=== PATIENT | female | born 1950 | race Caucasian/White ===

== ENCOUNTER 2017-04-23 09:05 | Inpatient (IN) ==
[2017-04-18 15:52] LABS: Basophils # (Auto) 0 K/mcL (0.0-0.3); Basophils % (Auto) 0.4 % (0.0-2.0); Eosinophils # (Auto) 0.4 K/mcL (0.0-0.7); Eosinophils % (Auto) 4.7 % (0.0-7.0); Lymphocytes # (Auto) 1.5 K/mcL (1.5-4.8); Lymphocytes % (Auto) 18.1 % (15.5-49.0); Mean Cell Volume 89.7 fL (80.0-100.0); Mean Corpuscular Hemoglobin 30.4 pg (26.0-34.0); Monocytes # (Auto) 0.6 K/mcL (0.1-0.9); Monocytes % (Auto) 6.8 % (1.0-12.0); Platelet Count 136 K/mcL (140-440); RBC 4.03 M/mcL (4.00-5.20); Red Cell Distribution Width 15.3 % (11.5-14.5)
[2017-04-18 16:05] LABS: Blood Urea Nitrogen 22 mg/dl (8-23)
[~2017-04-23 09:05] MED LIST: ceFAZolin 1 GM VIAL IV SCH
[2017-04-23] MEDS: levETIRAcetam 500 MG TABLET PO SCH ×2 (12:09→21:45)
[2017-04-23] MEDS: CARVEDILOL 12.5 MG TABLET PO SCH (12:09)
[2017-04-23 13:47] LABS: Appearance,Urine CLEAR; Bacteria,Urine 0 /hpf (0); Bilirubin,Urine NEG (NEG); Color,Urine YELLOW; Glucose,Urine (UA) 50 mg/dL (NEG); Leukocyte Esterase,Urine NEG /uL (NEG); Mucus,Urine FEW /hpf (0); Nitrate,Urine NEG (NEG); Protein,Urine >=500 mg/dL (NEG); Specific Gravity,Urine 1.017 (1.000-1.035); Urine Blood NEG mg/dL (<0.03); Urine Hyaline Cast 3 /lpf (0-2); Urine RBC 2 /hpf (0-1); Urine Squamous Epithelial Cell < 1 /hpf (0-4); Urine WBC 1 /hpf (0-4); Urobilinogen,Urine NEG (NEG)
[2017-04-23] MEDS ORDERED: IPRATROPIUM/ALBUTEROL 3 ML AMPUL.NEB NEB ONE (15:05)
[2017-04-23] MEDS ORDERED: MIDAZOLAM 2 MG/2 ML VIAL IV ONE (16:05)
[2017-04-23] MEDS ORDERED: ONDANSETRON 4 MG/2 ML VIAL IV ONE (16:05)
[2017-04-23] MEDS ORDERED: DEXAMETHASONE 10 MG/ML VIAL IV ONE (16:05)
[2017-04-23] MEDS ORDERED: fentaNYL 100 MCG/2 ML VIAL IV ONE (16:05)
[2017-04-23] MEDS ORDERED: KETAMINE 100 MG/ML ML IV ONE (16:05)
[2017-04-23] MEDS ORDERED: GLYCOPYRROLATE 0.2 MG/ML VIAL IV ONE (16:05)
[2017-04-23] MEDS ORDERED: LIDOCAINE HCL/PF 100 MG/5 ML SYRINGE IV ONE (16:05)
[2017-04-23] MEDS ORDERED: PROPOFOL 200 MG/20 ML VIAL IV ONE (16:05)
[2017-04-23] MEDS ORDERED: ePHEDrine 50 MG/ML AMPUL IV ONE (16:05)
[2017-04-23] MEDS ORDERED: BUPIVACAINE PF 0.5% 30 ML VIAL IJ ONE (16:46)
[2017-04-23] MEDS ORDERED: GENTAMICIN SULFATE 800 MG/20 ML VIAL IR ONE (16:46)
[2017-04-23] MEDS ORDERED: METHOCARBAMOL 1,000 MG/10 ML VIAL IV PRN (16:57)
[2017-04-23] MEDS ORDERED: IPRATROPIUM/ALBUTEROL 3 ML AMPUL.NEB NEB PRN (16:57)
[2017-04-23] MEDS ORDERED: LACTATED RINGERS 250 ML IV PRN (16:57)
[2017-04-23] MEDS ORDERED: BENZOCAINE/MENTHOL 1 LOZENGE PO PRN (16:57)
[2017-04-23] MEDS ORDERED: MEPERIDINE 25 MG/ML SYRINGE IV PRN (16:57)
[2017-04-23] MEDS ORDERED: diphenhydrAMINE 50 MG/ML VIAL IV PRN (16:57)
[2017-04-23] MEDS ORDERED: ONDANSETRON 4 MG/2 ML VIAL IV PRN (16:57)
[2017-04-23] MEDS ORDERED: FLUMAZENIL 0.1 MG/ML ML IV PRN (16:57)
[2017-04-23] MEDS ORDERED: NALOXONE HCL 0.4 MG/ML VIAL IV PRN (16:57)
[2017-04-23] MEDS ORDERED: LACTATED RINGERS 1,000 ML IV SCH (17:00)
[2017-04-23] MEDS ORDERED: FLEETS ADULT ENEMA PR PRN (17:05)
[2017-04-23] MEDS ORDERED: TRANEXAMIC ACID 1,000 MG/10 ML VIAL IV ONE (17:05)
--- NOTE | 2017-04-23 17:13 | Brief Operative Note ---
Date of procedure: 04/23/17 Pre-op diagnosis: PVD right Post-op diagnosis: same Procedure: R above knee amputattion Grafts/Implants: No Anesthesia: GETA Complications: none Surgeon: Trey Higgins Equipment Records Supervisor: Booker Zuniga Estimated blood loss (cc): 10 Tourniquet Time (Minutes): 18 Specimens Removed/Pathology: none sent Condition: stable Disposition: PACU
[2017-04-23] MEDS: fentaNYL 100 MCG/2 ML VIAL IV PRN ×3 (17:38→18:01)
[2017-04-23] MEDS: 0.9 % SODIUM CHLORIDE 1,000 ML IV SCH (19:00)
[2017-04-23] MEDS: oxyCODONE/APAP 5/325MG TABLET PO PRN (19:44)
[2017-04-23] MEDS ORDERED: levETIRAcetam 500 MG TABLET PO SCH (21:00)
[2017-04-23] MEDS ORDERED: INSULIN GLARGINE, HUMAN 1 UNIT/0.01 ML SQ SCH (21:00)
[2017-04-23] MEDS: SENNOSIDES 1 TABLET PO SCH (21:44)
[2017-04-23] MEDS: DOCUSATE SODIUM 100 MG CAPSULE PO SCH (21:45)
[2017-04-23] MEDS: PRAMIPEXOLE 0.25 MG TABLET PO SCH (21:46)
[2017-04-23] MEDS: LISINOPRIL 20 MG TABLET PO SCH (21:46)
[2017-04-23] MEDS: ATORVASTATIN 20 MG TABLET PO SCH (21:46)
[2017-04-23] MEDS: 0.9 % SODIUM CHLORIDE 10 ML SYRINGE IV SCH (21:52)
[2017-04-23] MEDS: clonazePAM 0.5 MG TABLET PO SCH (22:00)
[2017-04-23] MEDS: METHOCARBAMOL 500 MG TABLET PO SCH (22:00)
[2017-04-24] MEDS: oxyCODONE/APAP 5/325MG TABLET PO PRN ×5 (02:05→23:10)
[2017-04-24] MEDS: 0.9 % SODIUM CHLORIDE 10 ML SYRINGE IV SCH ×3 (05:41→21:22)
[2017-04-24] MEDS: 0.9 % SODIUM CHLORIDE 1,000 ML IV SCH (05:55)
[2017-04-24 06:52] LABS: Basophils # (Auto) 0 K/mcL (0.0-0.3); Basophils % (Auto) 0.2 % (0.0-2.0); Eosinophils # (Auto) 0 K/mcL (0.0-0.7); Eosinophils % (Auto) 0.2 % (0.0-7.0); Lymphocytes # (Auto) 0.9 K/mcL (1.5-4.8); Lymphocytes % (Auto) 7.6 % (15.5-49.0); Mean Cell Volume 89.9 fL (80.0-100.0); Mean Corpuscular HGB Conc 33.8 g/dL (31.0-36.0); Mean Corpuscular Hemoglobin 30.4 pg (26.0-34.0); Monocytes # (Auto) 0.8 K/mcL (0.1-0.9); Platelet Count 126 K/mcL (140-440); RBC 3.54 M/mcL (4.00-5.20); Red Cell Distribution Width 15.4 % (11.5-14.5)
--- NOTE | 2017-04-24 07:40 | Orthopedic Progress Note ---
Subjective Patient information: Note initiated : 04/24/17 at 7:38 am Service Date, if different from initiated Date: [] Patient: Tamica Tidwell 66 y/o F admitted on 04/23/17 for Right Leg Amputation Above The Knee. Chief Complaint: [] Principal diagnosis: Right AKA Interval history: Patient is doing well and her pain is under control. She will be seen by the hospitalist today and go home in the next couple of days. She denies any chest pain, numbness, weakness, or any other acute symptoms. Objective Vital signs: Vital Signs Temp Pulse Pulse Resp BP BP BP 04/24/17 07:26 79 04/24/17 03:06 97.6 F 79 20 122/62 04/23/17 23:54 96.6 F L 80 18 100/57 04/23/17 23:40 77 89/52 04/23/17 23:33 79 86/50 04/23/17 23:17 85 100/57 04/23/17 23:03 84 111/63 04/23/17 22:50 88 93/56 04/23/17 22:34 85 107/59 04/23/17 22:18 85 108/63 04/23/17 22:09 84 102/61 04/23/17 21:55 87 115/44 04/23/17 21:33 88 111/55 04/23/17 21:19 97.5 F 85 20 132/62 04/23/17 21:18 85 125/66 04/23/17 21:08 85 110/65 04/23/17 20:48 79 99/48 04/23/17 20:32 97.2 F 98 H 159/68 04/23/17 20:19 76 159/68 04/23/17 19:49 80 163/70 04/23/17 19:19 76 152/64 04/23/17 19:04 73 152/66 04/23/17 18:49 75 150/64 04/23/17 18:40 04/23/17 18:34 96.7 F L 74 20 129/71 04/23/17 18:15 73 16 155/58 04/23/17 18:05 70 16 198/80 04/23/17 18:00 69 16 208/87 04/23/17 17:53 98.2 F 69 16 193/80 07/25/17 17:48 98.5 F 71 16 186/72 04/23/17 17:43 98.6 F 72 16 188/77 04/23/17 17:38 98.1 F 74 14 162/64 04/23/17 17:33 98.3 F 75 14 197/83 04/23/17 17:28 98.4 F 79 14 183/77 04/23/17 17:23 98.1 F 82 10 L 123/60 04/23/17 15:22 65 16 04/23/17 12:00 97.9 F 22 169/82 04/23/17 09:33 97.8 F 22 178/81 Pulse Ox 04/24/17 07:26 94 04/24/17 03:06 97 04/23/17 23:54 98 04/23/17 23:40 04/23/17 23:33 04/23/17 23:17 04/23/17 23:03 04/23/17 22:50 04/23/17 22:34 04/23/17 22:18 04/23/17 22:09 04/23/17 21:55 04/23/17 21:33 04/23/17 21:19 95 04/23/17 21:18 04/23/17 21:08 04/23/17 20:48 04/23/17 20:32 04/23/17 20:19 96 04/23/17 19:49 99 04/23/17 19:19 99 04/23/17 19:04 96 04/23/17 18:49 100 04/23/17 18:40 100 04/23/17 18:34 100 04/23/17 18:15 98 04/23/17 18:05 95 04/23/17 18:00 100 04/23/17 17:53 100 04/23/17 17:48 100 04/23/17 17:43 100 04/23/17 17:38 100 04/23/17 17:33 100 04/23/17 17:28 100 04/23/17 17:23 100 04/23/17 15:22 04/23/17 12:00 91 04/23/17 09:33 90 Intake and Output 04/23/17 04/24/17 04/24/17 21:59 05:59 13:59 Intake Total 1100 / 1100 999 / 999 Output Total 4296 / 4296 31211 / 19192 Balance -3196 / -3196 -23850 / -89299 Intake: IV 100 / 100 819 / 819 Sodium Chloride 0.9% 1, 100 / 100 819 / 819 000 ml @ 75 mls/hr IV . [id number] GAVINO Rx#:[id number] Oral 180 / 180 IV - Manual Only 1000 / 1000 Output: Urine Catheter Amount 150 / 150 75 / 75 Hemodialysis UF 4136 / 4136 09083 / 88803 Estimated Blood Loss Other: Weight 111 lb 8 oz Intake & Output: Intake & Output 04/23/17 04/24/17 04/24/17 21:59 05:59 13:59 Intake Total 1100 / 1100 999 / 999 Output Total 4296 / 4296 58690 / 70095 Balance -3196 / -3196 -00479 / -59557 Weight 111 lb 8 oz Intake: IV 100 / 100 819 / 819 Sodium Chloride 0.9% 1, 100 / 100 819 / 819 000 ml @ 75 mls/hr IV . [id number] GAVINO Rx#:[id number] Oral 180 / 180 IV - Manual Only 1000 / 1000 Output: Urine Catheter Amount 150 / 150 75 / 75 Hemodialysis UF 4136 / 4136 38810 / 17926 Estimated Blood Loss Incision: Yes healing Incision clean and dry: Yes Dressing: Yes clean, Yes dry, Yes intact Weight bearing status: non - Labs CBC & BMP: 04/24/17 05:25 04/18/17 14:46 Labs: Orthopedic Labs 04/23/17 09:20 POC PT 12.8 POC INR 1.1 04/24/17 04/18/17 05:25 14:46 Hgb 10.7 L 12.3 Hct 31.8 L 36.2 Assessment and Plan (1) Above knee amputation of right lower extremity 1. Consult from hospitalists for kidney function and assess need for dialysis 2. Plan for discharge in next 1-2 days 3. PT for transfers while in the hospital Status: Acute
[2017-04-24] MEDS: CARVEDILOL 12.5 MG TABLET PO SCH ×4 (08:15→21:19)
[2017-04-24] MEDS: PRAMIPEXOLE 0.25 MG TABLET PO SCH ×3 (08:18→21:21)
[2017-04-24] MEDS: METOCLOPRAMIDE 10 MG TABLET PO SCH ×3 (08:18→21:19)
[2017-04-24] MEDS: ASPIRIN 81 MG TAB.CHEW PO SCH (08:21)
[2017-04-24] MEDS: PANTOPRAZOLE 40 MG TABLET PO SCH (08:21)
[2017-04-24] MEDS: CLOPIDOGREL 75 MG TABLET PO SCH (08:21)
[2017-04-24] MEDS: ISOSORBIDE MONONITRATE 30 MG TAB.XL.24H PO SCH ×2 (08:22→21:21)
[2017-04-24] MEDS: levETIRAcetam 500 MG TABLET PO SCH ×2 (08:22→21:20)
[2017-04-24] MEDS: amLODIPine 10 MG TABLET PO SCH (08:23)
[2017-04-24] MEDS: DOCUSATE SODIUM 100 MG CAPSULE PO SCH ×2 (08:23→21:22)
[2017-04-24] MEDS: TORSEMIDE 10 MG TABLET PO SCH (08:24)
[2017-04-24] MEDS: METHOCARBAMOL 500 MG TABLET PO SCH ×2 (08:35→21:27)
[2017-04-24] MEDS: INSULIN LISPRO 1 UNIT/0.01 ML UNIT SQ SCH ×3 (11:11→21:19)
--- NOTE | 2017-04-24 11:14 | Internal Medicine Consult Note ---
Medical - CN: HPI - Data of Consult Consult date: 04/24/17 Requesting Physician: Trey Higgins Primary Care Provider: Eilzabeth Mccann Family Provider: Sebas Laura - Consult Narrative Reason for consult: Medical Management/ DM/ CKD History of present illness: Ms. Tidwell is a 66 year old female with bilateral BKA, peripheral vascular disease, diabetes, coronary artery disease, congestive heart failure, was admitted to the hospital by orthopedics for right leg wound which was not responding to conservative management. The patient was treated with right above -knee amputation which was done yesterday. Medicine has been consulted for medical management of chronic medical issues. This morning the patient complained of some nausea and had vomiting 1 after which she was able to keep her food down. She had some pain in the right leg yesterday. However, her pain is much more tolerable today. She denies any other acute medical complaints. She denies any headache, dizziness, changes in vision, changes in hearing, difficulty in swallowing. No chest pain no shortness of breath, no cough, no abdominal pain. No constipation or diarrhea. She has some pain at the site of the surgery which is been adequately managed with current pain medications. The patient had her dialysis last night after surgery. CC: Trey Higgins All systems: reviewed and no additional remarkable complaints except as stated ( as per HPI) Medical - CN: PMH Medical history: Medical History (Last Updated 02/14/17 @ 14:27 by [email or web address]) Ankle sprain and strain (Acute) Volume overload (Acute) Dizziness (Acute) Follow up (Acute) Right ankle strain (Acute) Charcot's joint arthropathy in type 2 diabetes mellitus (Acute) Amput below knee, unilat (Acute) CAD (coronary artery disease), [place] coronary artery (Chronic) Tobacco abuse (Chronic) DM type 2 with diabetic peripheral neuropathy (Chronic) Anemia (Acute) Thrombocytopenia (Acute) PVD (peripheral vascular disease) (Chronic) Amputation foot, bilat (Acute) ESRD (end stage renal disease) on dialysis (Acute) Wound dehiscence, surgical (Acute) CHF LVEF 45 Surgical history: ming bka ritht AKA Family history: reviewed and not pertinent Social history: lives home, right handed, smoker, no other substance use. Medical - CN: Meds Home Medications Medication Instructions Recorded Confirmed Type Aspirin [Ecotrin] 81 mg PO DAILY 08/09/15 04/23/17 History Atorvastatin [Lipitor] 20 mg PO HS 08/09/15 04/18/17 History Carvedilol [Coreg] 25 mg PO BIDCC 08/09/15 04/18/17 History Metoclopramide HCl [Metozolv Odt] 5 mg PO TIDAC 08/09/15 04/18/17 History Pantoprazole [Protonix] 40 mg PO QAMAC 08/09/15 04/18/17 History Clopidogrel Bisulfate [Plavix] 75 mg PO DAILY 02/23/16 04/18/17 History Methocarbamol [Robaxin] 500 mg PO BID 02/23/16 04/23/17 History amLODIPine [Norvasc] 10 mg PO DAILY 02/23/16 04/18/17 History Pramipexole Di-HCl [Mirapex] 0.25 mg PO TID 90 Days 03/09/16 04/18/17 Rx Isosorbide Mononitrate [Isosorbide 30 mg PO BID 01/08/17 04/23/17 History Mononitrate ER] Torsemide [Demadex] 60 tablet PO DAILY 01/08/17 04/18/17 History levETIRAcetam [Keppra] 250 mg PO BID 01/09/17 04/18/17 History Insulin Glargine, Human [Lantus] 8 unit SQ HS unit 01/28/17 04/23/17 Rx Insulin Lispro [Humalog] See Protocol SQ ACHS #0 unit 01/28/17 04/23/17 Rx clonazePAM [Klonopin] 0.5 mg PO DAILY@1700 #10 tablet 01/28/17 04/23/17 Rx Lisinopril [Zestril] 20 mg PO HS 04/18/17 04/18/17 History Allergies Allergy/AdvReac Type Severity Reaction Status Date / Time codeine AdvReac Mild n/v Verified 04/18/17 14:15 hydrocodone AdvReac Mild n/v Verified 04/18/17 14:15 Medical - CN: Exam - Constitutional Vitals: Temp Pulse Resp BP Pulse Ox 98.0 F 79 16 132/72 94 04/24/17 08:00 04/24/17 07:26 04/24/17 08:00 04/24/17 08:00 04/24/17 08:00 Exam: GENERAL: The patient is a well-developed, well-nourished in no apparent distress. Is alert and oriented x3. VITAL SIGNS: Reviewed and as noted elsewhere. HEENT: Head is normocephalic and atraumatic. Extraocular muscles are intact. Pupils are equal, round, and reactive to light. Nares appeared normal. Mouth appears any without lesions. Mucous membranes are dry NECK: Normal to inspection, Supple, No lymphadenopathy or thyromegaly. LUNGS: Air entry equal on both sides, no wheezing, bibasilar crackles, left > right. HEART: Regular rate and rhythm normal, S1 and S2 heard, no Gallop, S3 or Rub Noted, No Gross murmur heard. ABDOMEN: Soft, nontender, and nondistended. Positive bowel sounds. No hepatosplenomegaly was noted. EXTREMITIES: No cyanosis, clubbing, rash, lesions or edema. NEUROLOGIC: Cranial nerves II through XII are grossly intact. Motor and Sensory System Grossly Intact PSYCHIATRIC: Normal affect, Normal Mood. Appropriate Behavior. SKIN: No ulceration or wounds noted, No jaundice, No rash noted. extremity: left BKA< right AKA Medical - CN: Result - Labs CBC & Chem 7: 04/24/17 05:25 04/18/17 14:46 Labs: Short CBC 04/24/17 Range/Units 05:25 WBC 12.5 H (4.5-11.0) K/mcL Hgb 10.7 L (12.0-15.0) g/dL Hct 31.8 L (36.0-48.0) % Plt Count 126 L (140-440) K/mcL Urine 04/23/17 Range/Units 11:13 Urine Color Yellow Urine Appearance Clear Urine pH 6.0 (5.0-9.0) Ur Specific [place] 1.017 (1.000-1.035) Urine Protein >=500 A (NEG) mg/dL Urine Glucose (UA) 50 A (NEG) mg/dL - EKG Data -: EKG Reviewed by Myself Medical - CN: A/P - Narrative A/P Narrative: A/P Right AKA: This was done for chronic nonhealing wound,management as per orthopedics. The patient may need wound care Post Op Pain: patient is presently on Percocet and morphine. Pain seems to be decently controlled for now. Management as brought to Diabetes-glucose level is well controlled, she is taking Lantus at bedtime. Will add sliding scale insulin. CAD/CHF: Stable No evidence of fluid overload, patient is on aspirin, Coreg, Plavix and lisinopril. Continue same. End-stage renal disease-this is managed by Dr. Valles, patient had dialysis yesterday, Anemia: Hb around 10, monitor for now likely post op. hyperlipidemia-continue statin. hypertension-continue amlodipine, Coreg and lisinopril He be stable for now. History of seizures-she is on Keppra 250 mg twice a day. Continue same. No recent seizures. Seizure precautions. DVT hep sq Diet Renal carb restricted Activity as per ortho FUll code
--- NOTE | 2017-04-24 11:18 | XRay Report ---
HISTORY: Reason for Exam:left basilar crackles FINDINGS: A thin linear band of scar or discoid atelectasis is present at the left costophrenic sulcus. The lungs are otherwise clear and well expanded. There is no pulmonary vascular congestion or pleural effusion. The heart size is normal. There is a dual lumen catheter placed in the right internal jugular vein into the right atrium. Postsurgical changes are seen in the right shoulder. IMPRESSION: Minor scarring or discoid atelectasis at the left lung base. The chest is otherwise normal. Interpreted and Authenticated by: Ross Hamm 04/24/17
[2017-04-24] MEDS: DEXTROSE 50% 50 ML VIAL IV PRN ×2 (11:20→17:26)
[2017-04-24] MEDS: ONDANSETRON 4 MG/2 ML VIAL IV PRN ×2 (15:09→19:35)
[2017-04-24] MEDS ORDERED: METOCLOPRAMIDE 10 MG/2 ML VIAL IV PRN (17:28)
[2017-04-24] MEDS ORDERED: DEXTROSE 50% 50 ML VIAL IV ONE (17:32)
[2017-04-24] MEDS: LISINOPRIL 20 MG TABLET PO SCH (21:20)
[2017-04-24] MEDS: clonazePAM 0.5 MG TABLET PO SCH (21:21)
[2017-04-24] MEDS: ATORVASTATIN 20 MG TABLET PO SCH (21:21)
[2017-04-24] MEDS: SENNOSIDES 1 TABLET PO SCH (21:22)
[2017-04-25] MEDS: oxyCODONE/APAP 5/325MG TABLET PO PRN ×2 (04:09→08:41)
[2017-04-25] MEDS: 0.9 % SODIUM CHLORIDE 10 ML SYRINGE IV SCH ×3 (05:07→21:55)
--- NOTE | 2017-04-25 06:54 | Orthopedic Progress Note ---
Subjective Patient information: Note initiated : 04/25/17 at 6:51 am Service Date, if different from initiated Date: [] Patient: Tamica Tidwell 66 y/o F admitted on 04/23/17 for Right Leg Amputation Above The Knee. Chief Complaint: [] Principal diagnosis: Right AKA Interval history: Patient is doing well and her pain is under control. She is planning on going home in the next couple of days and they are working on discharge planning now. Objective Vital signs: Vital Signs Temp Pulse Pulse Resp BP BP Pulse Ox 04/25/17 03:34 98.0 F 72 14 101/55 92 04/25/17 00:00 98.0 F 77 14 127/63 92 04/24/17 20:00 98.0 F 74 14 118/61 92 04/24/17 16:00 97.2 F 20 107/68 93 04/24/17 12:00 74 16 110/50 92 04/24/17 08:00 98.0 F 16 132/72 94 04/24/17 07:26 79 94 Intake and Output 04/24/17 04/25/17 04/25/17 21:59 05:59 13:59 Intake Total 50 / 50 510 / 510 Output Total 500 / 500 200 / 200 Balance -450 / -450 310 / 310 Intake: Oral 50 / 50 510 / 510 Output: Urine Catheter Amount 200 / 200 Emesis 500 / 500 Other: Meal Dinner Percent of Meal Consumed Refused Feeding Ability Independent # Voids 0 # Bowel Movements 0 Weight 113 lb Intake & Output: Intake & Output 04/24/17 04/25/17 04/25/17 21:59 05:59 13:59 Intake Total 50 / 50 510 / 510 Output Total 500 / 500 200 / 200 Balance -450 / -450 310 / 310 Weight 113 lb Intake: Oral 50 / 50 510 / 510 Output: Urine Catheter Amount 200 / 200 Emesis 500 / 500 Other: Meal Dinner Percent of Meal Consumed Refused Feeding Ability Independent # Voids 0 # Bowel Movements 0 Incision: Yes healing Incision clean and dry: Yes Dressing: Yes clean, Yes dry, Yes intact Weight bearing status: non - Labs CBC & BMP: 04/24/17 05:25 04/18/17 14:46 Labs: Orthopedic Labs 04/23/17 09:20 POC PT 12.8 POC INR 1.1 0704/24/17 04/18/17 06:02 05:25 14:46 Hgb Pending 10.7 L 12.3 Hct Pending 31.8 L 36.2 Assessment and Plan (1) Above knee amputation of right lower extremity 1. Continue medical management with hospitalists 2. Plan for discharge in next 1-2 days 3. PT for transfers and for hip extension from while in the hospital Status: Acute
[2017-04-25 07:06] LABS: Basophils # (Auto) 0 K/mcL (0.0-0.3); Basophils % (Auto) 0.3 % (0.0-2.0); Eosinophils # (Auto) 0.3 K/mcL (0.0-0.7); Eosinophils % (Auto) 3.5 % (0.0-7.0); Granulocytes % (Auto) 75.2 % (38.0-78.0); Lymphocytes # (Auto) 1.1 K/mcL (1.5-4.8); Mean Cell Volume 89.1 fL (80.0-100.0); Mean Corpuscular HGB Conc 34.2 g/dL (31.0-36.0); Mean Corpuscular Hemoglobin 30.4 pg (26.0-34.0); Monocytes # (Auto) 0.7 K/mcL (0.1-0.9); Platelet Count 113 K/mcL (140-440); RBC 3.01 M/mcL (4.00-5.20); Red Cell Distribution Width 15.4 % (11.5-14.5)
[2017-04-25 07:43] LABS: ALT/SGPT < 5 U/l (0-40); Albumin 3.2 gm/dL (3.2-5.2); Albumin/Globulin Ratio 1.6 (1.0-2.3); Alkaline Phosphatase 57 U/L (39-117); Bilirubin,Direct < 0.2 mg/dL (0.0-0.3); Blood Urea Nitrogen 42 mg/dl (8-23); Gamma Glutamyl Transpeptidase 6 U/L (5-36); Uric Acid 3.7 mg/dL (2.5-8.0)
[2017-04-25] MEDS: METOCLOPRAMIDE 10 MG TABLET PO SCH ×3 (07:55→17:29)
[2017-04-25] MEDS: PANTOPRAZOLE 40 MG TABLET PO SCH (07:55)
[2017-04-25] MEDS: CARVEDILOL 12.5 MG TABLET PO SCH ×2 (07:56→17:30)
[2017-04-25] MEDS: INSULIN LISPRO 1 UNIT/0.01 ML UNIT SQ SCH ×4 (07:57→21:54)
[2017-04-25] MEDS: levETIRAcetam 500 MG TABLET PO SCH ×2 (08:40→21:52)
[2017-04-25] MEDS: TORSEMIDE 10 MG TABLET PO SCH (08:42)
[2017-04-25] MEDS: DOCUSATE SODIUM 100 MG CAPSULE PO SCH ×2 (08:43→21:53)
[2017-04-25] MEDS: amLODIPine 10 MG TABLET PO SCH (08:43)
[2017-04-25] MEDS: CLOPIDOGREL 75 MG TABLET PO SCH (08:43)
[2017-04-25] MEDS: ISOSORBIDE MONONITRATE 30 MG TAB.XL.24H PO SCH ×2 (08:43→21:53)
[2017-04-25] MEDS: PRAMIPEXOLE 0.25 MG TABLET PO SCH ×3 (08:43→21:53)
[2017-04-25] MEDS: ASPIRIN 81 MG TAB.CHEW PO SCH (08:44)
[2017-04-25] MEDS: METHOCARBAMOL 500 MG TABLET PO SCH ×2 (08:51→21:52)
--- NOTE | 2017-04-25 12:11 | Internal Med Progress Note ---
Medical - PN: Subj Patient information: Note initiated : 04/25/17 at 12:10 pm Service Date, if different from initiated Date: [] Patient: Tamica Tidwell a 66 y/o F admitted on 04/23/17 for Right Leg Amputation Above The Knee. Chief Complaint: [] Interval history: Ms. Tidwell is a 66 year old female with bilateral BKA, peripheral vascular disease, diabetes, coronary artery disease, congestive heart failure, was admitted to the hospital by orthopedics for right leg wound which was not responding to conservative management. The patient was treated with right above -knee amputation which was done yesterday. Medicine has been consulted for medical management of chronic medical issues. This morning the patient complained of some nausea and had vomiting 1 after which she was able to keep her food down. She had some pain in the right leg yesterday. However, her pain is much more tolerable today. She denies any other acute medical complaints. She denies any headache, dizziness, changes in vision, changes in hearing, difficulty in swallowing. No chest pain no shortness of breath, no cough, no abdominal pain. No constipation or diarrhea. She has some pain at the site of the surgery which is been adequately managed with current pain medications. The patient had her dialysis last night after surgery. april 25: patient seen and examined this morning lying comfortably in bed. Denies any acute complaints. She had some episodes of nausea and vomiting yesterday, which resolved with medications. She denies any nausea, vomiting this morning. There was some low glucose values noted yesterday, which responded to dextrose. The patient's Lantus medication has been stopped. She is just on sliding scale insulin for now. Her glucose value is in the normal range. On talking with the patient, it seems that she will be ready for discharge this Saturday. Her labs are reviewed. No other significant concern. She should be dialyzed today. Pertinent ROS: Denies headache, dizziness Denies chest pain, palpitations Denies cough or shortness of breath Denies abdominal pain, nausea or vomiting. - Constitutional Vitals: Vital Signs Temp Pulse Resp BP Pulse Ox 98.3 F 78 16 110/62 93 04/25/17 11:14 04/25/17 11:14 04/25/17 11:14 04/25/17 11:14 04/25/17 11:14 Period Temp Pulse Resp BP Sys/Pichardo Pulse Ox Last 24 Hr 97.2 F-98.3 F 71-78 14-20 101-127/44-68 92-95 Intake and Output 04/24/17 04/25/17 04/25/17 21:59 05:59 13:59 Intake Total 50 / 50 510 / 510 240 / 240 Output Total 500 / 500 200 / 200 Balance -450 / -450 310 / 310 240 / 240 Weight 113 lb Intake & Output: Intake & Output 04/24/17 04/25/17 04/25/17 21:59 05:59 13:59 Intake Total 50 / 50 510 / 510 240 / 240 Output Total 500 / 500 200 / 200 Balance -450 / -450 310 / 310 240 / 240 Weight 113 lb Intake: Oral 50 / 50 510 / 510 240 / 240 Output: Urine Catheter Amount 200 / 200 Emesis 500 / 500 Other: Meal Dinner Breakfast Percent of Meal Consumed Refused 25% Feeding Ability Independent Independent # Voids 0 # Bowel Movements 0 Exam: Constitutional; Afebrile, cooperative, alert, not in distress. Eyes- No icterus, , No periorbital swelling Ears- Ext ear normal, hearing normal to conversation. Neck- Midline trachea, supple Respiratory system: Air Entry equal on both sides, No crackles or wheezing, no rhonchi. CVS- Rate rhythm regular, S1,S2 heard, no gallop, no rub. Abdomen- Soft nontender abdomen, no organomegaly, no tenderness, no guarding or rigidity, [employer]- AOOx3, moving all extremities, no gross focal deficit noted. Extremities: ming amputations Medical - PN: Obj Da - Labs CBC & Chem 7: 04/25/17 06:02 04/25/17 06:02 Labs: Abnormal Lab Results 04/25/17 04/25/17 04/24/17 06:02 06:02 05:25 WBC 12.5 H RBC 3.01 L 3.54 L Hgb 9.2 L 10.7 L Hct 26.9 L 31.8 L POC Hct RDW 15.4 H 15.4 H Plt Count 113 L 126 L Gran % 86.0 H Lymph % (Auto) 13.0 L 7.6 L Gran # 10.8 H Lymph # (Auto) 1.1 L 0.9 L Chloride 94 L Carbon Dioxide 31 H POC BUN BUN 42 H Creatinine 2.5 H POC Creatinine POC Glucose Calcium 8.5 L POC WB Ioniz Calcium Phosphorus 5.0 H Total Protein 5.2 L Globulin 2.0 L Triglycerides 165 H Urine Protein Urine Glucose (UA) Urine RBC Hyaline Casts 04/23/17 04/23/17 11:13 09:24 WBC RBC Hgb Hct POC Hct 33.0 L RDW Plt Count Gran % Lymph % (Auto) Gran # Lymph # (Auto) Chloride Carbon Dioxide POC BUN 48 H BUN Creatinine POC Creatinine 3.3 H POC Glucose 142 H Calcium POC WB Ioniz Calcium 1.11 L Phosphorus Total Protein Globulin Triglycerides Urine Protein >=500 A Urine Glucose (UA) 50 A Urine RBC 2 H Hyaline Casts 3 H Meds: Medications Amlodipine Besylate (Norvasc) 10 mg PO DAILY [facility] Last Admin: 04/25/17 08:43 Dose: 10 mg Aspirin (Aspirin) 81 mg PO DAILY [facility] Last Admin: 04/25/17 08:44 Dose: 81 mg Atorvastatin Calcium (Lipitor) 20 mg PO [facility] Last Admin: 04/24/17 21:21 Dose: 20 mg Carvedilol (Coreg) 25 mg PO [facility] Last Admin: 04/25/17 07:56 Dose: 25 mg Clonazepam (Klonopin) 0.5 mg PO DAILY@1700 [facility] Last Admin: 04/24/17 21:21 Dose: 0.5 mg Clopidogrel Bisulfate (Plavix) 75 mg PO DAILY [facility] Last Admin: 04/25/17 08:43 Dose: 75 mg Dextrose (Dextrose 50%) 0 ml IV UD PRN PRN Reason: Hypoglycemia Last Admin: 04/24/17 17:26 Dose: 25 ml Diagnostic Test (Pha) (Accu-Chek) 1 each FS [facility] Last Admin: 04/25/17 11:18 Dose: 1 each Docusate Sodium (Colace) 100 mg PO BID [facility] Last Admin: 04/25/17 08:43 Dose: 100 mg Insulin Human Lispro (Humalog) 0 unit SQ [facility] PRN Reason: Protocol Last Admin: 04/25/17 11:23 Dose: Not Given Isosorbide Mononitrate (Imdur) 30 mg PO BID [facility] Last Admin: 04/25/17 08:43 Dose: 30 mg Levetiracetam (Keppra) 250 mg PO BID [facility] Last Admin: 04/25/17 08:40 Dose: 250 mg Lisinopril (Zestril) 20 mg PO HS [facility] Last Admin: 04/24/17 21:20 Dose: 20 mg Methocarbamol (Robaxin) 500 mg PO BID [facility] Last Admin: 04/25/17 08:51 Dose: 500 mg Metoclopramide HCl (Reglan) 5 mg PO TIDAC [facility] Last Admin: 04/25/17 11:42 Dose: 5 mg Metoclopramide HCl (Reglan) 5 mg IV Q6HP PRN PRN Reason: Nausea Morphine Sulfate (Morphine) 0 mg IV Q1HP PRN PRN Reason: Pain Last Admin: 04/24/17 13:48 Dose: 4 mg Ondansetron HCl (Zofran) 4 mg IV Q4HP PRN PRN Reason: Nausea And Vomiting Last Admin: 04/24/17 19:35 Dose: 4 mg Oxycodone/Acetaminophen (Percocet 5-325 Mg) 0 tab PO Q4HP PRN PRN Reason: Pain Last Admin: 04/25/17 08:41 Dose: 1 tab Pantoprazole Sodium (Protonix) 40 mg PO QAMAC [facility] Last Admin: 04/25/17 07:55 Dose: 40 mg Pramipexole Dihydrochloride (Mirapex) 0.25 mg PO TID [facility] Last Admin: 04/25/17 08:43 Dose: 0.25 mg Senna (Senokot) 2 tab PO HS [facility] Last Admin: 04/24/17 21:22 Dose: Not Given Sodium Biphosphate/Sodium Phosphate (Fleets Adult) 1 dose MT Q3-4DAYS PRN PRN Reason: Constipation Sodium Chloride (Saline Flush) 10 ml IV Q8 [facility] Last Admin: 04/25/17 05:07 Dose: 10 ml Torsemide (Demadex) 60 mg PO DAILY [facility] Last Admin: 04/25/17 08:42 Dose: 60 mg Medical - PN: A/P - Time Spent With Patient Total time spent is greater than 50% in coordination of care (as documented) at patient's floor/unit and/or counseling patient: - Narrative A/P Narrative: A/P Right AKA: This was done for chronic nonhealing wound,management as per orthopedics. The patient may need wound care Post Op Pain: patient is presently on Percocet and morphine. Pain seems to be decently controlled for now. she denies any pain to me this AM. Diabetes-glucose level is well controlled, glucose low yesterday, lantus stopped , only on sliding scale for now. Hypoglycemia: Likely due to post op nausea and vomiting leading to poor intake. monitor CAD/CHF: Stable No evidence of fluid overload, patient is on aspirin, Coreg, Plavix and lisinopril. Continue same. End-stage renal disease-this is managed by Dr. Valles, patient had dialysis hopefully today. Anemia: Hb slight drop to 9.2, nenita. hyperlipidemia-continue statin. hypertension-continue amlodipine, Coreg and lisinopril He be stable for now. History of seizures-she is on Keppra 250 mg twice a day. Continue same. No recent seizures. Seizure precautions. DVT hep sq Diet Renal carb restricted Activity as per ortho FUll code Medical - PN: Qual - Stroke Symptom Onset Unknown: No - VTE Deep Vein Thrombosis/Pulmonary Embolism Present on Admission: No
--- NOTE | 2017-04-25 13:24 | Surgical Pathology Report ---
HISTOLOGY SPECIMEN MICROSCOPIC DIAGNOSIS EXTREMITY, RIGHT LOWER LIMB, ABOVE THE KNEE AMPUTATION: -- FINDINGS CONSISTENT WITH PRIOR BELOW THE KNEE AMPUTATION. -- GANGRENOUS ULCER, DISTAL STUMP. -- POPLITEAL ARTERY COMPLETELY OCCLUDED BY ORGANIZED THROMBUS AND WITH CALCIFIC ATHEROSCLEROSIS. -- SKIN AND SOFT TISSUE AND FEMORAL BONE MARGINS VIABLE. (DMT:vanessa) CLINICAL HISTORY Chronic ulcer. GROSS DESCRIPTION Received fresh, labeled with the patient information, is an above knee amputation of a leg stump. The distal portion is well healed consistent with remote previous below the knee amputation. Overall, the specimen measures 9.0 x 13.5 x 23.7 cm. The closest point of skin on the anterior surface to the femoral resection is 2.5 cm of skin to the femoral resection margin on the posterior aspect is 2.7 cm. Centered 9.0 cm from the distal end of the specimen is a necrotic appearing apparent ulcer which measures 2.5 x 4.2 cm. The popliteal artery is grossly totally occluded and very close to the resection margin. There are also areas of calcification within the wall of the artery. Sections submitted: A1 - marrow from femoral resection margin; A2 - popliteal artery following decalcification; A3 - section through wound; A4 - skin at resection margin from proximal anterior end and closet to wound (inked black). (RAD:vanessa) Electronically Signed by: Chetan Gonzales M.D.
[2017-04-25] MEDS: HEPARIN 5,000 UNIT/ML VIAL SQ SCH ×2 (13:37→22:06)
[2017-04-25] MEDS: ONDANSETRON 4 MG/2 ML VIAL IV PRN (15:16)
[2017-04-25] MEDS: clonazePAM 0.5 MG TABLET PO SCH (17:29)
[2017-04-25] MEDS: SENNOSIDES 1 TABLET PO SCH (21:53)
[2017-04-25] MEDS: ATORVASTATIN 20 MG TABLET PO SCH (21:53)
[2017-04-25] MEDS: LISINOPRIL 20 MG TABLET PO SCH (21:54)
[2017-04-26] MEDS: 0.9 % SODIUM CHLORIDE 10 ML SYRINGE IV SCH ×3 (06:15→21:25)
[2017-04-26 07:02] LABS: Basophils # (Auto) 0 K/mcL (0.0-0.3); Basophils % (Auto) 0.3 % (0.0-2.0); Eosinophils # (Auto) 0.2 K/mcL (0.0-0.7); Eosinophils % (Auto) 2.3 % (0.0-7.0); Granulocytes % (Auto) 80.9 % (38.0-78.0); Lymphocytes # (Auto) 0.7 K/mcL (1.5-4.8); Lymphocytes % (Auto) 8.1 % (15.5-49.0); Mean Cell Volume 89.7 fL (80.0-100.0); Mean Corpuscular HGB Conc 34.2 g/dL (31.0-36.0); Mean Corpuscular Hemoglobin 30.6 pg (26.0-34.0); Monocytes # (Auto) 0.7 K/mcL (0.1-0.9); Monocytes % (Auto) 8.4 % (1.0-12.0); Platelet Count 109 K/mcL (140-440); RBC 2.94 M/mcL (4.00-5.20); Red Cell Distribution Width 15.3 % (11.5-14.5)
[2017-04-26 07:19] LABS: ALT/SGPT < 5 U/l (0-40); Albumin/Globulin Ratio 1.3 (1.0-2.3); Alkaline Phosphatase 64 U/L (39-117); Bilirubin,Direct < 0.2 mg/dL (0.0-0.3); Blood Urea Nitrogen 14 mg/dl (8-23); Gamma Glutamyl Transpeptidase 7 U/L (5-36); Magnesium 1.9 mg/dL (1.6-2.5); Uric Acid 2.1 mg/dL (2.5-8.0)
[2017-04-26] MEDS: INSULIN LISPRO 1 UNIT/0.01 ML UNIT SQ SCH ×4 (07:41→21:25)
--- NOTE | 2017-04-26 07:43 | Discharge Summary ---
Providers - Providers Patient information: Note initiated : 04/26/17 at 7:41 am Service Date, if different from initiated Date: [] Patient: Tamica Tidwell 66 y/o F admitted on 04/23/17 for Right Leg Amputation Above The Knee. Chief Complaint: [] Discharge date: 04/26/17 Hospitalization Hospital course: Patient was admitted after above the knee amputation of the RLE for PT and pain management and dialysis. She was discharged on POD 3 with no complications. She will follow up next week for a wound check. Discharge diagnosis: right above the knee amputation Ortho Discharge Plan - General - Patient Instructions Diet: Regular Diet Activity: activity as tolerated Dressing Care: May shower in 2 days - Problem Maintenance (1) Above knee amputation of right lower extremity Status: Acute - Follow Up Plan Follow Up Appointments: Booker Zuniga PA-C [Physician [facility]] - 05/03/17 Disposition: Home, Self-Care Prognosis: Good Rehab Potential: Fair Overall status at discharge: patient is progressing back to baseline Pending Studies Resuscitation Status Full Code Diet Renal/Consistent Carbohydrate Diet Start SatApr 24 Lunch Amlodipine Besylate (Norvasc) 10 mg PO DAILY [facility] Last Admin: 04/25/17 08:43 Dose: 10 mg Admin: 04/24/17 08:23 Dose: 10 mg Aspirin (Aspirin) 81 mg PO DAILY [facility] Last Admin: 04/25/17 08:44 Dose: 81 mg Admin: 04/24/17 08:21 Dose: 81 mg Atorvastatin Calcium (Lipitor) 20 mg PO [facility] Last Admin: 04/25/17 21:53 Dose: 20 mg Admin: 04/24/17 21:21 Dose: 20 mg Admin: 04/23/17 21:46 Dose: 20 mg [facility]) [facility] Last Admin: 04/25/17 17:30 Dose: Admin: 04/25/17 07:56 Dose: 25 mg Admin: 04/24/17 21:19 Dose: 25 mg Admin: 04/24/17 08:18 Dose: 25 mg Admin: 04/24/17 08:15 Dose: Clonazepam (Klonopin) 0.5 mg PO DAILY@1700 [facility] Last Admin: 04/25/17 17:29 Dose: 0.5 mg Admin: 04/24/17 21:21 Dose: 0.5 mg Admin: 04/23/17 22:00 Dose: 0.5 mg Clopidogrel Bisulfate (Plavix) 75 mg PO DAILY [facility] Last Admin: 04/25/17 08:43 Dose: 75 mg Admin: 04/24/17 08:21 Dose: 75 mg Dextrose (Dextrose 50%) 0 ml IV UD PRN PRN Reason: Hypoglycemia Last Admin: 04/24/17 17:26 Dose: 25 ml Admin: 04/24/17 11:20 Dose: 50 ml Diagnostic Test (Pha) (Accu-Chek) 1 each FS ACHS [facility] Last Admin: 04/25/17 21:54 Dose: 1 each Admin: 04/25/17 17:27 Dose: 1 each Admin: 04/25/17 11:18 Dose: 1 each Admin: 04/25/17 07:56 Dose: 1 each Admin: 04/24/17 21:06 Dose: 1 each Admin: 04/24/17 18:30 Dose: 1 each Admin: 04/24/17 17:30 Dose: 1 each Admin: 04/24/17 17:23 Dose: 1 each Admin: 04/24/17 12:11 Dose: 1 each Admin: 04/24/17 11:11 Dose: 1 each Docusate Sodium (Colace) 100 mg PO BID [facility] Last Admin: 04/25/17 21:53 Dose: 100 mg Admin: 04/25/17 08:43 Dose: 100 mg Admin: 04/24/17 21:22 Dose: 100 mg Admin: 04/24/17 08:23 Dose: 100 mg Admin: 04/23/17 21:45 Dose: 100 mg Heparin Sodium (Porcine) (Heparin) 5,000 unit SQ Q12 [facility] Last Admin: 04/25/17 22:06 Dose: Admin: 04/25/17 13:37 Dose: 5,000 unit Insulin Human Lispro (Humalog) 0 unit SQ ACHS [facility] PRN Reason: Protocol Last Admin: 04/25/17 21:54 Dose: Not Given Admin: 04/25/17 17:28 Dose: Not Given Admin: 04/25/17 11:23 Dose: Not Given Admin: 04/25/17 07:57 Dose: Not Given Admin: 04/24/17 21:19 Dose: Not Given Admin: 04/24/17 17:23 Dose: Not Given Admin: 04/24/17 11:11 Dose: Not Given Isosorbide Mononitrate (Imdur) 30 mg PO BID [facility] Last Admin: 04/25/17 21:53 Dose: 30 mg Admin: 04/25/17 08:43 Dose: 30 mg Admin: 04/24/17 21:21 Dose: 30 mg Admin: 04/24/17 08:22 Dose: 30 mg Levetiracetam (Keppra) 250 mg PO BID [facility] Last Admin: 04/25/17 21:52 Dose: 250 mg Admin: 04/25/17 08:40 Dose: 250 mg Admin: 04/24/17 21:20 Dose: 250 mg Admin: 04/24/17 08:22 Dose: 250 mg Admin: 04/23/17 21:45 Dose: 250 mg Admin: 04/23/17 12:09 Dose: 250 mg Lisinopril (Zestril) 20 mg PO [facility] Last Admin: 04/25/17 21:54 Dose: Not Given Admin: 04/24/17 21:20 Dose: 20 mg Admin: 04/23/17 21:46 Dose: 20 mg Methocarbamol (Robaxin) 500 mg PO BID [facility] Last Admin: 04/25/17 21:52 Dose: 500 mg Admin: 04/25/17 08:51 Dose: 500 mg Admin: 04/24/17 21:27 Dose: 500 mg Admin: 04/24/17 08:35 Dose: 500 mg Admin: 04/23/17 22:00 Dose: 500 mg Metoclopramide HCl (Reglan) 5 mg PO TIDAC [facility] Last Admin: 04/25/17 17:29 Dose: 5 mg Admin: 04/25/17 11:42 Dose: 5 mg Admin: 04/25/17 07:55 Dose: 5 mg Admin: 04/24/17 21:19 Dose: 5 mg Admin: 04/24/17 11:12 Dose: 5 mg Admin: 04/24/17 08:18 Dose: 5 mg Morphine Sulfate (Morphine) 0 mg IV Q1HP PRN PRN Reason: Pain Last Admin: 04/25/17 16:16 Dose: 2 mg Admin: 04/24/17 13:48 Dose: 4 mg Admin: 04/24/17 08:23 Dose: 2 mg Admin: 04/23/17 21:59 Dose: 4 mg Admin: 04/23/17 19:44 Dose: 4 mg Admin: 04/23/17 18:57 Dose: 4 mg Ondansetron HCl (Zofran) 4 mg IV Q4HP PRN PRN Reason: Nausea And Vomiting Last Admin: 04/25/17 15:16 Dose: 4 mg Admin: 04/24/17 19:35 Dose: 4 mg Admin: 04/24/17 15:09 Dose: 4 mg Oxycodone/Acetaminophen (Percocet 5-325 Mg) 0 tab PO Q4HP PRN PRN Reason: Pain Last Admin: 04/25/17 08:41 Dose: 1 tab Admin: 04/25/17 04:09 Dose: 2 tab Admin: 04/24/17 23:10 Dose: 2 tab Admin: 04/24/17 15:03 Dose: 2 tab Admin: 04/24/17 11:12 Dose: 2 tab Admin: 04/24/17 05:59 Dose: 2 tab Admin: 04/24/17 02:05 Dose: 2 tab Admin: 04/23/17 19:44 Dose: 2 tab Pantoprazole Sodium (Protonix) 40 mg PO QAMAC [facility] Last Admin: 04/25/17 07:55 Dose: 40 mg Admin: 04/24/17 08:21 Dose: 40 mg Pramipexole Dihydrochloride (Mirapex) 0.25 mg PO TID [facility] Last Admin: 04/25/17 21:53 Dose: 0.25 mg Admin: 04/25/17 16:01 Dose: 0.25 mg Admin: 04/25/17 08:43 Dose: 0.25 mg Admin: 04/24/17 21:21 Dose: 0.25 mg Admin: 04/24/17 13:53 Dose: 0.25 mg Admin: 04/24/17 08:18 Dose: 0.25 mg Admin: 04/23/17 21:46 Dose: 0.25 mg Senna (Senokot) 2 tab PO HS [facility] Last Admin: 04/25/17 21:53 Dose: 2 tab Admin: 04/24/17 21:22 Dose: Not Given Admin: 04/23/17 21:44 Dose: 2 tab Sodium Chloride (Saline Flush) 10 ml IV Q8 [facility] Last Admin: 04/26/17 06:15 Dose: 10 ml Admin: 04/25/17 21:55 Dose: 10 ml Admin: 04/25/17 13:44 Dose: Not Given Admin: 04/25/17 05:07 Dose: 10 ml Admin: 04/24/17 21:22 Dose: 10 ml Admin: 04/24/17 13:48 Dose: 10 ml Admin: 04/24/17 05:41 Dose: Not Given Admin: 04/23/17 21:52 Dose: Not Given Torsemide (Demadex) 60 mg PO DAILY [facility] Last Admin: 04/25/17 08:42 Dose: 60 mg Admin: 04/24/17 08:24 Dose: 60 mg Shift Summary 04/26/17 05:21 Shift Summary by Zena Reyna Had Dialysis until after 2100 last night. Very drowsy afterwards. Took HS meds, held lisinipril r/t low BP through dialysis and after. VSS otherwise. Dressing to right stump, CDI. LS had expiratory wheezing. BG at HS 117, no coverage given. Alert and oriented. Has denied need for pain meds through night. Up to chair via sliding board. Repositioned freq throughout night. No void since dialysis. Initialized on 04/26/17 05:21 - END OF NOTE
[2017-04-26] MEDS: TORSEMIDE 10 MG TABLET PO SCH (08:08)
[2017-04-26] MEDS: CLOPIDOGREL 75 MG TABLET PO SCH (08:09)
[2017-04-26] MEDS: CARVEDILOL 12.5 MG TABLET PO SCH ×2 (08:09→17:41)
[2017-04-26] MEDS: DOCUSATE SODIUM 100 MG CAPSULE PO SCH ×2 (08:09→21:24)
[2017-04-26] MEDS: PANTOPRAZOLE 40 MG TABLET PO SCH (08:09)
[2017-04-26] MEDS: levETIRAcetam 500 MG TABLET PO SCH ×2 (08:10→21:23)
[2017-04-26] MEDS: METOCLOPRAMIDE 10 MG TABLET PO SCH ×3 (08:11→17:41)
[2017-04-26] MEDS: amLODIPine 10 MG TABLET PO SCH (08:11)
[2017-04-26] MEDS: PRAMIPEXOLE 0.25 MG TABLET PO SCH ×3 (08:12→21:24)
[2017-04-26] MEDS: ASPIRIN 81 MG TAB.CHEW PO SCH (08:12)
[2017-04-26] MEDS: ISOSORBIDE MONONITRATE 30 MG TAB.XL.24H PO SCH ×2 (08:12→21:22)
[2017-04-26] MEDS: oxyCODONE/APAP 5/325MG TABLET PO PRN ×2 (08:12→21:22)
[2017-04-26] MEDS: HEPARIN 5,000 UNIT/ML VIAL SQ SCH ×2 (08:13→21:22)
--- NOTE | 2017-04-26 08:23 | Nephrology Progress Note ---
Subjective Patient information: Note initiated : 04/26/17 at 8:19 am Service Date, if different from initiated Date: [] Patient: Tamica Tidwell 66 y/o F admitted on 04/23/17 for Right Leg Amputation Above The Knee. Chief Complaint: [Patient was seen on 04/25/2017 at 1.30. She is in good spirits. Denies any complaints. She has been loosing weight as an outpatient. She is scheduled to have dialysis today and will receive IDPN] Principal diagnosis: Right AKA Objective - Vital Signs Vital signs: Vital Signs Temp Pulse Pulse Resp BP BP Pulse Ox 04/26/17 07:29 99.0 F H 82 18 134/68 90 04/26/17 03:37 97.8 F 78 18 124/60 90 04/26/17 00:00 96.9 F L 76 16 92/57 90 04/25/17 21:02 80 102/55 04/25/17 20:44 80 103/54 04/25/17 20:29 82 121/53 04/25/17 20:14 78 127/57 04/25/17 20:08 86 86/47 04/25/17 20:00 97.5 F 68 18 100/41 94 04/25/17 19:45 69 100/41 04/25/17 19:29 75 104/47 04/25/17 19:14 82 101/52 04/25/17 18:59 72 108/42 04/25/17 18:44 74 109/44 04/25/17 18:30 92 H 109/83 04/25/17 18:15 68 04/25/17 18:14 72 119/51 04/25/17 18:00 75 114/54 04/25/17 17:46 85 101/49 04/25/17 17:37 68 122/57 04/25/17 17:16 69 132/59 04/25/17 16:00 98.1 F 66 20 118/60 92 04/25/17 14:00 78 04/25/17 11:14 98.3 F 78 16 110/62 93 04/25/17 10:00 71 04/25/17 09:42 71 18 Intake and Output 04/25/17 04/26/17 04/26/17 21:59 05:59 13:59 Intake Total 200 / 200 300 / 300 Output Total 35102 / 95636 Balance -90067 / -57820 300 / 300 Intake: Oral 200 / 200 300 / 300 Output: Urine Catheter Amount 200 / 200 Void Amount 0 / 0 Emesis 350 / 350 Hemodialysis UF 41483 / 42023 Other: Meal Lunch Percent of Meal Consumed 25% Feeding Ability Independent # Voids 0 Weight 109 lb Intake & Output: Intake & Output 04/25/17 04/26/17 04/26/17 21:59 05:59 13:59 Intake Total 200 / 200 300 / 300 Output Total 20014 / 09583 Balance -39719 / -61363 300 / 300 Weight 109 lb Intake: Oral 200 / 200 300 / 300 Output: Urine Catheter Amount 200 / 200 Void Amount 0 / 0 Emesis 350 / 350 Hemodialysis UF 72184 / [id number] Other: Meal Lunch Percent of Meal Consumed 25% Feeding Ability Independent # Voids 0 - General Appearance General appearance: cachectic EENT: ATNC Neck: no JVD Respiratory: no kyphosis Cardiology: no murmurs, no edema Gastrointestinal: normoactive bowel sounds Neurologic: no focal deficit - Lab 04/26/17 05:50 04/26/17 05:50 Most recent lab results Calcium 8.1 mg/dl (8.6-10.4) L 04/26/17 05:50 Phosphorus 3.2 mg/dL (2.7-4.5) 04/26/17 05:50 Magnesium 1.9 mg/dL (1.6-2.5) 04/26/17 05:50 Assessment and Plan (1) ESRD (end stage renal disease) on dialysis Status: Acute Comment: 1. ESRD. She is scheduled to have dialysis today (2016). Will give her IDPN and will take out about 2 liters of fluid. 2. S/P AKA.
[2017-04-26] MEDS: METHOCARBAMOL 500 MG TABLET PO SCH (10:39)
--- NOTE | 2017-04-26 12:09 | Internal Med Progress Note ---
Medical - PN: Subj Patient information: Note initiated : 04/26/17 at 12:09 pm Service Date, if different from initiated Date: [] Patient: Tamica Tidwell 66 y/o F admitted on 04/23/17 for Right Leg Amputation Above The Knee. Chief Complaint: [] Interval history: April 24, 2017: Consult note: Ms. Tidwell is a 66 year old female with bilateral BKA, peripheral vascular disease, diabetes, coronary artery disease, congestive heart failure, was admitted to the hospital by orthopedics for right leg wound which was not responding to conservative management. The patient was treated with right above -knee amputation which was done yesterday. Medicine has been consulted for medical management of chronic medical issues. This morning the patient complained of some nausea and had vomiting 1 after which she was able to keep her food down. She had some pain in the right leg yesterday. However, her pain is much more tolerable today. She denies any other acute medical complaints. She denies any headache, dizziness, changes in vision, changes in hearing, difficulty in swallowing. No chest pain no shortness of breath, no cough, no abdominal pain. No constipation or diarrhea. She has some pain at the site of the surgery which is been adequately managed with current pain medications. The patient had her dialysis last night after surgery. april 25: patient seen and examined this morning lying comfortably in bed. Denies any acute complaints. She had some episodes of nausea and vomiting yesterday, which resolved with medications. She denies any nausea, vomiting this morning. There was some low glucose values noted yesterday, which responded to dextrose. The patient's Lantus medication has been stopped. She is just on sliding scale insulin for now. Her glucose value is in the normal range. On talking with the patient, it seems that she will be ready for discharge this Saturday. Her labs are reviewed. No other significant concern. She should be dialyzed today. April 26: -This morning, the patient had no complaints. She is quite insistent about going home, rather than going back to rehab. She says she has spent too much time in rehab. However, physical therapy notes that the patient has very poor activity tolerance, weakness, and difficulties with stability, making transfers unsafe. She required maximum assistance today, and skilled rehab is highly recommended. -This afternoon, nursing staff noted that the patient seemed to be less responsive than her normal. On interview, she is just a bit drift E, and frequently seems to fall asleep. She answers most questions appropriately. She denies fever chills, headaches or dizziness, chest pain or shortness of breath, GI or symptoms. She denied significant pain in her legs, however when I unwrapped her right AKA stump, she had quite a bit of discomfort. Incisions are healing well, and are clean and dry without erythema. Left stump has a few sutures remaining, but does not show any signs of infection. - Constitutional Vitals: Vital Signs Temp Pulse Resp BP Pulse Ox 98.3 F 74 20 84/50 94 04/26/17 10:39 04/26/17 10:39 04/26/17 10:39 04/26/17 10:39 04/26/17 10:39 Period Temp Pulse Resp BP Sys/Pichardo Pulse Ox Last 24 Hr 96.9 F-99.0 F 66-92 16-20 84-134/41-83 90-94 Intake and Output 04/25/17 04/26/17 04/26/17 21:59 05:59 13:59 Intake Total 200 / 200 300 / 300 Output Total 86584 / 31291 Balance -60517 / -49112 300 / 300 Weight 109 lb Intake & Output: Intake & Output 04/25/17 04/26/17 04/26/17 21:59 05:59 13:59 Intake Total 200 / 200 300 / 300 Output Total 08371 / 27909 Balance -41554 / -14727 300 / 300 Weight 109 lb Intake: Oral 200 / 200 300 / 300 Output: Urine Catheter Amount 200 / 200 Void Amount 0 / 0 Emesis 350 / 350 Hemodialysis UF 12711 / 17824 Other: Meal Lunch Percent of Meal Consumed 25% Feeding Ability Independent # Voids 0 Temperature was 99 earlier today On exam, the patient does appear a bit lethargic. She frequently falls back asleep, but is able to open her eyes to answer questions. She is not otherwise in acute distress. Neck is supple without obvious lymphadenopathy or JVD. Cardiac exam shows regular rate and rhythm. 2/6 systolic ejection murmur is noted. Lungs: Have soft scattered wheezes and crackles bilaterally. There is no accessory muscle use. Abdomen is soft and nontender. Extremities: Left lower extremity BKA stump shows no signs of infection. There are a few sutures remaining. Right lower extremity shows a right AKA. Incisions are clean and dry, and there is no sign of infection. She has quite a bit of tenderness with any manipulation. Neurologic exam: Mental status is quite drifty. She is otherwise cooperative, and motor exam is grossly nonfocal. Skin exam: Does not show any obvious rashes or other worrisome lesions. Medical - PN: Obj Da - Labs CBC & Chem 7: 04/26/17 15:11 04/26/17 15:00 Labs: Abnormal Lab Results 04/26/17 04/26/17 04/25/17 05:50 05:50 06:02 WBC RBC 2.94 L Hgb 9.0 L Hct 26.4 L RDW 15.3 H Plt Count 109 L Gran % 80.9 H Lymph % (Auto) 8.1 L Gran # Lymph # (Auto) 0.7 L Chloride 94 L Carbon Dioxide 31 H BUN 42 H Creatinine 1.7 H 2.5 H Uric Acid 2.1 L Calcium 8.1 L 8.5 L Phosphorus 5.0 H Total Protein 5.3 L 5.2 L Albumin 3.0 L Globulin 2.0 L Triglycerides 165 H Urine Protein Urine Glucose (UA) Urine RBC Hyaline Casts 04/25/17 04/24/17 04/23/17 06:02 05:25 11:13 WBC 12.5 H RBC 3.01 L 3.54 L Hgb 9.2 L 10.7 L Hct 26.9 L 31.8 L RDW 15.4 H 15.4 H Plt Count 113 L 126 L Gran % 86.0 H Lymph % (Auto) 13.0 L 7.6 L Gran # 10.8 H Lymph # (Auto) 1.1 L 0.9 L Chloride Carbon Dioxide BUN Creatinine Uric Acid Calcium Phosphorus Total Protein Albumin Globulin Triglycerides Urine Protein >=500 A Urine Glucose (UA) 50 A Urine RBC 2 H Hyaline Casts 3 H April 24: Chest x-ray: Shows minor scarring versus atelectasis at the left lung base, otherwise normal. April 23: Urinalysis shows 500 mg of protein, 50 of glucose, 3 hyaline casts. EKG: Shows sinus rhythm at a rate of 90, with left axis deviation, LVH. Meds: Medications Amlodipine Besylate (Norvasc) 10 mg PO DAILY [facility] Last Admin: 04/26/17 08:11 Dose: 10 mg Aspirin (Aspirin) 81 mg PO DAILY [facility] Last Admin: 04/26/17 08:12 Dose: 81 mg Atorvastatin Calcium (Lipitor) 20 mg PO HS [facility] Last Admin: 04/25/17 21:53 Dose: 20 mg Carvedilol (Coreg) 25 mg PO BIDCC [facility] Last Admin: 04/26/17 08:09 Dose: 25 mg Clonazepam (Klonopin) 0.5 mg PO DAILY@1700 [facility] Last Admin: 04/25/17 17:29 Dose: 0.5 mg Clopidogrel Bisulfate (Plavix) 75 mg PO DAILY [facility] Last Admin: 04/26/17 08:09 Dose: 75 mg Dextrose (Dextrose 50%) 0 ml IV UD PRN PRN Reason: Hypoglycemia Last Admin: 04/24/17 17:26 Dose: 25 ml Diagnostic Test (Pha) (Accu-Chek) 1 each FS [facility] Last Admin: 04/26/17 11:37 Dose: 1 each Docusate Sodium (Colace) 100 mg PO BID [facility] Last Admin: 04/26/17 08:09 Dose: 100 mg Heparin Sodium (Porcine) (Heparin) 5,000 unit SQ Q12 [facility] Last Admin: 04/26/17 08:13 Dose: 5,000 unit Insulin Human Lispro (Humalog) 0 unit SQ [facility] PRN Reason: Protocol Last Admin: 04/26/17 11:37 Dose: Not Given Isosorbide Mononitrate (Imdur) 30 mg PO BID [facility] Last Admin: 04/26/17 08:12 Dose: 30 mg Levetiracetam (Keppra) 250 mg PO BID [facility] Last Admin: 04/26/17 08:10 Dose: 250 mg Lisinopril (Zestril) 20 mg PO HS [facility] Last Admin: 04/25/17 21:54 Dose: Not Given Methocarbamol (Robaxin) 500 mg PO BID [facility] Last Admin: 04/26/17 10:39 Dose: Not Given Metoclopramide HCl (Reglan) 5 mg PO TIDAC [facility] Last Admin: 04/26/17 08:11 Dose: 5 mg Metoclopramide HCl (Reglan) 5 mg IV Q6HP PRN PRN Reason: Nausea Morphine Sulfate (Morphine) 0 mg IV Q1HP PRN PRN Reason: Pain Last Admin: 04/25/17 16:16 Dose: 2 mg Ondansetron HCl (Zofran) 4 mg IV Q4HP PRN PRN Reason: Nausea And Vomiting Last Admin: 04/25/17 15:16 Dose: 4 mg Oxycodone/Acetaminophen (Percocet 5-325 Mg) 0 tab PO Q4HP PRN PRN Reason: Pain Last Admin: 04/26/17 08:12 Dose: 1 tab Pantoprazole Sodium (Protonix) 40 mg PO QAMAC [facility] Last Admin: 04/26/17 08:09 Dose: 40 mg Pramipexole Dihydrochloride (Mirapex) 0.25 mg PO TID [facility] Last Admin: 04/26/17 08:12 Dose: 0.25 mg Senna (Senokot) 2 tab PO HS [facility] Last Admin: 04/25/17 21:53 Dose: 2 tab Sodium Biphosphate/Sodium Phosphate (Fleets Adult) 1 dose [place] Q3-4DAYS PRN PRN Reason: Constipation Sodium Chloride (Saline Flush) 10 ml IV Q8 [facility] Last Admin: 04/26/17 06:15 Dose: 10 ml Torsemide (Demadex) 60 mg PO DAILY [facility] Last Admin: 04/26/17 08:08 Dose: 60 mg Medical - PN: A/P - Time Spent With Patient Total time spent is greater than 50% in coordination of care (as documented) at patient's floor/unit and/or counseling patient: Greater than 35 minutes - Narrative A/P Narrative: A/P #1. Neurologic. Altered mental status this afternoon. Etiology of this is unclear. -EKG, chest x-ray, urine culture, chemistries and CBC have been ordered, with results pending. If these are unrevealing, consider head CT. He does have a low-grade fever this afternoon, so we will get blood cultures as well - History of seizures-she is on Keppra 250 mg twice a day. Continue same. No recent seizures. Seizure precautions. #2. Orthopedic. Patient is status post right AKA: This was done for chronic nonhealing wound, management as per orthopedics. -Wound care. #3. Post Op Pain: patient is presently on Percocet and morphine. The patient has not received much in the way of pain medications, and denies significant pain at this time. #4. Endocrine. Diabetes-glucose level is well controlled, glucose low yesterday, lantus stopped , -Glucoses today range from 102-110. -Hypoglycemia: Likely due to post op nausea and vomiting leading to poor intake. monitor #5. Cardiac. CAD/CHF: Stable No evidence of fluid overload, patient is on aspirin, Coreg, Plavix and lisinopril. Continue same. #6. Renal. End-stage renal disease-this is managed by Dr. Valles, patient receiving dialysis with Dr. Valles. #7. Anemia: Hb slight drop to 9.2, and this is lower today. It is unclear if this might be dilutional. Check stool cards. #8. hyperlipidemia-continue statin. #9. hypertension- -on amlodipine, Coreg and lisinopril. Blood pressures were bit low earlier this morning. They seemed fine at the moment. Continue to monitor. #10. DVT hep sq #11. Diet Renal carb restricted Activity as per ortho #12. FUll code Approximately 40 minutes has been spent so far today, reviewing the patient's chart and test results, reviewing plan of care with staff, interviewing and examining the patient twice, and writing orders. Addendum Lab results: Troponin is elevated at 0.11, although the meaning of this in the setting of chronic renal failure is uncertain. BNP is elevated at 2921 Chest x-ray shows clear lungs, without obvious vascular congestion or pneumonia. EKG: Normal sinus rhythm at a rate of 71. Left bundle branch block is present, and makes the rest of the interpretation not very meaningful. There is no significant change noted from April 23 or from January 112016. Patient is transferred to telemetry for closer monitoring. Repeat troponin around 8 PM. I ordered a catheterized urine for culture, regarding her fever, as well as blood cultures. I will start her on empiric IV Rocephin. Medical - PN: Qual - Stroke Symptom Onset Unknown: No - VTE Deep Vein Thrombosis/Pulmonary Embolism Present on Admission: No
[2017-04-26 15:41] LABS: Basophils # (Auto) 0 K/mcL (0.0-0.3); Basophils % (Auto) 0.1 % (0.0-2.0); Eosinophils # (Auto) 0.2 K/mcL (0.0-0.7); Eosinophils % (Auto) 2.4 % (0.0-7.0); Granulocytes % (Auto) 80.8 % (38.0-78.0); Lymphocytes # (Auto) 0.8 K/mcL (1.5-4.8); Lymphocytes % (Auto) 8.9 % (15.5-49.0); Mean Cell Volume 89.6 fL (80.0-100.0); Mean Corpuscular HGB Conc 34.1 g/dL (31.0-36.0); Mean Corpuscular Hemoglobin 30.5 pg (26.0-34.0); Monocytes # (Auto) 0.7 K/mcL (0.1-0.9); Monocytes % (Auto) 7.8 % (1.0-12.0); Platelet Count 101 K/mcL (140-440); RBC 2.76 M/mcL (4.00-5.20); Red Cell Distribution Width 15.5 % (11.5-14.5)
--- NOTE | 2017-04-26 15:48 | XRay Report ---
HISTORY: Reason for Exam:altered MS, post-op FINDINGS: The lungs are clear. The heart size and pulmonary vessel to normal. A dual lumen catheter is well-positioned in the right side of the heart and superior vena cava. The mediastinum and hilar normal. There is no pulmonary vascular congestion or pleural effusion. Chronic degenerative changes are present in the right shoulder. The discoid atelectasis seen at the left costophrenic sulcus has resolved since 04/24/17.. IMPRESSION: Normal exam Interpreted and Authenticated by: Ross Hamm 04/26/17
[2017-04-26 16:03] LABS: ALT/SGPT < 5 U/l (0-40); Albumin/Globulin Ratio 1.3 (1.0-2.3); Alkaline Phosphatase 63 U/L (39-117); Bilirubin,Direct < 0.2 mg/dL (0.0-0.3); Blood Urea Nitrogen 19 mg/dl (8-23); Gamma Glutamyl Transpeptidase 7 U/L (5-36); Uric Acid 2.7 mg/dL (2.5-8.0)
[2017-04-26] MEDS ORDERED: cefTRIAXone 1 GM in DEXTROSE 5% IN WATER 50 ML IV SCH (17:00)
[2017-04-26] MEDS: clonazePAM 0.5 MG TABLET PO SCH (17:36)
[2017-04-26] MEDS ORDERED: ONDANSETRON 4 MG/2 ML VIAL IV PRN (18:45)
[2017-04-26] MEDS ORDERED: DEXTROSE 50% 50 ML VIAL IV PRN (18:45)
[2017-04-26] MEDS ORDERED: METHOCARBAMOL 500 MG TABLET PO PRN (18:45)
[2017-04-26] MEDS: LISINOPRIL 20 MG TABLET PO SCH (21:24)
[2017-04-26] MEDS: SENNOSIDES 1 TABLET PO SCH (21:24)
[2017-04-26] MEDS: ATORVASTATIN 20 MG TABLET PO SCH (21:24)
[2017-04-26 21:58] LABS: Appearance,Urine HAZY; Bacteria,Urine 0 /hpf (0); Bilirubin,Urine NEG (NEG); Color,Urine YELLOW; Glucose,Urine (UA) NEGATIVE (NEG); Leukocyte Esterase,Urine NEG /uL (NEG); Mucus,Urine FEW /hpf (0); Nitrate,Urine NEG (NEG); Protein,Urine 100 mg/dL (NEG); Specific Gravity,Urine 1.017 (1.000-1.035); Urine Amorphous Crystals MANY /hpf (0); Urine Blood 0.03 mg/dL (<0.03); Urine Granular Cast 1 /lpf (0); Urine Hyaline Cast 28 /lpf (0-2); Urine RBC 1 /hpf (0-1); Urine Squamous Epithelial Cell 0 /hpf (0-4); Urine WBC 1 /hpf (0-4); Urobilinogen,Urine NEG (NEG)
[2017-04-27 04:50] LABS: Basophils # (Auto) 0 K/mcL (0.0-0.3); Basophils % (Auto) 0.2 % (0.0-2.0); Eosinophils # (Auto) 0.2 K/mcL (0.0-0.7); Eosinophils % (Auto) 2.2 % (0.0-7.0); Granulocytes % (Auto) 79.7 % (38.0-78.0); Lymphocytes # (Auto) 0.7 K/mcL (1.5-4.8); Lymphocytes % (Auto) 10.1 % (15.5-49.0); Mean Cell Volume 89.9 fL (80.0-100.0); Mean Corpuscular HGB Conc 33.7 g/dL (31.0-36.0); Mean Corpuscular Hemoglobin 30.3 pg (26.0-34.0); Monocytes # (Auto) 0.6 K/mcL (0.1-0.9); Monocytes % (Auto) 7.8 % (1.0-12.0); Platelet Count 101 K/mcL (140-440); RBC 2.63 M/mcL (4.00-5.20); Red Cell Distribution Width 15.3 % (11.5-14.5)
[2017-04-27 05:10] LABS: ALT/SGPT < 5 U/l (0-40); Albumin 2.8 gm/dL (3.2-5.2); Albumin/Globulin Ratio 1.3 (1.0-2.3); Alkaline Phosphatase 58 U/L (39-117); Bilirubin,Direct < 0.2 mg/dL (0.0-0.3); Blood Urea Nitrogen 25 mg/dl (8-23); Gamma Glutamyl Transpeptidase 6 U/L (5-36); Uric Acid 3.6 mg/dL (2.5-8.0)
[2017-04-27] MEDS: 0.9 % SODIUM CHLORIDE 10 ML SYRINGE IV SCH ×3 (06:07→22:15)
[2017-04-27] MEDS: PANTOPRAZOLE 40 MG TABLET PO SCH (06:41)
[2017-04-27] MEDS: METOCLOPRAMIDE 10 MG TABLET PO SCH ×3 (06:41→17:05)
[2017-04-27] MEDS: INSULIN LISPRO 1 UNIT/0.01 ML UNIT SQ SCH ×4 (06:55→22:14)
--- NOTE | 2017-04-27 10:00 | Internal Med Progress Note ---
Medical - PN: Subj Patient information: Note initiated : 04/27/17 at 9:56 am Service Date, if different from initiated Date: [] Patient: Tamica Tidwell 66 y/o F admitted on 04/23/17 for Right Leg Amputation Above The Knee. Chief Complaint: [] Interval history: April 24, 2017: Consult note: Ms. Tidwell is a 66 year old female with bilateral BKA, peripheral vascular disease, diabetes, coronary artery disease, congestive heart failure, was admitted to the hospital by orthopedics for right leg wound which was not responding to conservative management. The patient was treated with right above -knee amputation which was done yesterday. Medicine has been consulted for medical management of chronic medical issues. This morning the patient complained of some nausea and had vomiting 1 after which she was able to keep her food down. She had some pain in the right leg yesterday. However, her pain is much more tolerable today. She denies any other acute medical complaints. She denies any headache, dizziness, changes in vision, changes in hearing, difficulty in swallowing. No chest pain no shortness of breath, no cough, no abdominal pain. No constipation or diarrhea. She has some pain at the site of the surgery which is been adequately managed with current pain medications. The patient had her dialysis last night after surgery. april 25: patient seen and examined this morning lying comfortably in bed. Denies any acute complaints. She had some episodes of nausea and vomiting yesterday, which resolved with medications. She denies any nausea, vomiting this morning. There was some low glucose values noted yesterday, which responded to dextrose. The patient's Lantus medication has been stopped. She is just on sliding scale insulin for now. Her glucose value is in the normal range. On talking with the patient, it seems that she will be ready for discharge this Saturday. Her labs are reviewed. No other significant concern. She should be dialyzed today. April 26: -This morning, the patient had no complaints. She is quite insistent about going home, rather than going back to rehab. She says she has spent too much time in rehab. However, physical therapy notes that the patient has very poor activity tolerance, weakness, and difficulties with stability, making transfers unsafe. She required maximum assistance today, and skilled rehab is highly recommended. -This afternoon, nursing staff noted that the patient seemed to be less responsive than her normal. On interview, she is just a bit drift E, and frequently seems to fall asleep. She answers most questions appropriately. She denies fever chills, headaches or dizziness, chest pain or shortness of breath, GI or symptoms. She denied significant pain in her legs, however when I unwrapped her right AKA stump, she had quite a bit of discomfort. Incisions are healing well, and are clean and dry without erythema. Left stump has a few sutures remaining, but does not show any signs of infection. April 27: Overnight, her mental status did seem to clear. She does continue to be fairly sleepy however, and remains quite irritable. Her troponin level was elevated yesterday, although the meaning of this in the setting of end-stage renal disease is uncertain. Follow-up troponins were in a similar range. The patient denies fever or chills, headaches or dizziness, chest pain or palpitations, shortness of breath, GI or complaints. She is annoyed by so many questions. She will be dialyzed this morning. Echocardiogram was ordered for this morning as well. - Constitutional Vitals: Vital Signs Temp Pulse Resp BP Pulse Ox 98.4 F 78 14 175/60 95 04/27/17 08:40 04/27/17 09:30 04/27/17 06:58 04/27/17 09:30 04/27/17 06:58 Period Temp Pulse Resp BP Sys/Pichardo Pulse Ox Last 24 Hr 97.7 F-99.0 F 72-82 12-20 84-175/47-81 92-98 Intake and Output 04/26/17 04/27/17 04/27/17 21:59 05:59 13:59 Intake Total 907 / 907 300 / 300 Output Total 150 / 150 1264 / 1264 Balance 757 / 757 300 / 300 -1264 / -1264 Weight 97 lb 4.8 oz Intake & Output: Intake & Output 04/26/17 04/27/17 04/27/17 21:59 05:59 13:59 Intake Total 907 / 907 300 / 300 Output Total 150 / 150 1264 / 1264 Balance 757 / 757 300 / 300 -1264 / -1264 Weight 97 lb 4.8 oz Intake: IV 407 / 407 Oral 500 / 500 300 / 300 Output: Urine Catheter Amount 150 / 150 Hemodialysis UF 1264 / 1264 There is one blood pressure listed yesterday morning as 84/50, but other than that she is varied from 120s to about 180 systolic. On exam, she still appears a bit drowsy, although definitely more alert than yesterday afternoon. She is irritable. She is able to answer most questions appropriately. neck shows no obvious JVD or lymphadenopathy. Cardiac exam shows regular rate and rhythm. Lungs are clear to auscultation, but diminished at the bases. Abdomen is soft and nontender. Extremities: Show no significant edema. Both of her stumps are bandaged, with dressings clean and dry. Neurologic exam: Other than being irritable, the patient is alert and oriented, calm and cooperative. Motor exam is grossly nonfocal. Medical - PN: Obj Da - Labs CBC & Chem 7: 04/27/17 03:55 04/27/17 03:55 Labs: Abnormal Lab Results 04/27/17 04/27/17 04/27/17 03:55 03:55 03:55 RBC 2.63 L Hgb 8.0 L Hct 23.6 L RDW 15.3 H Plt Count 101 L Gran % 79.7 H Lymph % (Auto) 10.1 L Lymph # (Auto) 0.7 L Sodium Chloride 95 L Carbon Dioxide BUN 25 H Creatinine 2.8 H Glucose 115 H Uric Acid Calcium 8.4 L Phosphorus 4.7 H Troponin T 0.13 H* NT-Pro-B Natriuret Pep Total Protein 4.9 L Albumin 2.8 L Globulin 2.1 L Triglycerides 157 H Urine Protein Urine Occult Blood Amorphous Crystals Hyaline Casts Granular Casts 04/26/17 04/26/17 04/26/17 20:35 20:30 15:11 RBC 2.76 L Hgb 8.4 L Hct 24.7 L RDW 15.5 H Plt Count 101 L Gran % 80.8 H Lymph % (Auto) 8.9 L Lymph # (Auto) 0.8 L Sodium Chloride Carbon Dioxide BUN Creatinine Glucose Uric Acid Calcium Phosphorus Troponin T 0.12 H* NT-Pro-B Natriuret Pep Total Protein Albumin Globulin Triglycerides Urine Protein 100 A Urine Occult Blood 0.03 A Amorphous Crystals Many A Hyaline Casts 28 H Granular Casts 1 H 04/26/17 04/26/17 04/26/17 15:00 15:00 05:50 RBC Hgb Hct RDW Plt Count Gran % Lymph % (Auto) Lymph # (Auto) Sodium 132 L Chloride 93 L Carbon Dioxide BUN Creatinine 2.1 H 1.7 H Glucose 129 H Uric Acid 2.1 L Calcium 8.4 L 8.1 L Phosphorus Troponin T 0.11 H* NT-Pro-B Natriuret Pep 2921.0 H Total Protein 5.3 L 5.3 L Albumin 3.0 L 3.0 L Globulin Triglycerides 163 H Urine Protein Urine Occult Blood Amorphous Crystals Hyaline Casts Granular Casts 04/26/17 04/25/17 04/25/17 05:50 06:02 06:02 RBC 2.94 L 3.01 L Hgb 9.0 L 9.2 L Hct 26.4 L 26.9 L RDW 15.3 H 15.4 H Plt Count 109 L 113 L Gran % 80.9 H Lymph % (Auto) 8.1 L 13.0 L Lymph # (Auto) 0.7 L 1.1 L Sodium Chloride 94 L Carbon Dioxide 31 H BUN 42 H Creatinine 2.5 H Glucose Uric Acid Calcium 8.5 L Phosphorus 5.0 H Troponin T NT-Pro-B Natriuret Pep Total Protein 5.2 L Albumin Globulin 2.0 L Triglycerides 165 H Urine Protein Urine Occult Blood Amorphous Crystals Hyaline Casts Granular Casts April 27: Echocardiogram: Mild LVH. Ejection fraction 52%. Mildly hypokinetic septal wall. Left atrial dilation. Mild posterior mitral calcification. IVC measures normal. April 26: BNP is elevated at 2921 Chest x-ray shows clear lungs, without obvious vascular congestion or pneumonia. EKG: Normal sinus rhythm at a rate of 71. Left bundle branch block is present, and makes the rest of the interpretation not very meaningful. There is no significant change noted from April 23 or from January 112016. Urinalysis: 100 mg of protein, many crystals, 28 cast, negative nitrates, negative leukocyte esterase. Troponin, 0.11, 0.12, 0.13 April 24: Chest x-ray: Shows minor scarring versus atelectasis at the left lung base, otherwise normal. April 23: Urinalysis shows 500 mg of protein, 50 of glucose, 3 hyaline casts. EKG: Shows sinus rhythm at a rate of 90, with left axis deviation, LVH. Meds: Medications Amlodipine Besylate (Norvasc) 10 mg PO DAILY [facility] Aspirin (Aspirin) 81 mg PO DAILY [facility] Atorvastatin Calcium (Lipitor) 20 mg PO HS [facility] Last Admin: 04/26/17 21:24 Dose: 20 mg Carvedilol (Coreg) 25 mg PO BIDCC [facility] Clonazepam (Klonopin) 0.5 mg PO DAILY@1700 [facility] Clopidogrel Bisulfate (Plavix) 75 mg PO DAILY [facility] Dextrose (Dextrose 50%) 0 ml IV UD PRN PRN Reason: Hypoglycemia Diagnostic Test (Pha) (Accu-Chek) 1 each FS ACHS [facility] Last Admin: 04/27/17 06:55 Dose: 1 each Docusate Sodium (Colace) 100 mg PO BID [facility] Last Admin: 04/26/17 21:24 Dose: 100 mg Heparin Sodium (Porcine) (Heparin) 5,000 unit SQ Q12 [facility] Last Admin: 04/26/17 21:22 Dose: 5,000 unit Ceftriaxone Sodium 1 gm/ (Dextrose) 50 mls @ 100 mls/hr IV Q24H [facility] Insulin Human Lispro (Humalog) 0 unit SQ [facility] PRN Reason: Protocol Last Admin: 04/27/17 06:55 Dose: Not Given Isosorbide Mononitrate (Imdur) 30 mg PO BID [facility] Last Admin: 04/26/17 21:22 Dose: 30 mg Levetiracetam (Keppra) 250 mg PO BID [facility] Last Admin: 04/26/17 21:23 Dose: 250 mg Lisinopril (Zestril) 20 mg PO HS [facility] Last Admin: 04/26/17 21:24 Dose: 20 mg Methocarbamol (Robaxin) 500 mg PO BIDP PRN PRN Reason: Muscle Spasm Metoclopramide HCl (Reglan) 5 mg PO TIDAC [facility] Last Admin: 04/27/17 06:41 Dose: 5 mg Morphine Sulfate (Morphine) 0 mg IV Q1HP PRN PRN Reason: Pain Ondansetron HCl (Zofran) 4 mg IV Q4HP PRN PRN Reason: Nausea And Vomiting Oxycodone/Acetaminophen (Percocet 5-325 Mg) 0 tab PO Q4HP PRN PRN Reason: Pain Last Admin: 04/26/17 21:22 Dose: 2 tab Pantoprazole Sodium (Protonix) 40 mg PO QAMAC [facility] Last Admin: 04/27/17 06:41 Dose: 40 mg Pramipexole Dihydrochloride (Mirapex) 0.25 mg PO TID [facility] Last Admin: 04/26/17 21:24 Dose: 0.25 mg Senna (Senokot) 2 tab PO HS [facility] Last Admin: 04/26/17 21:24 Dose: 2 tab Sodium Chloride (Saline Flush) 10 ml IV Q8 [facility] Last Admin: 04/27/17 06:07 Dose: 10 ml Torsemide (Demadex) 60 mg PO DAILY [facility] Medical - PN: A/P - Time Spent With Patient Total time spent is greater than 50% in coordination of care (as documented) at patient's floor/unit and/or counseling patient: Greater than 35 minutes - Narrative A/P Narrative: A/P #1. Neurologic. Altered mental status yesterday.. Etiology of this is unclear. She continues to run a low-grade fever. -Troponin is elevated, but it is not clear what that means in the setting of her renal failure. Chest x-ray and urinalysis look okay. White blood cell count still looks normal. Blood cultures are pending. I did add Rocephin empirically, thinking we would probably find a UTI, but this does not appear to be the case now. I am also suspicious that pain medications and muscle relaxers ordered postop may be affecting her mental status. Her neurologic exam is nonfocal, so I will hold off on CT scan of her brain for now. - History of seizures-she is on Keppra 250 mg twice a day. Continue same. No recent seizures. Seizure precautions. #2. Orthopedic. Patient is status post right AKA: This was done for chronic nonhealing wound, management as per orthopedics. -Wound care. Her wound appears to be doing well. #3. Post Op Pain: patient is presently on Percocet and morphine. The patient has not received much in the way of pain medications, and denies significant pain at this time. #4. Endocrine. Diabetes-glucose level is well controlled, glucose low yesterday, lantus stopped , -Glucoses today range from 100-106. She appears to have poor appetite. #5. Cardiac. CAD/CHF: -The patient denies any chest pain or shortness of breath. Troponins are elevated, as noted above, but the meaning of this is unclear. EKG shows left bundle branch block. Echocardiogram was done today, with results as above. I suspect all of these changes are more chronic than acute. I tried to contact Dr. Mccann, her listed primary care physician. The on- call physician reviewed there are electronic records, and said he thinks she only saw Dr. Mccann once, last year. There was a notation that Dr. Burton of cardiology had seen the patient for history of coronary disease, angioplasty, stents, and had strongly recommended better cholesterol control and quitting smoking. I went in and talked with the patient again and asked her if cardiology was planning on doing any more angiograms or stents, and she said they had agreed not to do any more procedures. I suspect she has multivessel disease. The patient stated that she did not want any aggressive interventions if she had more heart problems. She confirmed to me that she did not desire to be transferred out, even if she was having a heart issue. She continues to deny chest pain or shortness of breath. I also touched base with Dr. Valles of nephrology, and he is aware of her current hypotension, which is likely due to her dialysis, as well as the elevated troponins. #6. Renal. End-stage renal disease-this is managed by Dr. Valles, patient receiving dialysis with Dr. Valles. She was dialyzed this morning. -Current hypotension is being treated with an IV fluid bolus. She does not appear symptomatic at this time. #7. Anemia: Hb slight drop to 8.0, and this is lower today. It is unclear if this might be dilutional. Check stool cards. Recheck after dialysis. #8. hyperlipidemia-continue statin. #9. hypertension- -on amlodipine, Coreg and lisinopril. Blood pressures table. #10. DVT hep sq #11. Diet Renal carb restricted Activity as per ortho #12. FUll code Approximately 30 minutes has been spent so far today, reviewing the patient's chart and test results, reviewing plan of care with staff, interviewing and examining the patient ,and writing orders. Addendum (After dialysis, the patient's blood pressure ran low, with 80s systolic. Patient is being given IV fluid boluses to see if we can bring this back up. I did touch base with her growth media mixer mushroom, Dr. Valles, and reviewed her elevated troponins as well as blood pressures. Follow-up troponin is high at 0.19. The patient has continued to deny chest pain or shortness of breath. She does have known coronary disease, with previous stent placements. I have put out a call to her primary care physician to see if I can find out what her latest cardiac follow-up suggested. It would be helpful to know if they thought she had more disease that might need more procedures, or if they thought disease was not any longer amenable to procedures, and should only be medical management.) Approximately 50 minutes has been spent so far today, reviewing the patient's chart and test results, reviewing plan of care with staff, interviewing and examining the patient, touching base with her primary care physician's on-call doctor, as well as with Dr. Valles,and writing orders. Medical - PN: Qual - Stroke Symptom Onset Unknown: No - VTE Deep Vein Thrombosis/Pulmonary Embolism Present on Admission: No
--- NOTE | 2017-04-27 10:57 | Orthopedic Progress Note ---
Subjective Patient information: Note initiated : 04/27/17 at 10:55 am Service Date, if different from initiated Date: [] Patient: Tamica Tidwell 66 y/o F admitted on 04/23/17 for Right Leg Amputation Above The Knee. Chief Complaint: [] Principal diagnosis: Right AKA Interval history: Patient was kept overnight as she was more weak yesterday and it was determined that she was not safe to go home. She was worked up by the hospitalists and found to have an elevated troponin but she is also in renal failure. She is being treated by the hospitalists for her comorbid conditions. Her leg pain and AKA is doing well. She denies any chest pain, chills, or any other acute symptoms. Objective Vital signs: Vital Signs Temp Pulse Pulse Resp BP BP BP 04/27/17 10:29 81 145/58 04/27/17 10:00 80 179/65 04/27/17 09:30 78 175/60 04/27/17 09:02 73 163/61 04/27/17 08:40 98.4 F 74 139/57 04/27/17 06:58 97.7 F 14 129/50 04/27/17 04:00 98.4 F 72 16 120/52 04/27/17 00:00 98.1 F 75 16 137/47 04/26/17 20:00 98.6 F 76 16 133/47 04/26/17 19:36 04/26/17 15:18 99.0 F H 16 127/81 04/26/17 14:40 74 04/26/17 14:39 98.9 F 74 12 120/58 04/26/17 12:00 98.6 F 20 108/76 Pulse Ox 04/27/17 10:29 04/27/17 10:00 04/27/17 09:30 04/27/17 09:02 04/27/17 08:40 04/27/17 06:58 95 04/27/17 04:00 95 04/27/17 00:00 95 04/26/17 20:00 98 04/26/17 19:36 98 04/26/17 15:18 92 04/26/17 14:40 04/26/17 14:39 93 04/26/17 12:00 92 Intake and Output 04/26/17 04/27/1717 21:59 05:59 13:59 Intake Total 907 / 907 300 / 300 Output Total 150 / 150 4348 / 4348 Balance 757 / 757 300 / 300 -4348 / -4348 Intake: IV 407 / 407 Oral 500 / 500 300 / 300 Output: Urine Catheter Amount 150 / 150 Hemodialysis UF 4348 / 4348 Other: Weight 97 lb 4.8 oz Intake & Output: Intake & Output 04/26/17 04/27/17 04/27/17 21:59 05:59 13:59 Intake Total 907 / 907 300 / 300 Output Total 150 / 150 4348 / 4348 Balance 757 / 757 300 / 300 -4348 / -4348 Weight 97 lb 4.8 oz Intake: IV 407 / 407 Oral 500 / 500 300 / 300 Output: Urine Catheter Amount 150 / 150 Hemodialysis UF 4348 / 4348 Incision: Yes healing Dressing: Yes clean, Yes dry, Yes intact Weight bearing status: non - Labs CBC & BMP: 04/27/17 03:55 04/27/17 03:55 Labs: Orthopedic Labs 04/26/17 04/23/17 15:00 09:20 POC PT 12.8 POC INR 1.1 D-Dimer 0.28 04/27/17 04/26/17 04/26/17 03:55 15:11 05:50 Hgb 8.0 L 8.4 L 9.0 L Hct 23.6 L 24.7 L 26.4 L 04/25/17 04/24/17 04/18/17 06:02 05:25 14:46 Hgb 9.2 L 10.7 L 12.3 Hct 26.9 L 31.8 L 36.2 Assessment and Plan (1) Above knee amputation of right lower extremity 1. Patients above the knee amputation is healing well and she has little pain, she may be discharged as soon as medically cleared 2. She may be discharged to home or rehab facility wherever is deemed medically necessary 3. PT for transfers and for hip extension while in the hospital Status: Acute
[2017-04-27] MEDS: CARVEDILOL 12.5 MG TABLET PO SCH ×2 (13:46→17:06)
[2017-04-27] MEDS: DOCUSATE SODIUM 100 MG CAPSULE PO SCH ×2 (13:47→22:14)
[2017-04-27] MEDS: CLOPIDOGREL 75 MG TABLET PO SCH (13:47)
[2017-04-27] MEDS: ISOSORBIDE MONONITRATE 30 MG TAB.XL.24H PO SCH (13:47)
[2017-04-27] MEDS: TORSEMIDE 10 MG TABLET PO SCH (13:47)
[2017-04-27] MEDS: ASPIRIN 81 MG TAB.CHEW PO SCH (13:47)
[2017-04-27] MEDS: amLODIPine 10 MG TABLET PO SCH (13:48)
[2017-04-27] MEDS: HEPARIN 5,000 UNIT/ML VIAL SQ SCH ×2 (13:49→22:14)
[2017-04-27] MEDS: levETIRAcetam 500 MG TABLET PO SCH ×2 (13:51→22:19)
[2017-04-27] MEDS: PRAMIPEXOLE 0.25 MG TABLET PO SCH ×3 (13:51→22:20)
[2017-04-27] MEDS: cefTRIAXone 1 GM in DEXTROSE 5% IN WATER 50 ML IV SCH (14:27)
[2017-04-27] MEDS: clonazePAM 0.5 MG TABLET PO SCH (17:26)
[2017-04-27] MEDS ORDERED: 0.9 % SODIUM CHLORIDE 500 ML IV ONE (18:10)
[2017-04-27] MEDS ORDERED: 0.9 % SODIUM CHLORIDE 300 ML IV ONE (20:26)
[2017-04-27] MEDS: LISINOPRIL 20 MG TABLET PO SCH (22:15)
[2017-04-27] MEDS: ATORVASTATIN 20 MG TABLET PO SCH (22:19)
[2017-04-27] MEDS: SENNOSIDES 1 TABLET PO SCH (22:20)
[2017-04-28] MEDS: ISOSORBIDE MONONITRATE 30 MG TAB.XL.24H PO SCH ×3 (00:26→21:20)
[2017-04-28 05:30] LABS: Basophils # (Auto) 0 K/mcL (0.0-0.3); Basophils % (Auto) 0.1 % (0.0-2.0); Eosinophils # (Auto) 0.2 K/mcL (0.0-0.7); Eosinophils % (Auto) 2.7 % (0.0-7.0); Granulocytes % (Auto) 75.2 % (38.0-78.0); Lymphocytes # (Auto) 0.8 K/mcL (1.5-4.8); Lymphocytes % (Auto) 12.3 % (15.5-49.0); Mean Cell Volume 90.6 fL (80.0-100.0); Mean Corpuscular HGB Conc 33.5 g/dL (31.0-36.0); Mean Corpuscular Hemoglobin 30.4 pg (26.0-34.0); Monocytes # (Auto) 0.6 K/mcL (0.1-0.9); Monocytes % (Auto) 9.7 % (1.0-12.0); Platelet Count 109 K/mcL (140-440); RBC 2.62 M/mcL (4.00-5.20); Red Cell Distribution Width 14.6 % (11.5-14.5)
[2017-04-28] MEDS: 0.9 % SODIUM CHLORIDE 10 ML SYRINGE IV SCH ×3 (05:53→21:35)
[2017-04-28 06:00] LABS: ALT/SGPT < 5 U/l (0-40); Albumin 2.8 gm/dL (3.2-5.2); Albumin/Globulin Ratio 1.1 (1.0-2.3); Alkaline Phosphatase 61 U/L (39-117); Bilirubin,Direct < 0.2 mg/dL (0.0-0.3); Blood Urea Nitrogen 21 mg/dl (8-23); Gamma Glutamyl Transpeptidase 7 U/L (5-36); Magnesium 1.9 mg/dL (1.6-2.5); Uric Acid 2.2 mg/dL (2.5-8.0)
[2017-04-28] MEDS: PANTOPRAZOLE 40 MG TABLET PO SCH (07:45)
[2017-04-28] MEDS: METOCLOPRAMIDE 10 MG TABLET PO SCH ×3 (07:45→16:55)
[2017-04-28] MEDS: CARVEDILOL 12.5 MG TABLET PO SCH ×2 (07:45→16:56)
[2017-04-28] MEDS: INSULIN LISPRO 1 UNIT/0.01 ML UNIT SQ SCH ×4 (08:58→21:20)
[2017-04-28] MEDS: CLOPIDOGREL 75 MG TABLET PO SCH (09:38)
[2017-04-28] MEDS: levETIRAcetam 500 MG TABLET PO SCH ×2 (09:38→21:32)
[2017-04-28] MEDS: ASPIRIN 81 MG TAB.CHEW PO SCH (09:39)
[2017-04-28] MEDS: amLODIPine 10 MG TABLET PO SCH (09:39)
[2017-04-28] MEDS: TORSEMIDE 10 MG TABLET PO SCH (09:39)
[2017-04-28] MEDS: PRAMIPEXOLE 0.25 MG TABLET PO SCH ×3 (09:39→21:33)
[2017-04-28] MEDS: DOCUSATE SODIUM 100 MG CAPSULE PO SCH ×2 (09:39→21:21)
[2017-04-28] MEDS: HEPARIN 5,000 UNIT/ML VIAL SQ SCH ×2 (09:39→21:20)
[2017-04-28] MEDS: cefTRIAXone 1 GM in DEXTROSE 5% IN WATER 50 ML IV SCH (09:41)
--- NOTE | 2017-04-28 13:57 | Internal Med Progress Note ---
Medical - PN: Subj Patient information: Note initiated : 04/28/17 at 1:57 pm Service Date, if different from initiated Date: [] Patient: Tamica Tidwell 66 y/o F admitted on 04/23/17 for Right Leg Amputation Above The Knee. Chief Complaint: [] Interval history: April 24, 2017: Consult note: Ms. Tidwell is a 66 year old female with bilateral BKA, peripheral vascular disease, diabetes, coronary artery disease, congestive heart failure, was admitted to the hospital by orthopedics for right leg wound which was not responding to conservative management. The patient was treated with right above -knee amputation which was done yesterday. Medicine has been consulted for medical management of chronic medical issues. This morning the patient complained of some nausea and had vomiting 1 after which she was able to keep her food down. She had some pain in the right leg yesterday. However, her pain is much more tolerable today. She denies any other acute medical complaints. She denies any headache, dizziness, changes in vision, changes in hearing, difficulty in swallowing. No chest pain no shortness of breath, no cough, no abdominal pain. No constipation or diarrhea. She has some pain at the site of the surgery which is been adequately managed with current pain medications. The patient had her dialysis last night after surgery. april 25: patient seen and examined this morning lying comfortably in bed. Denies any acute complaints. She had some episodes of nausea and vomiting yesterday, which resolved with medications. She denies any nausea, vomiting this morning. There was some low glucose values noted yesterday, which responded to dextrose. The patient's Lantus medication has been stopped. She is just on sliding scale insulin for now. Her glucose value is in the normal range. On talking with the patient, it seems that she will be ready for discharge this Saturday. Her labs are reviewed. No other significant concern. She should be dialyzed today. April 26: -This morning, the patient had no complaints. She is quite insistent about going home, rather than going back to rehab. She says she has spent too much time in rehab. However, physical therapy notes that the patient has very poor activity tolerance, weakness, and difficulties with stability, making transfers unsafe. She required maximum assistance today, and skilled rehab is highly recommended. -This afternoon, nursing staff noted that the patient seemed to be less responsive than her normal. On interview, she is just a bit drift E, and frequently seems to fall asleep. She answers most questions appropriately. She denies fever chills, headaches or dizziness, chest pain or shortness of breath, GI or symptoms. She denied significant pain in her legs, however when I unwrapped her right AKA stump, she had quite a bit of discomfort. Incisions are healing well, and are clean and dry without erythema. Left stump has a few sutures remaining, but does not show any signs of infection. April 27: Overnight, her mental status did seem to clear. She does continue to be fairly sleepy however, and remains quite irritable. Her troponin level was elevated yesterday, although the meaning of this in the setting of end-stage renal disease is uncertain. Follow-up troponins were in a similar range. The patient denies fever or chills, headaches or dizziness, chest pain or palpitations, shortness of breath, GI or complaints. She is annoyed by so many questions. She will be dialyzed this morning. Echocardiogram was ordered for this morning as well. April 28: Overnight, the patient remained fairly stable. Her blood pressure ran low after dialysis, but she denies any lightheadedness or other discomfort. Dr. Valles was not especially worried about her blood pressure as long as she remained asymptomatic. Today, she is alert. She continues to nap a lot. She denies pain, fever or chills, chest pain or palpitations, shortness of breath, abdominal pain, nausea or vomiting or diarrhea, dysuria. We again discussed if she would want anything done if she had any more major cardiac events. She again says that she would not want transfer to a cardiac facility, and does not want more procedures. However, she then said she wanted to be full code. However when we discussed ventilation and chest compressions and defibrillation, she said she did not think she wanted that. She says her friend Tish has her POA, and should be in some time today. - Constitutional Vitals: Vital Signs Temp Pulse Resp BP Pulse Ox 97.5 F 70 16 106/42 94 04/28/17 12:01 04/28/17 04:00 04/28/17 12:01 04/28/17 12:01 04/28/17 12:05 Period Temp Pulse Resp BP Sys/Pichardo Pulse Ox Last 24 Hr 97.5 F-99.1 F 69-70 16-18 79-124/37-47 88-99 Intake and Output 04/27/17 04/28/17 04/28/17 21:59 05:59 13:59 Intake Total 390 / 390 240 / 240 Output Total Balance 389 / 389 240 / 240 Weight 91 lb 6.4 oz Intake & Output: Intake & Output 04/27/17 04/28/17 04/28/17 21:59 05:59 13:59 Intake Total 390 / 390 240 / 240 Output Total Balance 389 / 389 240 / 240 Weight 91 lb 6.4 oz Intake: IV 350 / 350 Sodium Chloride 0.9% 500 300 / 300 ml @ 150 mls/hr IV BOLUS ONE Rx#:[id number] Rocephin 1 gm In Dextrose 50 / 50 5% in Water 50 ml @ 100 mls/hr IV Q24H GAVINO Rx#: [id number] Oral 40 / 40 240 / 240 Output: # of times incontinent of urine Other: Meal Breakfast Percent of Meal Consumed 25% Blood pressure since midnight have ranged from 84-124/38-41. O2 saturation dropped to 88% on room air, and is 94% on 2 L On exam, she still appears a bit drowsy, although definitely more alert . She is irritable. She is able to answer most questions appropriately. neck shows no obvious JVD or lymphadenopathy. Cardiac exam shows regular rate and rhythm. Lungs are clear to auscultation, but diminished at the bases. Abdomen is soft and nontender. Extremities: Show no significant edema. Both of her stumps are bandaged, with dressings clean and dry. Neurologic exam: Other than being irritable, the patient is alert and oriented, calm and cooperative. Motor exam is grossly nonfocal. Medical - PN: Obj Da - Labs CBC & Chem 7: 04/28/17 04:00 04/28/17 04:00 Labs: Abnormal Lab Results 04/28/17 04/28/17 04/27/17 04:00 04:00 17:29 RBC 2.62 L Hgb 8.0 L Hct 23.8 L RDW 14.6 H Plt Count 109 L Gran % Lymph % (Auto) 12.3 L Lymph # (Auto) 0.8 L Sodium Chloride BUN Creatinine 2.3 H Glucose 114 H Uric Acid 2.2 L Calcium 8.2 L Phosphorus Troponin T 0.19 H* NT-Pro-B Natriuret Pep Total Protein 5.3 L Albumin 2.8 L Globulin Triglycerides 159 H Urine Protein Urine Occult Blood Amorphous Crystals Hyaline Casts Granular Casts 04/27/17 04/27/17 04/27/17 03:55 03:55 03:55 RBC 2.63 L Hgb 8.0 L Hct 23.6 L RDW 15.3 H Plt Count 101 L Gran % 79.7 H Lymph % (Auto) 10.1 L Lymph # (Auto) 0.7 L Sodium Chloride 95 L BUN 25 H Creatinine 2.8 H Glucose 115 H Uric Acid Calcium 8.4 L Phosphorus 4.7 H Troponin T 0.13 H* NT-Pro-B Natriuret Pep Total Protein 4.9 L Albumin 2.8 L Globulin 2.1 L Triglycerides 157 H Urine Protein Urine Occult Blood Amorphous Crystals Hyaline Casts Granular Casts 04/26/17 04/26/17 04/26/17 20:35 20:30 15:11 RBC 2.76 L Hgb 8.4 L Hct 24.7 L RDW 15.5 H Plt Count 101 L Gran % 80.8 H Lymph % (Auto) 8.9 L Lymph # (Auto) 0.8 L Sodium Chloride BUN Creatinine Glucose Uric Acid Calcium Phosphorus Troponin T 0.12 H* NT-Pro-B Natriuret Pep Total Protein Albumin Globulin Triglycerides Urine Protein 100 A Urine Occult Blood 0.03 A Amorphous Crystals Many A Hyaline Casts 28 H Granular Casts 1 H 04/26/17 04/26/17 04/26/17 15:00 15:00 05:50 RBC Hgb Hct RDW Plt Count Gran % Lymph % (Auto) Lymph # (Auto) Sodium 132 L Chloride 93 L BUN Creatinine 2.1 H 1.7 H Glucose 129 H Uric Acid 2.1 L Calcium 8.4 L 8.1 L Phosphorus Troponin T 0.11 H* NT-Pro-B Natriuret Pep 2921.0 H Total Protein 5.3 L 5.3 L Albumin 3.0 L 3.0 L Globulin Triglycerides 163 H Urine Protein Urine Occult Blood Amorphous Crystals Hyaline Casts Granular Casts 04/26/17 05:50 RBC 2.94 L Hgb 9.0 L Hct 26.4 L RDW 15.3 H Plt Count 109 L Gran % 80.9 H Lymph % (Auto) 8.1 L Lymph # (Auto) 0.7 L Sodium Chloride BUN Creatinine Glucose Uric Acid Calcium Phosphorus Troponin T NT-Pro-B Natriuret Pep Total Protein Albumin Globulin Triglycerides Urine Protein Urine Occult Blood Amorphous Crystals Hyaline Casts Granular Casts April 27: Echocardiogram: Mild LVH. Ejection fraction 52%. Mildly hypokinetic septal wall. Left atrial dilation. Mild posterior mitral calcification. IVC measures normal. April 26: BNP is elevated at 2921 Chest x-ray shows clear lungs, without obvious vascular congestion or pneumonia. EKG: Normal sinus rhythm at a rate of 71. Left bundle branch block is present, and makes the rest of the interpretation not very meaningful. There is no significant change noted from April 23 or from January 112016. Urinalysis: 100 mg of protein, many crystals, 28 cast, negative nitrates, negative leukocyte esterase. Troponin, 0.11, 0.12, 0.13 April 24: Chest x-ray: Shows minor scarring versus atelectasis at the left lung base, otherwise normal. April 23: Urinalysis shows 500 mg of protein, 50 of glucose, 3 hyaline casts. EKG: Shows sinus rhythm at a rate of 90, with left axis deviation, LVH. Meds: Medications Amlodipine Besylate (Norvasc) 10 mg PO DAILY [facility] Last Admin: 04/28/17 09:39 Dose: 10 mg Aspirin (Aspirin) 81 mg PO DAILY [facility] Last Admin: 04/28/17 09:39 Dose: 81 mg Atorvastatin Calcium (Lipitor) 20 mg PO HS [facility] Last Admin: 04/27/17 22:19 Dose: 20 mg Carvedilol (Coreg) 25 mg PO BIDCC [facility] Last Admin: 04/28/17 07:45 Dose: 25 mg Clonazepam (Klonopin) 0.5 mg PO DAILY@1700 [facility] Last Admin: 04/27/17 17:26 Dose: Not Given Clopidogrel Bisulfate (Plavix) 75 mg PO DAILY [facility] Last Admin: 04/28/17 09:38 Dose: 75 mg Dextrose (Dextrose 50%) 0 ml IV UD PRN PRN Reason: Hypoglycemia Diagnostic Test (Pha) (Accu-Chek) 1 each FS ACHS [facility] Last Admin: 04/28/17 12:38 Dose: 1 each Docusate Sodium (Colace) 100 mg PO BID [facility] Last Admin: 04/28/17 09:39 Dose: 100 mg Heparin Sodium (Porcine) (Heparin) 5,000 unit SQ Q12 [facility] Last Admin: 04/28/17 09:39 Dose: 5,000 unit Ceftriaxone Sodium 1 gm/ (Dextrose) 50 mls @ 100 mls/hr IV Q24H [facility] Last Admin: 04/28/17 09:41 Dose: 100 mls/hr Insulin Human Lispro (Humalog) 0 unit SQ ACHS [facility] PRN Reason: Protocol Last Admin: 04/28/17 12:41 Dose: 1 unit Isosorbide Mononitrate (Imdur) 30 mg PO BID [facility] Last Admin: 04/28/17 09:39 Dose: 30 mg Levetiracetam (Keppra) 250 mg PO BID [facility] Last Admin: 04/28/17 09:38 Dose: 250 mg Lisinopril (Zestril) 20 mg PO HS [facility] Last Admin: 04/27/17 22:15 Dose: Not Given Methocarbamol (Robaxin) 500 mg PO BIDP PRN PRN Reason: Muscle Spasm Metoclopramide HCl (Reglan) 5 mg PO TIDAC [facility] Last Admin: 04/28/17 12:42 Dose: 5 mg Morphine Sulfate (Morphine) 0 mg IV Q1HP PRN PRN Reason: Pain Ondansetron HCl (Zofran) 4 mg IV Q4HP PRN PRN Reason: Nausea And Vomiting Oxycodone/Acetaminophen (Percocet 5-325 Mg) 0 tab PO Q4HP PRN PRN Reason: Pain Last Admin: 04/26/17 21:22 Dose: 2 tab Pantoprazole Sodium (Protonix) 40 mg PO QAMAC [facility] Last Admin: 04/28/17 07:45 Dose: 40 mg Pramipexole Dihydrochloride (Mirapex) 0.25 mg PO TID [facility] Last Admin: 04/28/17 09:39 Dose: 0.25 mg Senna (Senokot) 2 tab PO HS [facility] Last Admin: 04/27/17 22:20 Dose: 2 tab Sodium Chloride (Saline Flush) 10 ml IV Q8 [facility] Last Admin: 04/28/17 12:42 Dose: 10 ml Torsemide (Demadex) 60 mg PO DAILY [facility] Last Admin: 04/28/17 09:39 Dose: 60 mg Medical - PN: A/P - Time Spent With Patient Total time spent is greater than 50% in coordination of care (as documented) at patient's floor/unit and/or counseling patient: 25 - 35 minutes - Narrative A/P Narrative: A/P #1. Neurologic. Altered mental status 2 days ago.. Etiology of this is unclear. She continues to run a low-grade fever, but has been afebrile since about midnight.. -Troponin is elevated, but it is not clear what that means in the setting of her renal failure. Chest x-ray and urinalysis look okay. White blood cell count still looks normal. Blood cultures are pending. I did add Rocephin empirically, thinking we would probably find a UTI, but this does not appear to be the case now. DC Rocephin now. I am also suspicious that pain medications and muscle relaxers ordered postop may be affecting her mental status. Her neurologic exam is nonfocal, so I will hold off on CT scan of her brain for now. - History of seizures-she is on Keppra 250 mg twice a day. Continue same. No recent seizures. Seizure precautions. #2. Orthopedic. Patient is status post right AKA: This was done for chronic nonhealing wound, management as per orthopedics. -Wound care. Her wound appears to be doing well. #3. Post Op Pain: patient is presently on Percocet and morphine. The patient has not received much in the way of pain medications, and denies significant pain at this time. #4. Endocrine. Diabetes-glucose level is well controlled, glucose low yesterday, lantus stopped , -Glucoses today range from 105-161. She appears to have poor appetite. #5. Cardiac. CAD/CHF: -The patient denies any chest pain or shortness of breath. Troponins are elevated, as noted above, but the meaning of this is unclear. EKG shows left bundle branch block. I spoke with her last night and asked her if cardiology was planning on doing any more angiograms or stents, and she said they had agreed not to do any more procedures. I suspect she has multivessel disease. The patient stated that she did not want any aggressive interventions if she had more heart problems. She confirmed to me that she did not desire to be transferred out, even if she was having a heart issue. She continues to deny chest pain or shortness of breath. I also touched base with Dr. Valles of nephrology, and he is aware of her current hypotension, which is likely due to her dialysis, as well as the elevated troponins. -She appeared to confirm this plan again today. We will try to review it with her POA, Tish, when she arrives today. He would be appropriate to change her CODE STATUS to DNR. #6. Renal. End-stage renal disease-this is managed by Dr. Valles, patient receiving dialysis with Dr. Valles. She was dialyzed yesterday, and has had intermittent hypotension since then, but this appears asymptomatic. #7. Anemia: Hb slight drop to 8.0, and this is lower today. It is unclear if this might be dilutional. Check stool cards. Recheck after dialysis. #8. hyperlipidemia-continue statin. #9. hypertension- -on amlodipine, Coreg and lisinopril. Blood pressures table. #10. DVT hep sq #11. Diet Renal carb restricted Activity as per ortho #12. FUll code Approximately 30 minutes has been spent so far today, reviewing the patient's chart and test results, reviewing plan of care with staff, interviewing and examining the patient ,and writing orders. Medical - PN: Qual - Stroke Symptom Onset Unknown: No - VTE Deep Vein Thrombosis/Pulmonary Embolism Present on Admission: No
[2017-04-28] MEDS: clonazePAM 0.5 MG TABLET PO SCH (16:57)
[2017-04-28] MEDS: LISINOPRIL 20 MG TABLET PO SCH (21:21)
[2017-04-28] MEDS: ATORVASTATIN 20 MG TABLET PO SCH (21:32)
[2017-04-28] MEDS: SENNOSIDES 1 TABLET PO SCH (21:32)
[2017-04-29] MEDS: 0.9 % SODIUM CHLORIDE 10 ML SYRINGE IV SCH ×3 (05:36→22:03)
[2017-04-29 05:49] LABS: Basophils # (Auto) 0 K/mcL (0.0-0.3); Basophils % (Auto) 0.3 % (0.0-2.0); Eosinophils # (Auto) 0.2 K/mcL (0.0-0.7); Eosinophils % (Auto) 3.4 % (0.0-7.0); Granulocytes % (Auto) 73.2 % (38.0-78.0); Lymphocytes # (Auto) 0.7 K/mcL (1.5-4.8); Lymphocytes % (Auto) 13.1 % (15.5-49.0); Mean Cell Volume 89.7 fL (80.0-100.0); Mean Corpuscular Hemoglobin 30.5 pg (26.0-34.0); Monocytes # (Auto) 0.6 K/mcL (0.1-0.9); Platelet Count 122 K/mcL (140-440); Red Cell Distribution Width 15.3 % (11.5-14.5)
[2017-04-29 06:26] LABS: ALT/SGPT < 5 U/l (0-40); Albumin 2.7 gm/dL (3.2-5.2); Albumin/Globulin Ratio 1.1 (1.0-2.3); Alkaline Phosphatase 54 U/L (39-117); Bilirubin,Direct < 0.2 mg/dL (0.0-0.3); Blood Urea Nitrogen 37 mg/dl (8-23); Gamma Glutamyl Transpeptidase 7 U/L (5-36); Magnesium 2.1 mg/dL (1.6-2.5); Uric Acid 4.4 mg/dL (2.5-8.0)
[2017-04-29] MEDS: METOCLOPRAMIDE 10 MG TABLET PO SCH ×3 (07:11→17:04)
[2017-04-29] MEDS: PANTOPRAZOLE 40 MG TABLET PO SCH (07:12)
[2017-04-29] MEDS: INSULIN LISPRO 1 UNIT/0.01 ML UNIT SQ SCH ×4 (07:25→20:55)
[2017-04-29] MEDS: ASPIRIN 81 MG TAB.CHEW PO SCH (09:09)
[2017-04-29] MEDS: CARVEDILOL 12.5 MG TABLET PO SCH ×2 (09:09→17:02)
[2017-04-29] MEDS: DOCUSATE SODIUM 100 MG CAPSULE PO SCH ×2 (09:09→20:55)
[2017-04-29] MEDS: TORSEMIDE 10 MG TABLET PO SCH (09:10)
[2017-04-29] MEDS: ISOSORBIDE MONONITRATE 30 MG TAB.XL.24H PO SCH ×2 (09:10→20:54)
[2017-04-29] MEDS: levETIRAcetam 500 MG TABLET PO SCH ×2 (09:10→20:53)
[2017-04-29] MEDS: HEPARIN 5,000 UNIT/ML VIAL SQ SCH ×2 (09:10→20:53)
[2017-04-29] MEDS: amLODIPine 10 MG TABLET PO SCH (09:11)
[2017-04-29] MEDS: CLOPIDOGREL 75 MG TABLET PO SCH (09:11)
[2017-04-29] MEDS: PRAMIPEXOLE 0.25 MG TABLET PO SCH ×3 (09:11→20:53)
--- NOTE | 2017-04-29 11:09 | Nephrology Progress Note ---
Subjective Patient information: Note initiated : 04/29/17 at 11:07 am Service Date, if different from initiated Date: [] Patient: Tamica Tidwell 66 y/o F admitted on 04/23/17 for Right Leg Amputation Above The Knee. Chief Complaint: [Has been moved to ICU because of change in mental status. She feels better today. Does not have any chest pains. She has been insisting on going home.] Principal diagnosis: Right AKA Objective - Vital Signs Vital signs: Vital Signs Temp Pulse Pulse Pulse Resp BP Pulse Ox 04/29/17 08:02 125/46 04/29/17 08:00 72 72 70 95 04/29/17 07:20 83/55 04/29/17 06:01 111/51 04/29/17 04:01 98.8 F 111/49 04/29/17 04:00 70 04/29/17 02:01 105/47 04/29/17 00:01 105/45 04/29/17 00:00 70 04/28/17 22:01 104/46 04/28/17 20:00 98.1 F 105/46 95 04/28/17 18:02 89/42 04/28/17 14:01 97.5 F 16 95/43 96 04/28/17 12:05 94 04/28/17 12:01 97.5 F 16 106/42 88 L Intake and Output 04/28/17 04/29/17 04/29/17 21:59 05:59 13:59 Intake Total 120 / 120 350 / 350 Output Total 0 / 0 Balance 120 / 120 350 / 350 Intake: IV 350 / 350 Oral 120 / 120 Output: # of times incontinent of 0 / 0 urine Other: Meal Dinner Percent of Meal Consumed 50% Weight 92 lb Intake & Output: Intake & Output 04/28/17 04/29/17 04/29/17 21:59 05:59 13:59 Intake Total 120 / 120 350 / 350 Output Total 0 / 0 Balance 120 / 120 350 / 350 Weight 92 lb Intake: IV 350 / 350 Oral 120 / 120 Output: # of times incontinent of 0 / 0 urine Other: Meal Dinner Percent of Meal Consumed 50% - General Appearance General appearance: cachectic EENT: ATNC Neck: no JVD Respiratory: no kyphosis Cardiology: no murmurs Gastrointestinal: normoactive bowel sounds Integumentary: no rash Neurologic: no focal deficit - Lab 04/29/17 03:51 04/29/17 03:51 Most recent lab results Calcium 8.4 mg/dl (8.6-10.4) L 04/29/17 03:51 Phosphorus 5.2 mg/dL (2.7-4.5) H 04/29/17 03:51 Magnesium 2.1 mg/dL (1.6-2.5) 04/29/17 03:51 Assessment and Plan (1) ESRD (end stage renal disease) on dialysis Status: Acute Comment: 1. ESRD. She will be scheduled to have dialysis tomorrow 04/30/2017. Will give her IDPN and will take out about 2 liters of fluid. No indication for dialysis today. 2. S/P AKA. 3. Anemia. HB is low, will transfuse one unit today.
--- NOTE | 2017-04-29 11:17 | Discharge Summary ---
Medical - DS: Prov Patient information: Note initiated : 04/29/17 at 11:15 am Patient: Tamica Tidwell 66 y/o F admitted on 04/23/17 for Right Leg Amputation Above The Knee. Date of admission: 04/23/17 09:05 Discharge date: 04/30/17 Primary care physician: Elizabeth Mccann , Phone number [phone] Admitting clinician: Trey Higgins Consults: 04/23/17 17:10 Consult to Physician [CONS] Routine Comment: Consulting Provider: Richard Will Reason For Exam: Physician to Consult 04/24/17 07:39 Consult to Physician [CONS] Routine Comment: Consulting Provider: James Melara Reason For Exam: Physician to Consult Attending physician on discharge: Simran Ag Medical - DS: Meds - Discharge Medications Prescriptions: oxyCODONE/APAP [Percocet 5-325 mg] 1 tab PO Q4HP PRN #90 tablet PRN Reason: Pain Active and Home Medications: Discharge medications: Patient will receive 1 unit of packed red blood cells today prior to discharge. Amlodipine 10 mg daily, hold for systolic blood pressure less than 100 Aspirin 81 mg daily Lipitor 20 mg nightly Coreg 25 mg p.o. twice daily, hold for systolic blood pressure less than 100, heart rate less than 50 Clonazepam 0.5 mg daily at 1700 Plavix 75 mg p.o. daily Colace 100 mg twice daily next line heparin 5000 units subcu every 12 hours until more physically active Humalog sliding scale Isosorbide mononitrate 30 mg p.o. twice daily Keppra 250 mg p.o. twice daily Lisinopril 20 mg nightly Methocarbamol 500 mg p.o. twice daily as needed Reglan 5 mg p.o. 3 times daily before meals Zofran 4 mg sublingual every 4 hours as needed Percocet 53 25 1-2 tabs every 6 hours as needed pain Protonix 40 mg every morning Mirapex 0.25 mg p.o. 3 times daily Senna 2 tabs p.o. nightly Torsemide 60 mg p.o. daily previous Home Medications: Aspirin [Ecotrin] 81 mg PO DAILY 08/09/15 [History Confirmed 04/23/17 Last Taken 04/22/17 19:00] Atorvastatin [Lipitor] 20 mg PO HS 08/09/15 [History Confirmed 04/18/17 Last Taken 01/14/17] Carvedilol [Coreg] 25 mg PO BIDCC 08/09/15 [History Confirmed 04/18/17 Last Taken 01/14/17] Metoclopramide HCl [Metozolv Odt] 5 mg PO TIDAC 08/09/15 [History Confirmed Last Taken 01/14/17] Pantoprazole [Protonix] 40 mg PO QAMAC 08/09/15 [History Confirmed 04/18/17 Last Taken 01/14/17] Clopidogrel Bisulfate [Plavix] 75 mg PO DAILY 02/23/16 [History Confirmed Last Taken 01/14/17] Methocarbamol [Robaxin] 500 mg PO BID 02/23/16 [History Confirmed 04/23/17 Last Taken 04/22/17 19:00] amLODIPine [Norvasc] 10 mg PO DAILY 02/23/16 [History Confirmed 04/18/17 Last Taken 01/14/17] Pramipexole Di-HCl [Mirapex] 0.25 mg PO TID 90 Days 03/09/16 [Rx Confirmed 04/18 Last Taken 01/14/17] Isosorbide Mononitrate [Isosorbide Mononitrate ER] 30 mg PO BID 01/08/17 [ History Confirmed 04/23/17 Last Taken 04/23/17 06:00] Torsemide [Demadex] 60 tablet PO DAILY 01/08/17 [History Confirmed 04/18/17 Last Taken 01/14/17] levETIRAcetam [Keppra] 250 mg PO BID 01/09/17 [History Confirmed 04/18/17 Last Taken 01/14/17] Insulin Glargine, Human [Lantus] 8 unit SQ HS unit 01/28/17 [Rx Confirmed 04/23 Last Taken 04/22/17 19:00] Insulin Lispro [Humalog] See Protocol SQ ACHS #0 unit 01/28/17 [Rx Confirmed Last Taken 04/22/17 19:00] clonazePAM [Klonopin] 0.5 mg PO DAILY@1700 #10 tablet 01/28/17 [Rx Confirmed Last Taken 04/22/17 17:00] Lisinopril [Zestril] 20 mg PO HS 04/18/17 [History Confirmed 04/18/17 Last Taken Unknown] oxyCODONE/APAP [Percocet 5-325 mg] 1 tab PO Q4HP PRN #90 tablet 04/26/17 [Rx Last Taken Unknown] Medical - DS: Hosp Hospital course: Mr. Tidwell is a 66 year old F April 24, 2017: Consult note: Ms. Tidwell is a 66 year old female with bilateral BKA, peripheral vascular disease, diabetes, coronary artery disease, congestive heart failure, was admitted to the hospital by orthopedics for right leg wound which was not responding to conservative management. The patient was treated with right above -knee amputation which was done yesterday. Medicine has been consulted for medical management of chronic medical issues. This morning the patient complained of some nausea and had vomiting 1 after which she was able to keep her food down. She had some pain in the right leg yesterday. However, her pain is much more tolerable today. She denies any other acute medical complaints. She denies any headache, dizziness, changes in vision, changes in hearing, difficulty in swallowing. No chest pain no shortness of breath, no cough, no abdominal pain. No constipation or diarrhea. She has some pain at the site of the surgery which is been adequately managed with current pain medications. The patient had her dialysis last night after surgery. april 25: patient seen and examined this morning lying comfortably in bed. Denies any acute complaints. She had some episodes of nausea and vomiting yesterday, which resolved with medications. She denies any nausea, vomiting this morning. There was some low glucose values noted yesterday, which responded to dextrose. The patient's Lantus medication has been stopped. She is just on sliding scale insulin for now. Her glucose value is in the normal range. On talking with the patient, it seems that she will be ready for discharge this Saturday. Her labs are reviewed. No other significant concern. She should be dialyzed today. April 26: -This morning, the patient had no complaints. She is quite insistent about going home, rather than going back to rehab. She says she has spent too much time in rehab. However, physical therapy notes that the patient has very poor activity tolerance, weakness, and difficulties with stability, making transfers unsafe. She required maximum assistance today, and skilled rehab is highly recommended. -This afternoon, nursing staff noted that the patient seemed to be less responsive than her normal. On interview, she is just a bit drift E, and frequently seems to fall asleep. She answers most questions appropriately. She denies fever chills, headaches or dizziness, chest pain or shortness of breath, GI or symptoms. She denied significant pain in her legs, however when I unwrapped her right AKA stump, she had quite a bit of discomfort. Incisions are healing well, and are clean and dry without erythema. Left stump has a few sutures remaining, but does not show any signs of infection. April 27: Overnight, her mental status did seem to clear. She does continue to be fairly sleepy however, and remains quite irritable. Her troponin level was elevated yesterday, although the meaning of this in the setting of end-stage renal disease is uncertain. Follow-up troponins were in a similar range. The patient denies fever or chills, headaches or dizziness, chest pain or palpitations, shortness of breath, GI or complaints. She is annoyed by so many questions. She will be dialyzed this morning. Echocardiogram was ordered for this morning as well. April 28: Overnight, the patient remained fairly stable. Her blood pressure ran low after dialysis, but she denies any lightheadedness or other discomfort. Dr. Valles was not especially worried about her blood pressure as long as she remained asymptomatic. Today, she is alert. She continues to nap a lot. She denies pain, fever or chills, chest pain or palpitations, shortness of breath, abdominal pain, nausea or vomiting or diarrhea, dysuria. We again discussed if she would want anything done if she had any more major cardiac events. She again says that she would not want transfer to a cardiac facility, and does not want more procedures. However, she then said she wanted to be full code. However when we discussed ventilation and chest compressions and defibrillation, she said she did not think she wanted that. She says her friend Tish has her POA, and should be in some time today. April 29: Hospital course: This patient has known severe peripheral vascular disease, diabetes, coronary disease, CHF, chronic tobacco abuse, and was admitted on April 24 for feeling to heal her right stump wound. She underwent a right AKA. From a surgical standpoint, she has done quite well. Her wounds are clean and dry, and seemed to be healing adequately. -She continues to be quite weak, and physical therapy notes she is at very high risk for falling. They are quite adamant that she is not safe to return home. She will therefore be transferred to rehab for strengthening prior to returning back home. The patient has been very resistant to this idea, but is finally seeming to understand today that she is just too weak to go home to be alone. She does have caregivers, but not 24 hours a day. -On April 26 she seemed to become less mentally alert. It was unclear if this was related to postop medications, or infection, or some other event. Workup for infection was unrevealing. Cardiac workup showed elevated troponin, but it was unclear if this was important in the setting of her end-stage renal disease. EKG just showed her old left bundle branch block. Echocardiogram shows LVH with mildly hypokinetic septal wall, LV ejection fraction of 52%. These changes appeared more chronic than acute. I had numerous discussions with the patient, and with Dr. Valles, and then with the doctor show operations supervisor for primary care physician. We all agreed that she likely has nonoperative diffuse coronary disease. I reviewed with the patient that if she did have an acute coronary events, whether she would want more angiograms and stents, etc. She confirmed that she did not want any more invasive procedures. We then discussed overall CODE STATUS, and she ultimately decided that she did not want to have chest compressions or defibrillation or intubation. We had hoped to discuss this in person with her POA, but we have not seen the POA since then. -She is now stable and ready for discharge, but due to mildly worsening anemia, Dr. Valles ordered a blood transfusion for today. Apparently she would then need to get dialysis afterwards, so that will make her too late to be discharged today. -Otherwise, today, the patient is awake and alert. She continues to be irritable. She denies fever chills, chest pain or shortness of breath, abdominal pain, nausea or vomiting. Physical therapy notes that she continues to lack strength to self transfer, and that she will need continued skilled therapy to get her back to her baseline , prior to going back to living alone. On exam, the patient is awake and alert, and irritable, which seems to be her baseline. Neck is supple without obvious lymphadenopathy or JVD. Cardiac exam shows regular rate and rhythm. Lungs are clear to auscultation, but diminished at the bases. Abdomen is soft and nontender. Extremities: Show no significant edema. Both of her stumps are bandaged, with dressings clean and dry. Neurologic exam: Other than being irritable, the patient is alert and oriented, calm and cooperative. Motor exam is grossly nonfocal. A/P Narrative: #1. Neurologic. Altered mental status several days ago.. Etiology of this is unclear. She continues to run a low-grade fever, but has been afebrile for more than 24 hrs now. -Troponin is elevated, but it is not clear what that means in the setting of her renal failure. Chest x-ray and urinalysis look okay. White blood cell count still looks normal. Blood cultures are negative so far. I did add Rocephin empirically, thinking we would probably find a UTI, but this does not appear to be the case now. Rocephin was discontinued. I am also suspicious that pain medications and muscle relaxers ordered postop may have affected her mental status. Her neurologic exam is nonfocal, so I elected not to do CT scan of her brain. - History of seizures-she is on Keppra 250 mg twice a day. Continue same. No recent seizures. Seizure precautions. #2. Orthopedic. Patient is status post right AKA: This was done for chronic nonhealing wound, management as per orthopedics. -Wound care. Her wound appears to be doing well. Per Ortho:Activity as tolerated May shower in 2 days. Follow up with Awais Lau PA-C : 05/03/17 @11:20 Keep dressing clean and dry. Do not remove the dressing; it will be checked on your follow up appointment. To avoid constipation while taking any narcotic pain medication, take an over the counter stool softener/laxative. Call your physician for fevers above 100.5 or pain not controlled by medication. #3. Post Op Pain: patient is presently on Percocet and morphine. The patient has not received much in the way of pain medications, and denies significant pain at this time. #4. Endocrine. Diabetes-glucose level is well controlled, glucose low yesterday, lantus stopped , -Glucoses range from 105-161. She appears to have poor appetite. #5. Cardiac. CAD/CHF: -The patient denies any chest pain or shortness of breath. Troponins are elevated, as noted above, but the meaning of this is unclear. EKG shows left bundle branch block. I spoke with her and asked her if cardiology was planning on doing any more angiograms or stents, and she said they had agreed not to do any more procedures. I suspect she has multivessel disease. The patient stated that she did not want any aggressive interventions if she had more heart problems. She confirmed to me that she did not desire to be transferred out, even if she was having a heart issue. She continues to deny chest pain or shortness of breath. I also touched base with Dr. Valles of nephrology, and he is aware of her current hypotension, which is likely due to her dialysis, as well as the elevated troponins. -She appeared to confirm this plan again today. We will try to review it with her POA, Tish, . He would be appropriate to change her CODE STATUS to DNR. #6. Renal. End-stage renal disease-this is managed by Dr. Valles, patient receiving dialysis with Dr. Valles. She was dialyzed yesterday, and has had intermittent hypotension since then, but this appears asymptomatic. -Dr. Valles decided to transfuse her today to get her hemoglobin above 8.0. Apparently that will also require her to have dialysis today, so discharge will be postponed until tomorrow. #7. Anemia: Hb slight drop to 7.6, . Due to cardiac concerns, we would like to keep her hematocrit above 8, Dr. Valles therefore ordered a transfusion today. Unfortunately it took long enough to get the blood and then to transfuse her, that it was too late to discharge her today. The plan will be to dialyze her tomorrow morning, and then transfer her out to rehab after that. #8. hyperlipidemia-continue statin. #9. hypertension- -on amlodipine, Coreg and lisinopril. Blood pressures low to normal. Continue to monitor today after transfusion and dialysis. #10. DVT hep sq #11. Diet Renal carb restricted Activity as per ortho #12. CODE STATUS now changed to DNR. Approximately 35 minutes has been spent so far today, reviewing the patient's chart and test results, reviewing plan of care with staff, interviewing and examining the patient ,and writing orders. addendum Our original plan was to discharge the patient to rehab today, but as noted above, she needed a blood transfusion, which delayed her transfer. We hope to transfer her tomorrow. Discharge diagnosis: Right BKA stump infection, status post AKA. Altered mental status. ESRD Secondary discharge diagnosis: Chronic renal failure. Type 2 diabetes. Ongoing tobacco abuse. History of stroke History of gastroparesis History of coronary disease and [place] History of seizure - Time Spent with Patient Total time spent providing and/or coordinating discharge services: Greater than 30 minutes Medical - DS: Exam - Constitutional Vitals: Vital Signs Temp Pulse Pulse Pulse Resp BP Pulse Ox 04/29/17 08:02 125/46 04/29/17 08:00 72 72 70 95 04/29/17 07:20 83/55 04/29/17 06:01 111/51 04/29/17 04:01 98.8 F 111/49 04/29/17 04:00 70 04/29/17 02:01 105/47 04/29/17 00:01 105/45 04/29/17 00:00 70 04/28/17 22:01 104/46 04/28/17 20:00 98.1 F 105/46 95 04/28/17 18:02 89/42 04/28/17 14:01 97.5 F 16 95/43 96 04/28/17 12:05 94 04/28/17 12:01 97.5 F 16 106/42 88 L Intake and Output 04/28/17 04/29/17 04/29/17 21:59 05:59 13:59 Intake Total 120 / 120 350 / 350 Output Total 0 / 0 Balance 120 / 120 350 / 350 Intake: IV 350 / 350 Oral 120 / 120 Output: # of times incontinent of 0 / 0 urine Other: Meal Dinner Percent of Meal Consumed 50% Weight 92 lb Medical - DS: Data Labs on day of discharge: Labs from last 24 hours 04/29/17 04/29/17 03:51 03:51 WBC 5.7 RBC 2.50 L Hgb 7.6 L Hct 22.4 L MCV 89.7 MCH 30.5 MCHC 34.0 RDW 15.3 H Plt Count 122 L MPV 9.5 Gran % 73.2 Lymph % (Auto) 13.1 L Morris % (Auto) 10.0 Eos % (Auto) 3.4 Baso % (Auto) 0.3 Gran # 4.2 Lymph # (Auto) 0.7 L Morris # (Auto) 0.6 Eos # (Auto) 0.2 Baso # (Auto) 0 Sodium 142 Potassium 3.5 Chloride 101 Carbon Dioxide 26 Anion Gap 15.0 BUN 37 H Creatinine 4.2 H GFR Calculation 10 Glucose 128 H Uric Acid 4.4 Calcium 8.4 L Phosphorus 5.2 H Magnesium 2.1 Total Bilirubin 0.3 Direct Bilirubin < 0.2 GGT 7 AST 16 ALT < 5 Alkaline Phosphatase 54 Lactate Dehydrogenase 146 Total Protein 5.2 L Albumin 2.7 L Globulin 2.5 Albumin/Globulin Ratio 1.1 Triglycerides 173 H Preliminary micro results at discharge 04/26/17 15:40 Blood Culture - Preliminary Blood 04/26/17 15:50 Blood Culture - Preliminary Blood April 27: Echocardiogram: Mild LVH. Ejection fraction 52%. Mildly hypokinetic septal wall. Left atrial dilation. Mild posterior mitral calcification. IVC measures normal. April 26: BNP is elevated at 2921 Chest x-ray shows clear lungs, without obvious vascular congestion or pneumonia. EKG: Normal sinus rhythm at a rate of 71. Left bundle branch block is present, and makes the rest of the interpretation not very meaningful. There is no significant change noted from April 23 or from January 112016. Urinalysis: 100 mg of protein, many crystals, 28 cast, negative nitrates, negative leukocyte esterase. Troponin, 0.11, 0.12, 0.13 April 24: Chest x-ray: Shows minor scarring versus atelectasis at the left lung base, otherwise normal. April 23: Urinalysis shows 500 mg of protein, 50 of glucose, 3 hyaline casts. EKG: Shows sinus rhythm at a rate of 90, with left axis deviation, LVH. Medical - DS: A/P - Patient/Caregiver Discharge Instructions Activity: as per physical therapy, wear oxygen at night Diet: Renal/Consistent Carbs Additional Instructions: Regular Diet Activity as tolerated May shower in 2 days. Follow up with Awais Lau PA-C : 05/03/17 @11:20 Keep dressing clean and dry. Do not remove the dressing; it will be checked on your follow up appointment. To avoid constipation while taking any narcotic pain medication, take an over the counter stool softener/laxative. Call your physician for fevers above 100.5 or pain not controlled by medication. Your prescriptions are with your discharge information. Some medications were electronically transmitted to your pharmacy of choice. Prescriptions: oxyCODONE/APAP [Percocet 5-325 mg] 1 tab PO Q4HP PRN #90 tablet PRN Reason: Pain - Follow up Plan Follow up with: Jonatan Lau PA-C [Physician [employer] Assembler] - 05/03/17 11:20 am Gabriel Valles MD [Physician] - Elizabeth Mccann MD [Primary Care Provider] - Disposition: [facility] Prognosis: Fair Rehab Potential: Fair Overall status at discharge: patient is progressing back to baseline Medical - DS: Qual - VTE Deep Vein Thrombosis/Pulmonary Embolism Present on Admission: No
[2017-04-29] MEDS ORDERED: 0.9 % SODIUM CHLORIDE 250 ML IV SCH (11:30)
[2017-04-29] MEDS: clonazePAM 0.5 MG TABLET PO SCH (17:04)
[2017-04-29] MEDS: ATORVASTATIN 20 MG TABLET PO SCH (20:53)
[2017-04-29] MEDS: oxyCODONE/APAP 5/325MG TABLET PO PRN (20:53)
[2017-04-29] MEDS: SENNOSIDES 1 TABLET PO SCH (20:54)
[2017-04-29] MEDS: LISINOPRIL 20 MG TABLET PO SCH (20:55)
[2017-04-30] MEDS: 0.9 % SODIUM CHLORIDE 10 ML SYRINGE IV SCH (05:37)
[2017-04-30 05:51] LABS: Basophils # (Auto) 0 K/mcL (0.0-0.3); Basophils % (Auto) 0.5 % (0.0-2.0); Eosinophils # (Auto) 0.3 K/mcL (0.0-0.7); Eosinophils % (Auto) 5.1 % (0.0-7.0); Granulocytes % (Auto) 70.8 % (38.0-78.0); Lymphocytes # (Auto) 0.8 K/mcL (1.5-4.8); Mean Cell Volume 87.3 fL (80.0-100.0); Mean Corpuscular HGB Conc 33.8 g/dL (31.0-36.0); Mean Corpuscular Hemoglobin 29.5 pg (26.0-34.0); Monocytes # (Auto) 0.6 K/mcL (0.1-0.9); Monocytes % (Auto) 10.6 % (1.0-12.0); Platelet Count 126 K/mcL (140-440); RBC 2.84 M/mcL (4.00-5.20); Red Cell Distribution Width 17.3 % (11.5-14.5)
[2017-04-30 06:12] LABS: ALT/SGPT < 5 U/l (0-40); Albumin 2.7 gm/dL (3.2-5.2); Alkaline Phosphatase 57 U/L (39-117); Bilirubin,Direct < 0.2 mg/dL (0.0-0.3); Blood Urea Nitrogen 49 mg/dl (8-23); Gamma Glutamyl Transpeptidase 7 U/L (5-36); Magnesium 2.1 mg/dL (1.6-2.5); Uric Acid 5.2 mg/dL (2.5-8.0)
[2017-04-30] MEDS: ASPIRIN 81 MG TAB.CHEW PO SCH ×2 (08:23→12:55)
[2017-04-30] MEDS: amLODIPine 10 MG TABLET PO SCH (08:24)
[2017-04-30] MEDS: METOCLOPRAMIDE 10 MG TABLET PO SCH ×2 (08:24→12:55)
[2017-04-30] MEDS: TORSEMIDE 10 MG TABLET PO SCH ×2 (08:25→12:53)
[2017-04-30] MEDS: PANTOPRAZOLE 40 MG TABLET PO SCH (08:25)
[2017-04-30] MEDS: ISOSORBIDE MONONITRATE 30 MG TAB.XL.24H PO SCH ×2 (08:25→12:56)
[2017-04-30] MEDS: HEPARIN 5,000 UNIT/ML VIAL SQ SCH (08:25)
[2017-04-30] MEDS: CARVEDILOL 12.5 MG TABLET PO SCH ×2 (08:26→12:55)
[2017-04-30] MEDS: INSULIN LISPRO 1 UNIT/0.01 ML UNIT SQ SCH (08:26)
[2017-04-30] MEDS: DOCUSATE SODIUM 100 MG CAPSULE PO SCH (08:27)
--- NOTE | 2017-04-30 10:45 | Internal Med Progress Note ---
Medical - PN: Subj Patient information: Note initiated : 04/30/17 at 10:43 am Service Date, if different from initiated Date: [] Patient: Tamica Tidwell 66 y/o F admitted on 04/23/17 for Right Leg Amputation Above The Knee. Chief Complaint: [] Interval history: This patient was admitted for right BKA stump infection. She underwent AKA. She has been healing quite well from her surgery. She has continued weakness, and is high fall risk. Will be transferred to senior care for rehabilitation and strengthening today. She was supposed to be transferred yesterday, but because of a delay in getting her blood transfusion going, that had to be put off until today. She did have a blood transfusion last night. She had dialysis this morning, and is now ready for discharge to rehab. Today, the patient remains irritable, which appears to be her baseline. She denies chest pain, shortness of breath, GI or symptoms. - Constitutional Vitals: Vital Signs Temp Pulse Resp BP Pulse Ox 98.3 F 74 20 116/48 97 04/30/17 08:00 04/30/17 10:31 04/29/17 20:01 04/30/17 10:31 04/29/17 20:01 Period Temp Pulse Resp BP Sys/Pichardo Pulse Ox Last 24 Hr 97.4 F-98.3 F 59-78 16-20 90-132/40-62 96-97 Intake and Output 04/29/17 04/30/17 04/30/17 21:59 05:59 13:59 Output Total 64019 / 99198 Balance -1 / -1 -71932 / -41194 Weight 93 lb 12.8 oz Intake & Output: Intake & Output 04/29/17 04/30/17 04/30/17 21:59 05:59 13:59 Output Total 87186 / 47300 Balance -1 / -1 -59364 / -91780 Weight 93 lb 12.8 oz Output: # of times incontinent of urine Hemodialysis UF 74694 / 42429 On exam, the patient is awake and alert, and irritable, which seems to be her baseline. Neck is supple without obvious lymphadenopathy or JVD. Cardiac exam shows regular rate and rhythm. Lungs are clear to auscultation, but diminished at the bases. Abdomen is soft and nontender. Extremities: Show no significant edema. Both of her stumps are bandaged, with dressings clean and dry. Neurologic exam: Other than being irritable, the patient is alert and oriented, calm and cooperative. Motor exam is grossly nonfocal. Medical - PN: Obj Da - Labs CBC & Chem 7: 04/30/17 04:15 04/30/17 04:15 Labs: Abnormal Lab Results 04/30/17 04/30/17 04/29/17 04:15 04:15 03:51 RBC 2.84 L Hgb 8.4 L Hct 24.8 L RDW 17.3 H Plt Count 126 L Lymph % (Auto) 13.0 L Lymph # (Auto) 0.8 L BUN 49 H 37 H Creatinine 4.9 H 4.2 H Glucose 114 H 128 H Uric Acid Calcium 8.5 L 8.4 L Phosphorus 5.8 H 5.2 H Troponin T Total Protein 5.3 L 5.2 L Albumin 2.7 L 2.7 L Triglycerides 169 H 173 H 04/29/17 04/28/17 04/28/17 03:51 04:00 04:00 RBC 2.50 L 2.62 L Hgb 7.6 L 8.0 L Hct 22.4 L 23.8 L RDW 15.3 H 14.6 H Plt Count 122 L 109 L Lymph % (Auto) 13.1 L 12.3 L Lymph # (Auto) 0.7 L 0.8 L BUN Creatinine 2.3 H Glucose 114 H Uric Acid 2.2 L Calcium 8.2 L Phosphorus Troponin T Total Protein 5.3 L Albumin 2.8 L Triglycerides 159 H 04/27/17 17:29 RBC Hgb Hct RDW Plt Count Lymph % (Auto) Lymph # (Auto) BUN Creatinine Glucose Uric Acid Calcium Phosphorus Troponin T 0.19 H* Total Protein Albumin Triglycerides Meds: Medications Amlodipine Besylate (Norvasc) 10 mg PO DAILY [facility] Last Admin: 04/30/17 08:24 Dose: 10 mg Aspirin (Aspirin) 81 mg PO DAILY [facility] Last Admin: 04/30/17 08:23 Dose: 81 mg Atorvastatin Calcium (Lipitor) 20 mg PO [facility] Last Admin: 04/29/17 20:53 Dose: 20 mg [facility] Last Admin: 04/30/17 08:26 Dose: 25 mg Clonazepam (Klonopin) 0.5 mg PO DAILY@1700 [facility] Last Admin: 04/29/17 17:04 Dose: 0.5 mg Clopidogrel Bisulfate (Plavix) 75 mg PO DAILY [facility] Last Admin: 04/29/17 09:11 Dose: 75 mg Dextrose (Dextrose 50%) 0 ml IV UD PRN PRN Reason: Hypoglycemia Diagnostic Test (Pha) (Accu-Chek) 1 each FS ACHS [facility] Last Admin: 04/30/17 08:26 Dose: 1 each Docusate Sodium (Colace) 100 mg PO BID [facility] Last Admin: 04/30/17 08:27 Dose: Not Given Heparin Sodium (Porcine) (Heparin) 5,000 unit SQ Q12 [facility] Last Admin: 04/30/17 08:25 Dose: 5,000 unit Insulin Human Lispro (Humalog) 0 unit SQ [facility] PRN Reason: Protocol Last Admin: 04/30/17 08:26 Dose: Not Given Isosorbide Mononitrate (Imdur) 30 mg PO BID [facility] Last Admin: 04/30/17 08:25 Dose: 30 mg Levetiracetam (Keppra) 250 mg PO BID [facility] Last Admin: 04/29/17 20:53 Dose: 250 mg Lisinopril (Zestril) 20 mg PO HS [facility] Last Admin: 04/29/17 20:55 Dose: 20 mg Methocarbamol (Robaxin) 500 mg PO BIDP PRN PRN Reason: Muscle Spasm Metoclopramide HCl (Reglan) 5 mg PO TIDAC [facility] Last Admin: 04/30/17 08:24 Dose: 5 mg Morphine Sulfate (Morphine) 0 mg IV Q1HP PRN PRN Reason: Pain Ondansetron HCl (Zofran) 4 mg IV Q4HP PRN PRN Reason: Nausea And Vomiting Oxycodone/Acetaminophen (Percocet 5-325 Mg) 0 tab PO Q4HP PRN PRN Reason: Pain Last Admin: 04/29/17 20:53 Dose: 1 tab Pantoprazole Sodium (Protonix) 40 mg PO QAMAC [facility] Last Admin: 04/30/17 08:25 Dose: 40 mg Pramipexole Dihydrochloride (Mirapex) 0.25 mg PO TID [facility] Last Admin: 04/29/17 20:53 Dose: 0.25 mg Senna (Senokot) 2 tab PO HS [facility] Last Admin: 04/29/17 20:54 Dose: 2 tab Sodium Chloride (Saline Flush) 10 ml IV Q8 [facility] Last Admin: 04/30/17 05:37 Dose: 10 ml Torsemide (Demadex) 60 mg PO DAILY [facility] Last Admin: 04/30/17 08:25 Dose: 60 mg Medical - PN: A/P - Time Spent With Patient Total time spent is greater than 50% in coordination of care (as documented) at patient's floor/unit and/or counseling patient: 15 - 24 minutes - Narrative A/P Narrative: #1. Right BKA stump infection, status post AKA. Patient is healing well. She will be transferred to rehab today. Next 2. Brief episode of depressed mental status, likely due to postop medications. She seems back to baseline now. Workup was essentially negative. 3. For full details on all of her other issues and plan of care, please see yesterday's complete discharge summary. #4. Chronic anemia, worsening. She was transfused to hemoglobin of 8 yesterday , regarding her history of cardiac and vascular disease. Today's visit was a brief visit, prior to her being discharged, after yesterday' s discharge was delayed by her blood transfusion. He did receive dialysis today as well. Medical - PN: Qual - Stroke Symptom Onset Unknown: No - VTE Deep Vein Thrombosis/Pulmonary Embolism Present on Admission: No
[2017-04-30] MEDS: CLOPIDOGREL 75 MG TABLET PO SCH ×2 (13:09→13:13)
[2017-04-30] MEDS: levETIRAcetam 500 MG TABLET PO SCH (13:13)
[2017-04-30] MEDS: PRAMIPEXOLE 0.25 MG TABLET PO SCH (13:14)
--- NOTE | 2017-04-30 14:00 | Nephrology Progress Note ---
Subjective Patient information: Note initiated : 04/30/17 at 1:58 pm Service Date, if different from initiated Date: [] Patient: Tamica Tidwell 66 y/o F admitted on 04/23/17 for Right Leg Amputation Above The Knee. Chief Complaint: [Had one unit of blood transfusion. Has not had much pain. Slightly sleepy today. Will be going to [facility]. ] Principal diagnosis: Right AKA Objective - Vital Signs Vital signs: Vital Signs Temp Pulse Pulse Pulse Pulse Resp BP 04/30/17 12:01 97.2 F 16 130/52 04/30/17 12:00 100 H 72 04/30/17 11:32 132/46 04/30/17 11:25 112/46 04/30/17 11:20 98/50 04/30/17 11:17 97.9 F 74 112/46 04/30/17 11:15 74 98/50 04/30/17 11:05 107/57 04/30/17 11:01 74 107/57 04/30/17 10:50 133/55 04/30/17 10:45 76 133/55 04/30/17 10:35 116/48 04/30/17 10:31 74 116/48 04/30/17 10:20 121/45 04/30/17 10:14 78 121/45 04/30/17 10:05 132/51 04/30/17 10:02 71 132/51 04/30/17 10:01 130/45 04/30/17 09:50 121/47 04/30/17 09:45 74 121/47 04/30/17 09:35 124/46 04/30/17 09:30 73 124/46 04/30/17 09:20 119/45 04/30/17 09:15 73 119/45 04/30/17 09:06 122/47 04/30/17 08:59 75 122/47 04/30/17 08:50 122/55 04/30/17 08:44 70 122/55 04/30/17 08:35 101/53 04/30/17 08:30 71 101/53 04/30/17 08:27 100/40 04/30/17 08:23 59 L 100/40 04/30/17 08:20 76/44 04/30/17 08:00 97.9 F 78 100 H 72 20 115/62 04/30/17 07:57 113/49 04/30/17 06:01 106/51 04/30/17 04:01 111/43 04/30/17 04:00 72 04/30/17 02:00 116/50 04/30/17 00:01 112/50 04/30/17 00:00 72 04/29/17 22:01 125/57 04/29/17 20:01 97.4 F 20 129/50 04/29/17 20:00 72 04/29/17 18:01 125/54 04/29/17 16:01 97.8 F 16 120/47 04/29/17 16:00 70 74 68 04/29/17 14:01 92/48 BP BP Pulse Ox 04/30/17 12:01 96 04/30/17 12:00 04/30/17 11:32 04/30/17 11:25 04/30/17 11:20 04/30/17 11:17 04/30/17 11:15 04/30/17 11:05 04/30/17 11:01 04/30/17 10:50 04/30/17 10:45 04/30/17 10:35 04/30/17 10:31 04/30/17 10:20 04/30/17 10:14 04/30/17 10:05 04/30/17 10:02 04/30/17 10:01 04/30/17 09:50 04/30/17 09:45 04/30/17 09:35 04/30/17 09:30 04/30/17 09:20 04/30/17 09:15 04/30/17 09:06 04/30/17 08:59 04/30/17 08:50 04/30/17 08:44 04/30/17 08:35 04/30/17 08:30 04/30/17 08:27 04/30/17 08:23 04/30/17 08:20 04/30/17 08:00 120/52 84/43 97 04/30/17 07:57 04/30/17 06:01 04/30/17 04:01 04/30/17 04:00 04/30/17 02:00 04/30/17 00:01 04/30/17 00:00 04/29/17 22:01 04/29/17 20:01 97 04/29/17 20:00 97 04/29/17 18:01 04/29/17 16:01 96 04/29/17 16:00 04/29/17 14:01 Intake and Output 04/29/17 04/30/17 04/30/17 21:59 05:59 13:59 Output Total 11006 / 26598 Balance -1 -75327 / -09297 Output: # of times incontinent of urine Hemodialysis UF 94425 / 87780 Other: Weight 93 lb 12.8 oz Intake & Output: Intake & Output 04/29/17 04/30/17 04/30/17 21:59 05:59 13:59 Output Total 68840 / 68521 Balance - -1 -01955 / -47978 Weight 93 lb 12.8 oz Output: # of times incontinent of urine Hemodialysis UF 13692 / 44040 - General Appearance General appearance: appears started age, cachectic EENT: ATNC Neck: no JVD Respiratory: no kyphosis Cardiology: no murmurs Gastrointestinal: normoactive bowel sounds Neurologic: no focal deficit - Lab 04/30/17 04:15 04/30/17 04:15 Most recent lab results Calcium 8.5 mg/dl (8.6-10.4) L 04/30/17 04:15 Phosphorus 5.8 mg/dL (2.7-4.5) H 04/30/17 04:15 Magnesium 2.1 mg/dL (1.6-2.5) 04/30/17 04:15 Assessment and Plan (1) ESRD (end stage renal disease) on dialysis Status: Acute Comment: 1. ESRD. Had dialysis tomorrow today 04/30/2017. Got her IDPN and will take out about 2 liters of fluid. 2. S/P AKA. 3. Anemia. HB stable post transfusion of one unit today.
== END 2017-04-30 14:45 | DRG 239 ==
LOC: MEDSUR 09:05 → ICU 04-26 17:51
PROVIDERS: ADMIT Orthopaedic Surgery Foot and Ankle Surgery; ATTEND Internal Medicine

== ENCOUNTER 2017-06-12 15:18 | Inpatient (IN) ==
[2017-06-12 16:41] LABS: Basophils # (Auto) 0 K/mcL (0.0-0.3); Basophils % (Auto) 0.7 % (0.0-2.0); Eosinophils # (Auto) 0.4 K/mcL (0.0-0.7); Eosinophils % (Auto) 6.2 % (0.0-7.0); Granulocytes % (Auto) 62.2 % (38.0-78.0); Lymphocytes # (Auto) 1.3 K/mcL (1.5-4.8); Lymphocytes % (Auto) 21.5 % (15.5-49.0); Mean Corpuscular HGB Conc 32.9 g/dL (31.0-36.0); Mean Corpuscular Hemoglobin 31.9 pg (26.0-34.0); Monocytes # (Auto) 0.6 K/mcL (0.1-0.9); Monocytes % (Auto) 9.4 % (1.0-12.0); Platelet Count 143 K/mcL (140-440); RBC 4.59 M/mcL (4.00-5.20); Red Cell Distribution Width 16.7 % (11.5-14.5)
--- NOTE | 2017-06-12 16:57 | Emergency Department Note ---
General Adult HPI - General Chief complaint: Extremity Injury, Lower Stated complaint: Right AKA dehis wound Time Seen by Provider: 06/12/17 15:50 Source: patient Mode of arrival: EMS Limitations: no limitations - History of Present Illness HPI Narrative: This 67-year-old female with a history 6 weeks ago of a right [id number] amputation reports that postoperatively this healed fairly well roscoe and stitches were removed and was doing well until about 5 days ago when she awoke with the bandage off and it had opened up and split open. There was no purulence nor presently. She has been in wound care in the last 1 week several times today with Dr. Sommers, who called and indicated that she needs to be admitted for debridement of this area and requesting basic labs antibiotics and hospitalist involvement. Reports pain of 3/10 and worse with touch or manipulation. At the time of healing afterwards had gone down to less pain to very little pain until it had opened up. Her symptoms are not inclusive of fever, chills, sweats, nausea, chest pains or palpitations. - Related Data Home Medications Medication Instructions Recorded Confirmed Aspirin [Ecotrin] 81 mg PO DAILY 08/09/15 04/23/17 Atorvastatin [Lipitor] 20 mg PO HS 08/09/15 04/18/17 Carvedilol [Coreg] 25 mg PO BIDCC 08/09/15 04/18/17 Metoclopramide HCl [Metozolv Odt] 5 mg PO TIDAC 08/09/15 04/18/17 Pantoprazole [Protonix] 40 mg PO QAMAC 08/09/15 04/18/17 Clopidogrel Bisulfate [Plavix] 75 mg PO DAILY 02/23/16 04/18/17 Methocarbamol [Robaxin] 500 mg PO BID 02/23/16 04/23/17 amLODIPine [Norvasc] 10 mg PO DAILY 02/23/16 04/18/17 Isosorbide Mononitrate [Isosorbide 30 mg PO BID 01/08/17 04/23/17 Mononitrate ER] Torsemide [Demadex] 60 tablet PO DAILY 01/08/17 04/18/17 levETIRAcetam [Keppra] 250 mg PO BID 01/09/17 04/18/17 Lisinopril [Zestril] 20 mg PO HS 04/18/17 04/18/17 Previous Rx's Medication Instructions Recorded Pramipexole Di-HCl [Mirapex] 0.25 mg PO TID 90 Days 03/09/16 Insulin Glargine, Human [Lantus] 8 unit SQ HS unit 01/28/17 Insulin Lispro [Humalog] See Protocol SQ ACHS #0 unit 01/28/17 clonazePAM [Klonopin] 0.5 mg PO DAILY@1700 #10 tablet 01/28/17 oxyCODONE/APAP [Percocet 5-325 mg] 1 tab PO Q4HP PRN #90 tablet 04/26/17 Accu-Chek 1 each FS ACHS strip 04/29/17 Dextrose 50% 1 dose IV UD PRN vial 04/29/17 Docusate Sodium [Colace] 100 mg PO BID capsule 04/29/17 Heparin 5,000 unit SQ Q12 vial 04/29/17 Insulin Lispro [Humalog] See Protocol SQ ACHS unit 04/29/17 Metoclopramide [Reglan] 5 mg PO TIDAC tablet 04/29/17 Sennosides [Senokot] 2 tab PO HS tablet 04/29/17 levETIRAcetam [Keppra] 250 mg PO BID tablet 04/29/17 hydrOXYzine [Atarax] 50 mg PO Q6 PRN #15 tablet 06/12/17 Allergies Allergy/AdvReac Type Severity Reaction Status Date / Time codeine AdvReac Mild n/v Verified 04/18/17 14:15 hydrocodone AdvReac Mild n/v Verified 04/18/17 14:15 Review of Systems Review of Systems: She denies history of nausea or vomiting, see history of chief complaint. History of CRF with dialysis, last being yesterday. No other reported symptoms problems or findings. Past Medical History - Past Medical History Medical history: Reports: CVA, diabetes, myocardial infarction, renal disease ( chronic, on dialysis. ), valvular heart disease, other (PAD; LBBB; NO osteomyelitis.) Surgical history ED: Reports: cholecystectomy, orthopedic, other (Left below the knee amputation, right foot amputation, right [id number] amputation.), other Psychiatric history: Reports: no psych history - Social History smoking status: Current every day smoker Alcohol use: Reports: None Drug use: Reports: none Physical Exam - General Limitations: no limitations General appearance: alert, in no apparent distress - Head Head exam: atraumatic, normocephalic - Eye Eye exam: Present: EOMI - Respiratory Respiratory exam: Present: normal lung sounds bilaterally. Absent: respiratory distress, wheezes, stridor, accessory muscle use, prolonged expiratory phase - Cardiovascular Cardiovascular exam: Present: regular rate, normal rhythm. Absent: systolic murmur, diastolic murmur - Abdominal Exam Abdominal exam: Present: soft. Absent: distention, tenderness, guarding, rebound, rigidity - Neurological Exam Neurological exam: Present: alert, oriented X3 - Psychiatric Psychiatric exam: Absent: depressed, agitated - Skin Skin exam: Present: warm, dry, other (Left BKA stump is mildly pale with no lesions or ulcers. Right AKA stump is covered with bandaging. I was invited not to remove this by Dr. Sommers.) Course Vital Signs Temperature 98.0 F 06/12/17 15:19 Pulse Rate 78 06/12/17 15:19 Respiratory Rate 18 06/12/17 15:19 Blood Pressure 152/66 06/12/17 15:19 Pulse Oximetry (%) 95 06/12/17 15:19 Temperature 98.0 F 06/12/17 15:19 Pulse Rate 72 06/12/17 16:29 Respiratory Rate 18 06/12/17 15:19 Blood Pressure 145/70 06/12/17 16:01 Pulse Oximetry (%) 97 06/12/17 16:29 Medical Decision Making - [facility] Narrative Medical decision making narrative: Patient was in the emergency room for a significant period of time during which time we monitored her vital signs which remained stable. Her blood counts were unremarkable. Her creatinine was not unexpected. Blood cultures were obtained. Lactic acid was unremarkable as well. I discussed circumstances with hospitalist. Patient also had received 1 g of vancomycin and 1 g of Rocephin and Dr. Valles had been consulted prior to this to make sure that he understood and was in agreement to the recommendations and awareness that she is in the hospital. Hospitalist agrees to assume care at this point in time. - Lab Data Lab results reviewed: Yes I reviewed the patient's lab results. Result diagrams: 06/12/17 16:09 06/12/17 16:09 Lab Results 09/13/17 Range/Units 16:09 WBC 5.9 (4.5-11.0) K/mcL RBC 4.59 (4.00-5.20) M/mcL Hgb 14.7 (12.0-15.0) g/dL Hct 44.5 (36.0-48.0) % MCV 97.0 (80.0-100.0) fL MCH 31.9 (26.0-34.0) pg MCHC 32.9 (31.0-36.0) g/dL RDW 16.7 H (11.5-14.5) % Plt Count 143 (140-440) K/mcL MPV 9.2 (7.4-10.4) fL Gran % 62.2 (38.0-78.0) % Lymph % (Auto) 21.5 (15.5-49.0) % [place] % (Auto) 9.4 (1.0-12.0) % Eos % (Auto) 6.2 (0.0-7.0) % Baso % (Auto) 0.7 (0.0-2.0) % Gran # 3.6 (1.8-8.0) K/mcL Lymph # (Auto) 1.3 L (1.5-4.8) K/mcL [place] # (Auto) 0.6 (0.1-0.9) K/mcL Eos # (Auto) 0.4 (0.0-0.7) K/mcL Baso # (Auto) 0 (0.0-0.3) K/mcL Disposition Pt seen by [facility]/PA only: No Clinical Impression: Dehiscence of amputation stump, Above knee amputation of right lower extremity , Tobacco abuse, Necrotic eschar, PAD (peripheral artery disease) Delayed surgical wound healing Qualifiers: Encounter type: subsequent encounter Qualified Code(s): T81.89XD - Other complications of procedures, not elsewhere classified, subsequent encounter Disposition: Xfer As Inpt ([facility]) Condition: Fair Prescriptions: hydrOXYzine [Atarax] 50 mg PO Q6 PRN #15 tablet PRN Reason: Allergic Reaction Referrals: Elizabeth Mccann MD [Primary Care Provider] -
[2017-06-12 17:05] LABS: ALT/SGPT 8 U/l (0-40); Albumin/Globulin Ratio 1.5 (1.0-2.3); Alkaline Phosphatase 81 U/L (39-117); Blood Urea Nitrogen 46 mg/dl (8-23)
[2017-06-12] MEDS ORDERED: VANCOMYCIN 1,000 MG in 0.9 % SODIUM CHLORIDE 250 ML IV ONE (17:41)
[2017-06-12] MEDS ORDERED: cefTRIAXone 1 GM in DEXTROSE 5% IN WATER 50 ML IV ONE (17:41)
--- NOTE | 2017-06-12 19:38 | Internal Med History&Physical ---
Medical - H&P: [facility] Patient information: Note initiated : 06/12/17 at 7:36 pm Service Date, if different from initiated Date: [] Patient: Tamica Tidwell a 67 y/o F admitted on for Right AKA dehis wound. Chief Complaint: [] Chief complaint: Right AKA stump ecrotizing cellulitis History of present illness: Ms. Tidwell is a 67 year old F with a complicated history of ESRD/online DM type II and extensive CAD/PVD with a history of bilateral lower extremity amputation and recent revision of right BKA to right AKA in March 2017. Patient developed right AKA amputation stump dehiscence along with exposed necrotic tissue with drainage. She was subsequently referred by wound care physician Dr. bryson to be admitted for operative debridement. She was evaluated in the ER however initial blood work was essentially unremarkable without significant leukocytosis. She is on chronic hemodialysis and got her last hemodialysis yesterday and her biochemical profile is fairly stable. Hospitalist service was consulted by ED physician for admission to facilitate operative debridement to be performed by Dr. Bryson. Patient was started on antibiotics per.Dr. Bryson's recommendations. at the time of examination patient is alert oriented. She denies any active distress. Medical - H&P: PMH Medical history: Ankle sprain and strain (Acute) Volume overload (Acute) Dizziness (Acute) Follow up (Acute) Right ankle strain (Acute) Charcot's joint arthropathy in type 2 diabetes mellitus (Acute) Amput below knee, unilat (Acute) CAD (coronary artery disease), [place] coronary artery (Chronic) Tobacco abuse (Chronic) DM type 2 with diabetic peripheral neuropathy (Chronic) Anemia (Acute) Thrombocytopenia (Acute) PVD (peripheral vascular disease) (Chronic) Amputation foot, bilat (Acute) ESRD (end stage renal disease) on dialysis (Acute) Wound dehiscence, surgical (Acute) CHF LVEF 45 Surgical history: bilateral BKA right AKA Social history: Active smoker Smoking status: Current every day smoker Drug use: none Alcohol use: none Medical - H&P: Meds Home Medications Medication Instructions Recorded Confirmed Type Aspirin [Ecotrin] 81 mg PO DAILY 08/09/15 06/12/17 History Atorvastatin [Lipitor] 20 mg PO HS 08/09/15 06/12/17 History Carvedilol [Coreg] 25 mg PO BIDCC 08/09/15 06/12/17 History Metoclopramide HCl [Metozolv Odt] 5 mg PO TIDAC 08/09/15 06/12/17 History Pantoprazole [Protonix] 40 mg PO QAMAC 08/09/15 06/12/17 History Clopidogrel Bisulfate [Plavix] 75 mg PO DAILY 02/23/16 06/12/17 History Methocarbamol [Robaxin] 500 mg PO BID 02/23/16 06/12/17 History amLODIPine [Norvasc] 10 mg PO DAILY 02/23/16 06/12/17 History Pramipexole Di-HCl [Mirapex] 0.25 mg PO TID 90 Days 03/09/16 06/12/17 Rx Isosorbide Mononitrate [Isosorbide 60 mg PO BID 01/08/17 06/12/17 History Mononitrate ER] Torsemide [Demadex] 60 tablet PO DAILY 01/08/17 06/12/17 History levETIRAcetam [Keppra] 250 mg PO BID 01/09/17 06/12/17 History Insulin Glargine, Human [Lantus] 8 unit SQ HS unit 01/28/17 06/12/17 Rx Insulin Lispro [Humalog] See Protocol SQ ACHS #0 unit 01/28/17 06/12/17 Rx clonazePAM [Klonopin] 0.5 mg PO DAILY@1700 #10 tablet 01/28/17 06/12/17 Rx Lisinopril [Zestril] 2.5 mg PO QDAY 04/18/17 06/12/17 History oxyCODONE/APAP [Percocet 5-325 mg] 1 tab PO Q4HP PRN #90 tablet 04/26/17 Rx Accu-Chek 1 each FS ACHS strip 04/29/17 06/12/17 Rx Ferrous Sulfate [Iron] 325 mg PO DAILY 06/12/17 06/12/17 History Omeprazole 20 mg PO DAILY 06/12/17 06/12/17 History Allergies Allergy/AdvReac Type Severity Reaction Status Date / Time codeine AdvReac Mild n/v Verified 04/18/17 14:15 hydrocodone AdvReac Mild n/v Verified 04/18/17 14:15 Medical - H&P: Exam - Constitutional Vitals: Temp Pulse Resp BP Pulse Ox 98.0 F 80 18 125/50 94 06/12/17 15:19 06/12/17 18:12 06/12/17 15:19 06/12/17 18:01 06/12/17 18:12 Exam: Alert and oriented. Non labored breathing pupils symmetric and reactive oral cavity dry no ear/nose discharged S1 and S2 regular Chest clear, hemodialysis catheter right anterior chest Abdomen soft Right AKA stump dehiscence with gangrenous necrotic tissue 7X4 CM along suture site Left BKA Skin no suspicious lesion psych alert cooperative Normal higher function Medical - H&P: Reslt - Labs CBC & Chem 7: 06/13/17 05:40 06/13/17 05:40 Labs: Short CBC 06/12/17 Range/Units 16:09 WBC 5.9 (4.5-11.0) K/mcL Hgb 14.7 (12.0-15.0) g/dL Hct 44.5 (36.0-48.0) % Plt Count 143 (140-440) K/mcL BMP 06/12/17 16:09 Sodium 138 Potassium 4.6 Chloride 98 Carbon Dioxide 25 BUN 46 H Creatinine 2.6 H Glucose 159 H Calcium 9.6 Liver Function 06/12/17 Range/Units 16:09 Total Bilirubin 0.3 (0.0-1.0) mg/dL AST 15 (0-37) U/l ALT 8 (0-40) U/l Alkaline Phosphatase 81 (39-117) U/L Albumin 4.0 (3.2-5.2) gm/dL Medical - H&P: A/P (1) Amputation of right lower extremity above knee with complication Current visit: Yes Status: Acute * Right AKA stump necrotizing cellulitis- wound care Dr. Bryson requests admission for debridement in a.m. Nothing by mouth after midnight. Broad antibiotic coverage. Admit as inpatient. patient is a high risk operative candidate in light of multiple comorbidities. owever wound care physician willing to proceed with surgery despite patient's underlying comorbidities. Patient also agrees to same knowing the risk involved including issues managed by hospitalist service * DM type II-continue basal prandial insulin * History of CAD/CHF-stable. Continue home medications * ESRD on HD-consult nephrology. Last hemodialysis yesterday * Anemia secondary to chronic kidney disease stable * Hypertension on beta kristie/AMIRA inhibitor/CCB * History of seizures on Keppra * Hyperlipidemia on statin * Full code Plan * wound care consult * Antibiotic coverage * pre-existing medical condition management as above * Nephrology consult for hemodialysis * Inpatient admit requiring minimum 2 midnight stay to facilitate operative intervention for large necrotizing gangrenous right AKA stump lesion
[2017-06-12] MEDS ORDERED: ONDANSETRON 4 MG/2 ML VIAL IV PRN (20:44)
[2017-06-12] MEDS ORDERED: VANCOMYCIN PER PHARMACY IV ONE (20:44)
[2017-06-12] MEDS ORDERED: ACETAMINOPHEN 325 MG TABLET PO PRN (20:44)
[2017-06-12] MEDS ORDERED: DEXTROSE 50% 50 ML VIAL IV PRN (20:44)
[2017-06-12] MEDS ORDERED: ACETAMINOPHEN 1,000 MG/100 ML BOTTLE IV PRN (20:44)
[2017-06-12] MEDS ORDERED: DEXTROSE 31 GM ORAL.SUSP PO PRN (20:44)
[2017-06-12] MEDS ORDERED: SENNOSIDES/DOCUSATE SODIUM 1 TAB TABLET PO SCH (21:00)
[2017-06-12] MEDS ORDERED: INSULIN GLARGINE, HUMAN 1 UNIT/0.01 ML SQ SCH (21:00)
[2017-06-12] MEDS ORDERED: oxyCODONE/APAP 5/325MG TABLET PO PRN (21:40)
[2017-06-12] MEDS ORDERED: PIPERACILLIN SODIUM/TAZOBACTAM 2.25 GM VIAL IV ONE (22:46)
[2017-06-12] MEDS: levETIRAcetam 500 MG TABLET PO SCH (22:57)
[2017-06-12] MEDS: HEPARIN 5,000 UNIT/ML VIAL SQ SCH (22:57)
[2017-06-12] MEDS: 0.9 % SODIUM CHLORIDE 10 ML SYRINGE IV SCH (22:57)
[2017-06-12] MEDS: ISOSORBIDE MONONITRATE 60 MG TAB.XL.24H PO SCH (22:57)
[2017-06-13] MEDS: DOCUSATE SODIUM 100 MG CAPSULE PO SCH ×3 (01:31→21:12)
[2017-06-13] MEDS: INSULIN LISPRO 1 UNIT/0.01 ML UNIT SQ SCH ×5 (01:31→21:14)
[2017-06-13] MEDS: PIPERACILLIN SODIUM/TAZOBACTAM 2.25 GM in DEXTROSE 5% IN WATER 50 ML IV SCH ×4 (01:33→23:10)
[2017-06-13] MEDS ORDERED: PIPERACILLIN SODIUM/TAZOBACTAM 2.25 GM VIAL IV ONE (05:58)
[2017-06-13] MEDS: 0.9 % SODIUM CHLORIDE 10 ML SYRINGE IV SCH ×3 (06:11→22:59)
[2017-06-13 06:39] LABS: Mean Cell Volume 95.9 fL (80.0-100.0); Mean Corpuscular HGB Conc 32.9 g/dL (31.0-36.0); Mean Corpuscular Hemoglobin 31.6 pg (26.0-34.0); Platelet Count 113 K/mcL (140-440); RBC 3.95 M/mcL (4.00-5.20); Red Cell Distribution Width 16.5 % (11.5-14.5)
[2017-06-13] MEDS ORDERED: ACETAMINOPHEN 650 MG/65 ML BOTTLE IV PRN ×2 (06:45→10:37)
[2017-06-13 07:04] LABS: ALT/SGPT 5 U/l (0-40); Albumin 3.7 gm/dL (3.2-5.2); Albumin/Globulin Ratio 2.1 (1.0-2.3); Alkaline Phosphatase 62 U/L (39-117); Bilirubin,Direct < 0.2 mg/dL (0.0-0.3); Blood Urea Nitrogen 50 mg/dl (8-23); Gamma Glutamyl Transpeptidase 9 U/L (5-36); Magnesium 2.2 mg/dL (1.6-2.5); Uric Acid 5.9 mg/dL (2.5-8.0)
[2017-06-13] MEDS ORDERED: MEPERIDINE 25 MG/ML SYRINGE IV PRN (07:12)
[2017-06-13] MEDS ORDERED: NALOXONE HCL 0.4 MG/ML VIAL IV PRN (07:12)
[2017-06-13] MEDS ORDERED: fentaNYL 100 MCG/2 ML VIAL IV PRN (07:12)
[2017-06-13] MEDS ORDERED: ONDANSETRON 4 MG/2 ML VIAL IV PRN ×2 (07:12→10:37)
[2017-06-13] MEDS ORDERED: BENZOCAINE/MENTHOL 1 LOZENGE PO PRN (07:12)
[2017-06-13] MEDS ORDERED: FLUMAZENIL 0.1 MG/ML ML IV PRN (07:12)
[2017-06-13] MEDS ORDERED: LACTATED RINGERS 250 ML IV PRN (07:12)
[2017-06-13] MEDS ORDERED: diphenhydrAMINE 50 MG/ML VIAL IV PRN (07:12)
[2017-06-13] MEDS ORDERED: IPRATROPIUM/ALBUTEROL 3 ML AMPUL.NEB NEB PRN (07:12)
[2017-06-13] MEDS ORDERED: LACTATED RINGERS 1,000 ML IV SCH (07:15)
[2017-06-13] MEDS ORDERED: METOCLOPRAMIDE 10 MG TABLET PO SCH (07:30)
[2017-06-13] MEDS ORDERED: PANTOPRAZOLE 40 MG TABLET PO SCH (07:30)
[2017-06-13] MEDS ORDERED: LIDOCAINE HCL/PF 100 MG/5 ML SYRINGE IV ONE (07:40)
[2017-06-13] MEDS ORDERED: DEXAMETHASONE 10 MG/ML VIAL IV ONE (07:40)
[2017-06-13] MEDS ORDERED: MIDAZOLAM 5 MG/5 ML VIAL IV ONE (07:40)
[2017-06-13] MEDS ORDERED: PROPOFOL 200 MG/20 ML VIAL IV ONE (07:40)
[2017-06-13] MEDS ORDERED: ONDANSETRON 4 MG/2 ML VIAL IV ONE (07:40)
[2017-06-13] MEDS ORDERED: fentaNYL 100 MCG/2 ML VIAL IV ONE (07:40)
[2017-06-13] MEDS ORDERED: GENTAMICIN SULFATE 80 MG/2 ML VIAL IR ONE (07:51)
[2017-06-13 07:58] LABS: Anisocytosis 1+ (NONE SEEN); Eosinophils % (Manual) 4 % (0-7); Lymphocytes % 13 % (15-49); Monocytes % (Manual) 6 % (1-12); Platelet Estimate DECREASED (NORMAL); RBC Morphology ABNORM (NORMAL); Segmented Neutrophils % 77 % (38-78)
[2017-06-13] MEDS ORDERED: CARVEDILOL 12.5 MG TABLET PO SCH (08:00)
[2017-06-13] MEDS ORDERED: METHOCARBAMOL 500 MG TABLET PO SCH (09:00)
[2017-06-13] MEDS ORDERED: NON FORMULARY MEDICATION 1 DOSE MISCELL (Omeprazole 20 MG) PO SCH (09:00)
[2017-06-13] MEDS ORDERED: CLOPIDOGREL 75 MG TABLET PO SCH (09:00)
[2017-06-13] MEDS ORDERED: PRAMIPEXOLE 0.25 MG TABLET PO SCH (09:00)
[2017-06-13] MEDS ORDERED: LISINOPRIL 5 MG TABLET PO SCH (09:00)
[2017-06-13] MEDS ORDERED: TORSEMIDE 10 MG TABLET PO SCH (09:00)
[2017-06-13] MEDS ORDERED: amLODIPine 10 MG TABLET PO SCH (09:00)
[2017-06-13] MEDS ORDERED: ASPIRIN 81 MG TAB.CHEW PO SCH (09:00)
--- NOTE | 2017-06-13 09:13 | Brief Operative Note ---
Date of procedure: 06/13/17 (Wound Care Services) Pre-op diagnosis: Dehisced Right AKA Stump. Post-op diagnosis: same Procedure: Surgical debridement, Revision flaps and Trim exposed bone ( Femur ) Wound approximation and wound VAC placement Full thickness wound extending to bone, muscles, adipose tissue. Dimension 18 CM x 5 CM Depth over 10 CM Grafts/Implants: No Anesthesia: GLMA Findings: As above. Full thickness wound, exposed amputation site of Femur, muscles , fat and dehisced flap Complications: none Surgeon: Unruly Bryson Estimated blood loss (cc): 40 Specimens Removed/Pathology: other (Bone biopsy and cultures) Condition: stable Disposition: other (Procedure well tolerated. Patient with PAD, Bilateral LE amputations ESRD on Hemodialysis, Smokes cigarettes.)
[2017-06-13] MEDS ORDERED: CLINDAMYCIN 600 MG/4 ML VIAL IR ONE (09:14)
[2017-06-13] MEDS ORDERED: BACITRACIN 50,000 UNIT VIAL IR ONE (09:14)
--- NOTE | 2017-06-13 09:19 | General Surgery Consult Note ---
History of Present Illness Patient information: Note initiated : 06/13/17 at 9:17 am Service Date, if different from initiated Date: [] Patient: Tamica Tidwell 67 y/o F admitted on 06/12/17 for Right AKA dehis wound. Chief Complaint: [] Consult date: 06/13/17 (Wound Care Services) Reason for consult: other (Management of dehisced AKA amputation stump RIGHT above knee) History of present illness: Patient well known and established at [facility]. Prior hospitalizations and surgeries. NOW presenting with dehisced stump Right AK amputation Medications and Allergies Home Medications Medication Instructions Recorded Confirmed Type Aspirin [Ecotrin] 81 mg PO DAILY 08/09/15 06/12/17 History Atorvastatin [Lipitor] 20 mg PO HS 08/09/15 06/12/17 History Carvedilol [Coreg] 25 mg PO BIDCC 08/09/15 06/12/17 History Metoclopramide HCl [Metozolv Odt] 5 mg PO TIDAC 08/09/15 06/12/17 History Pantoprazole [Protonix] 40 mg PO QAMAC 08/09/15 06/12/17 History Clopidogrel Bisulfate [Plavix] 75 mg PO DAILY 02/23/16 06/12/17 History Methocarbamol [Robaxin] 500 mg PO BID 02/23/16 06/12/17 History amLODIPine [Norvasc] 10 mg PO DAILY 02/23/16 06/12/17 History Pramipexole Di-HCl [Mirapex] 0.25 mg PO TID 90 Days 03/09/16 06/12/17 Rx Isosorbide Mononitrate [Isosorbide 60 mg PO BID 01/08/17 06/12/17 History Mononitrate ER] Torsemide [Demadex] 60 tablet PO DAILY 01/08/17 06/12/17 History levETIRAcetam [Keppra] 250 mg PO BID 01/09/17 06/12/17 History Insulin Glargine, Human [Lantus] 8 unit SQ HS unit 01/28/17 06/12/17 Rx Insulin Lispro [Humalog] See Protocol SQ ACHS #0 unit 01/28/17 06/12/17 Rx clonazePAM [Klonopin] 0.5 mg PO DAILY@1700 #10 tablet 01/28/17 06/12/17 Rx Lisinopril [Zestril] 2.5 mg PO QDAY 04/18/17 06/12/17 History oxyCODONE/APAP [Percocet 5-325 mg] 1 tab PO Q4HP PRN #90 tablet 04/26/17 Rx Accu-Chek 1 each FS ACHS strip 04/29/17 06/12/17 Rx Ferrous Sulfate [Iron] 325 mg PO DAILY 06/12/17 06/12/17 History Omeprazole 20 mg PO DAILY 06/12/17 06/12/17 History Allergies Allergy/AdvReac Type Severity Reaction Status Date / Time codeine AdvReac Mild n/v Verified 04/18/17 14:15 hydrocodone AdvReac Mild n/v Verified 04/18/17 14:15 Exam Temp Pulse Resp BP Pulse Ox 97.7 F 68 14 211/86 99 06/13/17 09:15 06/13/17 09:15 06/13/17 09:15 06/13/17 09:15 06/13/17 09:15 - General physical appearance no distress, chronically ill - Eyes PERRL, normal ocular movement - ENT normal pinna, normal nares, normal mucosa, other (EDENTOLOUS) - Head Head exam IM: Present: atraumatic, normal inspection, normocephalic - Neck no masses, no bruits, trachea midline, no venous distension - Cardiovascular Cardiovascular exam IM: Present: normal rate and rhythm - Respiratory normal expansion, normal respiratory effort, clear to auscultation - Abdomen Abdomen: Present: soft, non tender, bowel sounds - Integumentary Present: other (Dehisced Right AKA stump Full thickness with exposed adipose tissue, muscles and bone stump) - Neurologic Present: normal coordination, normal sensation - Musculoskeletal Present: other (RIGHT AK amputation LEFT BK amputation) - Psychiatric Present: oriented to time, oriented to person, oriented to place, speech is normal, memory intact, other (ANXIOUS) Results - Labs 06/13/17 05:40 06/13/17 05:40 Abnormal lab results 06/13/17 06/13/17 Range/Units 05:40 05:40 RBC 3.95 L (4.00-5.20) M/mcL RDW 16.5 H (11.5-14.5) % Plt Count 113 L (140-440) K/mcL Lymphocytes % 13 L (15-49) % RBC Morphology Abnorm A (NORMAL) Anisocytosis 1+ A (NONE SEEN) BUN 50 H (8-23) mg/dl Creatinine 3.0 H (0.6-1.1) mg/dl Glucose 125 H (70-105) mg/dL Phosphorus 5.2 H (2.7-4.5) mg/dL Total Protein 5.5 L (5.9-8.4) gm/dL Globulin 1.8 L (2.2-3.7) gm/dL Triglycerides 197 H (<150) mg/dl Diabetes panel 06/13/17 Range/Units 05:40 Sodium 144 (133-145) mmol/L Potassium 4.1 (3.3-5.1) mmol/L Chloride 104 (96-108) mmol/L Carbon Dioxide 24 (22-30) mmol/L BUN 50 H (8-23) mg/dl Creatinine 3.0 H (0.6-1.1) mg/dl Glucose 125 H (70-105) mg/dL Calcium 8.8 (8.6-10.4) mg/dl AST 12 (0-37) U/l ALT 5 (0-40) U/l Alkaline Phosphatase 62 (39-117) U/L Total Protein 5.5 L (5.9-8.4) gm/dL Albumin 3.7 (3.2-5.2) gm/dL Triglycerides 197 H (<150) mg/dl Calcium panel 06/13/17 Range/Units 05:40 Calcium 8.8 (8.6-10.4) mg/dl Phosphorus 5.2 H (2.7-4.5) mg/dL Albumin 3.7 (3.2-5.2) gm/dL Pituitary panel 06/13/17 Range/Units 05:40 Sodium 144 (133-145) mmol/L Potassium 4.1 (3.3-5.1) mmol/L Chloride 104 (96-108) mmol/L Carbon Dioxide 24 (22-30) mmol/L BUN 50 H (8-23) mg/dl Creatinine 3.0 H (0.6-1.1) mg/dl Glucose 125 H (70-105) mg/dL Calcium 8.8 (8.6-10.4) mg/dl Adrenal panel 06/13/17 Range/Units 05:40 Sodium 144 (133-145) mmol/L Potassium 4.1 (3.3-5.1) mmol/L Chloride 104 (96-108) mmol/L Carbon Dioxide 24 (22-30) mmol/L BUN 50 H (8-23) mg/dl Creatinine 3.0 H (0.6-1.1) mg/dl Glucose 125 H (70-105) mg/dL Calcium 8.8 (8.6-10.4) mg/dl Total Bilirubin 0.2 (0.0-1.0) mg/dL AST 12 (0-37) U/l ALT 5 (0-40) U/l Alkaline Phosphatase 62 (39-117) U/L Total Protein 5.5 L (5.9-8.4) gm/dL Albumin 3.7 (3.2-5.2) gm/dL All other labs normal. Assessment and Plan (1) Wound disruption For OR surgical debridement, revision of amputation stump with pulse lavage irrigation and application of wound VAC Spoke with patient at length about plan of treatment and different case scenarios in the post operative period. Status: Acute Priority: High Comment: Chronically sick patient, h/o CAD, CVA , ESRD on HD, Major amputations LEFT BK amputation and Right AK amputation with post operative wound dehiscence / disruption Qualifiers: Encounter type: sequela Qualified Code(s): T81.30XS - Disruption of wound, unspecified, sequela (2) Wound dehiscence, surgical Status: Acute
[2017-06-13] MEDS ORDERED: ACETAMINOPHEN 325 MG TABLET PO PRN (10:37)
[2017-06-13] MEDS ORDERED: DEXTROSE 50% 50 ML VIAL IV PRN (10:37)
[2017-06-13] MEDS ORDERED: DEXTROSE 31 GM ORAL.SUSP PO PRN (10:37)
[2017-06-13] MEDS ORDERED: oxyCODONE/APAP 5/325MG TABLET PO PRN (10:37)
--- NOTE | 2017-06-13 11:00 | Operative Note ---
DATE OF OPERATION: 06/13/2017 PREOPERATIVE DIAGNOSIS: Dehisced disrupted right below knee amputation stump. POSTOPERATIVE DIAGNOSIS: Dehisced disrupted right below knee amputation stump. PROCEDURE: Surgical debridement, revision of flaps, trim the exposed femur, wound approximation and wound V.A.C. placement. Full-thickness wound extending to the bone muscles adipose tissue. Final dimensions: 18 cm x 5 cm, depth over 10 cm. GRAFT IMPLANTS: None. ANESTHESIA: General laryngeal mask airway. ACCOUNT EXECUTIVE TRAINEE: Rodrigo sEteves CRNA ESTIMATED BLOOD LOSS: 40 mL SPECIMENS: Bone biopsy and cultures. POSTOPERATIVE CONDITION: Stable. The patient was transferred back to her room after surgical procedure, which was well tolerated. INDICATION FOR SURGERY: This is a patient with end-stage renal disease, past history of coronary artery disease, CVA and peripheral artery disease. She has had major amputations of both lower extremities. She is on hemodialysis. The left lower extremity has a below knee amputation with a nearly fully healed scar. The main wound of RIGHT thigh has dehiscence disruption of the right above-knee amputation flaps. The patient smokes cigarettes regularly. PROCEDURE IN DETAIL: After obtaining informed consent, patient was taken to the operating room, anesthetized uneventfully in supine position using laryngeal mask airway after a brief timeout was called. Preoperative photograph was taken. The right [id number] amputation site area was widely cleaned, prepped and draped in the standard fashion. First, the suture remnants were removed and the entire flap was opened superiorly and inferiorly. The necrotic edges of the wounds were sharply excised with #10 scalpel blade and with sharp tooth cook pickled meat and Metzenbaum scissors. All the devitalized fat was excised until healthy backbleeding was encountered proximally and distally. The exposed devitalized muscle tissues were also sharply excised in a similar fashion. The exposed bone stump was partly covered with muscles. The devitalized part of the bone was taken down with rongeurs in a sequential fashion until there was sufficient soft tissue available to cover the bone stump. Sexual Abuse Counsellor bone samples were sent for tissue culture and biopsies. The wound was now copiously washed and irrigated using pulse lavage irrigation system. Three liters of normal saline mixed with 80 mg of gentamicin, 600 mg of clindamycin and 50,000 units of bacitracin solution was used. Upon completion, the wound was viable with healthy backbleeding. Hemostasis was achieved with pressure. We now approximated the wound without closing it using interrupted #1 Prolene sutures. These were left untied. The wound was now covered with Xeroform gauze and a black foam was applied over it. This was held in place with adherent transparent dressings. The trac pad was secured on the skin with adhesive dressings. A small window was made and the trac pad was applied at this site. It was connected to continuous negative pressure of 125 mmHg. Once the suction was well established and there was no evidence of air leak, we reinforced this dressing with ABD pad, Kerlix bandage and AMIRA wrap. This was held in place with adhesive tape. The procedure was well tolerated. She recovered from anesthesia uneventfully. She was taken to in stable condition. Postoperatively, I went to the floor and spoke with patient's nurse and case management staff, and the hospitalist, Dr. Will. VD:addison Job ID: [id number] Doc ID: [id number] Unruly CHRISTENSEN
--- NOTE | 2017-06-13 11:39 | Internal Med Progress Note ---
Medical - PN: Subj Patient information: Note initiated : 06/13/17 at 11:30 am Service Date, if different from initiated Date: [] Patient: Tamica Tidwell a 67 y/o F admitted on 06/12/17 for Right AKA Stump Necrotizing Cellulitis. Chief Complaint: [] Interval history: Ms. Tidwell is a 67 year old F with a complicated history of ESRD/online DM type II and extensive CAD/PVD with a history of bilateral lower extremity amputation and recent revision of right BKA to right AKA in March 2017. Patient developed right AKA amputation stump dehiscence along with exposed necrotic tissue with drainage. She was subsequently referred by wound care physician Dr. bryson to be admitted for operative debridement. She was evaluated in the ER however initial blood work was essentially unremarkable without significant leukocytosis. She is on chronic hemodialysis and got her last hemodialysis yesterday and her biochemical profile is fairly stable. Hospitalist service was consulted by ED physician for admission to facilitate operative debridement to be performed by Dr. Bryson. Patient was started on antibiotics per.Dr. Bryson's recommendations. 06/13-patient seen postop day 1 today. slightly sedated postop. Ongoing hemodialysis. no overnight fever or chills. No concerns per staff. Restarted on home meds. - Constitutional Vitals: Vital Signs Temp Pulse Resp BP Pulse Ox 97.7 F 68 14 211/86 99 06/13/17 09:15 06/13/17 09:15 06/13/17 09:15 06/13/17 09:15 06/13/17 09:15 Period Temp Pulse Resp BP Sys/Pichardo Pulse Ox Last 24 Hr 97.7 F-98.4 F 65-80 12-20 125-218/50-88 93-100 Intake and Output 06/12/17 06/13/17 06/13/17 21:59 05:59 13:59 Intake Total 0 / 0 1000 / 1000 Output Total 101 / 101 30 / 30 Balance -1 / 299 -101 / -101 970 / 970 Weight 100 lb 8 oz Intake & Output: Intake & Output 06/12/17 06/13/17 06/13/17 21:59 05:59 13:59 Intake Total 0 / 0 1000 / 1000 Output Total 101 / 101 30 / 30 Balance -1 / 299 -101 / -101 970 / 970 Weight 100 lb 8 oz Intake: Oral 0 / 0 IV - Manual Only 1000 / 1000 Output: # of times incontinent of urine Emesis 100 / 100 Estimated Blood Loss General appearance: no acute distress Exam: esting comfortably ongoing hemodialysis Nonlabored breathing Mild pallor Medical - PN: Obj Da - Labs CBC & Chem 7: 06/13/17 05:40 06/13/17 05:40 Labs: Abnormal Lab Results 06/13/17 06/13/17 05:40 05:40 RBC 3.95 L RDW 16.5 H Plt Count 113 L Lymphocytes % 13 L RBC Morphology Abnorm A Anisocytosis 1+ A BUN 50 H Creatinine 3.0 H Glucose 125 H Phosphorus 5.2 H Total Protein 5.5 L Globulin 1.8 L Triglycerides 197 H Meds: Medications Acetaminophen (Tylenol) 650 mg PO Q4-6HP PRN PRN Reason: PAIN/FEVER > 101 Amlodipine Besylate (Norvasc) 10 mg PO DAILY [facility] Aspirin (Aspirin) 81 mg PO DAILY [facility] Atorvastatin Calcium (Lipitor) 20 mg PO HS [facility] Carvedilol (Coreg) 25 mg PO BIDCC [facility] Clonazepam (Klonopin) 0.5 mg PO DAILY@1700 [facility] Clopidogrel Bisulfate (Plavix) 75 mg PO DAILY [facility] Dextrose (Dextrose 50%) 0 ml IV UD PRN PRN Reason: Hypoglycemia Diagnostic Test (Pha) (Accu-Chek) 1 each FS ACHS [facility] Diagnostic Test (Pha) (Accu-Chek) 1 each FS ACHS [facility] Docusate Sodium (Colace) 100 mg PO BID [facility] Glucose (Insta-Glucose) 15 gm PO PRN PRN PRN Reason: Hypoglycemia Heparin Sodium (Porcine) (Heparin) 5,000 unit SQ Q12 [facility] Acetaminophen (Ofirmev) 650 mg in 65 mls @ 130 mls/hr IV Q6HP PRN PRN Reason: PAIN/FEVER > 101 Piperacillin Sod/Tazobactam (Sod 2.25 gm/ Dextrose) 50 mls @ 100 mls/hr IV Q8H [facility] Insulin Glargine (Lantus) 8 unit SQ HS [facility] Insulin Human Lispro (Humalog) 0 unit SQ ACHS [facility] PRN Reason: Protocol Isosorbide Mononitrate (Imdur) 60 mg PO BID [facility] Levetiracetam (Keppra) 250 mg PO BID [facility] Lisinopril (Zestril) 2.5 mg PO DAILY [facility] Methocarbamol (Robaxin) 500 mg PO BID [facility] Metoclopramide HCl (Reglan) 5 mg PO TIDAC [facility] Ondansetron HCl (Zofran) 4 mg IV Q4-6HP PRN PRN Reason: Nausea And Vomiting Oxycodone/Acetaminophen (Percocet 5-325 Mg) 1 tab PO Q4HP PRN PRN Reason: Pain Pantoprazole Sodium (Protonix) 40 mg PO QAMAC [facility] Pramipexole Dihydrochloride (Mirapex) 0.25 mg PO TID [facility] Senna/Docusate Sodium (Senna Plus Tablet) 1 tab PO HS [facility] Sodium Chloride (Saline Flush) 10 ml IV Q8 [facility] Torsemide (Demadex) 60 mg PO DAILY [facility] Vancomycin HCl (Vancomycin Per Pharmacy) 1 order IV ONCE ONE Stop: 06/12/17 20:45 Last Admin: 06/12/17 22:45 Dose: Not Given Medical - PN: A/P - Time Spent With Patient Total time spent is greater than 50% in coordination of care (as documented) at patient's floor/unit and/or counseling patient: 25 - 35 minutes (1) Amputation of right lower extremity above knee with complication Status: Acute Assessment and plan: * Right AKA stump necrotizing cellulitis- Postop day 1. Managed by Dr. Bryson. Continue antibiotic coverage issues managed by hospitalist service * DM type II-continue basal prandial insulin. * History of CAD/CHF-stable. on home medications-Plavix/AMIRA inhibitor/statin/ aspirin/beta kristie/Isosorbide * ESRD on HD- ongoing hemodialysis per nephrology * Anemia secondary to chronic kidney disease stable * Hypertension on beta kristie/AMIRA inhibitor/nitrate/CCB * History of seizures on Keppra/clonazepam * Hyperlipidemia on statin * Prophylaxis- SQ Heparin * Full code Plan * Wound care/postoperative management per Dr. Bryson * Continue antibiotic coverage * Pre-existing medical condition management as above * hemodialysis per nephrology Current Visit: Yes
[2017-06-13] MEDS: METOCLOPRAMIDE 10 MG TABLET PO SCH ×2 (12:16→17:10)
[2017-06-13] MEDS: HEPARIN 5,000 UNIT/ML VIAL SQ SCH ×2 (12:28→21:14)
[2017-06-13] MEDS: ISOSORBIDE MONONITRATE 60 MG TAB.XL.24H PO SCH ×2 (12:28→21:12)
[2017-06-13] MEDS: levETIRAcetam 500 MG TABLET PO SCH ×2 (12:28→21:12)
[2017-06-13] MEDS ORDERED: VANCOMYCIN PER PHARMACY IV SCH (13:00)
[2017-06-13] MEDS: PRAMIPEXOLE 0.25 MG TABLET PO SCH ×2 (15:49→21:12)
[2017-06-13] MEDS ORDERED: clonazePAM 0.5 MG TABLET PO SCH (17:00)
--- NOTE | 2017-06-13 17:04 | Consultation ---
DATE OF CONSULTATION: 06/13/2017 REFERRING PHYSICIAN: Richard Will MD. REASON FOR CONSULTATION: End-stage renal disease. HISTORY OF PRESENT ILLNESS: The patient is a 67-year-old old female with a past medical history significant for end-stage renal disease on hemodialysis on Saturday, , Saturday at [facility]. She also has an extensive history of diabetes type 2 with complications including peripheral vascular disease and cardiovascular disease. She had bilateral amputation of the lower extremities and had a revision of her right BKA in 03/2017. She developed stump dehiscence along with exposed necrotic tissue. For that reason, Dr. Bryson admitted the patient for operative debridement, and I was consulted for continuing her hemodialysis. PAST MEDICAL HISTORY: 1. Significant for end-stage renal disease on hemodialysis on Saturday, and Saturday at [facility]. 2. History of Charcot arthropathy. 3. History of chronic tobacco use. 4. Peripheral vascular disease with status post below-knee amputation on the left and above-knee amputation on the right. 5. History of congestive heart failure. PAST SURGICAL HISTORY: Bilateral BKA and right AKA. SOCIAL HISTORY: She is an active smoker and denies any history of alcohol or drug use. FAMILY HISTORY: Noncontributory. MEDICATIONS ON ADMISSION: 1. Amlodipine 10 mg once daily. 2. Aspirin enteric coated 81 mg daily. 3. Lipitor 20 mg once daily. 4. Carvedilol 25 mg twice daily. 5. Plavix 75 mg once daily. 6. Klonopin 0.5 mg once daily. 7. Lantus 8 units subcutaneous. 8. Humalog p.r.n. 9. Keppra 250 mg twice daily. 10. Lisinopril 2.5 mg daily. PHYSICAL EXAMINATION: GENERAL: Alert, oriented x3. She is not in any distress. She had surgery this morning. VITAL SIGNS: Blood pressure is 153/73 with a pulse rate of 71, respiration rate of 14, and pulse ox of 98% on 2 liters. HEENT: NC/AT. PERRLA. EOMI. No pallor, no cyanosis, no icterus. Fundus examination is not performed. External ear and tympanic membranes appear normal. Oral cavity appears normal. NECK: Supple. No jugular venous distention. No lymphadenopathy. No thyromegaly. No carotid bruits. LUNGS: Decreased air entry bilaterally. No rales or rhonchi heard. RESPIRATORY: S1 and S2 heard. No S3, S4. She has ____ systolic murmur. ABDOMEN: Soft, nontender. No organomegaly. Positive bowel sounds. EXTREMITIES: Left BKYolanda looks okay. Right JHON is now dressed and has a drain ____. LABORATORY DATA: White count is 5.2 with a hemoglobin of 12.5 and a platelet count of 113. Sodium 144, potassium 4.1, chloride of 104, CO2 of 24, BUN of 50, creatinine of 3.0. ASSESSMENT AND PLAN: 1. End-stage renal disease on hemodialysis. She had her regular hemodialysis treatment today as an inpatient and dialysis went fairly well. We will continue the same as outpatient orders. She did not get her IDPN today, and I will order that for Saturday. 2. Hypertension. Blood pressure is adequately controlled. 3. Renal bone disease, we will check phosphorus and continue the binders. STELLA:leonardo Job ID: [id number] Doc ID: [id number] Gabriel Will MD
[2017-06-13] MEDS: clonazePAM 0.5 MG TABLET PO SCH (17:10)
[2017-06-13] MEDS: CARVEDILOL 12.5 MG TABLET PO SCH (17:10)
[2017-06-13] MEDS ORDERED: ATORVASTATIN 20 MG TABLET PO SCH (21:00)
[2017-06-13] MEDS: METHOCARBAMOL 500 MG TABLET PO SCH (21:11)
[2017-06-13] MEDS: ATORVASTATIN 20 MG TABLET PO SCH (21:12)
[2017-06-13] MEDS: SENNOSIDES/DOCUSATE SODIUM 1 TAB TABLET PO SCH (21:12)
[2017-06-13] MEDS: INSULIN GLARGINE, HUMAN 1 UNIT/0.01 ML SQ SCH (21:14)
[2017-06-14] MEDS: PIPERACILLIN SODIUM/TAZOBACTAM 2.25 GM in DEXTROSE 5% IN WATER 50 ML IV SCH ×3 (06:16→20:20)
[2017-06-14 06:31] LABS: Mean Cell Volume 94.3 fL (80.0-100.0); Mean Corpuscular HGB Conc 32.6 g/dL (31.0-36.0); Mean Corpuscular Hemoglobin 30.7 pg (26.0-34.0); Platelet Count 118 K/mcL (140-440); RBC 3.94 M/mcL (4.00-5.20); Red Cell Distribution Width 15.9 % (11.5-14.5)
[2017-06-14 06:50] LABS: ALT/SGPT 6 U/l (0-40); Albumin 3.6 gm/dL (3.2-5.2); Albumin/Globulin Ratio 1.9 (1.0-2.3); Alkaline Phosphatase 82 U/L (39-117); Bilirubin,Direct < 0.2 mg/dL (0.0-0.3); Blood Urea Nitrogen 50 mg/dl (8-23); Gamma Glutamyl Transpeptidase 9 U/L (5-36); Magnesium 2.2 mg/dL (1.6-2.5); Uric Acid 3.8 mg/dL (2.5-8.0)
[2017-06-14] MEDS: METOCLOPRAMIDE 10 MG TABLET PO SCH ×3 (07:05→16:56)
[2017-06-14] MEDS: PANTOPRAZOLE 40 MG TABLET PO SCH (07:05)
[2017-06-14] MEDS: 0.9 % SODIUM CHLORIDE 10 ML SYRINGE IV SCH ×3 (07:06→21:17)
[2017-06-14] MEDS: INSULIN LISPRO 1 UNIT/0.01 ML UNIT SQ SCH ×4 (07:07→21:08)
--- NOTE | 2017-06-14 08:01 | General Surgery Progress Note ---
Subjective Patient reports: no new complaints Narrative: Note initiated : 06/14/17 at 7:58 am Service Date, if different from initiated Date: [] Patient: Tamica Tidwell 67 y/o F admitted on 06/12/17 for Right AKA Stump Necrotizing Cellulitis. Chief Complaint: []POD # 1. S/P Excisional debridement and revision of RIGHT AKA amputation site. flaps, muscle and bone. On wound VAC. Working well. Drainage hemo serous moderate amount. Dressing CDI Tolerated HD uneventfully yesterday after surgery. Objective Temp Pulse Resp BP Pulse Ox 97.2 F 67 16 115/57 93 06/14/17 04:00 06/14/17 04:00 06/14/17 04:00 06/14/17 04:00 06/14/17 04:00 AVSS. HILDA No acute interval changes. L/E : Dressing RIGHT AKA stump site CDI. No strike through bleeding thru dressings. Labs post dialysis reviewed. Cr. 2.5 Reviewed input from [employer] [place] [employer] Dr. Valles. - Additional Data Intake & Output - Last 24 hours: Intake & Output 06/12/17 06/13/17 06/14/17 06/15/17 05:59 05:59 05:59 05:59 Intake Total 0 / 300 1910 / 1910 Output Total 102 / 102 9241 / 9241 Balance -102 / 198 -7331 / -7331 Weight 100 lb 8 oz 96 lb - Labs 06/14/17 05:24 06/14/17 05:24 Diabetes panel 06/14/17 Range/Units 05:24 Sodium 136 (133-145) mmol/L Potassium 4.5 (3.3-5.1) mmol/L Chloride 98 (96-108) mmol/L Carbon Dioxide 24 (22-30) mmol/L BUN 50 H (8-23) mg/dl Creatinine 2.5 H (0.6-1.1) mg/dl Glucose 200 H (70-105) mg/dL Calcium 8.8 (8.6-10.4) mg/dl AST 11 (0-37) U/l ALT 6 (0-40) U/l Alkaline Phosphatase 82 (39-117) U/L Total Protein 5.5 L (5.9-8.4) gm/dL Albumin 3.6 (3.2-5.2) gm/dL Triglycerides 140 (<150) mg/dl Calcium panel 06/14/17 Range/Units 05:24 Calcium 8.8 (8.6-10.4) mg/dl Phosphorus 5.0 H (2.7-4.5) mg/dL Albumin 3.6 (3.2-5.2) gm/dL Pituitary panel 06/14/17 Range/Units 05:24 Sodium 136 (133-145) mmol/L Potassium 4.5 (3.3-5.1) mmol/L Chloride 98 (96-108) mmol/L Carbon Dioxide 24 (22-30) mmol/L BUN 50 H (8-23) mg/dl Creatinine 2.5 H (0.6-1.1) mg/dl Glucose 200 H (70-105) mg/dL Calcium 8.8 (8.6-10.4) mg/dl Adrenal panel 06/14/17 Range/Units 05:24 Sodium 136 (133-145) mmol/L Potassium 4.5 (3.3-5.1) mmol/L Chloride 98 (96-108) mmol/L Carbon Dioxide 24 (22-30) mmol/L BUN 50 H (8-23) mg/dl Creatinine 2.5 H (0.6-1.1) mg/dl Glucose 200 H (70-105) mg/dL Calcium 8.8 (8.6-10.4) mg/dl Total Bilirubin 0.2 (0.0-1.0) mg/dL AST 11 (0-37) U/l ALT 6 (0-40) U/l Alkaline Phosphatase 82 (39-117) U/L Total Protein 5.5 L (5.9-8.4) gm/dL Albumin 3.6 (3.2-5.2) gm/dL Assessment and Plan (1) Wound disruption Problem details: Chronically sick patient, h/o CAD, CVA, ESRD on HD, Major amputations LEFT BK amputation and Right AK amputation with post operative wound dehiscence / disruption Status: Acute Current Visit: Yes (2) Wound dehiscence, surgical Status: Acute Current Visit: No - Time Spent With Patient Total time spent is greater than 50% in coordination of care (as documented) at patient's floor/unit and/or counseling patient: Assessment: Satisfactory post operative progress. Back to baseline. NEEDS close monitoring of Right AKA Stump revision site for on going bleeding or wound complications and flap status. WOUND VAC will need to be changed to out patient VAC at time of discharge. Plan: Continue observation for now and change dressing in next 48 hours, ASSESS wound status and plan for discharge and out patient F/U at the wound center. 15 - 24 minutes
[2017-06-14 08:05] LABS: Band Neutrophils % 1 % (0-10); Eosinophils % (Manual) 5 % (0-7); Lymphocytes % 14 % (15-49); Monocytes % (Manual) 9 % (1-12); Platelet Estimate DECREASED (NORMAL); RBC Morphology NORMAL (NORMAL); Segmented Neutrophils % 71 % (38-78)
[2017-06-14] MEDS ORDERED: VANCOMYCIN 1,000 MG in 0.9 % SODIUM CHLORIDE 250 ML IV ONE (10:00)
[2017-06-14] MEDS: CLOPIDOGREL 75 MG TABLET PO SCH (10:10)
[2017-06-14] MEDS: ASPIRIN 81 MG TAB.CHEW PO SCH (10:10)
[2017-06-14] MEDS: levETIRAcetam 500 MG TABLET PO SCH ×2 (10:10→21:07)
[2017-06-14] MEDS: METHOCARBAMOL 500 MG TABLET PO SCH ×2 (10:10→21:07)
[2017-06-14] MEDS: PRAMIPEXOLE 0.25 MG TABLET PO SCH ×3 (10:11→21:07)
[2017-06-14] MEDS: DOCUSATE SODIUM 100 MG CAPSULE PO SCH ×2 (10:11→21:07)
[2017-06-14] MEDS: HEPARIN 5,000 UNIT/ML VIAL SQ SCH ×2 (10:12→21:07)
[2017-06-14] MEDS: CARVEDILOL 12.5 MG TABLET PO SCH ×2 (10:36→17:00)
[2017-06-14] MEDS: ISOSORBIDE MONONITRATE 60 MG TAB.XL.24H PO SCH ×2 (10:36→21:07)
[2017-06-14] MEDS: TORSEMIDE 10 MG TABLET PO SCH (10:36)
[2017-06-14] MEDS: amLODIPine 10 MG TABLET PO SCH (10:36)
[2017-06-14] MEDS: LISINOPRIL 5 MG TABLET PO SCH (10:37)
--- NOTE | 2017-06-14 10:55 | Internal Med Progress Note ---
Medical - PN: Subj Patient information: Note initiated : 06/14/17 at 10:52 am Service Date, if different from initiated Date: [] Patient: Tamica Tidwell a 67 y/o F admitted on 06/12/17 for Right AKA Stump Necrotizing Cellulitis. Chief Complaint: [] Interval history: Ms. Tidwell is a 67 year old F with a complicated history of ESRD/online DM type II and extensive CAD/PVD with a history of bilateral lower extremity amputation and recent revision of right BKA to right AKA in March 2017. Patient developed right AKA amputation stump dehiscence along with exposed necrotic tissue with drainage. She was subsequently referred by wound care physician Dr. bryson to be admitted for operative debridement. She was evaluated in the ER however initial blood work was essentially unremarkable without significant leukocytosis. She is on chronic hemodialysis and got her last hemodialysis yesterday and her biochemical profile is fairly stable. Hospitalist service was consulted by ED physician for admission to facilitate operative debridement to be performed by Dr. Bryson. Patient was started on antibiotics per.Dr. Bryson's recommendations. 06/13-patient seen postop day 1 today. slightly sedated postop. Ongoing hemodialysis. no overnight fever or chills. No concerns per staff. Restarted on home meds. 06/14- patient was debridement and currently on wound VAC as per wound care physician. Wound care physician recommends additional 72 hours dressing change and wound follow-up. On antibiotic coverage. Ongoing hemodialysis. No concerns expressed by nursing staff other than blood pressures in 80s today however patient asymptomatictolerating diet and good spirits. she denies any active discomfort. No overnight fever chills nausea vomiting - Constitutional Vitals: Vital Signs Temp Pulse Resp BP Pulse Ox 97.5 F 67 17 90/44 100 06/14/17 10:00 06/14/17 10:00 06/14/17 10:00 06/14/17 10:00 06/14/17 10:00 Period Temp Pulse Resp BP Sys/Pichardo Pulse Ox Last 24 Hr 97.2 F-98.0 F 62-103 14-24 90-204/44-88 90-100 Intake and Output 06/13/17 06/14/17 06/14/17 21:59 05:59 13:59 Intake Total 460 / 460 300 / 300 Output Total 3450 / 3450 Balance -2990 / -2990 300 / 300 Weight 96 lb Intake & Output: Intake & Output 06/13/17 06/14/17 06/14/17 21:59 05:59 13:59 Intake Total 460 / 460 300 / 300 Output Total 3450 / 3450 Balance -2990 / -2990 300 / 300 Weight 96 lb Intake: IV 100 / 100 Zosyn 2.25 gm In Dextrose 100 / 100 5% in Water 50 ml @ 100 mls/hr IV Q8H [facility] Rx#: [id number] Oral 460 / 460 200 / 200 Output: Drainage 50 / 50 Knee 50 / 50 Hemodialysis UF 3400 / 3400 Other: Meal Dinner Snack Percent of Meal Consumed 100% 100% Feeding Ability Assist with Tray Set Up General appearance: cooperative, no acute distress Exam: lert oriented nonlabored breathing nondistended abdomen no anxiety Wound VAC in place Medical - PN: Obj Da - Labs CBC & Chem 7: 06/14/17 05:24 06/14/17 05:24 Labs: Abnormal Lab Results 06/14/17 06/14/17 06/14/17 05:24 05:24 05:24 RBC 3.94 L RDW 15.9 H Plt Count 118 L Lymphocytes % 14 L RBC Morphology Anisocytosis BUN 50 H Creatinine 2.5 H Glucose 200 H Phosphorus 5.0 H Total Protein 5.5 L Globulin 1.9 L Triglycerides Random Vancomycin 12.0 H 06/13/17 06/13/17 05:40 05:40 RBC 3.95 L RDW 16.5 H Plt Count 113 L Lymphocytes % 13 L RBC Morphology Abnorm A Anisocytosis 1+ A BUN 50 H Creatinine 3.0 H Glucose 125 H Phosphorus 5.2 H Total Protein 5.5 L Globulin 1.8 L Triglycerides 197 H Random Vancomycin Meds: Medications Acetaminophen (Tylenol) 650 mg PO Q4-6HP PRN PRN Reason: PAIN/FEVER > 101 Amlodipine Besylate (Norvasc) 10 mg PO DAILY [facility] Last Admin: 06/14/17 10:36 Dose: Not Given Aspirin (Aspirin) 81 mg PO DAILY [facility] Last Admin: 06/14/17 10:10 Dose: 81 mg Atorvastatin Calcium (Lipitor) 20 mg PO HS [facility] Last Admin: 06/13/17 21:12 Dose: 20 mg Carvedilol (Coreg) 25 mg PO BIDCC [facility] Last Admin: 06/14/17 10:36 Dose: Not Given Clonazepam (Klonopin) 0.5 mg PO DAILY@1700 [facility] Last Admin: 06/13/17 17:10 Dose: 0.5 mg Clopidogrel Bisulfate (Plavix) 75 mg PO DAILY [facility] Last Admin: 06/14/17 10:10 Dose: 75 mg Dextrose (Dextrose 50%) 0 ml IV UD PRN PRN Reason: Hypoglycemia Diagnostic Test (Pha) (Accu-Chek) 1 each FS ACHS [facility] Last Admin: 06/14/17 07:06 Dose: 1 each Docusate Sodium (Colace) 100 mg PO BID [facility] Last Admin: 06/14/17 10:11 Dose: 100 mg Glucose (Insta-Glucose) 15 gm PO PRN PRN PRN Reason: Hypoglycemia Heparin Sodium (Porcine) (Heparin) 5,000 unit SQ Q12 [facility] Last Admin: 06/14/17 10:12 Dose: 5,000 unit Acetaminophen (Ofirmev) 650 mg in 65 mls @ 130 mls/hr IV Q6HP PRN PRN Reason: PAIN/FEVER > 101 Piperacillin Sod/Tazobactam (Sod 2.25 gm/ Dextrose) 50 mls @ 100 mls/hr IV Q8H [facility] Last Admin: 06/14/17 06:16 Dose: 100 mls/hr Vancomycin HCl 1,000 mg/ (Sodium Chloride) 250 mls @ 250 mls/hr IV ONCE ONE Stop: 06/14/17 10:59 Insulin Glargine (Lantus) 8 unit SQ [facility] Last Admin: 06/13/17 21:14 Dose: 8 unit Insulin Human Lispro (Humalog) [facility] PRN Reason: Protocol Last Admin: 06/14/17 07:07 Dose: Not Given Isosorbide Mononitrate (Imdur) 60 mg PO BID [facility] Last Admin: 06/14/17 10:36 Dose: Not Given Levetiracetam (Keppra) 250 mg PO BID [facility] Last Admin: 06/14/17 10:10 Dose: 250 mg Lisinopril (Zestril) 2.5 mg PO DAILY [facility] Last Admin: 06/14/17 10:37 Dose: Not Given Methocarbamol (Robaxin) 500 mg PO BID [facility] Last Admin: 06/14/17 10:10 Dose: 500 mg Metoclopramide HCl (Reglan) 5 mg PO TIDAC [facility] Last Admin: 06/14/17 07:05 Dose: 5 mg Ondansetron HCl (Zofran) 4 mg IV Q4-6HP PRN PRN Reason: Nausea And Vomiting Oxycodone/Acetaminophen (Percocet 5-325 Mg) 1 tab PO Q4HP PRN PRN Reason: Pain Pantoprazole Sodium (Protonix) 40 mg PO QAMAC [facility] Last Admin: 06/14/17 07:05 Dose: 40 mg Pramipexole Dihydrochloride (Mirapex) 0.25 mg PO TID [facility] Last Admin: 06/14/17 10:11 Dose: 0.25 mg Senna/Docusate Sodium (Senna Plus Tablet) 1 tab PO HS [facility] Last Admin: 06/13/17 21:12 Dose: 1 tab Sodium Chloride (Saline Flush) 10 ml IV Q8 [facility] Last Admin: 06/14/17 07:06 Dose: Not Given Torsemide (Demadex) 60 mg PO DAILY [facility] Last Admin: 06/14/17 10:36 Dose: Not Given Vancomycin HCl (Vancomycin Per Pharmacy) 1 order IV UD [facility] Medical - PN: A/P - Time Spent With Patient Total time spent is greater than 50% in coordination of care (as documented) at patient's floor/unit and/or counseling patient: 25 - 35 minutes (1) Amputation of right lower extremity above knee with complication Status: Acute Assessment and plan: * Right AKA stump necrotizing cellulitis- Postop day 2. Managed by Dr. Bryson. on wound VAC. Continuing antibiotic coverage. Await cultures issues managed by hospitalist service * DM type II-continue basal prandial insulin. blood sugars at goal * History of CAD/CHF-stable. on home medications-Plavix/AMIRA inhibitor/statin/ aspirin/beta kristie/Isosorbide * ESRD on HD- ongoing hemodialysis per nephrology * Anemia secondary to chronic kidney disease stable * Hypertension on beta kristie/AMIRA inhibitor/nitrate/CCB at home however systolics around 90s and hence antihypertensives will be held today * History of seizures on Keppra/clonazepam * Hyperlipidemia on statin * Prophylaxis- SQ Heparin * Full code Plan * old antihypertensives today * Wound care/ound VAC/postoperative management per Dr. Bryson * Continue antibiotic coverage nd de-escalate based on cultures * Pre-existing medical condition management as above * hemodialysis to continue per nephrology * discharge planning as per Dr. Bryson Current Visit: Yes
[2017-06-14] MEDS: clonazePAM 0.5 MG TABLET PO SCH (16:56)
[2017-06-14] MEDS: ATORVASTATIN 20 MG TABLET PO SCH (21:07)
[2017-06-14] MEDS: SENNOSIDES/DOCUSATE SODIUM 1 TAB TABLET PO SCH (21:07)
[2017-06-14] MEDS: INSULIN GLARGINE, HUMAN 1 UNIT/0.01 ML SQ SCH (21:08)
[2017-06-15] MEDS: HEPARIN 5,000 UNIT/ML VIAL SQ SCH ×4 (00:57→20:47)
[2017-06-15] MEDS: PIPERACILLIN SODIUM/TAZOBACTAM 2.25 GM in DEXTROSE 5% IN WATER 50 ML IV SCH ×3 (05:33→22:18)
[2017-06-15] MEDS: 0.9 % SODIUM CHLORIDE 10 ML SYRINGE IV SCH ×3 (05:37→22:20)
[2017-06-15 06:48] LABS: ALT/SGPT < 5 U/l (0-40); Albumin 3.3 gm/dL (3.2-5.2); Albumin/Globulin Ratio 1.7 (1.0-2.3); Alkaline Phosphatase 97 U/L (39-117); Bilirubin,Direct < 0.2 mg/dL (0.0-0.3); Blood Urea Nitrogen 67 mg/dl (8-23); Gamma Glutamyl Transpeptidase 8 U/L (5-36); Magnesium 2.3 mg/dL (1.6-2.5); Uric Acid 5.2 mg/dL (2.5-8.0)
[2017-06-15] MEDS: PANTOPRAZOLE 40 MG TABLET PO SCH (07:55)
[2017-06-15] MEDS: METOCLOPRAMIDE 10 MG TABLET PO SCH ×3 (07:56→17:53)
[2017-06-15] MEDS: CARVEDILOL 12.5 MG TABLET PO SCH ×2 (07:59→17:53)
[2017-06-15] MEDS: INSULIN LISPRO 1 UNIT/0.01 ML UNIT SQ SCH ×4 (08:36→20:42)
[2017-06-15] MEDS: LISINOPRIL 5 MG TABLET PO SCH (09:00)
[2017-06-15 10:47] LABS: Mean Cell Volume 96.2 fL (80.0-100.0); Mean Corpuscular HGB Conc 33.2 g/dL (31.0-36.0); Platelet Count 92 K/mcL (140-440); RBC 3.37 M/mcL (4.00-5.20); Red Cell Distribution Width 16.6 % (11.5-14.5)
--- NOTE | 2017-06-15 10:55 | General Surgery Progress Note ---
Subjective Patient reports: other (Patient had a BM. This leaked from diaper over to her dressing. ) Narrative: Note initiated : 06/15/17 at 10:52 am Service Date, if different from initiated Date: [] Patient: Tamica Tidwell 67 y/o F admitted on 06/12/17 for Right AKA Stump Necrotizing Cellulitis. Chief Complaint: [] Objective Temp Pulse Resp BP Pulse Ox 98.3 F 65 16 212/92 91 06/15/17 10:46 06/15/17 10:46 06/15/17 07:35 06/15/17 10:46 06/15/17 07:35 AVSS. No changes clinical exam. Undergoing hemodialysis at this time. Wound VAC draining hemo serous fluid in moderate amount. OUTER Irineo bandage changed. Dressings over the stump site and VAC drape is clean and intact. - Additional Data Intake & Output - Last 24 hours: Intake & Output 06/13/17 06/14/17 06/15/17 06/16/17 05:59 05:59 05:59 05:59 Intake Total 0 / 300 1910 / 1910 850 / 850 530 / 530 Output Total 102 / 102 9241 / 9241 1070 / 1070 Balance -102 / 198 -7331 / -7331 849 / 849 -540 / -540 Weight 100 lb 8 oz 96 lb 87 lb - Labs 06/15/17 09:48 06/15/17 05:22 Diabetes panel 06/15/17 Range/Units 05:22 Sodium 141 (133-145) mmol/L Potassium 5.2 H (3.3-5.1) mmol/L Chloride 103 (96-108) mmol/L Carbon Dioxide 24 (22-30) mmol/L BUN 67 H (8-23) mg/dl Creatinine 3.4 H (0.6-1.1) mg/dl Glucose 289 H (70-105) mg/dL Calcium 8.4 L (8.6-10.4) mg/dl AST 9 (0-37) U/l ALT < 5 (0-40) U/l Alkaline Phosphatase 97 (39-117) U/L Total Protein 5.2 L (5.9-8.4) gm/dL Albumin 3.3 (3.2-5.2) gm/dL Triglycerides 168 H (<150) mg/dl Calcium panel 06/15/17 Range/Units 05:22 Calcium 8.4 L (8.6-10.4) mg/dl Phosphorus 5.9 H (2.7-4.5) mg/dL Albumin 3.3 (3.2-5.2) gm/dL Pituitary panel 06/15/17 Range/Units 05:22 Sodium 141 (133-145) mmol/L Potassium 5.2 H (3.3-5.1) mmol/L Chloride 103 (96-108) mmol/L Carbon Dioxide 24 (22-30) mmol/L BUN 67 H (8-23) mg/dl Creatinine 3.4 H (0.6-1.1) mg/dl Glucose 289 H (70-105) mg/dL Calcium 8.4 L (8.6-10.4) mg/dl Adrenal panel 06/15/17 Range/Units 05:22 Sodium 141 (133-145) mmol/L Potassium 5.2 H (3.3-5.1) mmol/L Chloride 103 (96-108) mmol/L Carbon Dioxide 24 (22-30) mmol/L BUN 67 H (8-23) mg/dl Creatinine 3.4 H (0.6-1.1) mg/dl Glucose 289 H (70-105) mg/dL Calcium 8.4 L (8.6-10.4) mg/dl Total Bilirubin 0.2 (0.0-1.0) mg/dL AST 9 (0-37) U/l ALT < 5 (0-40) U/l Alkaline Phosphatase 97 (39-117) U/L Total Protein 5.2 L (5.9-8.4) gm/dL Albumin 3.3 (3.2-5.2) gm/dL Assessment and Plan (1) Wound disruption Problem details: Chronically sick patient, h/o CAD, CVA, ESRD on HD, Major amputations LEFT BK amputation and Right AK amputation with post operative wound dehiscence / disruption Status: Acute Current Visit: Yes (2) Wound dehiscence, surgical Status: Acute Current Visit: No - Time Spent With Patient Total time spent is greater than 50% in coordination of care (as documented) at patient's floor/unit and/or counseling patient: Assessment: Progressing well from surgery point. Plan : Change VAC on Saturday06/17/2017. Later discharge and f/u as out patient. 15 - 24 minutes
[2017-06-15 11:20] LABS: Anisocytosis 1+ (NONE SEEN); Eosinophils % (Manual) 6 % (0-7); Lymphocytes % 7 % (15-49); Monocytes % (Manual) 5 % (1-12); Platelet Estimate DECREASED (NORMAL); RBC Morphology ABNORM (NORMAL); Segmented Neutrophils % 82 % (38-78)
--- NOTE | 2017-06-15 12:00 | Internal Med Progress Note ---
Medical - PN: Subj Patient information: Note initiated : 06/15/17 at 12:00 pm Service Date, if different from initiated Date: [] Patient: Tamica Tidwell a 67 y/o F admitted on 06/12/17 for Right AKA Stump Necrotizing Cellulitis. Chief Complaint: [] Interval history: June 12, 2017: History of present illness: Ms. Tidwell is a 67 year old F with a complicated history of ESRD/online DM type II and extensive CAD/PVD with a history of bilateral lower extremity amputation and recent revision of right BKA to right AKA in March 2017. Patient developed right AKA amputation stump dehiscence along with exposed necrotic tissue with drainage. She was subsequently referred by wound care physician Dr. bryson to be admitted for operative debridement. She was evaluated in the ER however initial blood work was essentially unremarkable without significant leukocytosis. She is on chronic hemodialysis and got her last hemodialysis yesterday and her biochemical profile is fairly stable. Hospitalist service was consulted by ED physician for admission to facilitate operative debridement to be performed by Dr. Bryson. Patient was started on antibiotics per.Dr. Bryson's recommendations. 06/13-patient seen postop day 1 today. slightly sedated postop. Ongoing hemodialysis. no overnight fever or chills. No concerns per staff. Restarted on home meds. 06/14- patient was debridement and currently on wound VAC as per wound care physician. Wound care physician recommends additional 72 hours dressing change and wound follow-up. On antibiotic coverage. Ongoing hemodialysis. No concerns expressed by nursing staff other than blood pressures in 80s today however patient asymptomatic,tolerating diet and good spirits. she denies any active discomfort. No overnight fever chills nausea vomiting June 15: -The patient says she is having moderate pain in her right stump today, rated as [address] Bryson tells me that when he went in to change her dressing this morning , she had leaked stool out of her depends, and it had run down to the bandage on her leg. He was not sure if it had contaminated the wound. The patient cannot recall this. -The patient is a little drifty at the moment, and it is not clear if her history is reliable. She denies diarrhea, but the dialysis nurse that is currently with her believe she did have diarrhea this morning. -The patient tells me that she has been continuing to live at home alone with visiting caregivers. [place] She has a local friend named Salome, who acts as her POA. She also believes she was in rehab for wound care until about 1 week ago. She continues to smoke cigarettes , but says she is down to just a few cigarettes a day. She otherwise denies fever, chills, sore throat, cough,CP/SOB, GI or sx's. - Constitutional Vitals: Vital Signs Temp Pulse Resp BP Pulse Ox 98.3 F 70 16 198/83 91 06/15/17 10:46 06/15/17 11:46 06/15/17 07:35 06/15/17 11:46 06/15/17 07:35 Period Temp Pulse Resp BP Sys/Pichardo Pulse Ox Last 24 Hr 96.9 F-98.6 F 65-78 16-20 112-212/56-112 91-99 Intake and Output 06/14/17 06/15/17 06/15/17 21:59 05:59 13:59 Intake Total 170 / 170 150 / 150 530 / 530 Output Total 4630 / 4630 Balance 169 / 169 150 / 150 -4100 / -4100 Weight 87 lb Intake & Output: Intake & Output 06/14/17 06/15/17 06/15/17 21:59 05:59 13:59 Intake Total 170 / 170 150 / 150 530 / 530 Output Total 4630 / 4630 Balance 169 / 169 150 / 150 -4100 / -4100 Weight 87 lb Intake: IV 50 / 50 50 / 50 50 / 50 Zosyn 2.25 gm In Dextrose 50 / 50 50 / 50 50 / 50 5% in Water 50 ml @ 100 mls/hr IV Q8H [facility] Rx#: [id number] Oral 120 / 120 100 / 100 480 / 480 Output: # of times incontinent of urine Hemodialysis UF 4630 / 4630 Other: Meal Dinner Breakfast Percent of Meal Consumed 100% 50% Feeding Ability Independent # Bowel Movements 1 # of times incontinent of 3 Bowels The patient is awake, but seems just a little bit lethargic. Neck is supple without obvious lymphadenopathy or JVD. Cardiac exam shows regular rate and rhythm. Lungs are clear to auscultation. Abdomen is soft and nontender. Left stump looks fine. Right AKA stump is bandaged. Dr. ricardo he showed me pictures today of an open wound, that has been debrided of necrotic tissue. Medical - PN: Obj Da - Labs CBC & Chem 7: 06/16/17 04:53 06/16/17 04:53 Labs: Abnormal Lab Results 06/15/17 06/15/17 06/14/17 09:48 05:22 05:24 RBC 3.37 L Hgb 10.8 L Hct 32.4 L RDW 16.6 H Plt Count 92 L Seg Neutrophils % 82 H Lymphocytes % 7 L RBC Morphology Abnorm A Anisocytosis 1+ A Potassium 5.2 H BUN 67 H Creatinine 3.4 H Glucose 289 H Calcium 8.4 L Phosphorus 5.9 H Total Protein 5.2 L Globulin 1.9 L Triglycerides 168 H Random Vancomycin 12.0 H 06/14/17 06/14/17 06/13/17 05:24 05:24 05:40 RBC 3.94 L Hgb Hct RDW 15.9 H Plt Count 118 L Seg Neutrophils % Lymphocytes % 14 L RBC Morphology Anisocytosis Potassium BUN 50 H 50 H Creatinine 2.5 H 3.0 H Glucose 200 H 125 H Calcium Phosphorus 5.0 H 5.2 H Total Protein 5.5 L 5.5 L Globulin 1.9 L 1.8 L Triglycerides 197 H Random Vancomycin 06/13/17 05:40 RBC 3.95 L Hgb Hct RDW 16.5 H Plt Count 113 L Seg Neutrophils % Lymphocytes % 13 L RBC Morphology Abnorm A Anisocytosis 1+ A Potassium BUN Creatinine Glucose Calcium Phosphorus Total Protein Globulin Triglycerides Random Vancomycin June 12: Blood cultures are negative so far. Meds: Medications Acetaminophen (Tylenol) 650 mg PO Q4-6HP PRN PRN Reason: PAIN/FEVER > 101 Amlodipine Besylate (Norvasc) 10 mg PO DAILY [facility] Last Admin: 06/14/17 10:36 Dose: Not Given Aspirin (Aspirin) 81 mg PO DAILY [facility] Last Admin: 06/14/17 10:10 Dose: 81 mg Atorvastatin Calcium (Lipitor) 20 mg PO HS [facility] Last Admin: 06/14/17 21:07 Dose: 20 mg [facility]) [facility] Last Admin: 06/15/17 07:59 Dose: 25 mg Clonazepam (Klonopin) 0.5 mg PO DAILY@1700 [facility] Last Admin: 06/14/17 16:56 Dose: 0.5 mg Clopidogrel Bisulfate (Plavix) 75 mg PO DAILY [facility] Last Admin: 06/14/17 10:10 Dose: 75 mg Dextrose (Dextrose 50%) 0 ml IV UD PRN PRN Reason: Hypoglycemia Diagnostic Test (Pha) (Accu-Chek) 1 each FS ACHS [facility] Last Admin: 06/15/17 07:55 Dose: 1 each Docusate Sodium (Colace) 100 mg PO BID [facility] Last Admin: 06/14/17 21:07 Dose: 100 mg Glucose (Insta-Glucose) 15 gm PO PRN PRN PRN Reason: Hypoglycemia Heparin Sodium (Porcine) (Heparin) 5,000 unit SQ Q12 [facility] Last Admin: 06/15/17 00:57 Dose: Not Given Acetaminophen (Ofirmev) 650 mg in 65 mls @ 130 mls/hr IV Q6HP PRN PRN Reason: PAIN/FEVER > 101 Piperacillin Sod/Tazobactam (Sod 2.25 gm/ Dextrose) 50 mls @ 100 mls/hr IV Q8H [facility] Last Infusion: 06/15/17 06:09 Dose: Infused Insulin Glargine (Lantus) 8 unit SQ HS [facility] Last Admin: 06/14/17 21:08 Dose: 8 unit Insulin Human Lispro (Humalog) [address] [facility] PRN Reason: Protocol Last Admin: 06/15/17 08:36 Dose: 4 unit Isosorbide Mononitrate (Imdur) 60 mg PO BID [facility] Last Admin: 06/14/17 21:07 Dose: 60 mg Levetiracetam (Keppra) 250 mg PO BID [facility] Last Admin: 06/14/17 21:07 Dose: 250 mg Lisinopril (Zestril) 2.5 mg PO DAILY [facility] Last Admin: 06/14/17 10:37 Dose: Not Given Methocarbamol (Robaxin) 500 mg PO BID [facility] Last Admin: 06/14/17 21:07 Dose: 500 mg Metoclopramide HCl (Reglan) 5 mg PO TIDAC [facility] Last Admin: 06/15/17 07:56 Dose: 5 mg Ondansetron HCl (Zofran) 4 mg IV Q4-6HP PRN PRN Reason: Nausea And Vomiting Oxycodone/Acetaminophen (Percocet 5-325 Mg) 1 tab PO Q4HP PRN PRN Reason: Pain Pantoprazole Sodium (Protonix) 40 mg PO QAMAC [facility] Last Admin: 06/15/17 07:55 Dose: 40 mg Pramipexole Dihydrochloride (Mirapex) 0.25 mg PO TID [facility] Last Admin: 06/14/17 21:07 Dose: 0.25 mg Senna/Docusate Sodium (Senna Plus Tablet) 1 tab PO HS [facility] Last Admin: 06/14/17 21:07 Dose: 1 tab Sodium Chloride (Saline Flush) 10 ml IV Q8 [facility] Last Admin: 06/15/17 05:37 Dose: 10 ml Torsemide (Demadex) 60 mg PO DAILY [facility] Last Admin: 06/14/17 10:36 Dose: Not Given Vancomycin HCl (Vancomycin Per Pharmacy) 1 order IV UD [facility] Medical - PN: A/P - Time Spent With Patient Total time spent is greater than 50% in coordination of care (as documented) at patient's floor/unit and/or counseling patient: 25 - 35 minutes - Narrative A/P Narrative: #1. Infectious disease. Right AKA stump necrotizing cellulitis- Postop day 3. Managed by Dr. Bryson. on wound VAC. Continuing vancomysin/zosyn coverage. Await cultures. I expect poor wound healing has to do with both microvascular and macrovascular ischemia, in the setting of ongoing smoking. Pt states she is trying to cut down. #2. DM type II-continue basal prandial insulin. blood sugars at goal #3. History of CAD/CHF-stable. -continue Plavix/AMIRA inhibitor/statin/aspirin/beta kristie/Isosorbide #4. ESRD on HD- ongoing hemodialysis per nephrology. . #5. Anemia secondary to chronic kidney disease -stable #6. Hypertension -on beta kristie/AMIRA inhibitor/nitrate/CCB. Continue as tolerated. #7. History of seizures - on Keppra/clonazepam #8. Hyperlipidemia on statin #9. DVT prophylaxis- SQ Heparin #10. CODE STATUS: Full code #11. Discharge planning, as per Dr. Bryson. The patient states she will return home, although her ability to keep up with adequate wound care is very questionable. She is also continuing to smoke, even though we have strongly discouraged this. Apparently her friend has her POA, and it is not clear that her children understand that she is back in the hospital, or how serious her condition is. Approximately 25 minutes was spent today, reviewing the patient's chart and history, interviewing and examining her, reviewing case with Dr. Maldonado ,and writing orders.
[2017-06-15] MEDS: levETIRAcetam 500 MG TABLET PO SCH ×2 (13:53→20:40)
[2017-06-15] MEDS: METHOCARBAMOL 500 MG TABLET PO SCH ×2 (13:54→20:40)
[2017-06-15] MEDS: ASPIRIN 81 MG TAB.CHEW PO SCH (13:54)
[2017-06-15] MEDS: DOCUSATE SODIUM 100 MG CAPSULE PO SCH ×2 (13:54→20:46)
[2017-06-15] MEDS: amLODIPine 10 MG TABLET PO SCH (13:55)
[2017-06-15] MEDS: TORSEMIDE 10 MG TABLET PO SCH (13:55)
[2017-06-15] MEDS: PRAMIPEXOLE 0.25 MG TABLET PO SCH ×3 (13:56→20:40)
[2017-06-15] MEDS: CLOPIDOGREL 75 MG TABLET PO SCH (13:56)
[2017-06-15] MEDS: ISOSORBIDE MONONITRATE 60 MG TAB.XL.24H PO SCH ×2 (13:57→20:40)
[2017-06-15] MEDS: clonazePAM 0.5 MG TABLET PO SCH (17:53)
[2017-06-15] MEDS: ATORVASTATIN 20 MG TABLET PO SCH (20:40)
[2017-06-15] MEDS: INSULIN GLARGINE, HUMAN 1 UNIT/0.01 ML SQ SCH (20:41)
[2017-06-15] MEDS: SENNOSIDES/DOCUSATE SODIUM 1 TAB TABLET PO SCH (20:47)
[2017-06-16 05:45] LABS: Mean Cell Volume 94.8 fL (80.0-100.0); Mean Corpuscular HGB Conc 33.3 g/dL (31.0-36.0); Mean Corpuscular Hemoglobin 31.5 pg (26.0-34.0); Platelet Count 110 K/mcL (140-440); RBC 3.92 M/mcL (4.00-5.20); Red Cell Distribution Width 16.1 % (11.5-14.5)
[2017-06-16 06:13] LABS: ALT/SGPT 5 U/l (0-40); Albumin 3.8 gm/dL (3.2-5.2); Albumin/Globulin Ratio 1.7 (1.0-2.3); Alkaline Phosphatase 88 U/L (39-117); Bilirubin,Direct < 0.2 mg/dL (0.0-0.3); Blood Urea Nitrogen 54 mg/dl (8-23); Gamma Glutamyl Transpeptidase 10 U/L (5-36); Magnesium 2.5 mg/dL (1.6-2.5); Uric Acid 3.5 mg/dL (2.5-8.0)
[2017-06-16 06:44] LABS: Anisocytosis 1+ (NONE SEEN); Band Neutrophils % 1 % (0-10); Basophils % (Manual) 1 % (0-2); Eosinophils % (Manual) 7 % (0-7); Lymphocytes % 11 % (15-49); Monocytes % (Manual) 9 % (1-12); Platelet Estimate DECREASED (NORMAL); RBC Morphology ABNORM (NORMAL); Segmented Neutrophils % 70 % (38-78)
[2017-06-16] MEDS: 0.9 % SODIUM CHLORIDE 10 ML SYRINGE IV SCH ×3 (06:54→22:41)
[2017-06-16] MEDS: PIPERACILLIN SODIUM/TAZOBACTAM 2.25 GM in DEXTROSE 5% IN WATER 50 ML IV SCH ×3 (06:54→22:41)
[2017-06-16] MEDS: PANTOPRAZOLE 40 MG TABLET PO SCH (09:16)
[2017-06-16] MEDS: METOCLOPRAMIDE 10 MG TABLET PO SCH ×3 (09:20→17:41)
[2017-06-16] MEDS: METHOCARBAMOL 500 MG TABLET PO SCH ×2 (09:21→20:28)
[2017-06-16] MEDS: ASPIRIN 81 MG TAB.CHEW PO SCH (09:21)
[2017-06-16] MEDS: ISOSORBIDE MONONITRATE 60 MG TAB.XL.24H PO SCH ×2 (09:22→20:27)
[2017-06-16] MEDS: TORSEMIDE 10 MG TABLET PO SCH (09:23)
[2017-06-16] MEDS: PRAMIPEXOLE 0.25 MG TABLET PO SCH ×3 (09:24→20:27)
[2017-06-16] MEDS: levETIRAcetam 500 MG TABLET PO SCH ×2 (09:24→20:28)
[2017-06-16] MEDS: CLOPIDOGREL 75 MG TABLET PO SCH (09:24)
[2017-06-16] MEDS: CARVEDILOL 12.5 MG TABLET PO SCH ×2 (09:25→17:42)
[2017-06-16] MEDS: amLODIPine 10 MG TABLET PO SCH (09:26)
[2017-06-16] MEDS: LISINOPRIL 5 MG TABLET PO SCH (09:26)
[2017-06-16] MEDS: DOCUSATE SODIUM 100 MG CAPSULE PO SCH ×2 (09:27→20:32)
[2017-06-16] MEDS: HEPARIN 5,000 UNIT/ML VIAL SQ SCH ×2 (09:35→20:32)
[2017-06-16] MEDS: INSULIN LISPRO 1 UNIT/0.01 ML UNIT SQ SCH ×4 (09:40→20:26)
[2017-06-16] MEDS ORDERED: VANCOMYCIN 1,000 MG in 0.9 % SODIUM CHLORIDE 250 ML IV ONE (10:00)
--- NOTE | 2017-06-16 11:59 | Internal Med Progress Note ---
Medical - PN: Subj Patient information: Note initiated : 06/16/17 at 11:59 am Service Date, if different from initiated Date: [] Patient: Tamica Tidwell a 67 y/o F admitted on 06/12/17 for Right AKA Stump Necrotizing Cellulitis. Chief Complaint: [] Interval history: June 12, 2017: History of present illness: Ms. Tidwell is a 67 year old F with a complicated history of ESRD/online DM type II and extensive CAD/PVD with a history of bilateral lower extremity amputation and recent revision of right BKA to right AKA in March 2017. Patient developed right AKA amputation stump dehiscence along with exposed necrotic tissue with drainage. She was subsequently referred by wound care physician Dr. bryson to be admitted for operative debridement. She was evaluated in the ER however initial blood work was essentially unremarkable without significant leukocytosis. She is on chronic hemodialysis and got her last hemodialysis yesterday and her biochemical profile is fairly stable. Hospitalist service was consulted by ED physician for admission to facilitate operative debridement to be performed by Dr. Bryson. Patient was started on antibiotics per.Dr. Bryson's recommendations. 06/13-patient seen postop day 1 today. slightly sedated postop. Ongoing hemodialysis. no overnight fever or chills. No concerns per staff. Restarted on home meds. 06/14- patient was debridement and currently on wound VAC as per wound care physician. Wound care physician recommends additional 72 hours dressing change and wound follow-up. On antibiotic coverage. Ongoing hemodialysis. No concerns expressed by nursing staff other than blood pressures in 80s today however patient asymptomatic,tolerating diet and good spirits. she denies any active discomfort. No overnight fever chills nausea vomiting June 15: -The patient says she is having moderate pain in her right stump today, rated as [address] Bryson tells me that when he went in to change her dressing this morning , she had leaked stool out of her depends, and it had run down to the bandage on her leg. He was not sure if it had contaminated the wound. The patient cannot recall this. -The patient is a little drifty at the moment, and it is not clear if her history is reliable. She denies diarrhea, but the dialysis nurse that is currently with her believe she did have diarrhea this morning. -The patient tells me that she has been continuing to live at home alone with visiting caregivers. [place] She has a local friend named Salome, who acts as her POA. She also believes she was in rehab for wound care until about 1 week ago. She continues to smoke cigarettes , but says she is down to just a few cigarettes a day. She otherwise denies fever, chills, sore throat, cough,CP/SOB, GI or sx's. June 16: Today, the patient says she is feeling pretty well. She is sitting up in her wheelchair, and denies current pain. She denies fever chills, chest pain or shortness of breath, GI or problems. She is tolerating her wound care and her right AKA wound VAC just fine. - Constitutional Vitals: Vital Signs Temp Pulse Resp BP Pulse Ox 97.7 F 74 16 138/72 93 06/16/17 11:20 06/16/17 04:00 06/16/17 11:20 06/16/17 11:20 06/16/17 11:20 Period Temp Pulse Resp BP Sys/Pichardo Pulse Ox Last 24 Hr 97.0 F-98.1 F 54-89 16-18 84-203/50-82 90-93 Intake and Output 06/15/17 06/16/17 06/16/17 21:59 05:59 13:59 Intake Total 530 / 530 250 / 250 180 / 180 Balance 530 / 530 250 / 250 180 / 180 Weight 98 lb Intake & Output: Intake & Output 06/15/17 06/16/17 06/16/17 21:59 05:59 13:59 Intake Total 530 / 530 250 / 250 180 / 180 Balance 530 / 530 250 / 250 180 / 180 Weight 98 lb Intake: IV 50 / 50 50 / 50 Zosyn 2.25 gm In Dextrose 50 / 50 50 / 50 5% in Water 50 ml @ 100 mls/hr IV Q8H [facility] Rx#: [id number] Oral 480 / 480 200 / 200 180 / 180 Other: Meal Dinner Breakfast Percent of Meal Consumed 90 50% # of times incontinent of 1 Bowels She is sitting up in her wheelchair, and seems in good spirits. Neck is supple without obvious lymphadenopathy or JVD. Cardiac exam shows regular rate and rhythm. Lungs are clear to auscultation. Abdomen is soft and nontender. Left stump looks fine. Right AKA stump is bandaged. Wound VAC is draining moderate amounts of pink fluid. Medical - PN: Obj Da - Labs CBC & Chem 7: 06/16/17 04:53 06/16/17 04:53 Labs: Abnormal Lab Results 06/16/17 06/16/17 06/15/17 04:53 04:53 09:48 RBC 3.92 L 3.37 L Hgb 10.8 L Hct 32.4 L RDW 16.1 H 16.6 H Plt Count 110 L 92 L Seg Neutrophils % 82 H Lymphocytes % 11 L 7 L RBC Morphology Abnorm A Abnorm A Anisocytosis 1+ A 1+ A Potassium BUN 54 H Creatinine 2.9 H Glucose 248 H Calcium Phosphorus 5.7 H Total Protein Globulin Triglycerides Random Vancomycin 06/15/17 06/14/17 06/14/17 05:22 05:24 05:24 RBC Hgb Hct RDW Plt Count Seg Neutrophils % Lymphocytes % RBC Morphology Anisocytosis Potassium 5.2 H BUN 67 H 50 H Creatinine 3.4 H 2.5 H Glucose 289 H 200 H Calcium 8.4 L Phosphorus 5.9 H 5.0 H Total Protein 5.2 L 5.5 L Globulin 1.9 L 1.9 L Triglycerides 168 H Random Vancomycin 12.0 H 06/14/17 05:24 RBC 3.94 L Hgb Hct RDW 15.9 H Plt Count 118 L Seg Neutrophils % Lymphocytes % 14 L RBC Morphology Anisocytosis Potassium BUN Creatinine Glucose Calcium Phosphorus Total Protein Globulin Triglycerides Random Vancomycin June 12: Blood cultures are negative so far. Meds: Medications Acetaminophen (Tylenol) 650 mg PO Q4-6HP PRN PRN Reason: PAIN/FEVER > 101 Amlodipine Besylate (Norvasc) 10 mg PO DAILY [facility] Last Admin: 06/16/17 09:26 Dose: Not Given Aspirin (Aspirin) 81 mg PO DAILY [facility] Last Admin: 06/16/17 09:21 Dose: 81 mg Atorvastatin Calcium (Lipitor) 20 mg PO HS [facility] Last Admin: 06/15/17 20:40 Dose: 20 mg Carvedilol (Coreg) 25 mg PO BIDCC [facility] Last Admin: 06/16/17 09:25 Dose: Not Given Clonazepam (Klonopin) 0.5 mg PO DAILY@1700 [facility] Last Admin: 06/15/17 17:53 Dose: 0.5 mg Clopidogrel Bisulfate (Plavix) 75 mg PO DAILY [facility] Last Admin: 06/16/17 09:24 Dose: 75 mg Dextrose (Dextrose 50%) 0 ml IV UD PRN PRN Reason: Hypoglycemia Diagnostic Test (Pha) (Accu-Chek) 1 each FS ACHS [facility] Last Admin: 06/16/17 09:16 Dose: 1 each Docusate Sodium (Colace) 100 mg PO BID [facility] Last Admin: 06/16/17 09:27 Dose: Not Given Glucose (Insta-Glucose) 15 gm PO PRN PRN PRN Reason: Hypoglycemia Heparin Sodium (Porcine) (Heparin) 5,000 unit SQ Q12 [facility] Last Admin: 06/16/17 09:35 Dose: Not Given Acetaminophen (Ofirmev) 650 mg in 65 mls @ 130 mls/hr IV Q6HP PRN PRN Reason: PAIN/FEVER > 101 Piperacillin Sod/Tazobactam (Sod 2.25 gm/ Dextrose) 50 mls @ 100 mls/hr IV Q8H [facility] Last Admin: 06/16/17 06:54 Dose: 100 mls/hr Insulin Glargine (Lantus) 8 unit SQ HS [facility] Last Admin: 06/15/17 20:41 Dose: 8 unit Insulin Human Lispro (Humalog) 0 unit SQ [facility] PRN Reason: Protocol Last Admin: 06/16/17 09:40 Dose: 1 unit Isosorbide Mononitrate (Imdur) 60 mg PO BID [facility] Last Admin: 06/16/17 09:22 Dose: 60 mg Levetiracetam (Keppra) 250 mg PO BID [facility] Last Admin: 06/16/17 09:24 Dose: 250 mg Lisinopril (Zestril) 2.5 mg PO DAILY [facility] Last Admin: 06/16/17 09:26 Dose: Not Given Methocarbamol (Robaxin) 500 mg PO BID [facility] Last Admin: 06/16/17 09:21 Dose: 500 mg Metoclopramide HCl (Reglan) 5 mg PO TIDAC [facility] Last Admin: 06/16/17 09:20 Dose: 5 mg Ondansetron HCl (Zofran) 4 mg IV Q4-6HP PRN PRN Reason: Nausea And Vomiting Oxycodone/Acetaminophen (Percocet 5-325 Mg) 1 tab PO Q4HP PRN PRN Reason: Pain Pantoprazole Sodium (Protonix) 40 mg PO QAMAC [facility] Last Admin: 06/16/17 09:16 Dose: 40 mg Pramipexole Dihydrochloride (Mirapex) 0.25 mg PO TID [facility] Last Admin: 06/16/17 09:24 Dose: 0.25 mg Senna/Docusate Sodium (Senna Plus Tablet) 1 tab PO HS [facility] Last Admin: 06/15/17 20:47 Dose: Not Given Sodium Chloride (Saline Flush) 10 ml IV Q8 [facility] Last Admin: 06/16/17 06:54 Dose: 10 ml Torsemide (Demadex) 60 mg PO DAILY [facility] Last Admin: 06/16/17 09:23 Dose: 60 mg Vancomycin HCl (Vancomycin Per Pharmacy) 1 order IV UD [facility] Medical - PN: A/P - Time Spent With Patient Total time spent is greater than 50% in coordination of care (as documented) at patient's floor/unit and/or counseling patient: 15 - 24 minutes - Narrative A/P Narrative: #1. Infectious disease. Right AKA stump necrotizing cellulitis- Postop day 4. Managed by Dr. Bryson. on wound VAC. Continuing vancomysin/zosyn coverage. Await cultures. I expect poor wound healing has to do with both microvascular and macrovascular ischemia, in the setting of ongoing smoking. Pt states she is trying to cut down. Case management will review future wound care plans with Dr. Bryson tomorrow. We will need to discuss a setting where current wound care with the wound VAC can be continued. #2. DM type II-continue basal prandial insulin. blood sugars at goal #3. History of CAD/CHF-stable. -continue Plavix/AMIRA inhibitor/statin/aspirin/beta kristie/Isosorbide #4. ESRD on HD- ongoing hemodialysis per nephrology. . #5. Anemia secondary to chronic kidney disease -stable #6. Hypertension -on beta kristie/AMIRA inhibitor/nitrate/CCB. Continue as tolerated. #7. History of seizures - on Keppra/clonazepam #8. Hyperlipidemia on statin #9. DVT prophylaxis- SQ Heparin #10. CODE STATUS: Full code #11. Discharge planning, as per Dr. Bryson. The patient states she will return home, although her ability to keep up with adequate wound care is very questionable. She is also continuing to smoke, even though we have strongly discouraged this. Apparently her friend has her POA, and it is not clear that her children understand that she is back in the hospital, or how serious her condition is. Approximately 20 minutes was spent today, reviewing the patient's chart and history, interviewing and examining her, reviewing case with Dr. Maldonado ,and writing orders.
[2017-06-16] MEDS: clonazePAM 0.5 MG TABLET PO SCH (17:41)
[2017-06-16] MEDS: INSULIN GLARGINE, HUMAN 1 UNIT/0.01 ML SQ SCH (20:26)
[2017-06-16] MEDS: ATORVASTATIN 20 MG TABLET PO SCH (20:27)
[2017-06-16] MEDS: SENNOSIDES/DOCUSATE SODIUM 1 TAB TABLET PO SCH (20:32)
[2017-06-17 06:37] LABS: Mean Cell Volume 96.4 fL (80.0-100.0); Mean Corpuscular HGB Conc 32.9 g/dL (31.0-36.0); Mean Corpuscular Hemoglobin 31.7 pg (26.0-34.0); Platelet Count 104 K/mcL (140-440); RBC 3.65 M/mcL (4.00-5.20)
[2017-06-17] MEDS: PIPERACILLIN SODIUM/TAZOBACTAM 2.25 GM in DEXTROSE 5% IN WATER 50 ML IV SCH ×3 (06:55→22:03)
[2017-06-17 06:59] LABS: ALT/SGPT 7 U/l (0-40); Albumin 3.1 gm/dL (3.2-5.2); Albumin/Globulin Ratio 1.3 (1.0-2.3); Alkaline Phosphatase 89 U/L (39-117); Bilirubin,Direct < 0.2 mg/dL (0.0-0.3); Blood Urea Nitrogen 73 mg/dl (8-23); Gamma Glutamyl Transpeptidase 10 U/L (5-36); Magnesium 2.5 mg/dL (1.6-2.5); Uric Acid 4.7 mg/dL (2.5-8.0)
[2017-06-17] MEDS: 0.9 % SODIUM CHLORIDE 10 ML SYRINGE IV SCH ×3 (06:59→23:05)
[2017-06-17 08:45] LABS: Anisocytosis 1+ (NONE SEEN); Eosinophils % (Manual) 7 % (0-7); Lymphocytes % 15 % (15-49); Monocytes % (Manual) 8 % (1-12); Platelet Estimate DECREASED (NORMAL); RBC Morphology ABNORM (NORMAL); Segmented Neutrophils % 70 % (38-78)
[2017-06-17] MEDS: HEPARIN 5,000 UNIT/ML VIAL SQ SCH ×3 (09:32→21:45)
[2017-06-17] MEDS: INSULIN LISPRO 1 UNIT/0.01 ML UNIT SQ SCH ×4 (09:32→20:14)
[2017-06-17] MEDS: levETIRAcetam 500 MG TABLET PO SCH ×2 (09:33→20:12)
[2017-06-17] MEDS: TORSEMIDE 10 MG TABLET PO SCH (09:33)
[2017-06-17] MEDS: METHOCARBAMOL 500 MG TABLET PO SCH ×2 (09:33→20:13)
[2017-06-17] MEDS: METOCLOPRAMIDE 10 MG TABLET PO SCH ×3 (09:34→17:37)
[2017-06-17] MEDS: LISINOPRIL 5 MG TABLET PO SCH (09:35)
[2017-06-17] MEDS: PANTOPRAZOLE 40 MG TABLET PO SCH (09:36)
[2017-06-17] MEDS: amLODIPine 10 MG TABLET PO SCH (09:36)
[2017-06-17] MEDS: CARVEDILOL 12.5 MG TABLET PO SCH ×2 (09:36→17:36)
[2017-06-17] MEDS: ASPIRIN 81 MG TAB.CHEW PO SCH (09:36)
[2017-06-17] MEDS: CLOPIDOGREL 75 MG TABLET PO SCH (09:36)
[2017-06-17] MEDS: ISOSORBIDE MONONITRATE 60 MG TAB.XL.24H PO SCH ×2 (09:36→20:13)
[2017-06-17] MEDS: DOCUSATE SODIUM 100 MG CAPSULE PO SCH ×2 (09:37→21:46)
[2017-06-17] MEDS: PRAMIPEXOLE 0.25 MG TABLET PO SCH ×3 (09:38→20:13)
[2017-06-17] MEDS ORDERED: 0.9 % SODIUM CHLORIDE 10 ML SYRINGE IV PRN (13:34)
--- NOTE | 2017-06-17 14:54 | Surgical Pathology Report ---
HISTOLOGY SPECIMEN MICROSCOPIC DIAGNOSIS BONE, ABOVE RIGHT KNEE WOUND, BIOPSY: -- OSTEOSCLEROTIC LAMELLAR AND WOVEN BONE. -- FOCAL PERIOSTEAL ACUTE INFLAMMATION ASSOCIATED WITH SUTURE MATERIAL. -- NO EVIDENCE OF OSTEOMYELITIS. (BONIFACIO:vanessa) CLINICAL HISTORY Right AKA non-healing wound. GROSS DESCRIPTION Received in formalin labeled with the patient information, are five firm funk-cortes fragments from 0.3 x 0.3 x 0.2 cm up to 1.5 x 1.1 x 0.5 cm. Cut surfaces are firm, cortes. The fragments are sectioned and automobile rental representative pieces are submitted - one cassette following decalcification. (SCB:vanessa) Electronically Signed by: Xavier Hamm M.D.
--- NOTE | 2017-06-17 15:12 | General Surgery Progress Note ---
Subjective Patient reports: no new complaints Narrative: Note initiated : 06/17/17 at 3:05 pm Service Date, if different from initiated Date: [] Patient: Tamica Tidwell 67 y/o F admitted on 06/12/17 for Right AKA Stump Necrotizing Cellulitis. Chief Complaint: [] Patient seen with Leann RN, and Med Surg nurse this morning. Patient had an uneventful night. WOUND VAC functioning well. Objective Temp Pulse Resp BP Pulse Ox 97.3 F 78 22 122/68 94 06/17/17 11:50 06/16/17 23:32 06/17/17 11:50 06/17/17 11:50 06/17/17 11:50 AVSS. No changes in HILDA. RIGHT above knee amputation revision. FIRST post operative wound VAC change. Dressings taken down. Wound flaps are viable, with granulating tissue, Bone stump covered with granulation. Wound VAC was reapplied. Progress reviewed with nursing staff and Hospitalist Dr. Mix. Patient REFUSES to go to rehab. Wants to go home and have HHN to attend to her wound VAC changes and IV antibiotic administration. Final wound cultures are NOT available as yet. Currently patient is on Vancomycin and Zosyn. She needs IV antibiotics and evaluation by Infectious Disease specialist. - Additional Data Intake & Output - Last 24 hours: Intake & Output 06/15/17 06/16/17 06/17/17 06/18/17 05:59 05:59 05:59 05:59 Intake Total 850 / 850 1310 / 1310 1715 / 1715 240 / 240 Output Total 94668 / 21170 Balance 849 / 849 -63518 / -92555 1714 / 1714 240 / 240 Weight 87 lb 98 lb 101 lb - Labs 06/17/17 06:00 06/17/17 06:00 Diabetes panel 06/17/17 Range/Units 06:00 Sodium 141 (133-145) mmol/L Potassium 5.1 (3.3-5.1) mmol/L Chloride 99 (96-108) mmol/L Carbon Dioxide 23 (22-30) mmol/L BUN 73 H (8-23) mg/dl Creatinine 3.8 H (0.6-1.1) mg/dl Glucose 164 H (70-105) mg/dL Calcium 8.8 (8.6-10.4) mg/dl AST 12 (0-37) U/l ALT 7 (0-40) U/l Alkaline Phosphatase 89 (39-117) U/L Total Protein 5.4 L (5.9-8.4) gm/dL Albumin 3.1 L (3.2-5.2) gm/dL Triglycerides 91 (<150) mg/dl Calcium panel 06/17/17 Range/Units 06:00 Calcium 8.8 (8.6-10.4) mg/dl Phosphorus 6.7 H* (2.7-4.5) mg/dL Albumin 3.1 L (3.2-5.2) gm/dL Pituitary panel 06/17/17 Range/Units 06:00 Sodium 141 (133-145) mmol/L Potassium 5.1 (3.3-5.1) mmol/L Chloride 99 (96-108) mmol/L Carbon Dioxide 23 (22-30) mmol/L BUN 73 H (8-23) mg/dl Creatinine 3.8 H (0.6-1.1) mg/dl Glucose 164 H (70-105) mg/dL Calcium 8.8 (8.6-10.4) mg/dl Adrenal panel 06/17/17 Range/Units 06:00 Sodium 141 (133-145) mmol/L Potassium 5.1 (3.3-5.1) mmol/L Chloride 99 (96-108) mmol/L Carbon Dioxide 23 (22-30) mmol/L BUN 73 H (8-23) mg/dl Creatinine 3.8 H (0.6-1.1) mg/dl Glucose 164 H (70-105) mg/dL Calcium 8.8 (8.6-10.4) mg/dl Total Bilirubin 0.2 (0.0-1.0) mg/dL AST 12 (0-37) U/l ALT 7 (0-40) U/l Alkaline Phosphatase 89 (39-117) U/L Total Protein 5.4 L (5.9-8.4) gm/dL Albumin 3.1 L (3.2-5.2) gm/dL Assessment and Plan (1) Wound disruption Problem details: Chronically sick patient, h/o CAD, CVA, ESRD on HD, Major amputations LEFT BK amputation and Right AK amputation with post operative wound dehiscence / disruption Status: Acute Assessment and plan: Assessment: Satisfactory post surgical progress. OK to insert PICC line for IV antibiotics. Plan: Will continue with IV Vancomycin. ( Pharmacy to dose per protocol. ) Will D/C Zosyn and switch to IV Invanz ONE gram q 24 hrly. To continue with Hemodialysis per schedule. Out patient consult with EDELMIRA Munoz, Infectious Diseases at [facility] [place] to discharge from wound care and surgery point of view. Wound VAC changes three times a week. Follow up at wound clinic to see Dr. Bryson in ONE week. Current Visit: Yes (2) Wound dehiscence, surgical Status: Acute Current Visit: No - Time Spent With Patient Total time spent is greater than 50% in coordination of care (as documented) at patient's floor/unit and/or counseling patient: 25 - 35 minutes
[2017-06-17] MEDS: clonazePAM 0.5 MG TABLET PO SCH (17:36)
--- NOTE | 2017-06-17 19:52 | Internal Med Progress Note ---
Medical - PN: Subj Patient information: Note initiated : 06/17/17 at 7:50 pm Patient: Tamica Tidwell a 67 y/o F admitted on 06/12/17 for Right AKA Stump Necrotizing Cellulitis. Interval history: June 12, 2017: History of present illness: Ms. Tidwell is a 67 year old F with a complicated history of ESRD/online DM type II and extensive CAD/PVD with a history of bilateral lower extremity amputation and recent revision of right BKA to right AKA in March 2017. Patient developed right AKA amputation stump dehiscence along with exposed necrotic tissue with drainage. She was subsequently referred by wound care physician Dr. bryson to be admitted for operative debridement. She was evaluated in the ER however initial blood work was essentially unremarkable without significant leukocytosis. She is on chronic hemodialysis and got her last hemodialysis yesterday and her biochemical profile is fairly stable. Hospitalist service was consulted by ED physician for admission to facilitate operative debridement to be performed by Dr. Bryson. Patient was started on antibiotics per.Dr. Bryson's recommendations. 06/13-patient seen postop day 1 today. slightly sedated postop. Ongoing hemodialysis. no overnight fever or chills. No concerns per staff. Restarted on home meds. 06/14- patient was debridement and currently on wound VAC as per wound care physician. Wound care physician recommends additional 72 hours dressing change and wound follow-up. On antibiotic coverage. Ongoing hemodialysis. No concerns expressed by nursing staff other than blood pressures in 80s today however patient asymptomatic,tolerating diet and good spirits. she denies any active discomfort. No overnight fever chills nausea vomiting June 15: -The patient says she is having moderate pain in her right stump today, rated as [address] Bryson tells me that when he went in to change her dressing this morning , she had leaked stool out of her depends, and it had run down to the bandage on her leg. He was not sure if it had contaminated the wound. The patient cannot recall this. -The patient is a little drifty at the moment, and it is not clear if her history is reliable. She denies diarrhea, but the dialysis nurse that is currently with her believe she did have diarrhea this morning. -The patient tells me that she has been continuing to live at home alone with visiting caregivers. All of her children live on the [facility]. She has a local friend named Salome, who acts as her POA. She also believes she was in rehab for wound care until about 1 week ago. She continues to smoke cigarettes , but says she is down to just a few cigarettes a day. She otherwise denies fever, chills, sore throat, cough,CP/SOB, GI or sx's. June 16: Today, the patient says she is feeling pretty well. She is sitting up in her wheelchair, and denies current pain. She denies fever chills, chest pain or shortness of breath, GI or problems. She is tolerating her wound care and her right AKA wound VAC just fine. June 17: Today, the patient says she is feeling pretty well. She denies significant pain. Dr. Bryson says that she can be discharged once we can arrange for outpatient IV antibiotics and wound care. She is quite adamant about returning home, rather than going to a facility for ongoing wound care and antibiotics. The patient denies fever chills, chest pain or shortness of breath, GI or symptoms. - Constitutional Vitals: Vital Signs Temp Pulse Resp BP Pulse Ox 97.3 F 78 22 122/68 94 06/17/17 11:50 06/16/17 23:32 06/17/17 11:50 06/17/17 11:50 06/17/17 11:50 Period Temp Pulse Resp BP Sys/Pichardo Pulse Ox Last 24 Hr 97.2 F-97.6 F 76-78 16-22 103-124/60-78 94-97 Intake and Output 06/17/17 06/17/17 06/17/17 05:59 13:59 21:59 Intake Total 150 / 150 290 / 290 Output Total Balance 149 / 149 290 / 290 Intake & Output: Intake & Output 06/17/17 06/17/17 06/17/17 05:59 13:59 21:59 Intake Total 150 / 150 290 / 290 Output Total Balance 149 / 149 290 / 290 Intake: IV 50 / 50 50 / 50 Zosyn 2.25 gm In Dextrose 50 / 50 50 / 50 5% in Water 50 ml @ 100 mls/hr IV Q8H GAVINO Rx#: [id number] Oral 100 / 100 240 / 240 Output: # of times incontinent of 1 / 1 urine Other: Meal Lunch Percent of Meal Consumed 100% # of times incontinent of 1 Bowels She is sitting up in bed, and seems in good spirits. Neck is supple without obvious lymphadenopathy or JVD. Cardiac exam shows regular rate and rhythm. Lungs are clear to auscultation. Abdomen is soft and nontender. Left stump looks fine. Right AKA stump is bandaged. Wound VAC is draining moderate amounts of pink fluid. Medical - PN: Obj Da - Labs CBC & Chem 7: 06/17/17 06:00 06/17/17 06:00 Labs: Abnormal Lab Results 06/17/17 06/17/17 06/17/17 13:10 06:00 06:00 RBC 3.65 L Hgb 11.6 L Hct 35.2 L RDW 16.0 H Plt Count 104 L Seg Neutrophils % Lymphocytes % RBC Morphology Abnorm A Anisocytosis 1+ A Potassium Anion Gap 19.0 H BUN 73 H Creatinine 3.8 H Glucose 164 H Calcium Phosphorus 6.7 H* Total Protein 5.4 L Albumin 3.1 L Globulin Triglycerides Random Vancomycin 25.0 H 06/16/17 06/16/17 06/15/17 04:53 04:53 09:48 RBC 3.92 L 3.37 L Hgb 10.8 L Hct 32.4 L RDW 16.1 H 16.6 H Plt Count 110 L 92 L Seg Neutrophils % 82 H Lymphocytes % 11 L 7 L RBC Morphology Abnorm A Abnorm A Anisocytosis 1+ A 1+ A Potassium Anion Gap BUN 54 H Creatinine 2.9 H Glucose 248 H Calcium Phosphorus 5.7 H Total Protein Albumin Globulin Triglycerides Random Vancomycin 06/15/17 05:22 RBC Hgb Hct RDW Plt Count Seg Neutrophils % Lymphocytes % RBC Morphology Anisocytosis Potassium 5.2 H Anion Gap BUN 67 H Creatinine 3.4 H Glucose 289 H Calcium 8.4 L Phosphorus 5.9 H Total Protein 5.2 L Albumin Globulin 1.9 L Triglycerides 168 H Random Vancomycin June 12: Blood cultures are negative so far. Meds: Medications Acetaminophen (Tylenol) 650 mg PO Q4-6HP PRN PRN Reason: PAIN/FEVER > 101 Amlodipine Besylate (Norvasc) 10 mg PO DAILY [facility] Last Admin: 06/17/17 09:36 Dose: 10 mg Aspirin (Aspirin) 81 mg PO DAILY [facility] Last Admin: 06/17/17 09:36 Dose: 81 mg Atorvastatin Calcium (Lipitor) 20 mg PO HS [facility] Last Admin: 06/16/17 20:27 Dose: 20 mg Carvedilol (Coreg) 25 mg PO BIDCC [facility] Last Admin: 06/17/17 17:36 Dose: 25 mg Clonazepam (Klonopin) 0.5 mg PO DAILY@1700 [facility] Last Admin: 06/17/17 17:36 Dose: 0.5 mg Clopidogrel Bisulfate (Plavix) 75 mg PO DAILY [facility] Last Admin: 06/17/17 09:36 Dose: 75 mg Dextrose (Dextrose 50%) 0 ml IV UD PRN PRN Reason: Hypoglycemia Diagnostic Test (Pha) (Accu-Chek) 1 each FS ACHS [facility] Last Admin: 06/17/17 17:45 Dose: 1 each Docusate Sodium (Colace) 100 mg PO BID [facility] Last Admin: 06/17/17 09:37 Dose: Not Given Glucose (Insta-Glucose) 15 gm PO PRN PRN PRN Reason: Hypoglycemia Heparin Sodium (Porcine) (Heparin) 5,000 unit SQ Q12 [facility] Last Admin: 06/17/17 09:32 Dose: 5,000 unit Heparin Sodium (Porcine) (Heparin Flush) 2 ml IV Q12 [facility] Acetaminophen (Ofirmev) 650 mg in 65 mls @ 130 mls/hr IV Q6HP PRN PRN Reason: PAIN/FEVER > 101 Piperacillin Sod/Tazobactam (Sod 2.25 gm/ Dextrose) 50 mls @ 100 mls/hr IV Q8H [facility] Last Admin: 06/17/17 17:42 Dose: 100 mls/hr Insulin Glargine (Lantus) 8 unit SQ [facility] Last Admin: 06/16/17 20:26 Dose: 8 unit Insulin Human Lispro (Humalog) 0 unit SQ [facility] PRN Reason: Protocol Last Admin: 06/17/17 17:45 Dose: 1 unit Isosorbide Mononitrate (Imdur) 60 mg PO BID [facility] Last Admin: 06/17/17 09:36 Dose: 60 mg Levetiracetam (Keppra) 250 mg PO BID [facility] Last Admin: 06/17/17 09:33 Dose: 250 mg Lisinopril (Zestril) 2.5 mg PO DAILY [facility] Last Admin: 06/17/17 09:35 Dose: 2.5 mg Methocarbamol (Robaxin) 500 mg PO BID [facility] Last Admin: 06/17/17 09:33 Dose: 500 mg Metoclopramide HCl (Reglan) 5 mg PO TIDAC [facility] Last Admin: 06/17/17 17:37 Dose: 5 mg Ondansetron HCl (Zofran) 4 mg IV Q4-6HP PRN PRN Reason: Nausea And Vomiting Oxycodone/Acetaminophen (Percocet 5-325 Mg) 1 tab PO Q4HP PRN PRN Reason: Pain Pantoprazole Sodium (Protonix) 40 mg PO QAMAC [facility] Last Admin: 06/17/17 09:36 Dose: 40 mg Pramipexole Dihydrochloride (Mirapex) 0.25 mg PO TID [facility] Last Admin: 06/17/17 17:36 Dose: Not Given Senna/Docusate Sodium (Senna Plus Tablet) 1 tab PO HS [facility] Last Admin: 06/16/17 20:32 Dose: Not Given Sodium Chloride (Saline Flush) 10 ml IV Q8 [facility] Last Admin: 06/17/17 17:36 Dose: Not Given Sodium Chloride (Saline Flush) 10 ml IV UD PRN PRN Reason: FLUSH Torsemide (Demadex) 60 mg PO DAILY [facility] Last Admin: 06/17/17 09:33 Dose: 60 mg Vancomycin HCl (Vancomycin Per Pharmacy) 1 order IV UD [facility] Medical - PN: A/P - Time Spent With Patient Total time spent is greater than 50% in coordination of care (as documented) at patient's floor/unit and/or counseling patient: 25 - 35 minutes - Narrative A/P Narrative: #1. Infectious disease. Right AKA stump necrotizing cellulitis- Postop day 5. Managed by Dr. Bryson. on wound VAC. Continuing vancomysin/zosyn coverage. Await cultures. I expect poor wound healing has to do with both microvascular and macrovascular ischemia, in the setting of ongoing smoking. Pt states she is trying to cut down. -Dr. Bryson would like the patient to continue on IV vancomycin and Invanz going forward. We were hoping to discharge the patient today, but our nurses were unable to get a PICC line placed for the home IV antibiotics. Consultation was placed to have a PICC line placed under fluoroscopy, over at [facility]. Hopefully after that we can discharge the patient to home, and she can return for outpatient antibiotics and wound care. #2. DM type II-continue basal prandial insulin. Accu-Cheks still labile, but not unreasonable, ranging from 163-298. #3. History of CAD/CHF-stable. -continue Plavix/AMIRA inhibitor/statin/aspirin/beta kristie/Isosorbide #4. ESRD on HD- ongoing hemodialysis per nephrology. -Phosphorus is quite elevated today. I have asked nursing to contact Dr. Valles, but I do not see orders. I will add Paulino mitchell. I believe she is due for dialysis tomorrow. . #5. Anemia secondary to chronic kidney disease -stable #6. Hypertension -on beta kristie/AMIRA inhibitor/nitrate/CCB. Continue as tolerated. #7. History of seizures - on Keppra/clonazepam #8. Hyperlipidemia on statin #9. DVT prophylaxis- SQ Heparin #10. CODE STATUS: Full code #11. Discharge planning, as per Dr. Bryson. The patient states she will return home, although her ability to keep up with adequate wound care is very questionable. She is also continuing to smoke, even though we have strongly discouraged this. Apparently her friend has her POA, and it is not clear that her children understand that she is back in the hospital, or how serious her condition is. Approximately 30 minutes was spent today, reviewing the patient's chart and history, interviewing and examining her, reviewing case with Dr. Maldonado ,and writing orders.
[2017-06-17] MEDS ORDERED: CALCIUM ACETATE 667 MG CAPSULE PO ONE (19:58)
[2017-06-17] MEDS: ATORVASTATIN 20 MG TABLET PO SCH (20:12)
[2017-06-17] MEDS: INSULIN GLARGINE, HUMAN 1 UNIT/0.01 ML SQ SCH (20:13)
[2017-06-17] MEDS: SENNOSIDES/DOCUSATE SODIUM 1 TAB TABLET PO SCH (21:46)
[2017-06-18] MEDS: PIPERACILLIN SODIUM/TAZOBACTAM 2.25 GM in DEXTROSE 5% IN WATER 50 ML IV SCH (05:49)
[2017-06-18] MEDS: 0.9 % SODIUM CHLORIDE 10 ML SYRINGE IV SCH (05:50)
[2017-06-18 08:10] LABS: ALT/SGPT 7 U/l (0-40); Albumin/Globulin Ratio 1.2 (1.0-2.3); Alkaline Phosphatase 87 U/L (39-117); Bilirubin,Direct < 0.2 mg/dL (0.0-0.3); Blood Urea Nitrogen 79 mg/dl (8-23); Gamma Glutamyl Transpeptidase 9 U/L (5-36); Magnesium 2.5 mg/dL (1.6-2.5); Uric Acid 5.8 mg/dL (2.5-8.0)
[2017-06-18] MEDS: METHOCARBAMOL 500 MG TABLET PO SCH (09:31)
[2017-06-18] MEDS: INSULIN LISPRO 1 UNIT/0.01 ML UNIT SQ SCH ×2 (09:31→13:58)
[2017-06-18] MEDS: levETIRAcetam 500 MG TABLET PO SCH (09:31)
[2017-06-18] MEDS: LISINOPRIL 5 MG TABLET PO SCH (09:32)
[2017-06-18] MEDS: ISOSORBIDE MONONITRATE 60 MG TAB.XL.24H PO SCH (09:32)
[2017-06-18] MEDS: CLOPIDOGREL 75 MG TABLET PO SCH (09:32)
[2017-06-18] MEDS: amLODIPine 10 MG TABLET PO SCH (09:32)
[2017-06-18] MEDS: PRAMIPEXOLE 0.25 MG TABLET PO SCH (09:32)
[2017-06-18] MEDS: CARVEDILOL 12.5 MG TABLET PO SCH (09:32)
[2017-06-18] MEDS: ASPIRIN 81 MG TAB.CHEW PO SCH (09:33)
[2017-06-18] MEDS: PANTOPRAZOLE 40 MG TABLET PO SCH (09:33)
[2017-06-18] MEDS: TORSEMIDE 10 MG TABLET PO SCH (09:33)
[2017-06-18] MEDS: HEPARIN 5,000 UNIT/ML VIAL SQ SCH (09:34)
[2017-06-18] MEDS: DOCUSATE SODIUM 100 MG CAPSULE PO SCH (09:34)
[2017-06-18] MEDS: METOCLOPRAMIDE 10 MG TABLET PO SCH ×2 (09:36→13:59)
--- NOTE | 2017-06-18 17:45 | Discharge Summary ---
Medical - DS: Prov Patient information: Note initiated : 06/18/17 at 10:37 am Patient: Tamica Tidwell 67 y/o F admitted on 06/12/17 for Right AKA Stump Necrotizing Cellulitis. Date of admission: 06/12/17 20:30 Discharge date: 06/18/17 Primary care physician: Elizabeth Mccann Admitting clinician: Richard Will Consults: Dr. Bryson, wound care X Dr. Valles, nephrology Attending physician on discharge: Simran [facility] - DS: Meds - Discharge Medications Prescriptions: Ertapenem [INVanz] 1 gm IM Q24H #30 vial Vancomycin Per Pharmacy 1 order IV Q24H #30 miscell Active and Home Medications: Discharge medications: Invanz 1 g IV daily, or as per pharmacy Vancomycin, IV daily, as per pharmacy Wound VAC, with home health wound care 3 days a week Aspirin 81 mg daily Lipitor 20 mg nightly next line Coreg 25 mg twice daily Reglan 5 mg 3 times daily before meals Plavix 75 mg daily Methocarbamol 500 mg p.o. twice daily Norvasc 10 mg twice daily Pramipexole 0.25 mg 3 times daily Isordil 0.25 mg 3 times daily Torsemide 60 mg daily Keppra 250 mg twice daily Lantus 8 units subcu nightly Humalog sliding scale before meals and at bedtime Clonazepam 0.5 mg daily at 5 PM Lisinopril 2.5 mg daily Percocet 53 25 one every 4 hours as needed Omeprazole 20 mg p.o. daily Iron sulfate 325 mg daily previous home Medications: Aspirin [Ecotrin] 81 mg PO DAILY 08/09/15 [History Confirmed 06/12/17 Last Taken 06/12/17 09:00] Atorvastatin [Lipitor] 20 mg PO HS 08/09/15 [History Confirmed 06/12/17 Last Taken 06/11/17 21:00] Carvedilol [Coreg] 25 mg PO BIDCC 08/09/15 [History Confirmed 06/12/17 Last Taken 06/12/17 09:00] Metoclopramide HCl [Metozolv Odt] 5 mg PO TIDAC 08/09/15 [History Confirmed Last Taken 06/12/17 09:00] Pantoprazole [Protonix] 40 mg PO QAMAC 08/09/15 [History Confirmed 06/12/17 Last Taken 06/12/17 09:00] Clopidogrel Bisulfate [Plavix] 75 mg PO DAILY 02/23/16 [History Confirmed Last Taken 06/12/17 09:00] Methocarbamol [Robaxin] 500 mg PO BID 02/23/16 [History Confirmed 06/12/17 Last Taken 06/12/17 09:00] amLODIPine [Norvasc] 10 mg PO DAILY 02/23/16 [History Confirmed 06/12/17 Last Taken 06/12/17 09:00] Pramipexole Di-HCl [Mirapex] 0.25 mg PO TID 90 Days 03/09/16 [Rx Confirmed 06/12 Last Taken 06/12/17 09:00] Isosorbide Mononitrate [Isosorbide Mononitrate ER] 60 mg PO BID 01/08/17 [ History Confirmed 06/12/17 Last Taken 06/12/17 09:00] Torsemide [Demadex] 60 tablet PO DAILY 01/08/17 [History Confirmed 06/12/17 Last Taken 06/12/17 09:00] levETIRAcetam [Keppra] 250 mg PO BID 01/09/17 [History Confirmed 06/12/17 Last Taken 06/12/17 09:00] Insulin Glargine, Human [Lantus] 8 unit SQ HS unit 01/28/17 [Rx Confirmed 06/12 Last Taken 06/11/17 21:00] Insulin Lispro [Humalog] See Protocol SQ ACHS #0 unit 01/28/17 [Rx Confirmed Last Taken 06/12/17 09:00] clonazePAM [Klonopin] 0.5 mg PO DAILY@1700 #10 tablet 01/28/17 [Rx Confirmed Last Taken 06/11/17 17:00] Lisinopril [Zestril] 2.5 mg PO QDAY 04/18/17 [History Confirmed 06/12/17 Last Taken 06/12/17 09:00] oxyCODONE/APAP [Percocet 5-325 mg] 1 tab PO Q4HP PRN #90 tablet 04/26/17 [Rx Confirmed 06/12/17 Last Taken 04/30/17] Accu-Chek 1 each FS ACHS strip 04/29/17 [Rx Confirmed 06/12/17 Last Taken 06/12 21:30] Ferrous Sulfate [Iron] 325 mg PO DAILY 06/12/17 [History Confirmed 06/12/17 Last Taken 06/12/17 09:00] Omeprazole 20 mg PO DAILY 06/12/17 [History Confirmed 06/12/17 Last Taken 09:00] Medical - DS: Hosp Hospital course: Mr. Tidwell is a 67 year old F June 12, 2017: History of present illness: Ms. Tidwell is a 67 year old F with a complicated history of ESRD/online DM type II and extensive CAD/PVD with a history of bilateral lower extremity amputation and recent revision of right BKA to right AKA in March 2017. Patient developed right AKA amputation stump dehiscence along with exposed necrotic tissue with drainage. She was subsequently referred by wound care physician Dr. bryson to be admitted for operative debridement. She was evaluated in the ER however initial blood work was essentially unremarkable without significant leukocytosis. She is on chronic hemodialysis and got her last hemodialysis yesterday and her biochemical profile is fairly stable. Hospitalist service was consulted by ED physician for admission to facilitate operative debridement to be performed by Dr. Bryson. Patient was started on antibiotics per.Dr. Bryson's recommendations. 06/13-patient seen postop day 1 today. slightly sedated postop. Ongoing hemodialysis. no overnight fever or chills. No concerns per staff. Restarted on home meds. 06/14- patient was debridement and currently on wound VAC as per wound care physician. Wound care physician recommends additional 72 hours dressing change and wound follow-up. On antibiotic coverage. Ongoing hemodialysis. No concerns expressed by nursing staff other than blood pressures in 80s today however patient asymptomatic,tolerating diet and good spirits. she denies any active discomfort. No overnight fever chills nausea vomiting June 15: -The patient says she is having moderate pain in her right stump today, rated as [address] Bryson tells me that when he went in to change her dressing this morning , she had leaked stool out of her depends, and it had run down to the bandage on her leg. He was not sure if it had contaminated the wound. The patient cannot recall this. -The patient is a little drifty at the moment, and it is not clear if her history is reliable. She denies diarrhea, but the dialysis nurse that is currently with her believe she did have diarrhea this morning. -The patient tells me that she has been continuing to live at home alone with visiting caregivers. All of her children live on the [facility]. She has a local friend named Salome, who acts as her POA. She also believes she was in rehab for wound care until about 1 week ago. She continues to smoke cigarettes , but says she is down to just a few cigarettes a day. She otherwise denies fever, chills, sore throat, cough,CP/SOB, GI or sx's. June 16: Today, the patient says she is feeling pretty well. She is sitting up in her wheelchair, and denies current pain. She denies fever chills, chest pain or shortness of breath, GI or problems. She is tolerating her wound care and her right AKA wound VAC just fine. June 17: Today, the patient says she is feeling pretty well. She denies significant pain. Dr. Bryson says that she can be discharged once we can arrange for outpatient IV antibiotics and wound care. She is quite adamant about returning home, rather than going to a facility for ongoing wound care and antibiotics. The patient denies fever chills, chest pain or shortness of breath, GI or symptoms. June 18: Hospital course: -This patient was admitted to the hospital with a feeling recent revision of the right BKA stump. She had an AKA in March, but the wound dehisced, and she presented with purulent drainage. She underwent operative debridement. She has been maintained on IV Zosyn and vancomycin since then. Currently there is no sign of infection, but Dr. Weaver Saturday feels that she is at very high risk for poor wound healing and reinfection of the stump. At this time she is stable for discharge. would like her to continue with the wound VAC, and at least 3 times a week dressing changes. He would also like to continue with IV Invanz and vancomycin, at this time. He would like her to have subsequent evaluation by infectious disease, to help recommend which antibiotics she should stay on and for how long. We had difficulty obtaining long-term IV access yesterday, so she was sent over to [facility] and had a PICC line placed under fluoroscopy. Today, she says she is feeling fine. She denies fever or chills, chest pain or shortness of breath, GI or complaints. She has minimal right stump pain. She is undergoing dialysis today, and hopes to return home after. She has adamantly refused placement at a rehab center for ongoing wound care. Exam: She is sitting up in bed, and seems in good spirits. Neck is supple without obvious lymphadenopathy or JVD. Cardiac exam shows regular rate and rhythm. Lungs are clear to auscultation. Abdomen is soft and nontender. Left stump looks fine. Right AKA stump is bandaged. Wound VAC is draining moderate amounts of pink fluid. Assessment and plan: #1. Infectious disease. Right AKA stump necrotizing cellulitis- Postop day 5. Managed by Dr. Bryson. on wound VAC. Continuing vancomysin/zosyn coverage. Await cultures. I expect poor wound healing has to do with both microvascular and macrovascular ischemia, in the setting of ongoing smoking. Pt states she is trying to cut down. -Dr. Bryson would like the patient to continue on IV vancomycin and Invanz going forward. Home health will be arranged for her 3 times a week dressing changes with the wound VAC. Home health RN will also help manage her medications, and monitor her PICC line. -She should return to clinic daily for IV antibiotics. #2. DM type II-continue basal prandial insulin. Accu-Cheks still labile, but not unreasonable, ranging from 165-243. #3. History of CAD/CHF-stable. -continue Plavix/AMIRA inhibitor/statin/aspirin/beta kristie/Isosorbide #4. ESRD on HD- ongoing hemodialysis per nephrology. -Phosphorus was quite elevated yesterday, and patient was given 1 dose of PhosLo. She is receiving dialysis today, and will have follow-up labs with Dr. Valles. . #5. Anemia secondary to chronic kidney disease -stable #6. Hypertension -on beta kristie/AMIRA inhibitor/nitrate/CCB. Continue as tolerated. #7. History of seizures - on Keppra/clonazepam #8. Hyperlipidemia on statin #9. DVT prophylaxis- SQ Heparin #10. CODE STATUS: Full code #11. Discharge planning, as per Dr. Bryson. The patient states she will return home, although her ability to keep up with adequate wound care is very questionable. She is also continuing to smoke, even though we have strongly discouraged this. Apparently her friend has her POA, and it is not clear that her children understand that she is back in the hospital, or how serious her condition is. Follow-up plans are as noted above, with home health RN, physical therapy, wound care, and daily return to clinic for IV antibiotics. Discharge diagnosis: Necrotizing cellulitis of the right AKA stump. Diabetes. ESRD. Secondary discharge diagnosis: Tobacco abuse. Time spent discussing smoking cessation with patient: 3 to 10 minutes - Time Spent with Patient Total time spent providing and/or coordinating discharge services: Greater than 30 minutes Medical - DS: Exam - Constitutional Vitals: Vital Signs Temp Pulse Resp BP Pulse Ox 06/18/17 08:00 76 16 162/80 92 06/18/17 04:00 98.1 F 70 22 130/48 92 06/18/17 00:00 97.9 F 69 22 118/54 92 06/17/17 20:00 98.2 F 76 24 H 108/60 92 06/17/17 11:50 97.3 F 22 122/68 94 Intake and Output 06/17/17 06/18/17 06/18/17 21:59 05:59 13:59 Intake Total 50 / 50 450 / 450 1160 / 1160 Output Total 1 / 1 Balance 50 / 50 449 / 449 1160 / 1160 Intake: IV 50 / 50 50 / 50 Zosyn 2.25 gm In Dextrose 50 / 50 50 / 50 5% in Water 50 ml @ 100 mls/hr IV Q8H [facility] Rx#: [id number] Oral 400 / 400 1160 / 1160 Output: # of times incontinent of 1 / 1 urine Other: Meal Breakfast Percent of Meal Consumed 100% # of times incontinent of 1 Bowels Weight 109 lb Medical - DS: Data Labs on day of discharge: Labs from last 24 hours 06/18/17 06/18/17 06/17/17 06:07 04:00 13:10 Sodium 142 Potassium 6.2 H* Chloride 101 Carbon Dioxide 22 Anion Gap 19.0 H BUN 79 H Creatinine 4.2 H GFR Calculation 10 Glucose 172 H Uric Acid 5.8 Calcium 8.9 Phosphorus 6.8 H* Magnesium 2.5 Total Bilirubin 0.2 Direct Bilirubin < 0.2 GGT 9 AST 13 ALT 7 Alkaline Phosphatase 87 Lactate Dehydrogenase 218 Total Protein 5.6 L Albumin 3.0 L Globulin 2.6 Albumin/Globulin Ratio 1.2 Triglycerides 121 Random Vancomycin 26.0 H 25.0 H Vancomycin Dose Not Reportable Not Reportable Vanco Last Dose Time Not Reportable Not Reportable June 17: CBC: White blood cell count 6900, hemoglobin 11.6, hematocrit 35, platelets low at 104,000. RBC morphology is abnormal, 1+ anisocytosis June 12: Blood cultures are negative so far. The last right leg wound cultures I see in the computer are from January 08, 2017 : This grew enterococcus, E. coli, corynebacterium. The E. coli was sensitive to imipenem, the other 2 organisms were not tested Medical - DS: A/P - Patient/Caregiver Discharge Instructions Activity: as per physical therapy Diet: Renal/Consistent Carbs Additional Instructions: 1. Right stump infection. A PICC line has been placed. Please take care of this carefully. We will send a home health nurse to help with this. Please return to the clinic daily for IV antibiotics. The home health nurse will also do dressing changes and replaced the wound VAC 3 days a week. Please have your doctors refer you to an infectious disease doctor, to make recommendations about antibiotics and length of treatment. 2. Continue physical therapy for strengthening and safety of transfers. Next 3. Please discontinue smoking, as this interferes with wound healing. Prescriptions: Ertapenem [INVanz] 1 gm IM Q24H #30 vial Vancomycin Per Pharmacy 1 order IV Q24H #30 miscell Other Amb Orders: OT Discharge Order Location: Determined By Patient Physical Therapy at Discharge - General Location: Determined By Patient Wound Care/Dressings Location: Determined By Patient Outpatient PICC Care Location: Determined By Patient Wound Care Instructions Location: Determined By Patient - Follow up Plan Follow up with: Elizabeth Mccann MD [Primary Care Provider] - Disposition: Home Health Service Prognosis: Fair Rehab Potential: Fair Overall status at discharge: patient is progressing back to baseline
== END 2017-06-18 15:50 | disposition home health service (06) | DRG 981 ==
LOC: ED 15:18 → SUATTDRO 20:30 → MEDSUR 20:30
PROVIDERS: ADMIT Internal Medicine; ATTEND Internal Medicine

== ENCOUNTER 2017-07-09 09:36 | Inpatient (IN) ==
[2017-07-09] MEDS ORDERED: IOPAMIDOL 100 ML BOTTLE IV ONE (09:37)
--- NOTE | 2017-07-09 10:08 | Cat Scan Report ---
CLINICAL INFORMATION: Acute left-sided numbness - code stroke COMPARISON: 11/26/[address] TECHNIQUE: 2.5 mm helical slices were obtained in the skull base to vertex. Following reconstruction, axial reformatted images were reviewed at bone and parenchymal windows. FINDINGS: The ventricles, sulci, fissures, and cisterns are symmetrically enlarged compatible with moderate atrophy. There are no extra-axial fluid collections or masses appreciated. Extensive chronic ischemic changes in the cerebral white matter seen - as before. A 14 mm remote lacunar infarct in the right caudate nucleus/anterior capsule is again seen. A small remote cortical-based infarct in the right occipital lobe near vertex is appreciated. Physiologic calcification in both globus pallidus regions. There is no intracerebral hemorrhage, edema, mass effect or other acute finding. Bone windows show no osseous abnormality. Mild mucosal thickening present in the right sphenoid sinus IMPRESSION: 1. Moderate atrophy with extensive chronic ischemic changes in the deep cerebral white matter, a 14 mm remote lacunar infarct in the right basal ganglia, and a small remote cortical-based infarct in the right occipital lobe near vertex are all noted. There is no intracerebral hemorrhage, edema or other acute finding.. Interpreted and Authenticated by: Santhosh Feldman 07/09/17
[2017-07-09 10:22] LABS: Basophils # (Auto) 0.1 K/mcL (0.0-0.3); Basophils % (Auto) 0.8 % (0.0-2.0); Eosinophils # (Auto) 0.9 K/mcL (0.0-0.7); Eosinophils % (Auto) 11.9 % (0.0-7.0); Granulocytes % (Auto) 68.2 % (38.0-78.0); Lymphocytes # (Auto) 0.9 K/mcL (1.5-4.8); Lymphocytes % (Auto) 11.9 % (15.5-49.0); Mean Cell Volume 92.8 fL (80.0-100.0); Mean Corpuscular HGB Conc 33.5 g/dL (31.0-36.0); Mean Corpuscular Hemoglobin 31.1 pg (26.0-34.0); Monocytes # (Auto) 0.5 K/mcL (0.1-0.9); Monocytes % (Auto) 7.2 % (1.0-12.0); Platelet Count 109 K/mcL (140-440); RBC 4.25 M/mcL (4.00-5.20); Red Cell Distribution Width 14.8 % (11.5-14.5)
--- NOTE | 2017-07-09 10:29 | Emergency Department Note ---
Neuro HPI - General Chief Complaint: Stroke Symptoms Stated Complaint: Left sided weakness Time Seen by Provider: 07/09/17 09:57 Source: EMS Mode of arrival: EMS Limitations: physical limitation - History of Present Illness HPI Narrative: 67-year-old female who is on dialysis. Complaining of left arm weakness over the past 2 weeks. This morning was worse. Woke up with the increased weakness. 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 Is on Plavix. Denies any chest pain EKG shows no ST-T type changes EKG same as previous 06/12/2017. Denies any shortness of breath. No involvement of her lower extremities any facial numbness or tingling no slurring of speech patient alert and oriented. 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 Valles's - Related Data Home Medications: Home Medications Medication Instructions Recorded Confirmed Aspirin [Ecotrin] 81 mg PO DAILY 08/09/15 07/09/17 Atorvastatin [Lipitor] 20 mg PO HS 08/09/15 07/09/17 Carvedilol [Coreg] 25 mg PO BIDCC 08/09/15 07/09/17 Metoclopramide HCl [Metozolv Odt] 5 mg PO TIDAC 08/09/15 07/09/17 Pantoprazole [Protonix] 40 mg PO QAMAC 08/09/15 07/09/17 Clopidogrel Bisulfate [Plavix] 75 mg PO DAILY 02/23/16 07/09/17 Methocarbamol [Robaxin] 500 mg PO BID 02/23/16 07/09/17 amLODIPine [Norvasc] 10 mg PO DAILY 02/23/16 07/09/17 Isosorbide Mononitrate [Isosorbide 60 mg PO BID 01/08/17 07/09/17 Mononitrate ER] Torsemide [Demadex] 60 tablet PO DAILY 01/08/17 07/09/17 levETIRAcetam [Keppra] 250 mg PO BID 01/09/17 07/09/17 Lisinopril [Zestril] 2.5 mg PO QDAY 04/18/17 07/09/17 Ferrous Sulfate [Iron] 325 mg PO DAILY 06/12/17 07/09/17 Omeprazole 20 mg PO DAILY 07/09/17 07/09/17 Previous Rx's Medication Instructions Recorded Pramipexole Di-HCl [Mirapex] 0.25 mg PO TID 90 Days tablet 03/09/16 Insulin Glargine, Human [Lantus] 8 unit SQ HS unit 01/28/17 Insulin Lispro [Humalog] See Protocol SQ ACHS #0 unit 01/28/17 clonazePAM [Klonopin] 0.5 mg PO DAILY@1700 #10 tablet 01/28/17 oxyCODONE/APAP [Percocet 5-325 mg] 1 tab PO Q4HP PRN #90 tablet 04/26/17 Accu-Chek 1 each FS ACHS strip 04/29/17 0.9 % Sodium Chloride [Saline 10 ml IV UD PRN 06/18/17 Flush] Accu-Chek 1 each FS ACHS strip 06/18/17 Vancomycin Per Pharmacy 1 order IV Q24H #30 miscell 06/18/17 Allergies/Adverse Reactions: Allergies Allergy/AdvReac Type Severity Reaction Status Date / Time codeine AdvReac Mild n/v Verified 07/09/17 09:43 hydrocodone AdvReac Mild n/v Verified 07/09/17 09:43 Review of Systems All systems ED: reviewed and negative except as stated. Constitutional: Denies: fever, chills Eyes: Denies: eye pain ENT ED: Denies: ear pain Cardiovascular: Denies: chest pain, palpitations Respiratory: Denies: cough Gastrointestinal: Denies: abdominal pain, nausea Genitourinary: Denies: urgency, dysuria Musculoskeletal: Denies: back pain Integumentary: Denies: rash Neurological: Reports: weakness (weakness of left arm). Denies: headache, numbness, paresthesias, confusion, abnormal gait, vertigo Psychiatric: Denies: anxiety Endocrine: Reports: fatigue Hematological/Lymphatic: Denies: easy bleeding Allergic/Immunologic: Denies: facial swelling Past Medical History - Past Medical History Medical history: Reports: CVA, diabetes, myocardial infarction, renal disease ( chronic, on dialysis. ), valvular heart disease, other (PAD; LBBB; NO osteomyelitis.) Surgical history ED: Reports: cholecystectomy, orthopedic, other (Left below the knee amputation, right foot amputation, right fylbj-eth-rmia amputation.), other Psychiatric history: Reports: no psych history Family history: Reports: diabetes - Social History smoking status: Current every day smoker Alcohol use: Reports: None Drug use: Reports: none Physical Exam - General Limitations: physical limitation General appearance: alert - Head Head exam: atraumatic, normocephalic - Eye Eye exam: Present: normal appearance, PERRL - ENT ENT exam: normal exam, normal oropharynx - Neck Neck exam: Present: normal inspection, full ROM - Chest Chest inspection: Present: normal inspection, symmetric chest wall rise. Absent : tenderness - Respiratory Respiratory exam: Present: normal lung sounds bilaterally. Absent: respiratory distress, wheezes - Cardiovascular Cardiovascular exam: Present: regular rate, normal rhythm. Absent: bradycardia , tachycardia - Abdominal Exam Abdominal exam: Present: soft. Absent: distention, tenderness - Extremities Exam Extremities exam: Present: normal inspection - Expanded Upper Extremity Exam Shoulder exam: Present: normal inspection, full ROM Arm exam: Present: normal inspection, other (left arm weakness). Absent: full ROM - Back Exam Back exam: Present: normal inspection, full ROM - Expanded Neurological Exam Patient oriented to: Present: person, place, time Speech: Present: fluid speech Cranial nerves: EOM function (II, III, IV, ): Normal, facial sensation (V): Normal, facial palsy (VII): Normal, gag reflex (IX): Normal, spinal accessory function (XI): Normal, tongue deviation (XII): Normal Cerebellar function: finger to nose: Normal Motor strength - LUE: 4/5 Motor strength - RUE: 5/5 Motor strength - LLE: 5/5 Motor strength - RLE: 5/5 Upper motor neuron exam: Babinski sign: Absent bilaterally Sensory exam upper extremity: Normal: light touch, pin prick Sensory exam lower extremity: Normal: light touch, pin prick DTR: 2+: patellar (L), patellar (R) Coma Scale Eye Opening: Spontaneous Coma Scale Motor Response: Obeys Commands Coma Scale Verbal Response: Oriented Coma Scale Total: 15 - Psychiatric Psychiatric exam: Present: normal affect, normal mood - Skin Skin exam: Present: warm, dry, intact Course Vital Signs Temperature 98.0 F 07/09/17 09:37 Pulse Rate 84 07/09/17 09:37 Respiratory Rate 20 07/09/17 09:37 Blood Pressure 199/69 07/09/17 09:37 Pulse Oximetry (%) 99 07/09/17 09:37 Temperature 98.0 F 07/09/17 09:37 Pulse Rate 79 07/09/17 14:01 Respiratory Rate 11 L 07/09/17 14:01 Blood Pressure 160/82 07/09/17 14:01 Pulse Oximetry (%) 97 07/09/17 14:01 Neuro Symptoms/Deficit - MDM Narrative Medical decision making narrative: Head ct was negative and she awoke with s/sx aalso present x 1 week. C/0 left arm weakness. stroke neurologist called at 10:48 no TPA indicated, due to recent stroke,woke up with s/sx and also on plavix already. Dr Valles consulted at return call at 1:22 phone to give him results of mri and cta, cta is neg bur mri show acute left cortical infarct and new lesion in right occipital. Dr Valles states to admitt and dialysis in the unit - Lab Data Result diagrams: 07/09/17 09:54 07/09/17 09:54 Lab Results 07/09/17 07/09/17 07/09/17 Range/Units 09:54 09:54 09:54 WBC 7.2 (4.5-11.0) K/mcL RBC 4.25 (4.00-5.20) M/mcL Hgb 13.2 (12.0-15.0) g/dL Hct 39.4 (36.0-48.0) % POC Hct 39.0 (36.0-48.0) % MCV 92.8 (80.0-100.0) fL MCH 31.1 (26.0-34.0) pg MCHC 33.5 (31.0-36.0) g/dL RDW 14.8 H (11.5-14.5) % Plt Count 109 L (140-440) K/mcL MPV 9.4 (7.4-10.4) fL Gran % 68.2 (38.0-78.0) % Lymph % (Auto) 11.9 L (15.5-49.0) % [place] % (Auto) 7.2 (1.0-12.0) % Eos % (Auto) 11.9 H (0.0-7.0) % Baso % (Auto) 0.8 (0.0-2.0) % Gran # 4.9 (1.8-8.0) K/mcL Lymph # (Auto) 0.9 L (1.5-4.8) K/mcL [place] # (Auto) 0.5 (0.1-0.9) K/mcL Eos # (Auto) 0.9 H (0.0-0.7) K/mcL Baso # (Auto) 0.1 (0.0-0.3) K/mcL POC PT 15.1 H (11.9-14.5) sec POC INR 1.3 H (0.9-1.2) APTT TNP POC Sodium 142 (133-145) mmol/L Sodium 142 (133-145) mmol/L POC Potassium 3.9 (3.3-5.1) mmol/L Potassium 3.9 (3.3-5.1) mmol/L POC Chloride 109 H (96-108) mmol/L Chloride 104 (96-108) mmol/L Carbon Dioxide 22 (22-30) mmol/L POC Total CO2 23 (22-30) mmol/L Anion Gap 16.0 (8-16) POC BUN 47 H (8-23) mg/dl BUN 52 H (8-23) mg/dl Creatinine 2.7 H (0.6-1.1) mg/dl POC Creatinine 2.9 H (0.6-1.1) mg/dl GFR Calculation 18 Glucose 142 H (70-105) mg/dL POC Glucose 136 H (70-105) mg/dL Calcium 8.8 (8.6-10.4) mg/dl POC WB Ioniz Calcium 1.13 L (1.16-1.32) mmol/L Total Bilirubin 0.2 (0.0-1.0) mg/dL AST 18 (0-37) U/l ALT 11 (0-40) U/l Alkaline Phosphatase 96 (39-117) U/L Troponin T (0-0.03) ng/ml Total Protein 6.0 (5.9-8.4) gm/dL Albumin 3.5 (3.2-5.2) gm/dL Globulin 2.5 (2.2-3.7) gm/dL Albumin/Globulin Ratio 1.4 (1.0-2.3) 07/09/17 07/09/17 Range/Units 09:54 11:00 WBC (4.5-11.0) K/mcL RBC (4.00-5.20) M/mcL Hgb (12.0-15.0) g/dL Hct (36.0-48.0) % POC Hct (36.0-48.0) % MCV (80.0-100.0) fL MCH (26.0-34.0) pg MCHC (31.0-36.0) g/dL RDW (11.5-14.5) % Plt Count (140-440) K/mcL MPV (7.4-10.4) fL Gran % (38.0-78.0) % Lymph % (Auto) (15.5-49.0) % [place] % (Auto) (1.0-12.0) % Eos % (Auto) (0.0-7.0) % Baso % (Auto) (0.0-2.0) % Gran # (1.8-8.0) K/mcL Lymph # (Auto) (1.5-4.8) K/mcL [place] # (Auto) (0.1-0.9) K/mcL Eos # (Auto) (0.0-0.7) K/mcL Baso # (Auto) (0.0-0.3) K/mcL POC PT (11.9-14.5) sec POC INR (0.9-1.2) APTT 31 POC Sodium (133-145) mmol/L Sodium (133-145) mmol/L POC Potassium (3.3-5.1) mmol/L Potassium (3.3-5.1) mmol/L POC Chloride (96-108) mmol/L Chloride (96-108) mmol/L Carbon Dioxide (22-30) mmol/L POC Total CO2 (22-30) mmol/L Anion Gap (8-16) POC BUN (8-23) mg/dl BUN (8-23) mg/dl Creatinine (0.6-1.1) mg/dl POC Creatinine (0.6-1.1) mg/dl GFR Calculation Glucose (70-105) mg/dL POC Glucose (70-105) mg/dL Calcium (8.6-10.4) mg/dl POC WB Ioniz Calcium (1.16-1.32) mmol/L Total Bilirubin (0.0-1.0) mg/dL AST (0-37) U/l ALT (0-40) U/l Alkaline Phosphatase (39-117) U/L Troponin T 0.07 H* (0-0.03) ng/ml Total Protein (5.9-8.4) gm/dL Albumin (3.2-5.2) gm/dL Globulin (2.2-3.7) gm/dL Albumin/Globulin Ratio (1.0-2.3) Disposition Pt seen by [facility]/PA only: No Clinical Impression: CVA (cerebral vascular accident) Summary: left cortical and right occipital infarct. Disposition: Xfer As Inpt ([facility]) Condition: Undetermined Referrals: Elizabeth Mccann MD [Primary Care Provider] - Time of Disposition: 14:39
[2017-07-09 10:42] LABS: ALT/SGPT 11 U/l (0-40); Albumin 3.5 gm/dL (3.2-5.2); Albumin/Globulin Ratio 1.4 (1.0-2.3); Alkaline Phosphatase 96 U/L (39-117); Blood Urea Nitrogen 52 mg/dl (8-23)
--- NOTE | 2017-07-09 14:03 | Cat Scan Report ---
CLINICAL INFORMATION: Acute left-sided weakness. Stroke protocol COMPARISON: None. TECHNIQUE: 80 cc of Isovue-300 were injected intravenously , and using SmartPrep to maximize cerebral arterial opacification, 0.625 mm helical slices were obtained from the skull base through the cerebral vertex. Following reconstruction , sagittal, coronal and axial reformatted images were processed and reviewed at multiple windows and levels. 3D volume rendered and MIP images were also obtained at an independent workstation. FINDINGS: The intracranial right vertebral artery is hypoplastic: The basilar and posterior arterial circulation is almost entirely supplied by a dominant left vertebral artery. The basilar, intracranial internal carotid, both anterior, middle and posterior cerebral arteries and their branches are normal in contour and caliber without evidence of stenosis or occlusion. The superficial and deep cerebral veins and the deep venous sinuses are widely patent IMPRESSION: Negative Interpreted and Authenticated by: Santhosh Feldman 07/09/17
--- NOTE | 2017-07-09 14:15 | Cat Scan Report ---
CLINICAL INFORMATION: Acute left-sided weakness. Code stroke COMPARISON: None. TECHNIQUE: 80 cc of Isovue-300 were injected intravenously followed by 40 cc of normal saline flush. Using SmartPrep, 0.625 helical slices were obtained from the thoracic aortic arch through the [place] of [place]. Following reconstruction, 2.5 mm sagittal, coronal and axial reformatted images, 3-D volume rendering and CPR images were constructed. FINDINGS: The thoracic aorta is normal in contour and caliber with moderate fibrofatty and calcific plaque. Aortic branching is conventional. There is a 50% focal stenosis of the proximal right internal carotid artery due to eccentric fibrofatty plaque. There is mild (50%) stenosis of the mid cervical right internal carotid artery due to focal artery kinking.. The remainder of both internal, external and common carotid, both subclavian and brachycephalic arteries contains scattered atherosclerotic plaque, but no stenoses. The left vertebral artery is quite dominant with a diminutive right vertebral artery. No soft tissue abnormalities. IMPRESSION: 1. 50% stenosis of the right internal carotid artery origin due to eccentric fibrofatty plaque. The cervical right internal carotid artery shows focal kinking which effectively results in a second 50% downstream stenosis. 2. Diminutive right vertebral artery with a dominant left vertebral artery Interpreted and Authenticated by: Santhosh Feldman 07/09/17
--- NOTE | 2017-07-09 14:23 | Magnetic Resonance Report ---
CLINICAL INFORMATION: Acute left-sided weakness. Code stroke COMPARISON: None. TECHNIQUE: Sagittal T1 FLAIR, axial T1 FLAIR T2 gradient diffusion ADC images were obtained FINDINGS: The ventricles, sulci, fissures and cisterns are symmetrically enlarged compatible with moderate atrophy - no extra-axial fluid collections or masses appreciated. Moderate chronic ischemic changes noted in the deep cerebral white matter. There is a small focus of restricted diffusion in the subcortical white matter of the left frontal lobe near vertex likely representing a small cortical-based nonhemorrhagic infarct. There is an 18 mm linear area of increased signal in the right occipital lobe on the diffusion images which does not have a correlate on the ADC map - it is presumably artifact. There is a possible second tiny (3 mm) nonhemorrhagic lacunar infarct in the right frontal cortex near vertex. A small remote cortical-based infarct in the right parietal-occipital junction was also noted on CT. IMPRESSION: Small, acute nonhemorrhagic subcortical infarct in the left frontal lobe - near vertex. Possible 3 mm nonhemorrhagic acute lacunar infarct in the right frontal lobe near vertex Moderate atrophy and moderate chronic ischemic changes in the the cerebral white matter. Small remote cortical-based infarct in the right occipital parietal junction. Interpreted and Authenticated by: Santhosh Feldman 07/09/17
--- NOTE | 2017-07-09 17:21 | Internal Med History&Physical ---
Medical - H&P: HPI Patient information: Note initiated : 07/09/17 at 5:15 pm Patient: Tamica Tidwell 67 y/o F admitted on 07/09/17 for Left sided weakness. History of present illness: Ms. Tidwell is a 67 year old with multiple chronic illnesses, including end- stage renal disease, previous stroke, peripheral vascular disease, ongoing tobacco abuse. Patient presented to the emergency room today complaining of left arm weakness. However, she tells me that it did not start 3 days ago as was reported, but that she awakened this morning with difficulty using her left hand. ER evaluation showed several old and possible new tiny strokes. Apparently the stroke center was called, and they recommended that she does continue with Plavix and aspirin, and monitor overnight. She did receive several studies that needed IV dye, so her hand violin maker recommended that she be admitted for acute dialysis as well. The patient seems a bit groggy, but otherwise is awake and able to answer questions. She admits that she continues to smoke, and says she just has not figured out a way to stop. She denies other symptoms, such as slurred speech or facial droop, dysphasia, or other areas of weakness. She denies fever chills, headaches or dizziness, blurred vision, new ear symptoms, sore throat or cough, chest pain or palpitations, shortness of breath , abdominal pain, nausea or vomiting, diarrhea or constipation. She makes minimal urine. She continues to have pain at her right AKA stump. I believe that is still not healed since her last admission. She also has a couple of tiny ulcers on the left stump, and is followed by wound care. Medical history: ESRD on hemodialysis HTN Stroke,012 and 2012, on AC therapy DM, 2 2008 diabetic peripheral neuropathy Hyperlipidemia CAD/CHF with echocardiogram recently showing left ventricular ejection fraction of 45%, history, history of ND in 2014, with LADstent also stent to the first diagonal, and left circumflex and right coronary History of carotid artery disease DVT Parkinsons Diabetic foot ulcer peripheral vascular disease Diverticulitis History of seizures Tobacco abuse History of depression Charcot joint arthropathy and type 2 diabetes Anemia, thrombocytopenia past surgical history: Right knee arthroscopy, left knee arthroscopy, cholecystectomy,coronary stents,, bilateral BKA, right AKA Home medications: norvasc 10 mg daily Aspirin 81 mg daily Lipitor 20 mg nightly Coreg 25 mg twice daily next line clonazepam 0.5 mg daily at 5 PM Plavix 75 mg daily Iron sulfate 325 mg daily Lantus 8 units subcu nightly Humalog sliding scale Isosorbide mononitrate 60 mg twice daily Keppra 250 mg twice daily Lisinopril 2.5 mg daily Methocarbamol 500 mg twice daily Metoclopramide 5 mg 3 times daily before meals Omeprazole 20 mg daily Percocet 5/325 one every 4 hours as needed Protonix 40 mg every morning Mirapex 0.25 mg 3 times daily Torsemide 60 mg daily allergies: Codeine causes vomiting family history: Father had hypertension,kidney disease, coronary disease, diabetes, COPD. Mother had hypertension, coronary disease diabetesnext Social history: She is an everyday smoker ;the patient does not use alcohol or drugs. She lives alone. She says she has caregivers coming in every day now. Medical - H&P: Meds Home Medications Medication Instructions Recorded Confirmed Type Aspirin [Ecotrin] 81 mg PO DAILY 08/09/15 07/09/17 History Atorvastatin [Lipitor] 20 mg PO HS 08/09/15 07/09/17 History Carvedilol [Coreg] 25 mg PO BIDCC 08/09/15 07/09/17 History Metoclopramide HCl [Metozolv Odt] 5 mg PO TIDAC 08/09/15 07/09/17 History Pantoprazole [Protonix] 40 mg PO QAMAC 08/09/15 07/09/17 History Clopidogrel Bisulfate [Plavix] 75 mg PO DAILY 02/23/16 07/09/17 History Methocarbamol [Robaxin] 500 mg PO BID 02/23/16 07/09/17 History amLODIPine [Norvasc] 10 mg PO DAILY 02/23/16 07/09/17 History Pramipexole Di-HCl [Mirapex] 0.25 mg PO TID 90 Days tablet 03/09/16 07/09/17 Rx Isosorbide Mononitrate [Isosorbide 60 mg PO BID 01/08/17 07/09/17 History Mononitrate ER] Torsemide [Demadex] 60 tablet PO DAILY 01/08/17 07/09/17 History levETIRAcetam [Keppra] 250 mg PO BID 01/09/17 07/09/17 History Insulin Glargine, Human [Lantus] 8 unit SQ HS unit 01/28/17 07/09/17 Rx Insulin Lispro [Humalog] See Protocol SQ ACHS #0 unit 01/28/17 07/09/17 Rx clonazePAM [Klonopin] 0.5 mg PO DAILY@1700 #10 tablet 01/28/17 07/09/17 Rx Lisinopril [Zestril] 2.5 mg PO QDAY 04/18/17 07/09/17 History oxyCODONE/APAP [Percocet 5-325 mg] 1 tab PO Q4HP PRN #90 tablet 04/26/17 Rx Accu-Chek 1 each FS ACHS strip 04/29/17 06/12/17 Rx Ferrous Sulfate [Iron] 325 mg PO DAILY 06/12/17 07/09/17 History 0.9 % Sodium Chloride [Saline 10 ml IV UD PRN 06/18/17 Rx Flush] Accu-Chek 1 each FS ACHS strip 06/18/17 Rx Vancomycin Per Pharmacy 1 order IV Q24H #30 miscell 06/18/17 07/09/17 Rx Ertapenem [INVanz] 1 gm IV Q24H 07/09/17 07/09/17 History Omeprazole 20 mg PO DAILY 07/09/17 07/09/17 History Allergies Allergy/AdvReac Type Severity Reaction Status Date / Time codeine AdvReac Mild n/v Verified 07/09/17 09:43 hydrocodone AdvReac Mild n/v Verified 07/09/17 09:43 Medical - H&P: Exam - Constitutional Vitals: Temp Pulse Resp BP Pulse Ox 98.0 F 79 16 186/72 95 07/09/17 09:37 07/09/17 17:03 07/09/17 16:31 07/09/17 17:03 07/09/17 17:03 On exam, she is a chronically ill-appearing, frail looking female. [place] head : Normocephalic, atraumatic. Head: Normocephalic, atraumatic. Eyes: Pupils equal regular and reactive, EOMI, anicteric. Pharynx: Pharynx is clear. She is edentulous. Neck: Appears supple, without obvious lymphadenopathy, JVD, thyromegaly. She does have soft bilateral carotid bruits. Cardiac: Right upper chest does have a port in place. Cardiac exam shows regular rate and rhythm with normal S1 and S2 and soft systolic murmur is noted at the left lower sternal border. No rubs or gallops are noted. Lung exam: Lungs sounds are somewhat decreased, and she has scattered crackles at both bases, but otherwise no rhonchi, wheezes. Abdomen: Is soft and nontender Bowel sounds are rather quiet. There is no guarding or rebound. Extremities: She is status left BKA, with a few tiny ulcers noted on the stump. She is also status post right AKA, with continued open wound there. She did not want me to unwrap that again, as the nurses had just dressed it, and it is very painful. Neurologic: She is awake and alert, alert and oriented. Cranial nerves II through XII are grossly intact. Motor exam: She has a definite droop with decreased bus mechanic strength in the left hand. She is able to lift both arms equally. She has reasonably accurate finger to finger and finger to nose exam. She is able to lift both legs, with some discomfort, but reasonable strength. Medical - H&P: Reslt - Labs CBC & Chem 7: 07/09/17 09:54 07/09/17 09:54 Labs: Short CBC 07/09/17 Range/Units 09:54 WBC 7.2 (4.5-11.0) K/mcL Hgb 13.2 (12.0-15.0) g/dL Hct 39.4 (36.0-48.0) % Plt Count 109 L (140-440) K/mcL BMP 07/09/17 09:54 Sodium 142 Potassium 3.9 Chloride 104 Carbon Dioxide 22 BUN 52 H Creatinine 2.7 H Glucose 142 H Calcium 8.8 Cardiac Enzymes 07/09/17 Range/Units 09:54 Troponin T 0.07 H* (0-0.03) ng/ml Liver Function 07/09/17 Range/Units 09:54 Total Bilirubin 0.2 (0.0-1.0) mg/dL AST 18 (0-37) U/l ALT 11 (0-40) U/l Alkaline Phosphatase 96 (39-117) U/L Albumin 3.5 (3.2-5.2) gm/dL July 09: CT angiogram neck: 50% stenosis of the right internal carotid artery due to eccentric fibrofatty plaque. Right internal carotid shows focal kinking. Next CT angiogram of the head: Negative. Next MRI: Acute left frontal lobe small nonhemorrhagic infarct. Possible tiny nonhemorrhagic lacunar infarct in the right frontal cortex. Small remote infarct in the right parieto-occipital junction. Chronic ischemic changes. Next Head CT: Moderate atrophy with extensive chronic ischemic changes. Remote lacunar infarct in the right basal ganglia, remote cortical-based infarct in the right occipital lobe near the vertex. No hemorrhage. Medical - H&P: A/P (1) Stroke Current visit: Yes Status: Acute (2) CAD (coronary artery disease), knik coronary artery Current visit: No Status: Chronic (3) Tobacco abuse Current visit: No Status: Chronic (4) DM type 2 with diabetic peripheral neuropathy Current visit: No Status: Chronic (5) PVD (peripheral vascular disease) Current visit: No Status: Chronic (6) ESRD (end stage renal disease) on dialysis Problem details: 1. ESRD. Had dialysis tomorrow today 04/30/2017. Got her IDPN and will take out about 2 liters of fluid. 2. S/P AKA. 3. Anemia. HB stable post transfusion of one unit today. Current visit: No Status: Acute - Narrative A/P Narrative: #1. Neurologic. Patient presents with signs and symptoms of right-sided stroke, with left hand weakness. MRI suggest possible right frontal infarct. The patient has known extensive vascular disease, and is a current smoker. Symptoms are subacute, starting either 3 days ago, or early this morning, depending on which of her stories is correct. The ER contacted the stroke center, and they suggested she be monitored, but otherwise continue Plavix. -Admit to telemetry for monitoring. -Every 4 hours neuro checks. -Continue Plavix, aspirin, Lipitor. Consider increasing her dose of aspirin. -Discouraged tobacco use. -Avoid excessively low and excessively high blood pressures. -Physical, occupational, speech therapy evaluations. History of seizures. -Continue Keppra, clonazepam. 2. Renal History of end-stage renal disease. -Dr. Valles suggest patient be acutely dialyzed, regarding IV dye she received today. 3. CODE STATUS: The patient states she still would like to be a full code. Her friend has her POA. 4. DVT prophylaxis: Subcu heparin. 5. Tobacco abuse. Patient declines NicoDerm. In general she declines to quit smoking. 6. Endocrine. Type 2 diabetes -Accu-Cheks, sliding scale insulin. 7. Cardiac. History of coronary disease and CHF. -Continue Plavix, AMIRA inhibitor, statin, aspirin, beta-kristie, isosorbide. Try to maintain good blood pressure control. Today's visit took approximately 60 minutes, to review her case with the ER MD, review her records and test results, interview and examine her, and write orders. Medical - H&P: Qual - Stroke Symptom Onset Unknown: Yes
[2017-07-09] MEDS ORDERED: DEXTROSE 50% 50 ML VIAL IV PRN (17:22)
[2017-07-09] MEDS ORDERED: NALOXONE HCL 0.4 MG/ML VIAL IV PRN (17:22)
[2017-07-09] MEDS ORDERED: DEXTROSE 31 GM ORAL.SUSP PO PRN (17:22)
[2017-07-09] MEDS ORDERED: DOCUSATE SODIUM 100 MG CAPSULE PO PRN (17:22)
[2017-07-09] MEDS ORDERED: ONDANSETRON 4 MG/2 ML VIAL IV PRN (17:22)
[2017-07-09] MEDS ORDERED: ALBUTEROL SULFATE 2.5 MG/3 ML NEBULIZER NEB PRN (17:22)
[2017-07-09] MEDS ORDERED: ACETAMINOPHEN 325 MG TABLET PO PRN (17:22)
[2017-07-09 17:55] LABS: Appearance,Urine CLEAR; Bacteria,Urine 0 /hpf (0); Bilirubin,Urine NEG (NEG); Color,Urine YELLOW; Glucose,Urine (UA) 150 mg/dL (NEG); Leukocyte Esterase,Urine NEG /uL (NEG); Mucus,Urine FEW /hpf (0); Nitrate,Urine NEG (NEG); Protein,Urine >=500 mg/dL (NEG); Specific Gravity,Urine 1.023 (1.000-1.035); Urine Blood 0.03 mg/dL (<0.03); Urine RBC 1 /hpf (0-1); Urine Squamous Epithelial Cell 0 /hpf (0-4); Urine WBC 1 /hpf (0-4); Urobilinogen,Urine NEG (NEG)
[2017-07-09] MEDS: INSULIN LISPRO 1 UNIT/0.01 ML UNIT SQ SCH ×2 (19:22→21:55)
[2017-07-09] MEDS: HEPARIN 5,000 UNIT/ML VIAL SQ SCH (21:55)
[2017-07-10 07:14] LABS: Basophils # (Auto) 0 K/mcL (0.0-0.3); Basophils % (Auto) 0.7 % (0.0-2.0); Eosinophils # (Auto) 0.7 K/mcL (0.0-0.7); Eosinophils % (Auto) 11.6 % (0.0-7.0); Granulocytes % (Auto) 62.5 % (38.0-78.0); Lymphocytes # (Auto) 1.1 K/mcL (1.5-4.8); Lymphocytes % (Auto) 17.7 % (15.5-49.0); Mean Cell Volume 92.3 fL (80.0-100.0); Mean Corpuscular HGB Conc 33.8 g/dL (31.0-36.0); Mean Corpuscular Hemoglobin 31.2 pg (26.0-34.0); Monocytes # (Auto) 0.5 K/mcL (0.1-0.9); Monocytes % (Auto) 7.5 % (1.0-12.0); Platelet Count 104 K/mcL (140-440); Red Cell Distribution Width 14.6 % (11.5-14.5)
[2017-07-10 07:32] LABS: ALT/SGPT 12 U/l (0-40); Albumin 3.3 gm/dL (3.2-5.2); Albumin/Globulin Ratio 1.4 (1.0-2.3); Alkaline Phosphatase 88 U/L (39-117); Bilirubin,Direct < 0.2 mg/dL (0.0-0.3); Blood Urea Nitrogen 36 mg/dl (8-23); Gamma Glutamyl Transpeptidase 11 U/L (5-36); Magnesium 2.2 mg/dL (1.6-2.5); Uric Acid 2.8 mg/dL (2.5-8.0)
[2017-07-10] MEDS: HEPARIN 5,000 UNIT/ML VIAL SQ SCH ×2 (08:50→21:02)
[2017-07-10] MEDS: INSULIN LISPRO 1 UNIT/0.01 ML UNIT SQ SCH ×4 (08:51→21:02)
[2017-07-10] MEDS ORDERED: oxyCODONE/APAP 5/325MG TABLET PO PRN (11:03)
[2017-07-10] MEDS ORDERED: ERTAPENEM 1 GM VIAL IV SCH (11:15)
[2017-07-10] MEDS ORDERED: VANCOMYCIN 1,000 MG in 0.9 % SODIUM CHLORIDE 250 ML IV ONE (12:00)
[2017-07-10] MEDS ORDERED: VANCOMYCIN PER PHARMACY IV SCH (12:00)
[2017-07-10] MEDS: ERTAPENEM 0.5 GM in 0.9 % SODIUM CHLORIDE 50 ML IV SCH (13:39)
[2017-07-10] MEDS: METOCLOPRAMIDE 10 MG TABLET PO SCH ×2 (13:39→17:56)
--- NOTE | 2017-07-10 14:07 | Consultation ---
DATE OF CONSULTATION: 07/10/2017 REFERRING PHYSICIAN: Enrique Roa M.D. REASON FOR CONSULTATION: End-stage renal disease. HISTORY OF PRESENT ILLNESS: The patient is a 67-year-old female with past medical history significant for end-stage renal disease on hemodialysis at [facility]. She has previous history of cerebrovascular accident, peripheral vascular disease and ongoing tobacco use. She had recent BKAs bilaterally. She came into the emergency room complaining of left arm weakness. It started about 3 days ago but has continued to get progressively weak. An MRI of the brain showed that she has left frontal lobe small nonhemorrhagic infarct with possible tiny nonhemorrhagic lacunar infarct as well. For these reasons, she was hospitalized. PAST MEDICAL HISTORY: 1. Significant for end-stage renal disease on hemodialysis. Dialyzes on Saturday, and Saturdays at [facility]. 2. Hypertension. 3. Type 2 diabetes since 2008. 4. Diabetic neuropathy and nephropathy. 5. She had a cerebrovascular accident in 2011 and 2012. 6. History of congestive heart failure with a recent echocardiogram showing an EF of 45%. 7. History of Parkinson's. 8. Diabetic foot ulcers status post BKA. 9. Tobacco use. PAST SURGICAL HISTORY: History of bilateral BKA with right AKA. MEDICATIONS ON ADMISSION: 1. Norvasc 10 mg daily. 2. Aspirin 81 mg daily. 3. Lipitor 20 mg daily. 4. Coreg 25 mg twice daily. 5. Clonazepam 0.5 mg daily at 5:00 p.m. 6. Plavix 75 mg daily. 7. Iron sulfate 325 mg daily. 8. Lantus 8 units at night. 9. Humalog sliding scale. 10. Isosorbide Mononitrate 60 mg twice daily. 11. Keppra 250 mg twice daily. 12. Lisinopril 2.5 mg daily. 13. Methocarbamol __ mg twice daily. 14. Metoclopramide 5 mg three times daily. 15. Omeprazole 20 mg daily. 16. Percocet 5/325 mg every 4 hours as needed. 17. Protonix 40 mg daily. 18. Mirapex 0.25 mg three times daily. 19. Torsemide 60 mg daily. FAMILY HISTORY: Father had hypertension, kidney disease, coronary artery disease, and diabetes. Mother had hypertension and coronary artery disease. SOCIAL HISTORY: She never did smoke, does not use alcohol or drugs. She lives alone and has caregivers. REVIEW OF SYSTEMS: Ten systems were reviewed and negative except for the ones in the history of present illness. PHYSICAL EXAMINATION: GENERAL: The patient is alert, oriented x 3. She is not in any distress. HEENT: NC/AT. PERRLA. EOMI. No pallor, no cyanosis, no icterus. Fundus examination is not performed. External ear and tympanic membranes appear normal. NECK: Supple. No jugular venous distention. No lymphadenopathy. No thyromegaly. CARDIAC: Regular rate and rhythm without any murmurs. ABDOMEN: Soft, nontender. No organomegaly. Positive bowel sounds. No mass. No rebound. EXTREMITIES: Did not show any evidence of edema. There are left stump with open wounds. NEUROLOGIC: Cranial nerves are grossly intact. Her left side is slightly weaker than the right. LABORATORY DATA: White count is 7.2 with a hemoglobin of 13.2 and a platelet count of 109. Sodium 142, potassium 3.9, chloride of 104, CO2 of 22, BUN of 52, creatinine of 2.7. ASSESSMENT AND PLAN: 1. End-stage renal disease on hemodialysis. She had her regular dialysis treatment last night with a potassium of 2.0 and removed 2 liters of fluid. She gets IDPN during dialysis, which will be continued. 2. Cerebrovascular accident with left-sided weakness. She is to continue on aspirin and Plavix. 3. Hypertension, adequately controlled. 4. We will continue to follow during the hospitalization. Will Job ID: [id number] Doc ID: [id number] Gabriel CHRISTENSEN
[2017-07-10] MEDS: PRAMIPEXOLE 0.25 MG TABLET PO SCH ×2 (15:43→21:03)
[2017-07-10] MEDS ORDERED: clonazePAM 0.5 MG TABLET PO SCH (17:00)
--- NOTE | 2017-07-10 17:34 | General Surgery Consult Note ---
History of Present Illness Patient information: Note initiated : 07/10/17 at 5:30 pm Service Date, if different from initiated Date: [] Patient: Tamica Tidwell 67 y/o F admitted on 07/09/17 for Left Sided Weakness /Stroke. Chief Complaint: [] Consult date: 07/10/17 Requesting physician: Simran Ag (Wound care. R/L LE amputations ) History of present illness: I know this lady well. Established patient at wound care center. Currently admitted and treated for CVA. She has ESRD and is on regular hemodialysis. She has had extensive PAD and is s/p Right AKA and Left BKA. Underwent revision of Right AKA amputation site and now has an open wound treated with wound VAC and / or dressing changes. Medications and Allergies Home Medications Medication Instructions Recorded Confirmed Type Atorvastatin [Lipitor] 20 mg PO HS 08/09/15 07/09/17 History Carvedilol [Coreg] 25 mg PO BIDCC 08/09/15 07/09/17 History Metoclopramide HCl [Metozolv Odt] 5 mg PO TIDAC 08/09/15 07/09/17 History Pantoprazole [Protonix] 40 mg PO QAMAC 08/09/15 07/09/17 History Clopidogrel Bisulfate [Plavix] 75 mg PO DAILY 02/23/16 07/09/17 History Methocarbamol [Robaxin] 500 mg PO BID 02/23/16 07/09/17 History amLODIPine [Norvasc] 10 mg PO DAILY 02/23/16 07/09/17 History Pramipexole Di-HCl [Mirapex] 0.25 mg PO TID 90 Days tablet 03/09/16 07/09/17 Rx Isosorbide Mononitrate [Isosorbide 60 mg PO BID 01/08/17 07/09/17 History Mononitrate ER] Torsemide [Demadex] 60 tablet PO DAILY 01/08/17 07/09/17 History levETIRAcetam [Keppra] 250 mg PO BID 01/09/17 07/09/17 History Insulin Glargine, Human [Lantus] 8 unit SQ HS unit 01/28/17 07/09/17 Rx Insulin Lispro [Humalog] See Protocol SQ ACHS #0 unit 01/28/17 07/09/17 Rx clonazePAM [Klonopin] 0.5 mg PO DAILY@1700 #10 tablet 01/28/17 07/09/17 Rx Lisinopril [Zestril] 2.5 mg PO QDAY 04/18/17 07/09/17 History oxyCODONE/APAP [Percocet 5-325 mg] 1 tab PO Q4HP PRN #90 tablet 04/26/17 Rx Accu-Chek 1 each FS ACHS strip 04/29/17 06/12/17 Rx Ferrous Sulfate [Iron] 325 mg PO DAILY 06/12/17 07/09/17 History 0.9 % Sodium Chloride [Saline 10 ml IV UD PRN 06/18/17 Rx Flush] Accu-Chek 1 each FS ACHS strip 06/18/17 Rx Vancomycin Per Pharmacy 1 order IV Q24H #30 miscell 06/18/17 07/09/17 Rx Ertapenem [Invanz] 1 gm IV Q24H 07/09/17 07/09/17 History Omeprazole 20 mg PO DAILY 07/09/17 07/09/17 History Accu-Chek 1 each FS ACHS strip 07/11/17 Rx Acetaminophen [Tylenol] 650 mg PO Q6HP PRN tablet 07/11/17 Rx Aspirin 162 mg PO DAILY tab.chew 07/11/17 Rx Ertapenem [Invanz] 0.5 gm IV Q24H vial 07/11/17 Rx Allergies Allergy/AdvReac Type Severity Reaction Status Date / Time codeine AdvReac Mild n/v Verified 07/09/17 09:43 hydrocodone AdvReac Mild n/v Verified 07/09/17 09:43 Exam Temp Pulse Resp BP Pulse Ox 98.4 F 72 20 143/72 97 07/10/17 12:00 07/10/17 12:00 07/10/17 12:00 07/10/17 12:00 07/10/17 12:00 - General physical appearance no distress, no pain, chronically ill - Eyes PERRL, normal ocular movement - ENT normal pinna, normal nares, normal mucosa, other (O2 by NC. ) - Head Head exam IM: Present: atraumatic, normal inspection, normocephalic - Neck no masses, trachea midline, no venous distension - Cardiovascular Cardiovascular exam IM: Present: normal rate and rhythm - Respiratory normal expansion, normal respiratory effort, clear to auscultation - Abdomen Abdomen: Present: soft, non tender, bowel sounds - Integumentary Present: other (Open wound RIght AKA stump with evolving contracture of hip. Neprocalcinosis of Left BKA scar site.) - Neurologic Present: normal coordination, normal sensation, other (Reviewed hospitalist note. Detailed exam NOT done. ) - Musculoskeletal Present: other (Right AKA with open wound and Left BKA.) Results - Labs 07/10/17 06:30 07/10/17 06:30 Abnormal lab results 07/09/17 07/10/17 07/10/17 Range/Units 16:36 06:30 06:30 RDW 14.6 H (11.5-14.5) % Plt Count 104 L (140-440) K/mcL Eos % (Auto) 11.6 H (0.0-7.0) % Lymph # (Auto) 1.1 L (1.5-4.8) K/mcL BUN 36 H (8-23) mg/dl Creatinine 1.6 H (0.6-1.1) mg/dl Glucose 113 H (70-105) mg/dL Calcium 8.4 L (8.6-10.4) mg/dl Lactate Dehydrogenase 256 H (94-250) U/L Total Protein 5.6 L (5.9-8.4) gm/dL Triglycerides 164 H (<150) mg/dl Urine Protein >=500 A (NEG) mg/dL Urine Glucose (UA) 150 A (NEG) mg/dL Urine Occult Blood 0.03 A (<0.03) mg/dL Diabetes panel 07/10/17 Range/Units 06:30 Sodium 142 (133-145) mmol/L Potassium 3.4 (3.3-5.1) mmol/L Chloride 102 (96-108) mmol/L Carbon Dioxide 26 (22-30) mmol/L BUN 36 H (8-23) mg/dl Creatinine 1.6 H (0.6-1.1) mg/dl Glucose 113 H (70-105) mg/dL Calcium 8.4 L (8.6-10.4) mg/dl AST 18 (0-37) U/l ALT 12 (0-40) U/l Alkaline Phosphatase 88 (39-117) U/L Total Protein 5.6 L (5.9-8.4) gm/dL Albumin 3.3 (3.2-5.2) gm/dL Triglycerides 164 H (<150) mg/dl Calcium panel 07/10/17 Range/Units 06:30 Calcium 8.4 L (8.6-10.4) mg/dl Phosphorus 2.7 (2.7-4.5) mg/dL Albumin 3.3 (3.2-5.2) gm/dL Pituitary panel 07/10/17 Range/Units 06:30 Sodium 142 (133-145) mmol/L Potassium 3.4 (3.3-5.1) mmol/L Chloride 102 (96-108) mmol/L Carbon Dioxide 26 (22-30) mmol/L BUN 36 H (8-23) mg/dl Creatinine 1.6 H (0.6-1.1) mg/dl Glucose 113 H (70-105) mg/dL Calcium 8.4 L (8.6-10.4) mg/dl Adrenal panel 07/10/17 Range/Units 06:30 Sodium 142 (133-145) mmol/L Potassium 3.4 (3.3-5.1) mmol/L Chloride 102 (96-108) mmol/L Carbon Dioxide 26 (22-30) mmol/L BUN 36 H (8-23) mg/dl Creatinine 1.6 H (0.6-1.1) mg/dl Glucose 113 H (70-105) mg/dL Calcium 8.4 L (8.6-10.4) mg/dl Total Bilirubin 0.2 (0.0-1.0) mg/dL AST 18 (0-37) U/l ALT 12 (0-40) U/l Alkaline Phosphatase 88 (39-117) U/L Total Protein 5.6 L (5.9-8.4) gm/dL Albumin 3.3 (3.2-5.2) gm/dL All other labs normal. Assessment and Plan (1) Wound healing, delayed Assessment : Chronic wounds Right AKA amputation site and Left leg and knee. Recovering from CVA. ESRD on regular hemodialysis. Plan: Hospitalist orders and on going treatment reviewed. Patient does NOT want wound to be seen. Will reassess tomorrow AM. Status: Chronic Priority: Medium
[2017-07-10] MEDS: CARVEDILOL 12.5 MG TABLET PO SCH (17:57)
--- NOTE | 2017-07-10 19:32 | Internal Med Progress Note ---
Medical - PN: Subj Patient information: Note initiated : 07/10/17 at 7:26 pm Patient: Tamica Tidwell 67 y/o F admitted on 07/09/17 for Left Sided Weakness /Stroke. Interval history: July 09, 2017: History of present illness: Ms. Tidwell is a 67 year old with multiple chronic illnesses, including end- stage renal disease, previous stroke, peripheral vascular disease, ongoing tobacco abuse. Patient presented to the emergency room today complaining of left arm weakness. However, she tells me that it did not start 3 days ago as was reported, but that she awakened this morning with difficulty using her left hand. ER evaluation showed several old and possible new tiny strokes. Apparently the stroke center was called, and they recommended that she does continue with Plavix and aspirin, and monitor overnight. She did receive several studies that needed IV dye, so her site supervisor recommended that she be admitted for acute dialysis as well. The patient seems a bit groggy, but otherwise is awake and able to answer questions. She admits that she continues to smoke, and says she just has not figured out a way to stop. She denies other symptoms, such as slurred speech or facial droop, dysphasia, or other areas of weakness. She denies fever chills, headaches or dizziness, blurred vision, new ear symptoms, sore throat or cough, chest pain or palpitations, shortness of breath , abdominal pain, nausea or vomiting, diarrhea or constipation. She makes minimal urine. She continues to have pain at her right AKA stump. I believe that is still not healed since her last admission. She also has a couple of tiny ulcers on the left stump, and is followed by wound care. July 10: This morning, the patient feels like her left hand and arm weakness is improved. She is still having a fair amount of discomfort in her right AKA stump, but otherwise offers no complaints. She is still insistent that she is going back home, and will not go to rehab. She was seen by both physical therapy and occupational therapy today, and they feel she is a good candidate for rehab. - Constitutional Vitals: Vital Signs Temp Pulse Resp BP Pulse Ox 98 F 72 20 147/62 97 07/10/17 16:01 07/10/17 12:00 07/10/17 12:00 07/10/17 16:01 07/10/17 12:00 Period Temp Pulse Resp BP Sys/Pichardo Pulse Ox Last 24 Hr 96.7 F-98.4 F 71-86 16-20 118-208/50-85 92-97 Intake and Output 07/10/17 07/10/17 07/10/17 05:59 13:59 21:59 Intake Total 50 / 50 240 / 240 900 / 900 Output Total 1311 / 1311 200 / 200 Balance -1261 / -1261 239 / 239 700 / 700 Intake & Output: Intake & Output 07/10/17 07/10/17 07/10/17 05:59 13:59 21:59 Intake Total 50 / 50 240 / 240 900 / 900 Output Total 131 / 1311 200 / 200 Balance -1261 / -1261 239 / 239 700 / 700 Intake: IV 300 / 300 INVanz 0.5 GM In Sodium 50 / 50 Chloride 0.9% 50 ml @ 100 mls/ hr IV Q24H GAV[facility] Rx#:[id number] Oral 50 / 50 240 / 240 600 / 600 Output: Void Amount 200 / 200 # of times incontinent of urine Hemodialysis UF 1311 / 1311 Other: Meal Breakfast Percent of Meal Consumed 75% 75% Feeding Ability Independent Assist with Tray Set Up She is awake and alert. She tends to lean a little to up towards the left. She does seem to have more of a left facial droop today, mainly the left corner of her mouth. Neck is supple without obvious lymphadenopathy or JVD. Cardiac exam shows regular rate and rhythm. 2/6 systolic ejection murmur is noted. Lungs somewhat decreased breath sounds, but overall clear. Abdomen is soft and nontender. Extremities: Left BKA stump is a bit red, but is dangling in her chair. She declines to let me unwrap the right AKA stump due to pain. Neurologic: She is awake and alert, and a little irritable, as is usual for her. Face does show a bit of a left mouth droop. Otherwise cranial nerve testing is normal. 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 Finger to finger exam also appears improved. Casey otherwise exam is nonfocal. Medical - PN: Obj Da - Labs CBC & Chem 7: 07/10/17 06:30 07/10/17 06:30 Labs: Abnormal Lab Results 07/10/17 07/10/17 07/09/17 06:30 06:30 16:36 RDW 14.6 H Plt Count 104 L Lymph % (Auto) Eos % (Auto) 11.6 H Lymph # (Auto) 1.1 L Eos # (Auto) POC PT POC INR POC Chloride POC BUN BUN 36 H Creatinine 1.6 H POC Creatinine Glucose 113 H POC Glucose Calcium 8.4 L POC WB Ioniz Calcium Lactate Dehydrogenase 256 H Troponin T Total Protein 5.6 L Triglycerides 164 H Urine Protein >=500 A Urine Glucose (UA) 150 A Urine Occult Blood 0.03 A 07/09/17 07/09/17 07/09/17 09:54 09:54 09:54 RDW Plt Count Lymph % (Auto) Eos % (Auto) Lymph # (Auto) Eos # (Auto) POC PT 15.1 H POC INR 1.3 H POC Chloride 109 H POC BUN 47 H BUN 52 H Creatinine 2.7 H POC Creatinine 2.9 H Glucose 142 H POC Glucose 136 H Calcium POC WB Ioniz Calcium 1.13 L Lactate Dehydrogenase Troponin T 0.07 H* Total Protein Triglycerides Urine Protein Urine Glucose (UA) Urine Occult Blood 07/09/17 09:54 RDW 14.8 H Plt Count 109 L Lymph % (Auto) 11.9 L Eos % (Auto) 11.9 H Lymph # (Auto) 0.9 L Eos # (Auto) 0.9 H POC PT POC INR POC Chloride POC BUN BUN Creatinine POC Creatinine Glucose POC Glucose Calcium POC WB Ioniz Calcium Lactate Dehydrogenase Troponin T Total Protein Triglycerides Urine Protein Urine Glucose (UA) Urine Occult Blood July 09: CT angiogram neck: 50% stenosis of the right internal carotid artery due to eccentric fibrofatty plaque. Right internal carotid shows focal kinking. Next CT angiogram of the head: Negative. Next MRI: Acute left frontal lobe small nonhemorrhagic infarct. Possible tiny nonhemorrhagic lacunar infarct in the right frontal cortex. Small remote infarct in the right parieto-occipital junction. Chronic ischemic changes. Next Head CT: Moderate atrophy with extensive chronic ischemic changes. Remote lacunar infarct in the right basal ganglia, remote cortical-based infarct in the right occipital lobe near the vertex. No hemorrhage. Meds: Medications Acetaminophen (Tylenol) 650 mg PO Q6HP PRN PRN Reason: PAIN/FEVER > 101 Albuterol Sulfate (Ventolin) 2.5 mg NEB Q4HRT PRN PRN Reason: Shortness Of Breath Or Wheezing Amlodipine Besylate (Norvasc) 10 mg PO DAILY [facility] Aspirin (Aspirin) 162 mg PO DAILY [facility] Atorvastatin Calcium (Lipitor) 20 mg PO HS [facility] Carvedilol (Coreg) 25 mg PO BIDCC [facility] Last Admin: 07/10/17 17:57 Dose: 25 mg Clonazepam (Klonopin) 0.5 mg PO DAILY@1700 [facility] Last Admin: 07/10/17 17:57 Dose: 0.5 mg Clopidogrel Bisulfate (Plavix) 75 mg PO DAILY [facility] Dextrose (Dextrose 50%) 0 ml IV UD PRN PRN Reason: Hypoglycemia Diagnostic Test (Pha) (Accu-Chek) 1 each FS ACHS [facility] Last Admin: 07/10/17 17:53 Dose: 1 each Docusate Sodium (Colace) 100 mg PO BID PRN PRN Reason: Constipation Ferrous Sulfate (Ferrous Sulfate) 325 mg PO DAILY [facility] Glucose (Insta-Glucose) 15 gm PO PRN PRN PRN Reason: Hypoglycemia Heparin Sodium (Porcine) (Heparin) 5,000 unit SQ Q12 [facility] Last Admin: 07/10/17 08:50 Dose: 5,000 unit Ertapenem 0.5 gm/ Sodium (Chloride) 50 mls @ 100 mls/hr IV Q24H [facility] Last Infusion: 07/10/17 14:09 Dose: Infused Insulin Glargine (Lantus) 8 unit SQ HS [facility] Insulin Human Lispro (Humalog) 0 unit SQ [facility] PRN Reason: Protocol Last Admin: 07/10/17 17:54 Dose: Not Given Isosorbide Mononitrate (Imdur) 60 mg PO BID [facility] Levetiracetam (Keppra) 250 mg PO BID [facility] Lisinopril (Zestril) 2.5 mg PO DAILY [facility] Methocarbamol (Robaxin) 500 mg PO BID [facility] Metoclopramide HCl (Reglan) 5 mg PO TIDAC [facility] Last Admin: 07/10/17 17:56 Dose: 5 mg Naloxone HCl (Narcan) 0.1 mg IV Q2MIN PRN PRN Reason: Opiate Reversal Ondansetron HCl (Zofran) 4 mg IV Q4HP PRN PRN Reason: Nausea And Vomiting Oxycodone/Acetaminophen (Percocet 5-325 Mg) 1 tab PO Q4HP PRN PRN Reason: Pain Pantoprazole Sodium (Protonix) 40 mg PO QAMAC [facility] Pantoprazole Sodium (Protonix) 40 mg PO QAMAC [facility] Pramipexole Dihydrochloride (Mirapex) 0.25 mg PO TID [facility] Last Admin: 07/10/17 15:43 Dose: 0.25 mg Torsemide (Demadex) 60 mg PO DAILY [facility] Vancomycin HCl (Vancomycin Per Pharmacy) 1 order IV UD [facility] Medical - PN: A/P - Time Spent With Patient Total time spent is greater than 50% in coordination of care (as documented) at patient's floor/unit and/or counseling patient: 25 - 35 minutes (1) Stroke Status: Acute Current Visit: Yes (2) CAD (coronary artery disease), [place] coronary artery Status: Chronic Current Visit: No (3) Tobacco abuse Status: Chronic Current Visit: No (4) DM type 2 with diabetic peripheral neuropathy Status: Chronic Current Visit: No (5) PVD (peripheral vascular disease) Status: Chronic Current Visit: No (6) ESRD (end stage renal disease) on dialysis Problem details: 1. ESRD. Had dialysis tomorrow today 04/30/2017. Got her IDPN and will take out about 2 liters of fluid. 2. S/P AKA. 3. Anemia. HB stable post transfusion of one unit today. Status: Acute Current Visit: No - Narrative A/P Narrative: #1. Neurologic. Patient presents with signs and symptoms of right-sided stroke, with left hand weakness. MRI suggest possible right frontal infarct. The patient has known extensive vascular disease, and is a current smoker. Symptoms are subacute, starting either 3 days ago, or early this morning, depending on which of her stories is correct. The ER contacted the stroke center, and they suggested she be monitored, but otherwise continue Plavix. -She has remained stable overnight on telemetry. Motor symptoms are a bit improved today. She is still, however, weaker than her baseline, and she really does need her arm strength to be able to transfer from bed to chair, etc. , as she lives alone. -Continue Plavix, aspirin, Lipitor. Aspirin increased to 162 mg per day. -Discouraged tobacco use. -Avoid excessively low and excessively high blood pressures. -To need physical and occupational therapy. Speech therapy evaluation pending. Patient will decline inpatient rehab, but will except home health rehab. History of seizures. -Continue Keppra, clonazepam. 2. Renal History of end-stage renal disease. She had dialysis acutely last night, and tolerated that well. 3. CODE STATUS: The patient states she still would like to be a full code. Her friend has her POA. 4. DVT prophylaxis: Subcu heparin. 5. Tobacco abuse. Patient declines NicoDerm. In general she declines to quit smoking. 6. Endocrine. Type 2 diabetes -Accu-Cheks, sliding scale insulin. 7. Cardiac. History of coronary disease and CHF. -Continue Plavix, AMIRA inhibitor, statin, aspirin, beta-kristie, isosorbide. Blood pressure well controlled. Medical - PN: Qual - Stroke Onset of Symptoms Time: 05:00 Symptom Onset Unknown: Yes - VTE Deep Vein Thrombosis/Pulmonary Embolism Present on Admission: No
[2017-07-10] MEDS ORDERED: ATORVASTATIN 20 MG TABLET PO SCH (21:00)
[2017-07-10] MEDS ORDERED: INSULIN GLARGINE, HUMAN 1 UNIT/0.01 ML SQ SCH (21:00)
[2017-07-10] MEDS: ISOSORBIDE MONONITRATE 60 MG TAB.XL.24H PO SCH (21:02)
[2017-07-10] MEDS: levETIRAcetam 500 MG TABLET PO SCH (21:03)
[2017-07-10] MEDS: METHOCARBAMOL 500 MG TABLET PO SCH (21:03)
[2017-07-11] MEDS ORDERED: PANTOPRAZOLE 40 MG TABLET PO SCH ×2 (07:30)
[2017-07-11] MEDS: METOCLOPRAMIDE 10 MG TABLET PO SCH ×2 (07:49→13:48)
[2017-07-11] MEDS: INSULIN LISPRO 1 UNIT/0.01 ML UNIT SQ SCH ×2 (08:19→11:45)
[2017-07-11] MEDS ORDERED: FERROUS SULFATE 325 MG TABLET PO SCH (09:00)
[2017-07-11] MEDS ORDERED: LISINOPRIL 5 MG TABLET PO SCH (09:00)
[2017-07-11] MEDS ORDERED: ASPIRIN 81 MG TAB.CHEW PO SCH (09:00)
[2017-07-11] MEDS ORDERED: CLOPIDOGREL 75 MG TABLET PO SCH (09:00)
[2017-07-11] MEDS ORDERED: amLODIPine 10 MG TABLET PO SCH (09:00)
[2017-07-11] MEDS ORDERED: TORSEMIDE 10 MG TABLET PO SCH (09:00)
--- NOTE | 2017-07-11 10:29 | Discharge Summary ---
Medical - DS: Prov Patient information: Note initiated : 07/11/17 at 10:29 am Service Date, if different from initiated Date: [] Patient: Tamica Tidwell 67 y/o F admitted on 07/09/17 for Left Sided Weakness /Stroke. Chief Complaint: [] Date of admission: 07/09/17 16:46 Discharge date: 07/11/17 Primary care physician: Elizabeth Valles, nephrology. Admitting clinician: Simran Ag Consults: 07/09/17 10:50 Consult to Physician [CONS] Stat Comment: Consulting Provider: Arnoldo Hoffman Reason For Exam: Physician to Consult 07/09/17 13:17 Consult to Physician [CONS] Stat Comment: Consulting Provider: Gabriel Valles Reason For Exam: Physician to Consult 07/09/17 14:47 Consult to Physician [CONS] Stat Comment: Consulting Provider: Simran Ag Reason For Exam: Physician to Consult 07/10/17 11:10 Consult to Physician [CONS] Routine Comment: re: need for cont'd IV antibx'?? Consulting Provider: Unruly Bryson Reason For Exam: Physician to Consult Attending physician on discharge: Simran Ag Medical - DS: Meds - Discharge Medications Active and Home Medications: Discharge medications: Tylenol 650 mg every 6 hours as needed Amlodipine 10 mg daily Aspirin increased to 162 mg daily Atorvastatin 20 mg nightly Coreg 25 mg p.o. twice daily Clonazepam 0.5 mg every 5 p.m. Plavix 75 mg daily Ertapenem 1 g IV every 24 hours Iron sulfate 325 mg daily Lantus 8 units subcu nightly Humalog sliding scale before meals and at bedtime Isosorbide mononitrate 60 mg twice daily Keppra 250 mg p.o. twice daily Lisinopril 2.5 mg daily Methocarbamol 500 mg twice daily Reglan 5 mg 3 times daily before meals Percocet 53 25 1 tab every 4 hours as needed pain Protonix 40 mg p.o. every morning Pramipexole 0.25 mg p.o. 3 times daily Torsemide 60 mg p.o. daily Vancomycin 1 g IV daily, as per pharmacy previous home Medications: Aspirin [Ecotrin] 81 mg PO DAILY 08/09/15 [History Confirmed 07/09/17 Last Taken 06/12/17 09:00] Atorvastatin [Lipitor] 20 mg PO HS 08/09/15 [History Confirmed 07/09/17 Last Taken 06/11/17 21:00] Carvedilol [Coreg] 25 mg PO BIDCC 08/09/15 [History Confirmed 07/09/17 Last Taken 06/12/17 09:00] Metoclopramide HCl [Metozolv Odt] 5 mg PO TIDAC 08/09/15 [History Confirmed 07/16 Last Taken 06/12/17 09:00] Pantoprazole [Protonix] 40 mg PO QAMAC 08/09/15 [History Confirmed 07/09/17 Last Taken 06/12/17 09:00] Clopidogrel Bisulfate [Plavix] 75 mg PO DAILY 02/23/16 [History Confirmed Last Taken 06/12/17 09:00] Methocarbamol [Robaxin] 500 mg PO BID 02/23/16 [History Confirmed 07/09/17 Last Taken 06/12/17 09:00] amLODIPine [Norvasc] 10 mg PO DAILY 02/23/16 [History Confirmed 07/09/17 Last Taken 06/12/17 09:00] Pramipexole Di-HCl [Mirapex] 0.25 mg PO TID 90 Days tablet 03/09/16 [Rx Confirmed 07/09/17 Last Taken 06/12/17 09:00] Isosorbide Mononitrate [Isosorbide Mononitrate ER] 60 mg PO BID 01/08/17 [ History Confirmed 07/09/17 Last Taken 06/12/17 09:00] Torsemide [Demadex] 60 tablet PO DAILY 01/08/17 [History Confirmed 07/09/17 Last Taken 06/12/17 09:00] levETIRAcetam [Keppra] 250 mg PO BID 01/09/17 [History Confirmed 07/09/17 Last Taken 06/12/17 09:00] Insulin Glargine, Human [Lantus] 8 unit SQ HS unit 01/28/17 [Rx Confirmed 07/09 Last Taken 06/11/17 21:00] Insulin Lispro [Humalog] See Protocol SQ ACHS #0 unit 01/28/17 [Rx Confirmed 07/16 Last Taken 06/12/17 09:00] clonazePAM [Klonopin] 0.5 mg PO DAILY@1700 #10 tablet 01/28/17 [Rx Confirmed 07/16 Last Taken 06/11/17 17:00] Lisinopril [Zestril] 2.5 mg PO QDAY 04/18/17 [History Confirmed 07/09/17 Last Taken 06/12/17 09:00] oxyCODONE/APAP [Percocet 5-325 mg] 1 tab PO Q4HP PRN #90 tablet 04/26/17 [Rx Confirmed 07/09/17 Last Taken 04/30/17] Accu-Chek 1 each FS ACHS strip 04/29/17 [Rx Confirmed 06/12/17 Last Taken 06/12 21:30] Ferrous Sulfate [Iron] 325 mg PO DAILY 06/12/17 [History Confirmed 07/09/17 Last Taken 06/12/17 09:00] 0.9 % Sodium Chloride [Saline Flush] 10 ml IV UD PRN 06/18/17 [Rx Last Taken Unknown] Accu-Chek 1 each FS ACHS strip 06/18/17 [Rx Last Taken Unknown] Vancomycin Per Pharmacy 1 order IV Q24H #30 miscell 06/18/17 [Rx Confirmed 07/09 Last Taken Unknown] Ertapenem [INVanz] 1 gm IV Q24H 07/09/17 [History Confirmed 07/09/17 Last Taken Unknown] Omeprazole 20 mg PO DAILY 07/09/17 [History Confirmed 07/09/17 Last Taken Unknown] Medical - DS: Hosp Hospital course: Mr. Tidwell is a 67 year old F July 09, 2017: History of present illness: Ms. Tidwell is a 67 year old with multiple chronic illnesses, including end- stage renal disease, previous stroke, peripheral vascular disease, ongoing tobacco abuse. Patient presented to the emergency room today complaining of left arm weakness. However, she tells me that it did not start 3 days ago as was reported, but that she awakened this morning with difficulty using her left hand. ER evaluation showed several old and possible new tiny strokes. Apparently the stroke center was called, and they recommended that she does continue with Plavix and aspirin, and monitor overnight. She did receive several studies that needed IV dye, so her potato picker recommended that she be admitted for acute dialysis as well. The patient seems a bit groggy, but otherwise is awake and able to answer questions. She admits that she continues to smoke, and says she just has not figured out a way to stop. She denies other symptoms, such as slurred speech or facial droop, dysphasia, or other areas of weakness. She denies fever chills, headaches or dizziness, blurred vision, new ear symptoms, sore throat or cough, chest pain or palpitations, shortness of breath , abdominal pain, nausea or vomiting, diarrhea or constipation. She makes minimal urine. She continues to have pain at her right AKA stump. I believe that is still not healed since her last admission. She also has a couple of tiny ulcers on the left stump, and is followed by wound care. July 10: This morning, the patient feels like her left hand and arm weakness is improved. She is still having a fair amount of discomfort in her right AKA stump, but otherwise offers no complaints. She is still insistent that she is going back home, and will not go to rehab. She was seen by both physical therapy and occupational therapy today, and they feel she is a good candidate for rehab. July 11: Hospital course: Today, the patient feels that her left hand and arm strength are even better than yesterday. She has no other complaints. She is continuing with physical and occupational therapies, but declines to change her diet at all at the recommendation of speech therapy, so will continue with a regular diet. She has declined inpatient rehab for her stroke, so will return home today, with home health and home physical and occupational therapy. She has no other complaints today. She denies fever chills, dizziness, chest pain or palpitations, shortness of breath, nausea or vomiting, diarrhea or constipation. On exam, she is awake and alert, and seems in good spirits. Neck is supple. Cardiac exam shows regular rate and rhythm. Lungs: Sounds are somewhat coarse, but there are no definite crackles, rhonchi, wheezes. Abdomen is soft and nontender. Extremities: She had continues to have a little bit of swelling of the left stump, but small wounds are scabbed over. The right AKA stump is seen today with . It is clean and dry, and he says has shown remarkable healing. Neurologic: Patient is awake and alert. Her left mouth droop seems a little less noticeable today. 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 Otherwise her neurologic exam appears normal and stable. Assessment and plan: #1. Neurologic. Patient presents with signs and symptoms of right-sided stroke, with left hand weakness. MRI suggest possible right frontal infarct. The patient has known extensive vascular disease, and is a current smoker. Symptoms are subacute, starting either 3 days ago, or early this morning, depending on which of her stories is correct. The ER contacted the stroke center, and they suggested she be monitored, but otherwise continue Plavix. -The patient's weakness has improved every day since admission. She is tolerating an increase in her aspirin to 162 mg a day. She continues on Plavix. She will benefit from ongoing physical therapy, and that will need to be done at home, as she refuses inpatient rehab. -Continue Plavix, aspirin, Lipitor. Aspirin increased to 162 mg per day. -Discouraged tobacco use. History of seizures. -Continue Keppra, clonazepam. 2. Renal History of end-stage renal disease. She had dialysis acutely last night, and tolerated that well. 3. CODE STATUS: The patient states she still would like to be a full code. Her friend has her POA. 4. DVT prophylaxis: Subcu heparin. 5. Tobacco abuse. Patient declines NicoDerm. In general she declines to quit smoking. 6. Endocrine. Type 2 diabetes -Continue Lantus, Accu-Cheks, sliding scale insulin. 7. Cardiac. History of coronary disease and CHF. -Continue Plavix, AMIRA inhibitor, statin, aspirin, beta-kristie, isosorbide. Blood pressure reasonably well controlled. Discharge diagnosis: Stroke with left hand weakness. Renal failure. Diabetes. - Time Spent with Patient Total time spent providing and/or coordinating discharge services: Greater than 30 minutes Medical - DS: Exam - Constitutional Vitals: Vital Signs Temp Pulse Pulse Pulse Resp BP BP 07/11/17 09:44 74 170/61 07/11/17 07:45 07/11/17 04:00 98.0 F 70 71 16 129/57 129/57 07/11/17 00:00 98.8 F 16 106/66 07/10/17 20:00 97.9 F 72 73 16 123/52 07/10/17 16:01 98 F 147/62 07/10/17 12:15 98.4 F 143/72 07/10/17 12:00 98.4 F 72 20 143/72 Pulse Ox 07/11/17 09:44 07/11/17 07:45 95 07/11/17 04:00 94 07/11/17 00:00 97 07/10/17 20:00 94 07/10/17 16:01 07/10/17 12:15 07/10/17 12:00 97 Intake and Output 07/10/17 07/11/17 07/11/17 21:59 05:59 13:59 Intake Total 900 / 900 240 / 240 Output Total 200 / 200 Balance 700 / 700 240 / 240 Intake: IV 300 / 300 INVanz 0.5 GM In Sodium 50 / 50 Chloride 0.9% 50 ml @ 100 mls/ hr IV Q24H [facility] Rx#:[id number] Oral 600 / 600 240 / 240 Output: Void Amount 200 / 200 Other: Percent of Meal Consumed 75% Feeding Ability Assist with Tray Set Up Weight 104 lb 4.8 oz Medical - DS: Data Labs on day of discharge: July 10: CBC: White blood cell count 6000, hemoglobin 13, hematocrit 38, platelets 104, 000. Differential shows 11% eosinophils. Next Pro time is 13, INR 1.0 Chemistry panel: Show sodium 142, potassium 3.4, chloride 102, CO2 26, BUN 36, creatinine 1.6, glucose 113, calcium 8.4 LDH 256, other LFTs normal., Total protein 5.6 July 09: CT angiogram neck: 50% stenosis of the right internal carotid artery due to eccentric fibrofatty plaque. Right internal carotid shows focal kinking. CT angiogram of the head: Negative. MRI: Acute left frontal lobe small nonhemorrhagic infarct. Possible tiny nonhemorrhagic lacunar infarct in the right frontal cortex. Small remote infarct in the right parieto-occipital junction. Chronic ischemic changes. Head CT: Moderate atrophy with extensive chronic ischemic changes. Remote lacunar infarct in the right basal ganglia, remote cortical-based infarct in the right occipital lobe near the vertex. No hemorrhage. Urinalysis: Shows greater than 500 mg protein, 150 glucose otherwise normal Troponin T is elevated at 0.07, and this usually runs high. The last was 0.19 on April 27. EKG showed sinus rhythm at a rate of 78, left bundle branch block. Medical - DS: A/P - Patient/Caregiver Discharge Instructions Activity: as per physical therapy Diet: Renal/Consistent Carbs Additional Instructions: Continue with your dialysis as previously scheduled. Next He presented with a new stroke, causing left hand weakness. We have doubled your baby aspirin to 2 tablets a day (162 mg). Next Please continue all other medications. Next Please discontinue smoking. We will send physical and occupational therapies out here home to continue working with you. Continue home health visits for wound care for your right AKA stump. Continue daily antibiotics, as directed by . - Problem Maintenance (1) Stroke Status: Acute (2) CAD (coronary artery disease), [place] coronary artery Status: Chronic (3) Tobacco abuse Status: Chronic (4) DM type 2 with diabetic peripheral neuropathy Status: Chronic (5) PVD (peripheral vascular disease) Status: Chronic (6) ESRD (end stage renal disease) on dialysis Status: Acute Comment: 1. ESRD. Had dialysis tomorrow today 04/30/2017. Got her IDPN and will take out about 2 liters of fluid. 2. S/P AKA. 3. Anemia. HB stable post transfusion of one unit today. - Follow up Plan Follow up with: Unruly Bryson MD [Physician] - 07/15/17 1:20 pm Elizabeth Mccann MD [Primary Care Provider] - 07/15/17 10:15 am (Please arrive at 10:00) Gabriel Valles MD [Physician] - Disposition: Home Health Service Prognosis: Fair Rehab Potential: Fair I certify that the patient requires SNF services: Yes Overall status at discharge: patient is progressing back to baseline Medical - DS: Qual - VTE Deep Vein Thrombosis/Pulmonary Embolism Present on Admission: No
--- NOTE | 2017-07-11 13:26 | General Surgery Progress Note ---
Subjective Patient reports: no new complaints, other (In her ususal state of health and cheerfulness. Keen to go home. Allowed me to see wounds.) Narrative: Note initiated : 07/11/17 at 1:21 pm Service Date, if different from initiated Date: [] Patient: Tamica Tidwell 67 y/o F admitted on 07/09/17 for Left Sided Weakness /Stroke. Chief Complaint: [] Objective Temp Pulse Resp BP Pulse Ox 97.9 F 70 18 86/59 96 07/11/17 12:01 07/11/17 13:00 07/11/17 12:01 07/11/17 13:01 07/11/17 12:30 AVSS. Hemodynamically stable. Clear speech, Tolerating regular diet. MILLER No interval changes in HILDA. L/E Right AKA Stump site, has contracted well over 50 % from the time of surgery. No exposed bone. Migrating and advancing wound edges. Periwound is clean LEFT BKA stump is dry and clean and cutaneous calcifications areas are stable. - Additional Data Intake & Output - Last 24 hours: Intake & Output 07/09/17 07/10/17 07/11/17 07/12/17 05:59 05:59 05:59 05:59 Intake Total 50 / 50 1380 / 1380 100 / 100 Output Total 1311 / 1311 201 / 201 Balance -1261 / -1261 1179 / 1179 100 / 100 Weight 107 lb 8 oz 104 lb 4.8 oz - Labs 07/10/17 06:30 07/10/17 06:30 Assessment and Plan (1) Wound healing, delayed Status: Chronic Current Visit: Yes - Narrative A/P Narrative: Assessment Satisfactory progress from wound care point of view. Plan: Continue current wound care. F/U at wound care clinic after discharge for continuation of care and ongoing debridement of wounds. - Time Spent With Patient Total time spent is greater than 50% in coordination of care (as documented) at patient's floor/unit and/or counseling patient: 15 - 24 minutes
[2017-07-11] MEDS: PRAMIPEXOLE 0.25 MG TABLET PO SCH ×2 (13:46→14:11)
[2017-07-11] MEDS: CARVEDILOL 12.5 MG TABLET PO SCH (13:47)
[2017-07-11] MEDS: ERTAPENEM 0.5 GM in 0.9 % SODIUM CHLORIDE 50 ML IV SCH (13:51)
[2017-07-11] MEDS: HEPARIN 5,000 UNIT/ML VIAL SQ SCH (13:58)
[2017-07-11] MEDS: METHOCARBAMOL 500 MG TABLET PO SCH (14:11)
[2017-07-11] MEDS: levETIRAcetam 500 MG TABLET PO SCH (14:11)
[2017-07-11] MEDS: ISOSORBIDE MONONITRATE 60 MG TAB.XL.24H PO SCH (14:11)
--- NOTE | 2017-07-11 16:50 | Nephrology Progress Note ---
Subjective Patient information: Note initiated : 07/11/17 at 4:48 pm Service Date, if different from initiated Date: [] Patient: Tamica Tidwell 67 y/o F admitted on 07/09/17 for Left Sided Weakness /Stroke. Chief Complaint: Feels better. The weakness has improved. Objective - Vital Signs Vital signs: Vital Signs Temp Pulse Pulse Pulse Resp BP BP 07/11/17 14:51 98.4 F 143/86 07/11/17 14:50 98.4 F 85 20 143/86 07/11/17 14:01 132/76 07/11/17 13:43 131/63 07/11/17 13:39 80 131/63 07/11/17 13:24 104/69 07/11/17 13:19 81 104/69 07/11/17 13:03 89/61 07/11/17 13:01 86/59 07/11/17 13:00 70 89/61 07/11/17 12:30 103 H 169/76 07/11/17 12:01 97.9 F 78 18 167/70 07/11/17 11:56 100 H 167/70 07/11/17 11:31 156/55 07/11/17 11:28 85 156/55 07/11/17 11:03 76 114/62 07/11/17 11:01 114/62 07/11/17 10:38 94 H 167/62 07/11/17 10:31 167/62 07/11/17 10:19 170/61 07/11/17 08:07 135/61 07/11/17 07:45 07/11/17 04:00 98.0 F 70 71 16 129/57 129/57 07/11/17 00:00 98.8 F 16 106/66 07/10/17 20:00 97.9 F 72 73 16 123/52 Pulse Ox 07/11/17 14:51 95 07/11/17 14:50 95 07/11/17 14:01 07/11/17 13:43 07/11/17 13:39 07/11/17 13:24 07/11/17 13:19 07/11/17 13:03 07/11/17 13:01 07/11/17 13:00 07/11/17 12:30 96 07/11/17 12:01 95 07/11/17 11:56 07/11/17 11:31 07/11/17 11:28 07/11/17 11:03 07/11/17 11:01 07/11/17 10:38 07/11/17 10:31 07/11/17 10:19 07/11/17 08:07 07/11/17 07:45 95 07/11/17 04:00 94 07/11/17 00:00 97 07/10/17 20:00 94 Intake and Output 07/11/17 07/11/17 07/11/17 05:59 13:59 21:59 Intake Total 240 / 240 100 / 100 Output Total 4400 / 4400 Balance 240 / 240 -4300 / -4300 Intake: Oral 240 / 240 100 / 100 Output: Hemodialysis UF 4400 / 4400 Other: Meal Breakfast Percent of Meal Consumed 100% Feeding Ability Assist with Tray Set Up Intake & Output: Intake & Output 07/11/17 07/11/17 07/11/17 05:59 13:59 21:59 Intake Total 240 / 240 100 / 100 Output Total 4400 / 4400 Balance 240 / 240 -4300 / -4300 Intake: Oral 240 / 240 100 / 100 Output: Hemodialysis UF 4400 / 4400 Other: Meal Breakfast Percent of Meal Consumed 100% Feeding Ability Assist with Tray Set Up - General Appearance General appearance: cachectic EENT: ATNC Neck: no JVD Respiratory: no kyphosis Cardiology: no murmurs Gastrointestinal: normoactive bowel sounds Integumentary: no rash - Lab 07/10/17 06:30 07/10/17 06:30 Most recent lab results Calcium 8.4 mg/dl (8.6-10.4) L 07/10/17 06:30 Phosphorus 2.7 mg/dL (2.7-4.5) 07/10/17 06:30 Magnesium 2.2 mg/dL (1.6-2.5) 07/10/17 06:30 Assessment and Plan (1) ESRD (end stage renal disease) on dialysis Status: Acute Comment: 1. ESRD. Had dialysis tomorrow today 07/11/2017. Got her IDPN and will take out about 2 liters of fluid. 2. S/P AKA. 3. Anemia. HB stable post transfusion of one unit today. 4. CVA. Much improved.
== END 2017-07-11 15:10 | disposition home health service (06) | DRG 64 ==
LOC: ED 09:36 → ICU 16:46
PROVIDERS: ADMIT Internal Medicine; ATTEND Internal Medicine

== ENCOUNTER 2017-09-26 14:14 | Inpatient (IN) ==
[2017-09-26] MEDS ORDERED: ACETAMINOPHEN 325 MG TABLET PO PRN (15:29)
[2017-09-26] MEDS ORDERED: IBUPROFEN 600 MG TABLET PO PRN (15:29)
[2017-09-26] MEDS ORDERED: ONDANSETRON 4 MG/2 ML VIAL IV PRN (15:29)
[2017-09-26 16:42] LABS: Mean Cell Volume 88.5 fL (80.0-100.0); Mean Corpuscular Hemoglobin 30.1 pg (26.0-34.0); Platelet Count 90 K/mcL (140-440); RBC 2.87 M/mcL (4.00-5.20); Red Cell Distribution Width 14.4 % (11.5-14.5)
[2017-09-26 17:01] LABS: ALT/SGPT 9 U/l (0-40); Albumin 3.4 gm/dL (3.2-5.2); Alkaline Phosphatase 50 U/L (39-117); Bilirubin,Direct < 0.2 mg/dL (0.0-0.3); Blood Urea Nitrogen 17 mg/dl (8-23); Gamma Glutamyl Transpeptidase 10 U/L (5-36); Magnesium 1.8 mg/dL (1.6-2.5)
[2017-09-26 17:23] LABS: Band Neutrophils % 13 % (0-10); Lymphocytes % 5 % (15-49); Monocytes % (Manual) 4 % (1-12); Platelet Estimate DECREASED (NORMAL); RBC Morphology NORMAL (NORMAL); Segmented Neutrophils % 78 % (38-78)
[2017-09-26] MEDS: METOCLOPRAMIDE 10 MG TABLET PO SCH ×2 (17:37→17:56)
[2017-09-26] MEDS: VANCOMYCIN ORAL SOL 1,000 MG/10 ML BOTTLE PO SCH ×2 (17:38→23:26)
[2017-09-26] MEDS: CARVEDILOL 12.5 MG TABLET PO SCH (17:38)
[2017-09-26] MEDS: INSULIN LISPRO 1 UNIT/0.01 ML UNIT SQ SCH ×2 (17:38→21:06)
[2017-09-26] MEDS: clonazePAM 0.5 MG TABLET PO SCH (17:38)
[2017-09-26] MEDS ORDERED: OSELTAMIVIR PHOSPHATE 6 MG/ML ORAL SOLUTION PO ONE (18:00)
[2017-09-26] MEDS: ISOSORBIDE MONONITRATE 60 MG TAB.XL.24H PO SCH ×2 (21:03→21:28)
[2017-09-26] MEDS: ATORVASTATIN 20 MG TABLET PO SCH ×2 (21:03→21:28)
[2017-09-26] MEDS: PRAMIPEXOLE 0.25 MG TABLET PO SCH ×2 (21:03→21:28)
[2017-09-26] MEDS: levETIRAcetam 500 MG TABLET PO SCH ×2 (21:04→21:28)
[2017-09-26] MEDS: HEPARIN 5,000 UNIT/ML VIAL SQ SCH (21:05)
[2017-09-26] MEDS: 0.9 % SODIUM CHLORIDE 10 ML SYRINGE IV SCH (21:06)
[2017-09-26] MEDS: INSULIN GLARGINE, HUMAN 1 UNIT/0.01 ML SQ SCH (21:26)
--- NOTE | 2017-09-26 21:56 | Internal Med History&Physical ---
Medical - H&P: [facility] Patient information: Note initiated : 09/26/17 at 9:54 pm Service Date, if different from initiated Date: [] Patient: Tamica Tidwell 67 y/o F admitted on 09/26/17 for influenza and c- diff. Chief Complaint: cough, fever, diarrhea, weakness History of present illness: Patient is a 67-year-old female with history of diabetes, peripheral vascular disease, cerebrovascular disease, end-stage renal disease on dialysis who is recently been diagnosed with influenza as well as C. difficile diarrhea. History is obtained in speaking with the patient, as well as reviewing old records that are obtained, summarized in the narrative. Patient's been seen in the emergency department with fever, complaints of not feeling well. She was initially diagnosed with influenza. She is also having loose stools, stool sample at that time later returned positive for C. difficile. She was started on oral vancomycin. That was one to 2 days ago. Today she experienced incontinence of stool while in the van coming to dialysis. She lives alone, has been unable to care for self. She missed 2 dialysis sessions, was 6 days in between run secondary to being weak and unable to make it to dialysis. Patient states that she was doing fairly well until about one week ago when she developed fever, headache. She had no cough. She had no myalgias. About 5 or 6 days ago she developed loose stools, no abdominal pain. She continues to have loose bowel movements. She had no ill contacts. She's had no antibiotic exposures. She continues to feel feverish. She denies dyspnea or sputum production. She's had no nausea or vomiting. She had no myalgias. She's had decreased appetite and oral intake. She thinks she is producing her usual amount of urine. She has continued to take her medications. She's been hospitalized for further supportive care and treatment of her C. difficile diarrhea and influenza. Review of systems: Except as noted in history of present illness, the remainder of an 11 point review of systems notable for some pain associated with a wound on her left leg stump as well as right posterior thigh stump. Otherwise negative. 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 History of DVT History of seizures History of diverticulitis Anemia Thrombocytopenia PVD (peripheral vascular disease) Amputation foot, bilat Amputation of right lower extremity above knee with complication (Acute) Amputation, below knee, left ESRD (end stage renal disease) on dialysis (Acute) Wound dehiscence, surgical Delayed surgical wound healing Necrotic eschar CVA (cerebral vascular accident) Influenza (Acute) C. difficile diarrhea (Acute) Influenza B (Acute) Surgical history: LLE BKA RLE AKA CCx Pertinent family history: Father with hypertension, renal disease, coronary artery disease, diabetes and COPD. Mother had high blood pressure, coronary artery disease, diabetes. Social history: The patient's recurrent every day smoker. She does not drink alcohol. She lives alone with caregiver. Medical - H&P: Meds Home Medications Medication Instructions Recorded Confirmed Type Atorvastatin [Lipitor] 20 mg PO HS 08/09/15 09/26/17 History Carvedilol [Coreg] 25 mg PO BIDCC 08/09/15 09/26/17 History Metoclopramide HCl [Metozolv Odt] 5 mg PO TIDAC 08/09/15 09/26/17 History Pantoprazole [Protonix] 40 mg PO QAMAC 08/09/15 09/26/17 History Clopidogrel Bisulfate [Plavix] 75 mg PO DAILY 02/23/16 09/26/17 History amLODIPine [Norvasc] 10 mg PO DAILY 02/23/16 09/26/17 History Pramipexole Di-HCl [Mirapex] 0.25 mg PO TID 90 Days tablet 03/09/16 09/26/17 Rx Isosorbide Mononitrate [Isosorbide 30 mg PO BID 01/08/17 09/26/17 History Mononitrate ER] Torsemide [Demadex] 60 tablet PO DAILY 01/08/17 09/26/17 History levETIRAcetam [Keppra] 250 mg PO BID 01/09/17 09/26/17 History Insulin Glargine, Human [Lantus] 8 unit SQ HS unit 01/28/17 09/26/17 Rx Insulin Lispro [Humalog] See Protocol SQ ACHS #0 unit 01/28/17 09/26/17 Rx clonazePAM [Klonopin] 0.5 mg PO DAILY@1700 #10 tablet 01/28/17 09/26/17 Rx Lisinopril [Zestril] 20 mg PO QDAY 04/18/17 09/26/17 History oxyCODONE/APAP [Percocet 5-325 mg] 1 tab PO Q4HP PRN #90 tablet 04/26/17 Rx Acetaminophen [Tylenol] 650 mg PO Q6HP PRN tablet 07/11/17 09/26/17 Rx Aspirin 81 mg PO DAILY 09/25/17 09/26/17 History Vancomycin [Vancocin] 125 mg PO QID #56 cap 09/25/17 09/26/17 Rx Allergies Allergy/AdvReac Type Severity Reaction Status Date / Time codeine AdvReac Mild n/v Verified 09/25/17 10:16 hydrocodone AdvReac Mild n/v Verified 09/25/17 10:16 Medical - H&P: Exam - Constitutional Vitals: Temp Pulse Resp BP Pulse Ox 99.8 F H 86 16 120/40 92 09/26/17 20:00 09/26/17 20:00 09/26/17 20:00 09/26/17 20:00 09/26/17 21:00 - Other Additional findings: General: Alert, in no acute distress HEENT: Normocephalic. Pupils are equal. Sclera are anicteric. No conjunctival injection. Oropharynx is with tachy mucous membranes, no lip or gum lesions. Tongue is midline. Neck: Supple, no meningismus. No thyromegaly. Chest: Clear to auscultation bilaterally with no rales or wheezes. No accessory muscle use. Tunneled dialysis catheter in the right subclavicular region, no tenderness or erythema. Cardiovascular: Regular rate and rhythm with 2/6 precordial systolic murmur, no gallop or rub. Carotid pulses are 2+ with right bruit. JVP is normal. Abdomen: Soft, nontender without guarding or rebound. Active bowel sounds. No hepatosplenomegaly. Lymphatic: No cervical or supraclavicular lymphadenopathy. Skin: Warm. Skin turgor is decreased. Wound without discharge left proximal leg above BKA site. Erythema in amy-area. Musculoskeletal: Left BKA and right AKA. Otherwise, no joint erythema or tenderness. Normal range of motion in the upper extremities. Strength 5-/5 in upper extremities. Digits without cyanosis or clubbing. Neuro: Alert, oriented X3. Cranial nerves II through XII grossly intact. Sensation intact to light touch. Psychiatric: Affect a bit blunted. Displays insight into condition. Medical - H&P: Reslt - Labs CBC & Chem 7: 09/26/17 15:45 09/26/17 15:45 Labs: Short CBC 09/26/17 Range/Units 15:45 WBC 3.6 L (4.5-11.0) K/mcL Hgb 8.6 L (12.0-15.0) g/dL Hct 25.4 L (36.0-48.0) % Plt Count 90 L (140-440) K/mcL BMP 09/26/17 15:45 Sodium 138 Potassium 3.5 Chloride 97 Carbon Dioxide 26 BUN 17 Creatinine 1.0 Glucose 95 Calcium 7.8 L Liver Function 09/26/17 Range/Units 15:45 Total Bilirubin 0.2 (0.0-1.0) mg/dL Direct Bilirubin < 0.2 (0.0-0.3) mg/dL GGT 10 (5-36) U/L AST 26 (0-37) U/l ALT 9 (0-40) U/l Alkaline Phosphatase 50 (39-117) U/L Albumin 3.4 (3.2-5.2) gm/dL - Impressions Chest x-ray from 2 days ago, reviewed, report with mild discoid atelectasis, no infiltrate. Medical - H&P: A/P (1) C. difficile diarrhea Current visit: Yes Status: Acute (2) Influenza B Current visit: Yes Status: Acute (3) ESRD (end stage renal disease) on dialysis Current visit: Yes Status: Acute (4) CAD (coronary artery disease), [place] coronary artery Current visit: Yes Status: Chronic (5) DM type 2 with diabetic peripheral neuropathy Current visit: Yes Status: Chronic - Narrative A/P Narrative: 67-year-old female with multiple medical problems, including end-stage renal disease, coronary disease, type 2 diabetes, cerebrovascular disease who presents with failure of outpatient treatment of C. difficile diarrhea and influenza. C. difficile associated diarrhea. Patient had been on 1-2 days of vancomycin, still having stool and incontinence of stool. She lives alone with some caregiver. She has evidence of inflammatory change in the amy-trevor due to liquid stools. Unclear if she's been able to take her vancomycin at all doses due to overall weakness from this illness as well as influenza and that she lives alone. She did miss 2 dialysis sessions secondary to not feeling well. Plan: 1. Observation hospitalization 2. Vancomycin, 125 mg PO every 6 hours 3. PT evaluation 4. We'll hold on hydration given her end-stage renal disease. If oral intake is low, may need supplemental fluids. Influenza. No evidence of pneumonia 2 days ago, lungs are currently clear. Overall the illness is causing decreased mobility, failure to thrive Plan: Supportive care, oseltamivir dosed at 30 mg now on 30 mg after hemodialysis. End-stage renal disease. The patient did receive full dialysis today. Plan: Continue dialysis at appropriate interval. Type 2 diabetes mellitus. Patient follows a regular diet at home. On a combination of short acting and long-acting insulins. Plan: Continue long-acting insulin, sliding scale insulin, regular diet as she does not follow a diabetic diet even one in the hospital, Accu-Cheks Cerebrovascular disease. Currently quiescent. Plan: Continue home regimen, however we will hold clopidogrel to prevent decreased effectiveness of oseltamivir Coronary artery disease. No current symptoms. Plan: Continue current regimen. Lower extremity wounds. Plan: Continue wound care. CODE STATUS is full code Prophylaxis: Subcutaneous heparin, PPI Medical - H&P: Qual - VTE Deep Vein Thrombosis/Pulmonary Embolism Present on Admission: No
[2017-09-27] MEDS: 0.9 % SODIUM CHLORIDE 10 ML SYRINGE IV SCH ×4 (04:26→21:18)
[2017-09-27] MEDS: VANCOMYCIN ORAL SOL 1,000 MG/10 ML BOTTLE PO SCH ×3 (05:34→17:44)
[2017-09-27] MEDS: INSULIN LISPRO 1 UNIT/0.01 ML UNIT SQ SCH ×4 (06:40→21:05)
[2017-09-27 07:26] LABS: ALT/SGPT 7 U/l (0-40); Albumin 2.5 gm/dL (3.2-5.2); Albumin/Globulin Ratio 1.1 (1.0-2.3); Alkaline Phosphatase 47 U/L (39-117); Bilirubin,Direct < 0.2 mg/dL (0.0-0.3); Blood Urea Nitrogen 27 mg/dl (8-23); Gamma Glutamyl Transpeptidase 9 U/L (5-36); Magnesium 1.9 mg/dL (1.6-2.5)
[2017-09-27] MEDS: PANTOPRAZOLE 40 MG TABLET PO SCH (07:41)
[2017-09-27] MEDS: METOCLOPRAMIDE 10 MG TABLET PO SCH ×3 (07:41→17:43)
[2017-09-27] MEDS: HEPARIN 5,000 UNIT/ML VIAL SQ SCH ×2 (08:58→20:50)
[2017-09-27] MEDS: TORSEMIDE 10 MG TABLET PO SCH (08:58)
[2017-09-27] MEDS: levETIRAcetam 500 MG TABLET PO SCH ×2 (08:59→20:50)
[2017-09-27] MEDS: ISOSORBIDE MONONITRATE 60 MG TAB.XL.24H PO SCH ×2 (08:59→20:49)
[2017-09-27] MEDS: ASPIRIN 81 MG TAB.CHEW PO SCH (08:59)
[2017-09-27] MEDS: PRAMIPEXOLE 0.25 MG TABLET PO SCH ×3 (08:59→20:50)
[2017-09-27] MEDS ORDERED: amLODIPine 10 MG TABLET PO SCH (09:00)
[2017-09-27] MEDS ORDERED: LISINOPRIL 20 MG TABLET PO SCH (09:00)
[2017-09-27] MEDS: 0.9 % SODIUM CHLORIDE 1,000 ML IV SCH (12:34)
[2017-09-27] MEDS: CARVEDILOL 12.5 MG TABLET PO SCH ×3 (12:43→17:51)
--- NOTE | 2017-09-27 15:31 | Internal Med Progress Note ---
Medical - PN: Subj Patient information: Note initiated : 09/27/17 at 3:24 pm Service Date, if different from initiated Date: [] Patient: Tamica Tidwell 67 y/o F admitted on 09/26/17 for influenza and c- diff. Chief Complaint: follow-up C. difficile and influenza Interval history: September 26 Direct admit after outpatient dialysis for failure of outpatient therapy of C. difficile associated diarrhea, ongoing symptoms from influenza. Patient having several loose stools a day, still having fever, decreased appetite and decreased oral intake with failure to thrive. September 27 Patient with lower blood pressure, systolic dropped down to 70 while sitting up this morning. Her weight after dialysis was below her dry weight yesterday. May be volume depleted. Also on several antihypertensives. Suspicion for sepsis lower. Had fever yesterday, treated symptomatically. Tolerating vancomycin, still with loose stools. Decreased motivation, decreased appetite, not wanting to participate in self care or to eat. - Constitutional Vitals: Vital Signs Temp Pulse Resp BP Pulse Ox 97.0 F 71 24 H 100/42 94 09/27/17 14:38 09/27/17 14:38 09/27/17 14:38 09/27/17 14:38 09/27/17 14:38 Period Temp Pulse Resp BP Sys/Pichardo Pulse Ox Last 24 Hr 97.0 F-101.3 F 57-86 14-24 78-165/30-58 85-98 Intake and Output 09/27/17 09/27/17 09/27/17 05:59 13:59 21:59 Intake Total 450 / 450 236 / 236 Output Total 3 / 3 Balance 447 / 447 236 / 236 Weight 106 lb Patient Weight 09/28/17 05:59 Weight 106 lb Intake & Output: Intake & Output 09/27/17 09/27/17 09/27/17 05:59 13:59 21:59 Intake Total 450 / 450 236 / 236 Output Total 3 / 3 Balance 447 / 447 236 / 236 Weight 106 lb Intake: Oral 450 / 450 236 / 236 Output: # of times incontinent of urine 3 / 3 Other: Meal Lunch Percent of Meal Consumed 25% Feeding Ability Total Assistance # of times incontinent of 1 1 1 Bowels Exam: General: Cachectic, chronically ill-appearing Chest: Clear, respirations unlabored Cardiovascular: Regular Abdomen: Soft, mild apparent tenderness to palpation, hyperactive bowel sounds in all quadrants Neuro: Sleeping, arouses, engages in some conversation, then tends to not answer questions. Medical - PN: Obj Da - Labs CBC & Chem 7: 09/26/17 15:45 09/27/17 06:11 Labs: Abnormal Lab Results 09/27/17 09/26/17 09/26/17 06:11 15:45 15:45 WBC 3.6 L RBC 2.87 L Hgb 8.6 L Hct 25.4 L Plt Count 90 L Band Neutrophils % 13 H Lymphocytes % 5 L BUN 27 H Creatinine 2.0 H Glucose 53 L Uric Acid 2.0 L Calcium 7.6 L 7.8 L Phosphorus 1.2 L Lactate Dehydrogenase 259 H 254 H Total Protein 4.7 L 5.1 L Albumin 2.5 L Globulin 1.7 L Triglycerides 274 H 225 H Meds: Medications Acetaminophen (Tylenol) 650 mg PO Q6HP PRN PRN Reason: PAIN/FEVER > 101 Last Admin: 09/26/17 23:20 Dose: 650 mg Amlodipine Besylate (Norvasc) 10 mg PO DAILY [facility] Aspirin (Aspirin) 81 mg PO DAILY [facility] Last Admin: 09/27/17 08:59 Dose: 81 mg Atorvastatin Calcium (Lipitor) 20 mg PO HS [facility] Last Admin: 09/26/17 21:28 Dose: Not Given Carvedilol (Coreg) 25 mg PO BIDCC [facility] Last Admin: 09/27/17 12:43 Dose: Not Given Clonazepam (Klonopin) 0.5 mg PO DAILY@1700 [facility] Last Admin: 09/26/17 17:38 Dose: 0.5 mg Diagnostic Test (Pha) (Accu-Chek) 1 each FS ACHS [facility] Last Admin: 09/27/17 12:34 Dose: 1 each Heparin Sodium (Porcine) (Heparin) 5,000 unit SQ Q12 [facility] Last Admin: 09/27/17 08:58 Dose: 5,000 unit Sodium Chloride (Sodium Chloride 0.9%) 1,000 mls @ 50 mls/hr IV .Q20H [facility] Last Admin: 09/27/17 12:34 Dose: 50 mls/hr Ibuprofen (Motrin) 600 mg PO QIDP PRN PRN Reason: PAIN/FEVER > 101 Insulin Glargine (Lantus) 8 unit SQ HS [facility] Last Admin: 12/28/17 21:26 Dose: 8 unit Insulin Human Lispro (Humalog) 0 unit SQ ACHS [facility] PRN Reason: Protocol Last Admin: 09/27/17 12:41 Dose: Not Given Isosorbide Mononitrate (Imdur) 30 mg PO BID [facility] Last Admin: 09/27/17 08:59 Dose: 30 mg Levetiracetam (Keppra) 250 mg PO BID [facility] Last Admin: 09/27/17 08:59 Dose: 250 mg Lisinopril (Zestril) 20 mg PO QDAY [facility] Metoclopramide HCl (Reglan) 5 mg PO TIDAC [facility] Last Admin: 09/27/17 11:32 Dose: 5 mg Oseltamivir Phosphate 6 Mg/Ml Oral Solution 1 dose PO TuThSa@1800 [facility] Stop: 10/03/17 18:01 Ondansetron HCl (Zofran) 4 mg IV Q6HP PRN PRN Reason: Nausea And Vomiting Oxycodone/Acetaminophen (Percocet 5-325 Mg) 1 tab PO Q4HP PRN PRN Reason: Pain Pantoprazole Sodium (Protonix) 40 mg PO QAMAC [facility] Last Admin: 09/27/17 07:41 Dose: 40 mg Pramipexole Dihydrochloride (Mirapex) 0.25 mg PO TID [facility] Last Admin: 09/27/17 14:36 Dose: 0.25 mg Sodium Chloride (Saline Flush) 10 ml IV Q8 [facility] Last Admin: 09/27/17 12:48 Dose: 10 ml Torsemide (Demadex) 60 mg PO DAILY [facility] Last Admin: 09/27/17 08:58 Dose: 60 mg Vancomycin HCl (Vancomycin Oral Sabiha) 125 mg PO Q6 [facility] Last Admin: 09/27/17 11:32 Dose: 125 mg Medical - PN: A/P - Time Spent With Patient Total time spent is greater than 50% in coordination of care (as documented) at patient's floor/unit and/or counseling patient: (1) C. difficile diarrhea Status: Acute Current Visit: Yes (2) Influenza B Status: Acute Current Visit: Yes (3) ESRD (end stage renal disease) on dialysis Status: Acute Current Visit: Yes (4) CAD (coronary artery disease), [place] coronary artery Status: Chronic Current Visit: Yes (5) DM type 2 with diabetic peripheral neuropathy Status: Chronic Current Visit: Yes - Narrative A/P Narrative: 67-year-old female with multiple medical problems, including end-stage renal disease, coronary disease, type 2 diabetes, cerebrovascular disease who presents with failure of outpatient treatment of C. difficile diarrhea and influenza. C. difficile associated diarrhea. Failed outpatient therapy, as unable to care for self even with caregivers. Tolerating vancomycin. Plan: Changed to inpatient status from time of admission. Continue vancomycin , 125 mg PO every 6 hours, begin hydration. Influenza. No evidence of pneumonia when diagnosed, lungs remain clear. Overall, contributing to failure to thrive Plan: Continue oseltamivir dosed at 30 mg now on 30 mg after hemodialysis. Hypertension. Currently with hypotension this morning. Suspect secondary to volume depletion (current weight is below her usual dry weight) as well as blood pressure medications Plan: Begin fluid hydration, hold parameters on amlodipine and lisinopril. Hypophosphatemia. Not on phosphate binders at baseline. Plan: IV supplementation. End-stage renal disease. The is // dialysis patient. Contacting Dr. Valles for HD orders. Plan: Continue dialysis at appropriate interval. Type 2 diabetes mellitus. Patient follows a regular diet at home. On a combination of short acting and long-acting insulins. Plan: Continue long-acting insulin, sliding scale insulin, regular diet as she does not follow a diabetic diet even one in the hospital, Accu-Cheks Cerebrovascular disease. Currently quiescent. Plan: Continue home regimen, however we will hold clopidogrel to prevent decreased effectiveness of oseltamivir Coronary artery disease. No current symptoms. Plan: Continue current regimen. Lower extremity wounds. Plan: Continue wound care. CODE STATUS is full code Prophylaxis: Subcutaneous heparin, PPI Medical - PN: Qual - VTE Deep Vein Thrombosis/Pulmonary Embolism Present on Admission: No
[2017-09-27] MEDS ORDERED: POTASSIUM PHOSPHATE IV ONE (16:00)
[2017-09-27] MEDS ORDERED: SODIUM CHLORIDE 0.9% IV ONE (16:00)
[2017-09-27] MEDS: clonazePAM 0.5 MG TABLET PO SCH (17:43)
[2017-09-27] MEDS: ATORVASTATIN 20 MG TABLET PO SCH (20:49)
[2017-09-27] MEDS: INSULIN GLARGINE, HUMAN 1 UNIT/0.01 ML SQ SCH (21:18)
[2017-09-28] MEDS: VANCOMYCIN ORAL SOL 1,000 MG/10 ML BOTTLE PO SCH ×4 (00:03→18:14)
[2017-09-28 05:38] LABS: Mean Cell Volume 89.3 fL (80.0-100.0); Mean Corpuscular HGB Conc 34.4 g/dL (31.0-36.0); Mean Corpuscular Hemoglobin 30.7 pg (26.0-34.0); Platelet Count 73 K/mcL (140-440); RBC 2.29 M/mcL (4.00-5.20); Red Cell Distribution Width 14.5 % (11.5-14.5)
[2017-09-28 05:46] LABS: ALT/SGPT 7 U/l (0-40); Albumin 2.5 gm/dL (3.2-5.2); Albumin/Globulin Ratio 1.4 (1.0-2.3); Alkaline Phosphatase 41 U/L (39-117); Bilirubin,Direct < 0.2 mg/dL (0.0-0.3); Blood Urea Nitrogen 34 mg/dl (8-23); Gamma Glutamyl Transpeptidase 8 U/L (5-36); Magnesium 1.8 mg/dL (1.6-2.5); Uric Acid 3.7 mg/dL (2.5-8.0)
[2017-09-28 06:26] LABS: Anisocytosis 1+ (NONE SEEN); Band Neutrophils % 3 % (0-10); Lymphocytes % 15 % (15-49); Monocytes % (Manual) 6 % (1-12); Platelet Estimate DECREASED (NORMAL); RBC Morphology ABNORM (NORMAL); Segmented Neutrophils % 76 % (38-78)
[2017-09-28] MEDS: INSULIN LISPRO 1 UNIT/0.01 ML UNIT SQ SCH ×4 (07:22→22:13)
[2017-09-28] MEDS: CARVEDILOL 12.5 MG TABLET PO SCH ×2 (07:30→16:37)
[2017-09-28] MEDS: METOCLOPRAMIDE 10 MG TABLET PO SCH ×3 (07:36→17:06)
[2017-09-28] MEDS: 0.9 % SODIUM CHLORIDE 1,000 ML IV SCH ×2 (07:36→16:23)
[2017-09-28] MEDS: PANTOPRAZOLE 40 MG TABLET PO SCH (07:37)
[2017-09-28] MEDS: amLODIPine 10 MG TABLET PO SCH (09:11)
[2017-09-28] MEDS: LISINOPRIL 20 MG TABLET PO SCH (09:12)
[2017-09-28] MEDS: TORSEMIDE 10 MG TABLET PO SCH (09:24)
[2017-09-28] MEDS: ISOSORBIDE MONONITRATE 60 MG TAB.XL.24H PO SCH ×2 (09:24→21:59)
[2017-09-28] MEDS: levETIRAcetam 500 MG TABLET PO SCH ×2 (09:25→21:58)
[2017-09-28] MEDS: PRAMIPEXOLE 0.25 MG TABLET PO SCH ×3 (09:26→21:59)
[2017-09-28] MEDS: HEPARIN 5,000 UNIT/ML VIAL SQ SCH ×3 (09:27→22:29)
[2017-09-28] MEDS: 0.9 % SODIUM CHLORIDE 10 ML SYRINGE IV SCH ×5 (09:28→22:28)
[2017-09-28] MEDS: ASPIRIN 81 MG TAB.CHEW PO SCH (09:38)
[2017-09-28] MEDS: OSELTAMIVIR PHOSPHATE 6 MG/ML ORAL SOLUTION PO SCH (17:05)
[2017-09-28] MEDS: clonazePAM 0.5 MG TABLET PO SCH (17:06)
--- NOTE | 2017-09-28 17:18 | Internal Med Progress Note ---
Medical - PN: Subj Patient information: Note initiated : 09/28/17 at 5:16 pm Service Date, if different from initiated Date: [] Patient: Tamica Tidwell 67 y/o F admitted on 09/26/17 for influenza and c- diff. Chief Complaint: Follow-up influenza and C. difficile Interval history: September 26 Direct admit after outpatient dialysis for failure of outpatient therapy of C. difficile associated diarrhea, ongoing symptoms from influenza. Patient having several loose stools a day, still having fever, decreased appetite and decreased oral intake with failure to thrive. September 27 Patient with lower blood pressure, systolic dropped down to 70 while sitting up this morning. Her weight after dialysis was below her dry weight yesterday. May be volume depleted. Also on several antihypertensives. Suspicion for sepsis lower. Had fever yesterday, treated symptomatically. Tolerating vancomycin, still with loose stools. Decreased motivation, decreased appetite, not wanting to participate in self care or to eat. September 28 Getting dialysis today. Hemoglobin dropped to 7.0 this morning. Still not motivated to eat. Remains on by mouth vancomycin, stooling appears improved. - Constitutional Vitals: Vital Signs Temp Pulse Resp BP Pulse Ox 98.2 F 67 16 118/40 93 09/28/17 16:29 09/28/17 16:29 09/28/17 16:29 09/28/17 16:29 09/28/17 16:29 Period Temp Pulse Resp BP Sys/Pichardo Pulse Ox Last 24 Hr 97.3 F-99.5 F 59-74 16-28 99-170/38-70 77-95 Intake and Output 09/28/17 09/28/17 09/28/17 05:59 13:59 21:59 Intake Total 150 / 150 952 / 952 Output Total 2 / 2 260 / 260 Balance 148 / 148 692 / 692 Intake & Output: Intake & Output 09/28/17 09/28/17 09/28/17 05:59 13:59 21:59 Intake Total 150 / 150 952 / 952 Output Total 2 / 2 260 / 260 Balance 148 / 148 692 / 692 Intake: IV 952 / 952 Sodium Chloride 0.9% 1,000 ml @ 952 / 952 50 mls/hr IV .Q20H [facility] Rx#: [id number] Oral 150 / 150 Output: # of times incontinent of urine 2 / 2 Hemodialysis UF 260 / 260 Other: Percent of Meal Consumed Refused Feeding Ability Independent # of times incontinent of 1 Bowels Exam: General: Eyes closed, answers questions in few word phrases. Getting dialysis Chest: Clear to auscultation anterior laterally Cardiovascular: Regular Abdomen: Soft, no apparent tenderness, normal bowel sounds Extremities: Left proximal leg wound is dressed. Neuro: Alert, eyes closed, withdrawn affect Medical - PN: Obj Da - Labs CBC & Chem 7: 09/28/17 04:30 09/28/17 04:30 Labs: Abnormal Lab Results 09/28/17 09/28/17 09/27/17 04:30 04:30 06:11 WBC 3.1 L RBC 2.29 L Hgb 7.0 L* Hct 20.5 L* Plt Count 73 L Band Neutrophils % Lymphocytes % RBC Morphology Abnorm A Anisocytosis 1+ A BUN 34 H 27 H Creatinine 2.7 H 2.0 H Glucose 53 L Uric Acid Calcium 7.0 L 7.6 L Phosphorus Lactate Dehydrogenase 259 H Total Protein 4.3 L 4.7 L Albumin 2.5 L 2.5 L Globulin 1.8 L Triglycerides 262 H 274 H 09/26/17 09/26/17 15:45 15:45 WBC 3.6 L RBC 2.87 L Hgb 8.6 L Hct 25.4 L Plt Count 90 L Band Neutrophils % 13 H Lymphocytes % 5 L RBC Morphology Anisocytosis BUN Creatinine Glucose Uric Acid 2.0 L Calcium 7.8 L Phosphorus 1.2 L Lactate Dehydrogenase 254 H Total Protein 5.1 L Albumin Globulin 1.7 L Triglycerides 225 H Meds: Medications Acetaminophen (Tylenol) 650 mg PO Q6HP PRN PRN Reason: PAIN/FEVER > 101 Last Admin: 09/26/17 23:20 Dose: 650 mg Amlodipine Besylate (Norvasc) 10 mg PO DAILY [facility] Last Admin: 09/28/17 09:11 Dose: Not Given Aspirin (Aspirin) 81 mg PO DAILY [facility] Last Admin: 09/28/17 09:38 Dose: 81 mg Atorvastatin Calcium (Lipitor) 20 mg PO HS [facility] Last Admin: 09/27/17 20:49 Dose: 20 mg Carvedilol (Coreg) 25 mg PO BIDCC [facility] Last Admin: 09/28/17 16:37 Dose: Not Given Clonazepam (Klonopin) 0.5 mg PO DAILY@1700 [facility] Last Admin: 09/28/17 17:06 Dose: 0.5 mg Diagnostic Test (Pha) (Accu-Chek) 1 each FS ACHS [facility] Last Admin: 09/28/17 16:36 Dose: 1 each Heparin Sodium (Porcine) (Heparin) 5,000 unit SQ Q12 [facility] Last Admin: 09/28/17 09:27 Dose: 5,000 unit Heparin Sodium (Porcine) (Heparin Flush) 2 ml IV Q12 [facility] Last Admin: 09/28/17 09:27 Dose: 2 ml Sodium Chloride (Sodium Chloride 0.9%) 1,000 mls @ 50 mls/hr IV .Q20H [facility] Last Admin: 09/28/17 07:36 Dose: 50 mls/hr Sodium Chloride (Sodium Chloride 0.9%) 1,000 mls @ 20 mls/hr IV .Q24H [facility] Last Admin: 09/28/17 16:23 Dose: 20 mls/hr Ibuprofen (Motrin) 600 mg PO QIDP PRN PRN Reason: PAIN/FEVER > 101 Insulin Glargine (Lantus) 8 unit SQ HS [facility] Last Admin: 09/27/17 21:18 Dose: 8 unit Insulin Human Lispro (Humalog) 0 unit SQ [facility] PRN Reason: Protocol Last Admin: 09/28/17 16:36 Dose: Not Given Isosorbide Mononitrate (Imdur) 30 mg PO BID [facility] Last Admin: 09/28/17 09:24 Dose: 30 mg Levetiracetam (Keppra) 250 mg PO BID [facility] Last Admin: 09/28/17 09:25 Dose: 250 mg Lisinopril (Zestril) 20 mg PO QDAY [facility] Last Admin: 09/28/17 09:12 Dose: Not Given Metoclopramide HCl (Reglan) 5 mg PO TIDAC [facility] Last Admin: 09/28/17 17:06 Dose: 5 mg Oseltamivir Phosphate 6 Mg/Ml Oral Solution 1 dose PO TuThSa@1800 [facility] Stop: 10/03/17 18:01 Last Admin: 09/28/17 17:05 Dose: 1 dose Ondansetron HCl (Zofran) 4 mg IV Q6HP PRN PRN Reason: Nausea And Vomiting Oxycodone/Acetaminophen (Percocet 5-325 Mg) 1 tab PO Q4HP PRN PRN Reason: Pain Pantoprazole Sodium (Protonix) 40 mg PO QAMAC [facility] Last Admin: 09/28/17 07:37 Dose: 40 mg Pramipexole Dihydrochloride (Mirapex) 0.25 mg PO TID [facility] Last Admin: 09/28/17 16:23 Dose: 0.25 mg Sodium Chloride (Saline Flush) 10 ml IV Q12 [facility] Last Admin: 09/28/17 09:28 Dose: 10 ml Sodium Chloride (Saline Flush) 10 ml IV Q12 [facility] Last Admin: 09/28/17 09:28 Dose: Not Given Torsemide (Demadex) 60 mg PO DAILY [facility] Last Admin: 09/28/17 09:24 Dose: 60 mg Vancomycin HCl (Vancomycin Oral Sabiha) 125 mg PO Q6 [facility] Last Admin: 09/28/17 11:16 Dose: 125 mg Medical - PN: A/P - Time Spent With Patient Total time spent is greater than 50% in coordination of care (as documented) at patient's floor/unit and/or counseling patient: (1) C. difficile diarrhea Status: Acute Current Visit: No (2) Influenza B Status: Acute Current Visit: No (3) ESRD (end stage renal disease) on dialysis Status: Acute Current Visit: No (4) CAD (coronary artery disease), [place] coronary artery Status: Chronic Current Visit: No (5) DM type 2 with diabetic peripheral neuropathy Status: Chronic Current Visit: No - Narrative A/P Narrative: 67-year-old female with multiple medical problems, including end-stage renal disease, coronary disease, type 2 diabetes, cerebrovascular disease who presents with failure of outpatient treatment of C. difficile diarrhea and influenza. C. difficile associated diarrhea. Failed outpatient therapy, as unable to care for self even with caregivers. Tolerating vancomycin. Plan: Continue vancomycin, 125 mg PO every 6 hours, begin hydration. Influenza. No evidence of pneumonia when diagnosed, lungs remain clear. Overall, contributing to failure to thrive Plan: Continue oseltamivir dosed at 30 mg now on 30 mg after hemodialysis. Anemia. Likely secondary to chronic renal disease. However hemoglobin down to 7.0 this morning. No evidence of active bleeding. Plan: Transfuse 1 unit packed red blood cells today Hypertension. Hypotension Saturday morning. Will monitor after current HD. Plan: Continue fluid hydration, hold parameters on amlodipine and lisinopril. Hypophosphatemia. Not on phosphate binders at baseline. Plan: IV supplementation. End-stage renal disease. dialysis patient. Contacting Dr. Valles for HD orders-->HD on Saturday. Plan: Continue dialysis at appropriate interval. Type 2 diabetes mellitus. Patient follows a regular diet at home. On a combination of short acting and long-acting insulins. Plan: Continue long-acting insulin, sliding scale insulin, regular diet as she does not follow a diabetic diet even one in the hospital, Accu-Cheks Cerebrovascular disease. Currently quiescent. Plan: Continue home regimen, however we will hold clopidogrel to prevent decreased effectiveness of oseltamivir Coronary artery disease. No current symptoms. Plan: Continue current regimen. Lower extremity wounds. Plan: Continue wound care. CODE STATUS is full code Prophylaxis: Subcutaneous heparin, PPI Medical - PN: Qual - VTE Deep Vein Thrombosis/Pulmonary Embolism Present on Admission: No
[2017-09-28] MEDS ORDERED: VANCOMYCIN 1 GM VIAL ONE (17:38)
[2017-09-28] MEDS: ATORVASTATIN 20 MG TABLET PO SCH (21:52)
[2017-09-28] MEDS: INSULIN GLARGINE, HUMAN 1 UNIT/0.01 ML SQ SCH (22:00)
[2017-09-29] MEDS: VANCOMYCIN ORAL SOL 1,000 MG/10 ML BOTTLE PO SCH ×4 (00:44→16:58)
[2017-09-29] MEDS: 0.9 % SODIUM CHLORIDE 1,000 ML IV SCH ×3 (05:39→12:06)
[2017-09-29 06:21] LABS: Mean Cell Volume 90.1 fL (80.0-100.0); Mean Corpuscular HGB Conc 34.9 g/dL (31.0-36.0); Mean Corpuscular Hemoglobin 31.4 pg (26.0-34.0); Platelet Count 82 K/mcL (140-440); RBC 2.81 M/mcL (4.00-5.20); Red Cell Distribution Width 14.6 % (11.5-14.5)
[2017-09-29 06:40] LABS: ALT/SGPT 6 U/l (0-40); Albumin 2.4 gm/dL (3.2-5.2); Albumin/Globulin Ratio 1.1 (1.0-2.3); Alkaline Phosphatase 46 U/L (39-117); Bilirubin,Direct < 0.2 mg/dL (0.0-0.3); Blood Urea Nitrogen 15 mg/dl (8-23); Gamma Glutamyl Transpeptidase 9 U/L (5-36); Magnesium 1.8 mg/dL (1.6-2.5); Uric Acid 1.6 mg/dL (2.5-8.0)
[2017-09-29 06:50] LABS: Band Neutrophils % 4 % (0-10); Eosinophils % (Manual) 5 % (0-7); Lymphocytes % 18 % (15-49); Monocytes % (Manual) 8 % (1-12); Platelet Estimate DECREASED (NORMAL); RBC Morphology NORMAL (NORMAL); Segmented Neutrophils % 65 % (38-78)
[2017-09-29] MEDS: CARVEDILOL 12.5 MG TABLET PO SCH ×2 (07:27→16:54)
[2017-09-29] MEDS: METOCLOPRAMIDE 10 MG TABLET PO SCH ×3 (07:33→16:54)
[2017-09-29] MEDS: PANTOPRAZOLE 40 MG TABLET PO SCH (07:33)
[2017-09-29] MEDS: INSULIN LISPRO 1 UNIT/0.01 ML UNIT SQ SCH ×4 (07:34→20:22)
[2017-09-29] MEDS ORDERED: POTASSIUM CHLORIDE 20 MEQ in 0.9 % SODIUM CHLORIDE 250 ML IV ONE (08:10)
[2017-09-29] MEDS: amLODIPine 10 MG TABLET PO SCH (08:25)
[2017-09-29] MEDS: LISINOPRIL 20 MG TABLET PO SCH (08:26)
[2017-09-29] MEDS: HEPARIN 5,000 UNIT/ML VIAL SQ SCH ×2 (08:51→20:20)
[2017-09-29] MEDS: TORSEMIDE 10 MG TABLET PO SCH (08:52)
[2017-09-29] MEDS: ASPIRIN 81 MG TAB.CHEW PO SCH (08:53)
[2017-09-29] MEDS: levETIRAcetam 500 MG TABLET PO SCH ×2 (08:53→20:18)
[2017-09-29] MEDS: ISOSORBIDE MONONITRATE 60 MG TAB.XL.24H PO SCH ×2 (08:53→20:18)
[2017-09-29] MEDS: PRAMIPEXOLE 0.25 MG TABLET PO SCH ×3 (08:54→20:19)
[2017-09-29] MEDS: 0.9 % SODIUM CHLORIDE 10 ML SYRINGE IV SCH ×4 (08:59→20:22)
[2017-09-29] MEDS: clonazePAM 0.5 MG TABLET PO SCH (16:55)
[2017-09-29] MEDS: INSULIN GLARGINE, HUMAN 1 UNIT/0.01 ML SQ SCH (20:17)
[2017-09-29] MEDS: ATORVASTATIN 20 MG TABLET PO SCH (20:19)
--- NOTE | 2017-09-29 23:14 | Internal Med Progress Note ---
Medical - PN: Subj Patient information: Note initiated : 09/29/17 at 11:12 pm Service Date, if different from initiated Date: [] Patient: Tamica Tidwell 67 y/o F admitted on 09/26/17 for influenza and c- diff. Chief Complaint: f/u influenza and C. difficile Interval history: September 26 Direct admit after outpatient dialysis for failure of outpatient therapy of C. difficile associated diarrhea, ongoing symptoms from influenza. Patient having several loose stools a day, still having fever, decreased appetite and decreased oral intake with failure to thrive. September 27 Patient with lower blood pressure, systolic dropped down to 70 while sitting up this morning. Her weight after dialysis was below her dry weight yesterday. May be volume depleted. Also on several antihypertensives. Suspicion for sepsis lower. Had fever yesterday, treated symptomatically. Tolerating vancomycin, still with loose stools. Decreased motivation, decreased appetite, not wanting to participate in self care or to eat. September 28 Getting dialysis today. Hemoglobin dropped to 7.0 this morning. Still not motivated to eat. Remains on by mouth vancomycin, stooling appears improved. September 29 More interactive today. Stools seem to be firming up. Appetite picking up some , had half a sandwich for lunch. Had some supplements earlier. Perineal area is tender from excoriation from diarrhea, otherwise no specific complaints. Discussed with Dr. Valles. - Constitutional Vitals: Vital Signs Temp Pulse Resp BP Pulse Ox 98.7 F 62 24 H 135/66 96 09/29/17 20:00 09/29/17 20:00 09/29/17 20:00 09/29/17 20:00 09/29/17 20:00 Period Temp Pulse Resp BP Sys/Pichardo Pulse Ox Last 24 Hr 97.8 F-98.7 F 61-64 22-26 110-135/40-82 77-96 Intake and Output 09/29/17 09/29/17 09/30/17 13:59 21:59 05:59 Intake Total 370 / 370 Output Total Balance 370 / 370 - Weight 108 lb Patient Weight 09/30/17 05:59 Weight 108 lb Intake & Output: Intake & Output 09/29/17 09/29/17 09/30/17 13:59 21:59 05:59 Intake Total 370 / 370 Output Total Balance 370 / 370 -1 / -1 Weight 108 lb Intake: IV 370 / 370 Sodium Chloride 0.9% 1,000 ml @ 370 / 370 20 mls/hr IV .Q24H [facility] Rx#: [id number] Output: # of times incontinent of urine Other: Meal Dinner Percent of Meal Consumed 10% Feeding Ability Assist with Tray Set Up # of times incontinent of 1 1 Bowels Exam: General: In bed, getting being changed, some pain with rolling Chest: Clear, no rales Cardiovascular: Regular Abdomen: Soft, active bowel sounds, no tenderness Extremities: 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 Wound on anterior proximal left leg dressed. Neuro: Alert, answering questions, generally weak. Medical - PN: Obj Da - Labs CBC & Chem 7: 09/29/17 04:10 09/29/17 04:10 Labs: Abnormal Lab Results 09/29/17 09/29/17 09/28/17 04:10 04:10 04:30 WBC 3.5 L RBC 2.81 L Hgb 8.9 L Hct 25.4 L RDW 14.6 H Plt Count 82 L RBC Morphology Anisocytosis Potassium 3.2 L BUN 34 H Creatinine 1.5 H 2.7 H Glucose Uric Acid 1.6 L Calcium 7.5 L 7.0 L Phosphorus 2.3 L Lactate Dehydrogenase Total Protein 4.5 L 4.3 L Albumin 2.4 L 2.5 L Globulin 2.1 L 1.8 L Triglycerides 219 H 262 H 09/28/17 09/27/17 04:30 06:11 WBC 3.1 L RBC 2.29 L Hgb 7.0 L* Hct 20.5 L* RDW Plt Count 73 L RBC Morphology Abnorm A Anisocytosis 1+ A Potassium BUN 27 H Creatinine 2.0 H Glucose 53 L Uric Acid Calcium 7.6 L Phosphorus Lactate Dehydrogenase 259 H Total Protein 4.7 L Albumin 2.5 L Globulin Triglycerides 274 H Meds: Medications Acetaminophen (Tylenol) 650 mg PO Q6HP PRN PRN Reason: PAIN/FEVER > 101 Last Admin: 09/26/17 23:20 Dose: 650 mg Amlodipine Besylate (Norvasc) 10 mg PO DAILY [facility] Last Admin: 09/29/17 08:25 Dose: Not Given Aspirin (Aspirin) 81 mg PO DAILY [facility] Last Admin: 09/29/17 08:53 Dose: 81 mg Atorvastatin Calcium (Lipitor) 20 mg PO HS [facility] Last Admin: 09/29/17 20:19 Dose: 20 mg Carvedilol (Coreg) 25 mg PO BIDCC [facility] Last Admin: 09/29/17 16:54 Dose: 25 mg Clonazepam (Klonopin) 0.5 mg PO DAILY@1700 [facility] Last Admin: 09/29/17 16:55 Dose: 0.5 mg Diagnostic Test (Pha) (Accu-Chek) 1 each FS ACHS [facility] Last Admin: 09/29/17 20:17 Dose: 1 each Heparin Sodium (Porcine) (Heparin) 5,000 unit SQ Q12 [facility] Last Admin: 09/29/17 20:20 Dose: Not Given Heparin Sodium (Porcine) (Heparin Flush) 2 ml IV Q12 [facility] Last Admin: 09/29/17 20:20 Dose: 2 ml Sodium Chloride (Sodium Chloride 0.9%) 1,000 mls @ 50 mls/hr IV .Q20H [facility] Last Admin: 09/29/17 05:39 Dose: Not Given Sodium Chloride (Sodium Chloride 0.9%) 1,000 mls @ 20 mls/hr IV .Q24H [facility] Last Admin: 09/29/17 12:06 Dose: Not Given Ibuprofen (Motrin) 600 mg PO QIDP PRN PRN Reason: PAIN/FEVER > 101 Insulin Glargine (Lantus) 8 unit SQ [facility] Last Admin: 09/29/17 20:17 Dose: 8 unit Insulin Human Lispro (Humalog) 0 unit SQ [facility] PRN Reason: Protocol Last Admin: 09/29/17 20:22 Dose: Not Given Isosorbide Mononitrate (Imdur) 30 mg PO BID [facility] Last Admin: 09/29/17 20:18 Dose: 30 mg Levetiracetam (Keppra) 250 mg PO BID [facility] Last Admin: 09/29/17 20:18 Dose: 250 mg Lisinopril (Zestril) 20 mg PO QDAY [facility] Last Admin: 09/29/17 08:26 Dose: Not Given Metoclopramide HCl (Reglan) 5 mg PO TIDAC [facility] Last Admin: 09/29/17 16:54 Dose: 5 mg Oseltamivir Phosphate 6 Mg/Ml Oral Solution 1 dose PO TuThSa@1800 [facility] Stop: 10/03/17 18:01 Last Admin: 09/28/17 17:05 Dose: 1 dose Ondansetron HCl (Zofran) 4 mg IV Q6HP PRN PRN Reason: Nausea And Vomiting Oxycodone/Acetaminophen (Percocet 5-325 Mg) 1 tab PO Q4HP PRN PRN Reason: Pain Pantoprazole Sodium (Protonix) 40 mg PO QAMAC [facility] Last Admin: 09/29/17 07:33 Dose: 40 mg Pramipexole Dihydrochloride (Mirapex) 0.25 mg PO TID [facility] Last Admin: 09/29/17 20:19 Dose: 0.25 mg Sodium Chloride (Saline Flush) 10 ml IV Q12 [facility] Last Admin: 09/29/17 20:19 Dose: 10 ml Sodium Chloride (Saline Flush) 10 ml IV Q12 [facility] Last Admin: 09/29/17 20:22 Dose: Not Given Torsemide (Demadex) 60 mg PO DAILY [facility] Last Admin: 09/29/17 08:52 Dose: 60 mg Vancomycin HCl (Vancomycin Oral Sabiha) 125 mg PO Q6 [facility] Last Admin: 09/29/17 16:58 Dose: 125 mg Medical - PN: A/P (1) C. difficile diarrhea Status: Acute Current Visit: No (2) Influenza B Status: Acute Current Visit: No (3) ESRD (end stage renal disease) on dialysis Status: Acute Current Visit: No (4) CAD (coronary artery disease), [place] coronary artery Status: Chronic Current Visit: No (5) DM type 2 with diabetic peripheral neuropathy Status: Chronic Current Visit: No - Narrative A/P Narrative: 67-year-old female with multiple medical problems, including end-stage renal disease, coronary disease, type 2 diabetes, cerebrovascular disease who presents with failure of outpatient treatment of C. difficile diarrhea and influenza. C. difficile associated diarrhea. Failed outpatient therapy, as unable to care for self even with caregivers. Tolerating vancomycin. Stools firmer. Plan: Continue vancomycin, 125 mg PO every 6 hours, begin hydration. Influenza. No evidence of pneumonia when diagnosed, lungs remain clear. Overall, contributed to failure to thrive. Plan: Continue oseltamivir dosed at 30 mg now on 30 mg after hemodialysis. Anemia. Likely secondary to chronic renal disease. Hemoglobin improved with one unit PRBC. No evidence of active bleeding. Plan: Monitor Hypertension. No further hypotension. Plan: Hold parameters on amlodipine and lisinopril. Hypophosphatemia. Not on phosphate binders at baseline. Plan: IV supplementation. End-stage renal disease. / dialysis patient. HD on Saturday, next is . Potassium low today after dialysis yesterday. Plan: Continue dialysis at appropriate interval. Small potassium supplement today. Type 2 diabetes mellitus. Patient follows a regular diet at home. On a combination of short acting and long-acting insulins. Plan: Continue long-acting insulin, sliding scale insulin, regular diet as she does not follow a diabetic diet even one in the hospital, Accu-Cheks Cerebrovascular disease. Currently quiescent. Plan: Continue home regimen, however we will hold clopidogrel to prevent decreased effectiveness of oseltamivir Coronary artery disease. No current symptoms. Plan: Continue current regimen. Lower extremity wounds. Plan: Continue wound care. CODE STATUS is full code Prophylaxis: Subcutaneous heparin, PPI Medical - PN: Qual - VTE Deep Vein Thrombosis/Pulmonary Embolism Present on Admission: No
[2017-09-30] MEDS: VANCOMYCIN ORAL SOL 1,000 MG/10 ML BOTTLE PO SCH ×4 (00:10→17:25)
[2017-09-30] MEDS: 0.9 % SODIUM CHLORIDE 1,000 ML IV SCH ×3 (00:10→20:30)
[2017-09-30 05:32] LABS: Mean Cell Volume 89.8 fL (80.0-100.0); Mean Corpuscular HGB Conc 33.9 g/dL (31.0-36.0); Mean Corpuscular Hemoglobin 30.5 pg (26.0-34.0); Platelet Count 105 K/mcL (140-440); RBC 3.28 M/mcL (4.00-5.20); Red Cell Distribution Width 14.6 % (11.5-14.5)
[2017-09-30 06:41] LABS: ALT/SGPT 6 U/l (0-40); Albumin 2.8 gm/dL (3.2-5.2); Albumin/Globulin Ratio 1.3 (1.0-2.3); Alkaline Phosphatase 48 U/L (39-117); Bilirubin,Direct < 0.2 mg/dL (0.0-0.3); Blood Urea Nitrogen 18 mg/dl (8-23); Gamma Glutamyl Transpeptidase 10 U/L (5-36); Magnesium 1.9 mg/dL (1.6-2.5); Uric Acid 2.8 mg/dL (2.5-8.0)
[2017-09-30] MEDS: INSULIN LISPRO 1 UNIT/0.01 ML UNIT SQ SCH ×4 (07:05→22:45)
[2017-09-30] MEDS: METOCLOPRAMIDE 10 MG TABLET PO SCH ×3 (07:22→17:25)
[2017-09-30] MEDS: PANTOPRAZOLE 40 MG TABLET PO SCH (07:22)
[2017-09-30] MEDS: CARVEDILOL 12.5 MG TABLET PO SCH ×2 (07:23→17:25)
[2017-09-30 08:30] LABS: Band Neutrophils % 2 % (0-10); Eosinophils % (Manual) 3 % (0-7); Lymphocytes % 19 % (15-49); Monocytes % (Manual) 7 % (1-12); Platelet Estimate DECREASED (NORMAL); RBC Morphology NORMAL (NORMAL); Segmented Neutrophils % 67 % (38-78)
[2017-09-30] MEDS: TORSEMIDE 10 MG TABLET PO SCH (09:42)
[2017-09-30] MEDS: HEPARIN 5,000 UNIT/ML VIAL SQ SCH ×3 (09:42→20:37)
[2017-09-30] MEDS: levETIRAcetam 500 MG TABLET PO SCH ×2 (09:43→20:21)
[2017-09-30] MEDS: LISINOPRIL 20 MG TABLET PO SCH (09:43)
[2017-09-30] MEDS: PRAMIPEXOLE 0.25 MG TABLET PO SCH ×3 (09:43→20:21)
[2017-09-30] MEDS: ISOSORBIDE MONONITRATE 60 MG TAB.XL.24H PO SCH ×2 (09:43→20:21)
[2017-09-30] MEDS: ASPIRIN 81 MG TAB.CHEW PO SCH (09:44)
[2017-09-30] MEDS: amLODIPine 10 MG TABLET PO SCH (09:44)
[2017-09-30] MEDS: 0.9 % SODIUM CHLORIDE 10 ML SYRINGE IV SCH ×4 (09:45→22:45)
--- NOTE | 2017-09-30 15:58 | Internal Med Progress Note ---
Medical - PN: Subj Patient information: Note initiated : 09/30/17 at 3:54 pm Service Date, if different from initiated Date: [] Patient: Tamica Tidwell 67 y/o F admitted on 09/26/17 for influenza and c- diff. Chief Complaint: f/u influenza and C. difficile Interval history: September 26 Direct admit after outpatient dialysis for failure of outpatient therapy of C. difficile associated diarrhea, ongoing symptoms from influenza. Patient having several loose stools a day, still having fever, decreased appetite and decreased oral intake with failure to thrive. September 27 Patient with lower blood pressure, systolic dropped down to 70 while sitting up this morning. Her weight after dialysis was below her dry weight yesterday. May be volume depleted. Also on several antihypertensives. Suspicion for sepsis lower. Had fever yesterday, treated symptomatically. Tolerating vancomycin, still with loose stools. Decreased motivation, decreased appetite, not wanting to participate in self care or to eat. September 28 Getting dialysis today. Hemoglobin dropped to 7.0 this morning. Still not motivated to eat. Remains on by mouth vancomycin, stooling appears improved. September 29 More interactive today. Stools seem to be firming up. Appetite picking up some , had half a sandwich for lunch. Had some supplements earlier. Perineal area is tender from excoriation from diarrhea, otherwise no specific complaints. Discussed with Dr. Valles. Sep 30 More talkative and interactive today. Appetite is picking up. Stools continue to firm up. Still has significant excoriation and wounds in the perineal and sacral region from the diarrhea. We'll get wound care consult. - Constitutional Vitals: Vital Signs Temp Pulse Resp BP Pulse Ox 98 F 69 18 120/68 97 09/30/17 11:35 09/30/17 08:00 09/30/17 11:35 09/30/17 11:35 09/30/17 11:35 Period Temp Pulse Resp BP Sys/Pichardo Pulse Ox Last 24 Hr 96.7 F-98.7 F 62-69 12-24 106-162/50-70 88-98 Intake and Output 09/30/17 09/30/17 09/30/17 05:59 13:59 21:59 Intake Total 100 / 100 180 / 180 Output Total 2 / 2 Balance 98 / 98 180 / 180 Intake & Output: Intake & Output 09/30/17 09/30/17 09/30/17 05:59 13:59 21:59 Intake Total 100 / 100 180 / 180 Output Total 2 / 2 Balance 98 / 98 180 / 180 Intake: Oral 100 / 100 180 / 180 Output: # of times incontinent of urine 2 / 2 Other: Meal Breakfast Percent of Meal Consumed 25% Exam: General: Seen while being changed. Chest: Clear, no rales Cardiovascular: Regular Abdomen: Soft Skin: Stage I ulcer in the superior sacral region, area of blistering to the left. Excoriation around the perineal region. Wounds of left leg stump dressed. Neuro: Alert, interactive today. Generally weak. Medical - PN: Obj Da - Labs CBC & Chem 7: 09/30/17 04:35 09/30/17 04:35 Labs: Abnormal Lab Results 09/30/17 09/30/17 09/29/17 04:35 04:35 04:10 WBC RBC 3.28 L Hgb 10.0 L Hct 29.4 L RDW 14.6 H Plt Count 105 L RBC Morphology Anisocytosis Potassium 3.2 L BUN Creatinine 2.2 H 1.5 H Glucose 58 L Uric Acid 1.6 L Calcium 7.9 L 7.5 L Phosphorus 2.3 L Total Protein 4.9 L 4.5 L Albumin 2.8 L 2.4 L Globulin 2.1 L 2.1 L Triglycerides 176 H 219 H 09/29/17 09/28/17 09/28/17 04:10 04:30 04:30 WBC 3.5 L 3.1 L RBC 2.81 L 2.29 L Hgb 8.9 L 7.0 L* Hct 25.4 L 20.5 L* RDW 14.6 H Plt Count 82 L 73 L RBC Morphology Abnorm A Anisocytosis 1+ A Potassium BUN 34 H Creatinine 2.7 H Glucose Uric Acid Calcium 7.0 L Phosphorus Total Protein 4.3 L Albumin 2.5 L Globulin 1.8 L Triglycerides 262 H Meds: Medications Acetaminophen (Tylenol) 650 mg PO Q6HP PRN PRN Reason: PAIN/FEVER > 101 Last Admin: 09/26/17 23:20 Dose: 650 mg Amlodipine Besylate (Norvasc) 10 mg PO DAILY [facility] Last Admin: 09/30/17 09:44 Dose: 10 mg Aspirin (Aspirin) 81 mg PO DAILY [facility] Last Admin: 09/30/17 09:44 Dose: 81 mg Atorvastatin Calcium (Lipitor) 20 mg PO HS [facility] Last Admin: 09/29/17 20:19 Dose: 20 mg Carvedilol (Coreg) 25 mg PO BIDCC [facility] Last Admin: 09/30/17 07:23 Dose: 25 mg Clonazepam (Klonopin) 0.5 mg PO DAILY@1700 [facility] Last Admin: 09/29/17 16:55 Dose: 0.5 mg Diagnostic Test (Pha) (Accu-Chek) 1 each FS ACHS [facility] Last Admin: 09/30/17 12:20 Dose: 1 each Heparin Sodium (Porcine) (Heparin) 5,000 unit SQ Q12 [facility] Last Admin: 09/30/17 09:42 Dose: 5,000 unit Heparin Sodium (Porcine) (Heparin Flush) 2 ml IV Q12 [facility] Last Admin: 09/30/17 09:44 Dose: 2 ml Sodium Chloride (Sodium Chloride 0.9%) 1,000 mls @ 50 mls/hr IV .Q20H [facility] Last Admin: 09/30/17 00:10 Dose: Not Given Sodium Chloride (Sodium Chloride 0.9%) 1,000 mls @ 20 mls/hr IV .Q24H [facility] Last Admin: 09/30/17 12:32 Dose: Not Given Ibuprofen (Motrin) 600 mg PO QIDP PRN PRN Reason: PAIN/FEVER > 101 Insulin Glargine (Lantus) 8 unit SQ [facility] Last Admin: 09/29/17 20:17 Dose: 8 unit Insulin Human Lispro (Humalog) 0 unit SQ [facility] PRN Reason: Protocol Last Admin: 09/30/17 12:23 Dose: Not Given Isosorbide Mononitrate (Imdur) 30 mg PO BID [facility] Last Admin: 09/30/17 09:43 Dose: 30 mg Levetiracetam (Keppra) 250 mg PO BID [facility] Last Admin: 09/30/17 09:43 Dose: 250 mg Lisinopril (Zestril) 20 mg PO QDAY [facility] Last Admin: 09/30/17 09:43 Dose: 20 mg Metoclopramide HCl (Reglan) 5 mg PO TIDAC [facility] Last Admin: 09/30/17 12:30 Dose: 5 mg Oseltamivir Phosphate 6 Mg/Ml Oral Solution 1 dose PO TuThSa@1800 [facility] Stop: 10/03/17 18:01 Last Admin: 09/28/17 17:05 Dose: 1 dose Ondansetron HCl (Zofran) 4 mg IV Q6HP PRN PRN Reason: Nausea And Vomiting Oxycodone/Acetaminophen (Percocet 5-325 Mg) 1 tab PO Q4HP PRN PRN Reason: Pain Pantoprazole Sodium (Protonix) 40 mg PO QAMAC [facility] Last Admin: 09/30/17 07:22 Dose: 40 mg Pramipexole Dihydrochloride (Mirapex) 0.25 mg PO TID [facility] Last Admin: 09/30/17 15:31 Dose: 0.25 mg Sodium Chloride (Saline Flush) 10 ml IV Q12 [facility] Last Admin: 09/30/17 09:45 Dose: Not Given Sodium Chloride (Saline Flush) 10 ml IV Q12 [facility] Last Admin: 09/30/17 09:45 Dose: 10 ml Torsemide (Demadex) 60 mg PO DAILY [facility] Last Admin: 09/30/17 09:42 Dose: 60 mg Vancomycin HCl (Vancomycin Oral Sabiha) 125 mg PO Q6 [facility] Last Admin: 09/30/17 12:30 Dose: 125 mg Medical - PN: A/P (1) C. difficile diarrhea Status: Acute Current Visit: No (2) Influenza B Status: Acute Current Visit: No (3) ESRD (end stage renal disease) on dialysis Status: Acute Current Visit: No (4) CAD (coronary artery disease), [place] coronary artery Status: Chronic Current Visit: No (5) DM type 2 with diabetic peripheral neuropathy Status: Chronic Current Visit: No - Narrative A/P Narrative: 67-year-old female with multiple medical problems, including end-stage renal disease, coronary disease, type 2 diabetes, cerebrovascular disease who presents with failure of outpatient treatment of C. difficile diarrhea and influenza. C. difficile associated diarrhea. Improving. Failed outpatient therapy, as unable to care for self even with caregivers. Tolerating vancomycin. Stools firmer. Plan: Continue vancomycin, 125 mg PO every 6 hours Influenza. No evidence of pneumonia when diagnosed, lungs remain clear. Overall, contributed to failure to thrive. Improving. Plan: Continue oseltamivir dosed at 30 mg now on 30 mg after hemodialysis. Anemia. Likely secondary to chronic renal disease. Hemoglobin improved with one unit PRBC on Sat. No evidence of active bleeding. Plan: Monitor Hypertension. No further hypotension. Plan: Hold parameters on amlodipine and lisinopril. Hypophosphatemia. Not on phosphate binders at baseline. Plan: IV supplementation. End-stage renal disease. // dialysis patient. HD on Saturday, next is . Plan: Continue dialysis at appropriate interval.. Type 2 diabetes mellitus. Patient follows a regular diet at home. On a combination of short acting and long-acting insulins. Plan: Continue long-acting insulin, sliding scale insulin, regular diet as she does not follow a diabetic diet even one in the hospital, Accu-Cheks Cerebrovascular disease. Currently quiescent. Plan: Continue home regimen, however we will hold clopidogrel to prevent decreased effectiveness of oseltamivir Coronary artery disease. No current symptoms. Plan: Continue current regimen. Lower extremity/perineal wounds. Plan: Continue wound care, wound care consult. CODE STATUS is full code Prophylaxis: Subcutaneous heparin, PPI Medical - PN: Qual - VTE Deep Vein Thrombosis/Pulmonary Embolism Present on Admission: No
[2017-09-30] MEDS: clonazePAM 0.5 MG TABLET PO SCH (17:25)
[2017-09-30] MEDS: ATORVASTATIN 20 MG TABLET PO SCH (20:21)
[2017-09-30] MEDS: INSULIN GLARGINE, HUMAN 1 UNIT/0.01 ML SQ SCH (20:31)
[2017-10-01] MEDS: VANCOMYCIN ORAL SOL 1,000 MG/10 ML BOTTLE PO SCH ×4 (05:19→17:51)
[2017-10-01 06:22] LABS: Mean Cell Volume 89.7 fL (80.0-100.0); Mean Corpuscular HGB Conc 34.7 g/dL (31.0-36.0); Mean Corpuscular Hemoglobin 31.1 pg (26.0-34.0); Platelet Count 115 K/mcL (140-440); RBC 3.01 M/mcL (4.00-5.20); Red Cell Distribution Width 14.6 % (11.5-14.5)
[2017-10-01 06:39] LABS: ALT/SGPT 6 U/l (0-40); Albumin 2.7 gm/dL (3.2-5.2); Albumin/Globulin Ratio 1.3 (1.0-2.3); Alkaline Phosphatase 56 U/L (39-117); Bilirubin,Direct < 0.2 mg/dL (0.0-0.3); Blood Urea Nitrogen 21 mg/dl (8-23); Gamma Glutamyl Transpeptidase 7 U/L (5-36); Magnesium 1.9 mg/dL (1.6-2.5); Uric Acid 4.2 mg/dL (2.5-8.0)
[2017-10-01] MEDS: METOCLOPRAMIDE 10 MG TABLET PO SCH ×3 (07:20→17:50)
[2017-10-01] MEDS: PANTOPRAZOLE 40 MG TABLET PO SCH (07:20)
[2017-10-01 07:21] LABS: Anisocytosis FEW (NONE SEEN); Band Neutrophils % 1 % (0-10); Eosinophils % (Manual) 3 % (0-7); Lymphocytes % 22 % (15-49); Monocytes % (Manual) 4 % (1-12); Platelet Estimate DECREASED (NORMAL); RBC Morphology ABNORM (NORMAL); Segmented Neutrophils % 70 % (38-78)
[2017-10-01] MEDS: INSULIN LISPRO 1 UNIT/0.01 ML UNIT SQ SCH ×4 (07:25→20:38)
[2017-10-01] MEDS: TORSEMIDE 10 MG TABLET PO SCH (09:12)
[2017-10-01] MEDS: levETIRAcetam 500 MG TABLET PO SCH ×2 (09:13→20:35)
[2017-10-01] MEDS: CARVEDILOL 12.5 MG TABLET PO SCH ×2 (09:27→17:51)
[2017-10-01] MEDS: ASPIRIN 81 MG TAB.CHEW PO SCH (09:27)
[2017-10-01] MEDS: LISINOPRIL 20 MG TABLET PO SCH ×2 (09:27→20:36)
[2017-10-01] MEDS: amLODIPine 10 MG TABLET PO SCH ×2 (09:27→20:36)
[2017-10-01] MEDS: PRAMIPEXOLE 0.25 MG TABLET PO SCH ×3 (09:27→20:36)
[2017-10-01] MEDS: HEPARIN 5,000 UNIT/ML VIAL SQ SCH ×2 (09:27→20:47)
[2017-10-01] MEDS: ISOSORBIDE MONONITRATE 60 MG TAB.XL.24H PO SCH ×2 (09:28→20:36)
[2017-10-01] MEDS: 0.9 % SODIUM CHLORIDE 10 ML SYRINGE IV SCH ×4 (09:32→20:39)
[2017-10-01] MEDS ORDERED: MIDODRINE 5 MG TABLET PO PRN (10:29)
--- NOTE | 2017-10-01 10:37 | Nephrology Progress Note ---
Subjective Patient information: Note initiated : 10/01/17 at 10:34 am Service Date, if different from initiated Date: [] Patient: Tamica Tidwell 67 y/o F admitted on 09/26/17 for influenza and c- diff. Chief Complaint: Diarrhea is getting better. Flu is getting better. Not much pain. Objective - Vital Signs Vital signs: Vital Signs Temp Pulse Pulse Resp BP Pulse Ox 10/01/17 08:00 98.4 F 22 136/50 94 10/01/17 07:55 66 12 94 10/01/17 04:00 97.5 F 68 24 H 144/56 93 10/01/17 00:00 97.8 F 69 24 H 124/58 98 09/30/17 20:00 98.6 F 64 24 H 130/58 96 09/30/17 16:00 97.8 F 68 18 130/50 90 09/30/17 11:35 98 F 18 120/68 97 Intake and Output 09/30/17 10/01/17 10/01/17 21:59 05:59 13:59 Intake Total 100 / 100 Output Total Balance - 99 - Intake: Oral 100 / 100 Output: # of times incontinent of urine Other: Meal Dinner Percent of Meal Consumed 25% Feeding Ability Independent # Voids 2 # Bowel Movements 1 Weight 108 lb Intake & Output: Intake & Output 09/30/17 10/01/17 10/01/17 21:59 05:59 13:59 Intake Total 100 / 100 Output Total Balance - - Weight 108 lb Intake: Oral 100 / 100 Output: # of times incontinent of urine Other: Meal Dinner Percent of Meal Consumed 25% Feeding Ability Independent # Voids 2 # Bowel Movements 1 - General Appearance General appearance: cachectic EENT: ATNC Neck: no JVD Respiratory: no kyphosis Cardiology: no murmurs Integumentary: no rash - Lab 10/01/17 05:10 10/01/17 05:10 Most recent lab results Calcium 7.9 mg/dl (8.6-10.4) L 10/01/17 05:10 Phosphorus 2.4 mg/dL (2.7-4.5) L 10/01/17 05:10 Magnesium 1.9 mg/dL (1.6-2.5) 10/01/17 05:10 Assessment and Plan (1) ESRD (end stage renal disease) on dialysis Status: Acute Comment: ESRD. HD today. Will take 2-3 liters of fluid. Will use midodrine. She got her bp meds this morning. Will use IDPN.
[2017-10-01] MEDS: 0.9 % SODIUM CHLORIDE 1,000 ML IV SCH ×2 (12:01→17:50)
[2017-10-01] MEDS: clonazePAM 0.5 MG TABLET PO SCH (17:50)
[2017-10-01] MEDS: OSELTAMIVIR PHOSPHATE 6 MG/ML ORAL SOLUTION PO SCH (17:57)
--- NOTE | 2017-10-01 20:16 | Internal Med Progress Note ---
Medical - PN: Subj Patient information: Note initiated : 10/01/17 at 8:14 pm Service Date, if different from initiated Date: [] Patient: Tamica Tidwell 67 y/o F admitted on 09/26/17 for influenza and c- diff. Chief Complaint: f/u C. difficile and influenza Interval history: September 26 Direct admit after outpatient dialysis for failure of outpatient therapy of C. difficile associated diarrhea, ongoing symptoms from influenza. Patient having several loose stools a day, still having fever, decreased appetite and decreased oral intake with failure to thrive. September 27 Patient with lower blood pressure, systolic dropped down to 70 while sitting up this morning. Her weight after dialysis was below her dry weight yesterday. May be volume depleted. Also on several antihypertensives. Suspicion for sepsis lower. Had fever yesterday, treated symptomatically. Tolerating vancomycin, still with loose stools. Decreased motivation, decreased appetite, not wanting to participate in self care or to eat. September 28 Getting dialysis today. Hemoglobin dropped to 7.0 this morning. Still not motivated to eat. Remains on by mouth vancomycin, stooling appears improved. September 29 More interactive today. Stools seem to be firming up. Appetite picking up some , had half a sandwich for lunch. Had some supplements earlier. Perineal area is tender from excoriation from diarrhea, otherwise no specific complaints. Discussed with Dr. Valles. Sep 30 More talkative and interactive today. Appetite is picking up. Stools continue to firm up. Still has significant excoriation and wounds in the perineal and sacral region from the diarrhea. We'll get wound care consult. Oct 01 Continues to slowly improve, more interactive and talkative. Starting to get tired of being in the hospital. Not much in way of cough, no shortness of breath. Pain seemed improved. Stooling is improved. Seen by wound care, recommendations ordered. - Constitutional Vitals: Vital Signs Temp Pulse Resp BP Pulse Ox 98.3 F 86 16 134/73 97 10/01/17 17:40 10/01/17 17:40 10/01/17 14:56 10/01/17 17:40 10/01/17 14:56 Period Temp Pulse Resp BP Sys/Pichardo Pulse Ox Last 24 Hr 96.2 F-98.4 F 51-86 12-24 94-155/44-73 93-98 Intake and Output 10/01/17 10/01/17 10/01/17 05:59 13:59 21:59 Intake Total 100 / 100 983 / 983 530 / 530 Output Total 2401 / 2401 Balance 99 / 99 982 / 982 -1871 / -1871 Weight 108 lb Patient Weight 10/02/17 05:59 Weight 108 lb Intake & Output: Intake & Output 10/01/17 10/01/17 10/01/17 05:59 13:59 21:59 Intake Total 100 / 100 983 / 983 530 / 530 Output Total 2401 / 2401 Balance 99 / 99 982 / 982 -1871 / -1871 Weight 108 lb Intake: IV 983 / 983 Sodium Chloride 0.9% 1,000 ml @ 983 / 983 20 mls/hr IV .Q24H [facility] Rx#: [id number] Oral 100 / 100 530 / 530 Output: # of times incontinent of urine Hemodialysis UF 2400 / 2400 Other: # Voids 2 # Bowel Movements 1 Exam: General: Sitting up in bed after dialysis, little tired Chest: Clear, no rales Cardiovascular: Regular rate and rhythm Abdomen: Soft, nontender, normal bowel sounds Musculoskeletal: Left BKA wounds dressed Neuro: Alert, oriented, mood improved, more interactive Medical - PN: Obj Da - Labs CBC & Chem 7: 10/01/17 05:10 10/01/17 05:10 Labs: Abnormal Lab Results 10/01/17 10/01/17 09/30/17 05:10 05:10 04:35 WBC RBC 3.01 L Hgb 9.4 L Hct 27.0 L RDW 14.6 H Plt Count 115 L RBC Morphology Abnorm A Anisocytosis Few A Potassium Creatinine 2.8 H 2.2 H Glucose 117 H 58 L Uric Acid Calcium 7.9 L 7.9 L Phosphorus 2.4 L Total Protein 4.8 L 4.9 L Albumin 2.7 L 2.8 L Globulin 2.1 L 2.1 L Triglycerides 176 H 09/30/17 09/29/17 09/29/17 04:35 04:10 04:10 WBC 3.5 L RBC 3.28 L 2.81 L Hgb 10.0 L 8.9 L Hct 29.4 L 25.4 L RDW 14.6 H 14.6 H Plt Count 105 L 82 L RBC Morphology Anisocytosis Potassium 3.2 L Creatinine 1.5 H Glucose Uric Acid 1.6 L Calcium 7.5 L Phosphorus 2.3 L Total Protein 4.5 L Albumin 2.4 L Globulin 2.1 L Triglycerides 219 H Meds: Medications Acetaminophen (Tylenol) 650 mg PO Q6HP PRN PRN Reason: PAIN/FEVER > 101 Last Admin: 09/26/17 23:20 Dose: 650 mg Amlodipine Besylate (Norvasc) 10 mg PO [facility] Aspirin (Aspirin) 81 mg PO DAILY [facility] Last Admin: 10/01/17 09:27 Dose: 81 mg Atorvastatin Calcium (Lipitor) 20 mg PO HS [facility] Last Admin: 09/30/17 20:21 Dose: 20 mg Carvedilol (Coreg) 25 mg PO BIDCC [facility] Last Admin: 10/01/17 17:51 Dose: 25 mg Clonazepam (Klonopin) 0.5 mg PO DAILY@1700 [facility] Last Admin: 10/01/17 17:50 Dose: 0.5 mg Diagnostic Test (Pha) (Accu-Chek) 1 each FS [facility] Last Admin: 10/01/17 17:50 Dose: 1 each Heparin Sodium (Porcine) (Heparin) 5,000 unit SQ Q12 [facility] Last Admin: 10/01/17 09:27 Dose: 5,000 unit Heparin Sodium (Porcine) (Heparin Flush) 2 ml IV Q12 [facility] Last Admin: 10/01/17 09:27 Dose: 2 ml Sodium Chloride (Sodium Chloride 0.9%) 1,000 mls @ 50 mls/hr IV .Q20H [facility] Last Admin: 10/01/17 17:50 Dose: Not Given Sodium Chloride (Sodium Chloride 0.9%) 1,000 mls @ 20 mls/hr IV .Q24H [facility] Last Admin: 10/01/17 12:01 Dose: 20 mls/hr Insulin Glargine (Lantus) 8 unit SQ [facility] Last Admin: 09/30/17 20:31 Dose: Not Given Insulin Human Lispro (Humalog) 0 unit SQ [facility] PRN Reason: Protocol Last Admin: 10/01/17 17:51 Dose: Not Given Isosorbide Mononitrate (Imdur) 30 mg PO BID [facility] Last Admin: 10/01/17 09:28 Dose: 30 mg Levetiracetam (Keppra) 250 mg PO BID [facility] Last Admin: 10/01/17 09:13 Dose: 250 mg Lisinopril (Zestril) 20 mg PO HS [facility] Metoclopramide HCl (Reglan) 5 mg PO TIDAC [facility] Last Admin: 10/01/17 17:50 Dose: 5 mg Midodrine (Midodrine Hcl) 10 mg PO PRN PRN PRN Reason: sbp < 120 during dialysis. Oseltamivir Phosphate 6 Mg/Ml Oral Solution 1 dose PO TuThSa@1800 [facility] Stop: 10/03/17 18:01 Last Admin: 10/01/17 17:57 Dose: 1 dose Ondansetron HCl (Zofran) 4 mg IV Q6HP PRN PRN Reason: Nausea And Vomiting Oxycodone/Acetaminophen (Percocet 5-325 Mg) 1 tab PO Q4HP PRN PRN Reason: Pain Pantoprazole Sodium (Protonix) 40 mg PO QAMAC [facility] Last Admin: 10/01/17 07:20 Dose: 40 mg Pramipexole Dihydrochloride (Mirapex) 0.25 mg PO TID [facility] Last Admin: 10/01/17 17:50 Dose: 0.25 mg Sodium Chloride (Saline Flush) 10 ml IV Q12 [facility] Last Admin: 10/01/17 09:32 Dose: Not Given Sodium Chloride (Saline Flush) 10 ml IV Q12 [facility] Last Admin: 10/01/17 09:32 Dose: 10 ml Torsemide (Demadex) 60 mg PO DAILY [facility] Last Admin: 10/01/17 09:12 Dose: 60 mg Vancomycin HCl (Vancomycin Oral Sabiha) 125 mg PO Q6 [facility] Last Admin: 10/01/17 17:51 Dose: 125 mg Medical - PN: A/P (1) C. difficile diarrhea Status: Acute Current Visit: No (2) Influenza B Status: Acute Current Visit: No (3) ESRD (end stage renal disease) on dialysis Problem details: ESRD. HD today. Will take 2-3 liters of fluid. Will use midodrine. She got her bp meds this morning. Will use IDPN. Status: Acute Current Visit: No (4) CAD (coronary artery disease), [place] coronary artery Status: Chronic Current Visit: No (5) DM type 2 with diabetic peripheral neuropathy Status: Chronic Current Visit: No - Narrative A/P Narrative: 67-year-old female with multiple medical problems, including end-stage renal disease, coronary disease, type 2 diabetes, cerebrovascular disease who presents with failure of outpatient treatment of C. difficile diarrhea and influenza. C. difficile associated diarrhea. Continues to improve. Failed outpatient therapy, as unable to care for self even with caregivers. Tolerating vancomycin. Stools firmer. Plan: Continue vancomycin, 125 mg PO every 6 hours Influenza. No evidence of pneumonia when diagnosed, lungs remain clear. Overall, contributed to failure to thrive. Improving. Plan: Stop oseltamivir. Anemia. Likely secondary to chronic renal disease. Hemoglobin improved with one unit PRBC on Sat. No evidence of active bleeding. Plan: Monitor Hypertension. No further hypotension. Plan: Hold parameters on amlodipine and lisinopril. Hypophosphatemia. Not on phosphate binders at baseline. Plan: IV supplementation. End-stage renal disease. // dialysis patient. HD on Saturday, next is . Plan: Continue dialysis at appropriate interval.. Type 2 diabetes mellitus. Patient follows a regular diet at home. On a combination of short acting and long-acting insulins. Plan: Continue long-acting insulin, sliding scale insulin, regular diet as she does not follow a diabetic diet even one in the hospital, Accu-Cheks Cerebrovascular disease. Currently quiescent. Plan: Continue home regimen, however we will hold clopidogrel to prevent decreased effectiveness of oseltamivir Coronary artery disease. No current symptoms. Plan: Continue current regimen. Lower extremity/perineal wounds. Plan: Continue wound care, wound care consult. CODE STATUS is full code Prophylaxis: Subcutaneous heparin, PPI Medical - PN: Qual - VTE Deep Vein Thrombosis/Pulmonary Embolism Present on Admission: No
[2017-10-01] MEDS: ATORVASTATIN 20 MG TABLET PO SCH (20:37)
[2017-10-01] MEDS: INSULIN GLARGINE, HUMAN 1 UNIT/0.01 ML SQ SCH (20:38)
[2017-10-02] MEDS: VANCOMYCIN ORAL SOL 1,000 MG/10 ML BOTTLE PO SCH ×4 (00:48→18:01)
--- NOTE | 2017-10-02 07:41 | Orthopedic Progress Note ---
Subjective Patient information: Note initiated : 10/02/17 at 7:38 am Service Date, if different from initiated Date: [] Patient: Tamica Tidwell 67 y/o F admitted on 09/26/17 for influenza and c- diff. Chief Complaint: [] Principal diagnosis: PVD Interval history: admitted for c dificile diaarhea Objective Vital signs: Vital Signs Temp Pulse Pulse Resp BP BP Pulse Ox 10/02/17 04:00 98.5 F 61 20 116/48 96 10/02/17 00:00 97.2 F 57 L 20 122/48 96 10/01/17 20:00 96.0 F L 69 24 H 130/50 98 10/01/17 17:40 98.3 F 86 134/73 10/01/17 17:23 66 102/53 10/01/17 17:09 51 L 94/71 10/01/17 16:37 62 143/68 10/01/17 16:08 65 148/68 10/01/17 15:35 68 143/69 10/01/17 15:09 65 147/73 10/01/17 14:56 96.2 F L 16 155/73 97 10/01/17 14:37 66 155/73 10/01/17 14:08 98.4 F 67 132/66 10/01/17 10:51 96.3 F L 20 128/44 96 10/01/17 08:00 98.4 F 22 136/50 94 10/01/17 07:55 66 12 94 Intake and Output 10/01/17 10/02/17 10/02/17 21:59 05:59 13:59 Intake Total 530 / 530 200 / 200 Output Total 2402 / 2402 Balance -187 / -187 200 / 200 Intake: Oral 530 / 530 200 / 200 Output: # of times incontinent of urine 2 / 2 Hemodialysis UF 2400 / 2400 Other: Meal Dinner Percent of Meal Consumed 10% Feeding Ability Independent # of times incontinent of 1 1 Bowels Weight 103 lb 8 oz Intake & Output: Intake & Output 10/01/17 10/02/17 10/02/17 21:59 05:59 13:59 Intake Total 530 / 530 200 / 200 Output Total 2402 / 2402 Balance -187 / -187 200 / 200 Weight 103 lb 8 oz Intake: Oral 530 / 530 200 / 200 Output: # of times incontinent of urine 2 / 2 Hemodialysis UF 2400 / 2400 Other: Meal Dinner Percent of Meal Consumed 10% Feeding Ability Independent # of times incontinent of 1 1 Bowels Dressing: Yes clean, Yes dry, Yes intact - Labs CBC & BMP: 10/01/17 05:10 10/01/17 05:10 Labs: 10/01/17 09/30/17 09/29/17 05:10 04:35 04:10 Hgb 9.4 L 10.0 L 8.9 L Hct 27.0 L 29.4 L 25.4 L 09/28/17 09/26/17 04:30 15:45 Hgb 7.0 L* 8.6 L Hct 20.5 L* 25.4 L Assessment and Plan (1) Follow up will wait on amputation until nutrition better Status: Acute
[2017-10-02] MEDS: INSULIN LISPRO 1 UNIT/0.01 ML UNIT SQ SCH ×4 (08:01→21:35)
[2017-10-02] MEDS: PANTOPRAZOLE 40 MG TABLET PO SCH (08:01)
[2017-10-02] MEDS: METOCLOPRAMIDE 10 MG TABLET PO SCH ×3 (08:01→18:00)
--- NOTE | 2017-10-02 10:20 | Internal Med Progress Note ---
Medical - PN: Subj Patient information: Note initiated : 10/02/17 at 10:18 am Service Date, if different from initiated Date: [] Patient: Tamica Tidwell a 67 y/o F admitted on 09/26/17 for influenza and c- diff. Chief Complaint: f/u c diff and influenza Interval history: September 26 Direct admit after outpatient dialysis for failure of outpatient therapy of C. difficile associated diarrhea, ongoing symptoms from influenza. Patient having several loose stools a day, still having fever, decreased appetite and decreased oral intake with failure to thrive. September 27 Patient with lower blood pressure, systolic dropped down to 70 while sitting up this morning. Her weight after dialysis was below her dry weight yesterday. May be volume depleted. Also on several antihypertensives. Suspicion for sepsis lower. Had fever yesterday, treated symptomatically. Tolerating vancomycin, still with loose stools. Decreased motivation, decreased appetite, not wanting to participate in self care or to eat. September 28 Getting dialysis today. Hemoglobin dropped to 7.0 this morning. Still not motivated to eat. Remains on by mouth vancomycin, stooling appears improved. September 29 More interactive today. Stools seem to be firming up. Appetite picking up some , had half a sandwich for lunch. Had some supplements earlier. Perineal area is tender from excoriation from diarrhea, otherwise no specific complaints. Discussed with Dr. Valles. Sep 30 More talkative and interactive today. Appetite is picking up. Stools continue to firm up. Still has significant excoriation and wounds in the perineal and sacral region from the diarrhea. We'll get wound care consult. Oct 01 Continues to slowly improve, more interactive and talkative. Starting to get tired of being in the hospital. Not much in way of cough, no shortness of breath. Pain seemed improved. Stooling is improved. Seen by wound care, recommendations ordered. Oct 02 No new symptoms today. Discussed the case with Dr. Higgins. The patient's had poor nutritional status for over a week due to her C. difficile and influenza. 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 Patient understands reason for this. Stools continue to firm, continues to receive wound care. May not be strong enough to return home. Should know within the next 24-48 hours her discharge needs. May possibly be able to go to home with support versus facility after dialysis tomorrow - Constitutional Vitals: Vital Signs Temp Pulse Resp BP Pulse Ox 97.6 F 70 20 128/68 97 10/02/17 08:00 10/02/17 08:00 10/02/17 08:00 10/02/17 08:00 10/02/17 08:00 Period Temp Pulse Resp BP Sys/Pichardo Pulse Ox Last 24 Hr 96.0 F-98.5 F 51-86 16-24 94-155/44-73 94-98 Intake and Output 10/01/17 10/02/17 10/02/17 21:59 05:59 13:59 Intake Total 530 / 530 200 / 200 Output Total 2402 / 2402 Balance -1872 / -1872 200 / 200 Weight 103 lb 8 oz Intake & Output: Intake & Output 10/01/17 10/02/17 10/02/17 21:59 05:59 13:59 Intake Total 530 / 530 200 / 200 Output Total 2402 / 2402 Balance -1872 / -1872 200 / 200 Weight 103 lb 8 oz Intake: Oral 530 / 530 200 / 200 Output: # of times incontinent of urine 2 / 2 Hemodialysis UF 2400 / 2400 Other: Meal Dinner Percent of Meal Consumed 10% Feeding Ability Independent # of times incontinent of 1 1 Bowels Exam: General: Laying in bed, sits up with assistance. Chest: Clear, no rales Cardia vascular: Regular Abdomen: Soft, nontender Neuro: Awake, alert, continues to be interactive. Generally weak. Medical - PN: Obj Da - Labs CBC & Chem 7: 10/01/17 05:10 10/01/17 05:10 Labs: Abnormal Lab Results 10/01/17 10/01/17 09/30/17 05:10 05:10 04:35 RBC 3.01 L Hgb 9.4 L Hct 27.0 L RDW 14.6 H Plt Count 115 L RBC Morphology Abnorm A Anisocytosis Few A Creatinine 2.8 H 2.2 H Glucose 117 H 58 L Calcium 7.9 L 7.9 L Phosphorus 2.4 L Total Protein 4.8 L 4.9 L Albumin 2.7 L 2.8 L Globulin 2.1 L 2.1 L Triglycerides 176 H 09/30/17 04:35 RBC 3.28 L Hgb 10.0 L Hct 29.4 L RDW 14.6 H Plt Count 105 L RBC Morphology Anisocytosis Creatinine Glucose Calcium Phosphorus Total Protein Albumin Globulin Triglycerides Meds: Medications Acetaminophen (Tylenol) 650 mg PO Q6HP PRN PRN Reason: PAIN/FEVER > 101 Last Admin: 09/26/17 23:20 Dose: 650 mg Amlodipine Besylate (Norvasc) 10 mg PO [facility] Last Admin: 10/01/17 20:36 Dose: 10 mg Aspirin (Aspirin) 81 mg PO DAILY [facility] Last Admin: 10/01/17 09:27 Dose: 81 mg Atorvastatin Calcium (Lipitor) 20 mg PO [facility] Last Admin: 10/01/17 20:37 Dose: 20 mg [facility] ([facility]g) [facility] Last Admin: 10/01/17 17:51 Dose: 25 mg Clonazepam (Klonopin) 0.5 mg PO DAILY@1700 [facility] Last Admin: 10/01/17 17:50 Dose: 0.5 mg Diagnostic Test (Pha) (Accu-Chek) 1 each FS [facility] Last Admin: 10/02/17 08:01 Dose: 1 each Heparin Sodium (Porcine) (Heparin) 5,000 unit SQ Q12 [facility] Last Admin: 10/01/17 20:47 Dose: Not Given Heparin Sodium (Porcine) (Heparin Flush) 2 ml IV Q12 [facility] Last Admin: 10/01/17 20:37 Dose: 2 ml Sodium Chloride (Sodium Chloride 0.9%) 1,000 mls @ 20 mls/hr IV .Q24H [facility] Last Admin: 10/01/17 12:01 Dose: 20 mls/hr Insulin Glargine (Lantus) 8 unit SQ [facility] Last Admin: 10/01/17 20:38 Dose: 8 unit Insulin Human Lispro (Humalog) 0 unit SQ [facility] PRN Reason: Protocol Last Admin: 10/02/17 08:01 Dose: Not Given Isosorbide Mononitrate (Imdur) 30 mg PO BID [facility] Last Admin: 10/01/17 20:36 Dose: 30 mg Levetiracetam (Keppra) 250 mg PO BID [facility] Last Admin: 10/01/17 20:35 Dose: 250 mg Lisinopril (Zestril) 20 mg PO [facility] Last Admin: 10/01/17 20:36 Dose: 20 mg Metoclopramide HCl (Reglan) 5 mg PO TIDAC [facility] Last Admin: 10/02/17 08:01 Dose: 5 mg Midodrine (Midodrine Hcl) 10 mg PO PRN PRN PRN Reason: sbp < 120 during dialysis. Ondansetron HCl (Zofran) 4 mg IV Q6HP PRN PRN Reason: Nausea And Vomiting Oxycodone/Acetaminophen (Percocet 5-325 Mg) 1 tab PO Q4HP PRN PRN Reason: Pain Pantoprazole Sodium (Protonix) 40 mg PO QAMAC [facility] Last Admin: 10/02/17 08:01 Dose: 40 mg Pramipexole Dihydrochloride (Mirapex) 0.25 mg PO TID [facility] Last Admin: 10/01/17 20:36 Dose: 0.25 mg Sodium Chloride (Saline Flush) 10 ml IV Q12 [facility] Last Admin: 10/01/17 20:22 Dose: 10 ml Sodium Chloride (Saline Flush) 10 ml IV Q12 [facility] Last Admin: 10/01/17 20:39 Dose: 10 ml Torsemide (Demadex) 60 mg PO DAILY [facility] Last Admin: 10/01/17 09:12 Dose: 60 mg Vancomycin HCl (Vancomycin Oral Sabiha) 125 mg PO Q6 [facility] Last Admin: 10/02/17 06:08 Dose: 125 mg Medical - PN: A/P - Time Spent With Patient Total time spent is greater than 50% in coordination of care (as documented) at patient's floor/unit and/or counseling patient: 25 - 35 minutes (1) C. difficile diarrhea Status: Acute Current Visit: No (2) Influenza B Status: Acute Current Visit: No (3) ESRD (end stage renal disease) on dialysis Problem details: ESRD. HD today. Will take 2-3 liters of fluid. Will use midodrine. She got her bp meds this morning. Will use IDPN. Status: Acute Current Visit: No (4) CAD (coronary artery disease), [place] coronary artery Status: Chronic Current Visit: No (5) DM type 2 with diabetic peripheral neuropathy Status: Chronic Current Visit: No - Narrative A/P Narrative: 67-year-old female with multiple medical problems, including end-stage renal disease, coronary disease, type 2 diabetes, cerebrovascular disease who presents with failure of outpatient treatment of C. difficile diarrhea and influenza. C. difficile associated diarrhea. Continues to improve on 10/02. Failed outpatient therapy, as unable to care for self even with caregivers. Tolerating vancomycin. Stools firmer. Plan: Continue vancomycin, 125 mg PO every 6 hours. Likely stable for discharge in the next 1-2 days. Influenza. No evidence of pneumonia when diagnosed, lungs remain clear. Overall, contributed to failure to thrive. Improving. Plan: Stop oseltamivir 10/01, course completed. Anemia. Likely secondary to chronic renal disease. Hemoglobin improved with one unit PRBC on Sat. No evidence of active bleeding. Plan: Monitor. Recheck in a.m. Hypertension. No further hypotension. Plan: Hold parameters on amlodipine and lisinopril. Hypophosphatemia. Not on phosphate binders at baseline. Plan: s/p IV supplementation. End-stage renal disease. // dialysis patient. HD on Saturday, ; next is . Labs pending today Plan: Continue dialysis at appropriate interval. Type 2 diabetes mellitus. Patient follows a regular diet at home. On a combination of short acting and long-acting insulins. Plan: Continue long-acting insulin, sliding scale insulin, regular diet as she does not follow a diabetic diet even one in the hospital, Accu-Cheks Cerebrovascular disease. Currently quiescent. Plan: Continue home regimen, however we will hold clopidogrel to prevent decreased effectiveness of oseltamivir Coronary artery disease. No current symptoms. Plan: Continue current regimen. Lower extremity/perineal wounds. Plan: Continue wound care, wound care consult. CODE STATUS is full code Prophylaxis: Subcutaneous heparin, PPI Medical - PN: Qual - VTE Deep Vein Thrombosis/Pulmonary Embolism Present on Admission: No
[2017-10-02] MEDS: levETIRAcetam 500 MG TABLET PO SCH ×2 (10:42→21:35)
[2017-10-02] MEDS: TORSEMIDE 10 MG TABLET PO SCH (10:42)
[2017-10-02] MEDS: PRAMIPEXOLE 0.25 MG TABLET PO SCH ×3 (10:43→21:36)
[2017-10-02] MEDS: ASPIRIN 81 MG TAB.CHEW PO SCH (10:43)
[2017-10-02] MEDS: ISOSORBIDE MONONITRATE 60 MG TAB.XL.24H PO SCH ×2 (10:43→21:36)
[2017-10-02] MEDS: CARVEDILOL 12.5 MG TABLET PO SCH ×2 (10:44→18:00)
[2017-10-02] MEDS: 0.9 % SODIUM CHLORIDE 10 ML SYRINGE IV SCH ×4 (10:44→21:36)
[2017-10-02] MEDS: HEPARIN 5,000 UNIT/ML VIAL SQ SCH ×2 (10:44→21:34)
--- NOTE | 2017-10-02 11:00 | Nephrology Progress Note ---
Subjective Patient information: Note initiated : 10/02/17 at 10:58 am Service Date, if different from initiated Date: [] Patient: Tamica Tidwell 67 y/o F admitted on 09/26/17 for influenza and c- diff. Chief Complaint: Feels ok. Diarrhea is getting better. No shortness of breath. Principal diagnosis: PVD Objective - Vital Signs Vital signs: Vital Signs Temp Pulse Pulse Resp BP BP Pulse Ox 10/02/17 08:00 97.6 F 70 20 128/68 97 10/02/17 07:58 64 94 10/02/17 04:00 98.5 F 61 20 116/48 96 10/02/17 00:00 97.2 F 57 L 20 122/48 96 10/01/17 20:00 96.0 F L 69 24 H 130/50 98 10/01/17 17:40 98.3 F 86 134/73 10/01/17 17:23 66 102/53 10/01/17 17:09 51 L 94/71 10/01/17 16:37 62 143/68 10/01/17 16:08 65 148/68 10/01/17 15:35 68 143/69 10/01/17 15:09 65 147/73 10/01/17 14:56 96.2 F L 16 155/73 97 10/01/17 14:37 66 155/73 10/01/17 14:08 98.4 F 67 132/66 Intake and Output 10/01/17 10/02/17 10/02/17 21:59 05:59 13:59 Intake Total 530 / 530 200 / 200 Output Total 2402 / 2402 Balance -187 / -1872 200 / 200 Intake: Oral 530 / 530 200 / 200 Output: # of times incontinent of urine 2 / 2 Hemodialysis UF 2400 / 2400 Other: Meal Dinner Percent of Meal Consumed 10% Feeding Ability Independent # of times incontinent of 1 1 Bowels Weight 103 lb 8 oz Intake & Output: Intake & Output 10/01/17 10/02/17 10/02/17 21:59 05:59 13:59 Intake Total 530 / 530 200 / 200 Output Total 2402 / 2402 Balance -187 / -1872 200 / 200 Weight 103 lb 8 oz Intake: Oral 530 / 530 200 / 200 Output: # of times incontinent of urine 2 / 2 Hemodialysis UF 2400 / 2400 Other: Meal Dinner Percent of Meal Consumed 10% Feeding Ability Independent # of times incontinent of 1 1 Bowels - General Appearance General appearance: cachectic EENT: ATNC Neck: no JVD Respiratory: no kyphosis Cardiology: no murmurs Gastrointestinal: normoactive bowel sounds Integumentary: no rash - Lab 10/01/17 05:10 10/01/17 05:10 Most recent lab results Calcium 7.9 mg/dl (8.6-10.4) L 10/01/17 05:10 Phosphorus 2.4 mg/dL (2.7-4.5) L 10/01/17 05:10 Magnesium 1.9 mg/dL (1.6-2.5) 10/01/17 05:10 Assessment and Plan (1) ESRD (end stage renal disease) on dialysis Status: Acute Comment: ESRD. HD yesterday. Plan for tomorrow. Continued on IDPN. Changed her BP meds to be taken at night.
[2017-10-02 11:31] LABS: Blood Urea Nitrogen 16 mg/dl (8-23)
[2017-10-02] MEDS: 0.9 % SODIUM CHLORIDE 1,000 ML IV SCH (15:27)
[2017-10-02] MEDS: clonazePAM 0.5 MG TABLET PO SCH (18:00)
[2017-10-02] MEDS: INSULIN GLARGINE, HUMAN 1 UNIT/0.01 ML SQ SCH (21:34)
[2017-10-02] MEDS: ATORVASTATIN 20 MG TABLET PO SCH (21:36)
[2017-10-02] MEDS: amLODIPine 10 MG TABLET PO SCH (21:36)
[2017-10-02] MEDS: LISINOPRIL 20 MG TABLET PO SCH (21:36)
[2017-10-03] MEDS: VANCOMYCIN ORAL SOL 1,000 MG/10 ML BOTTLE PO SCH ×5 (00:04→23:51)
[2017-10-03] MEDS ORDERED: DEXTROSE 50% 50 ML VIAL IV ONE (04:14)
[2017-10-03 07:10] LABS: Basophils # (Auto) 0 K/mcL (0.0-0.3); Basophils % (Auto) 0.3 % (0.0-2.0); Eosinophils # (Auto) 0.1 K/mcL (0.0-0.7); Eosinophils % (Auto) 1.9 % (0.0-7.0); Lymphocytes # (Auto) 0.7 K/mcL (1.5-4.8); Mean Cell Volume 90.7 fL (80.0-100.0); Mean Corpuscular HGB Conc 33.7 g/dL (31.0-36.0); Mean Corpuscular Hemoglobin 30.6 pg (26.0-34.0); Monocytes # (Auto) 0.5 K/mcL (0.1-0.9); Monocytes % (Auto) 7.8 % (1.0-12.0); Platelet Count 151 K/mcL (140-440); Red Cell Distribution Width 14.8 % (11.5-14.5)
[2017-10-03 07:28] LABS: Blood Urea Nitrogen 22 mg/dl (8-23)
[2017-10-03] MEDS: INSULIN LISPRO 1 UNIT/0.01 ML UNIT SQ SCH ×4 (07:34→21:09)
[2017-10-03] MEDS: METOCLOPRAMIDE 10 MG TABLET PO SCH ×3 (07:56→17:30)
[2017-10-03] MEDS: PANTOPRAZOLE 40 MG TABLET PO SCH (07:56)
[2017-10-03] MEDS: HEPARIN 5,000 UNIT/ML VIAL SQ SCH ×2 (08:47→21:08)
[2017-10-03] MEDS: 0.9 % SODIUM CHLORIDE 10 ML SYRINGE IV SCH ×4 (08:48→21:12)
--- NOTE | 2017-10-03 13:27 | Internal Med Progress Note ---
Medical - PN: Subj Patient information: Note initiated : 10/03/17 at 1:25 pm Service Date, if different from initiated Date: [] Patient: Tamica Tidwell 67 y/o F admitted on 09/26/17 for influenza and c- diff. Chief Complaint: [] Interval history: September 26 Direct admit after outpatient dialysis for failure of outpatient therapy of C. difficile associated diarrhea, ongoing symptoms from influenza. Patient having several loose stools a day, still having fever, decreased appetite and decreased oral intake with failure to thrive. September 27 Patient with lower blood pressure, systolic dropped down to 70 while sitting up this morning. Her weight after dialysis was below her dry weight yesterday. May be volume depleted. Also on several antihypertensives. Suspicion for sepsis lower. Had fever yesterday, treated symptomatically. Tolerating vancomycin, still with loose stools. Decreased motivation, decreased appetite, not wanting to participate in self care or to eat. September 28 Getting dialysis today. Hemoglobin dropped to 7.0 this morning. Still not motivated to eat. Remains on by mouth vancomycin, stooling appears improved. September 29 More interactive today. Stools seem to be firming up. Appetite picking up some , had half a sandwich for lunch. Had some supplements earlier. Perineal area is tender from excoriation from diarrhea, otherwise no specific complaints. Discussed with Dr. Valles. Sep 30 More talkative and interactive today. Appetite is picking up. Stools continue to firm up. Still has significant excoriation and wounds in the perineal and sacral region from the diarrhea. We'll get wound care consult. Oct 01 Continues to slowly improve, more interactive and talkative. Starting to get tired of being in the hospital. Not much in way of cough, no shortness of breath. Pain seemed improved. Stooling is improved. Seen by wound care, recommendations ordered. Oct 02 No new symptoms today. Discussed the case with Dr. Pedro. The patient's had poor nutritional status for over a week due to her C. difficile and influenza. 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 Patient understands reason for this. Stools continue to firm, continues to receive wound care. May not be strong enough to return home. Should know within the next 24-48 hours her discharge needs. May possibly be able to go to home with support versus facility after dialysis tomorrow [place] 4 Patient seen examined, she was hypoglycemic overnight, and had low glucose this AM, dose of lantus cut by 50% to 4 units qhs now she was sitting in chair this AM, no complaints, ready for HD. Palliative care discussed with her, but thep atient is not [id number] in that at this stage, fully veloz that she has very poor overall prognosis. The patient wishes to get some rehab before she goes back home and does not wish to go to snf, once glucose is stable, will consider swing bed status for rehab while here. diarrhea is resolved. stools formed appetitie still poor, ttry to estimate caloric intake. Pertinent ROS: Denies headache, dizziness Denies chest pain, palpitations Denies cough or shortness of breath Denies abdominal pain, nausea or vomiting. - Constitutional Vitals: Vital Signs Temp Pulse Resp BP Pulse Ox 97.5 F 80 22 90/70 95 10/03/17 12:00 10/03/17 13:17 10/03/17 12:00 10/03/17 13:17 10/03/17 12:00 Period Temp Pulse Resp BP Sys/Pichardo Pulse Ox Last 24 Hr 95.4 F-98.6 F 53-80 16-22 90-149/46-81 90-100 Intake and Output 10/02/17 10/03/17 10/03/17 21:59 05:59 13:59 Intake Total 350 / 350 100 / 100 Output Total / 3 2 / 2 Balance 347 / 347 98 / 98 Weight 102 lb Intake & Output: Intake & Output 10/02/17 10/03/17 10/03/17 21:59 05:59 13:59 Intake Total 350 / 350 100 / 100 Output Total / 3 2 / 2 Balance 347 / 347 98 / 98 Weight 102 lb Intake: Oral 350 / 350 100 / 100 Output: # of times incontinent of urine / 3 2 / 2 Other: Meal Dinner Percent of Meal Consumed 50% Feeding Ability Assist with Tray Set Up # of times incontinent of 1 Bowels Exam: Constitutional; Afebrile, cooperative, alert, not in distress. appears weak, malnourished. Eyes- No icterus, , No periorbital swelling Ears- Ext ear normal, Neck- Midline trachea, supple Respiratory system: Air Entry equal on both sides, No crackles or wheezing, no rhonchi. CVS- Rate rhythm regular, S1,S2 heard, no gallop, no rub. Abdomen- Soft nontender abdomen, no organomegaly, no tenderness, no guarding or rigidity, [employer]- [employer], Medical - PN: Obj Da - Labs CBC & Chem 7: 10/03/17 05:30 10/03/17 05:30 Labs: Abnormal Lab Results 10/03/17 10/03/17 10/02/17 05:30 05:30 10:36 RBC 3.40 L Hgb 10.4 L Hct 30.9 L RDW 14.8 H Plt Count Gran % 79.0 H Lymph % (Auto) 11.0 L Lymph # (Auto) 0.7 L RBC Morphology Anisocytosis Creatinine 2.8 H 1.9 H Glucose Calcium 8.0 L 7.9 L Phosphorus Total Protein Albumin Globulin 10/01/17 10/01/17 05:10 05:10 RBC 3.01 L Hgb 9.4 L Hct 27.0 L RDW 14.6 H Plt Count 115 L Gran % Lymph % (Auto) Lymph # (Auto) RBC Morphology Abnorm A Anisocytosis Few A Creatinine 2.8 H Glucose 117 H Calcium 7.9 L Phosphorus 2.4 L Total Protein 4.8 L Albumin 2.7 L Globulin 2.1 L Meds: Medications Acetaminophen (Tylenol) 650 mg PO Q6HP PRN PRN Reason: PAIN/FEVER > 101 Last Admin: 09/26/17 23:20 Dose: 650 mg Amlodipine Besylate (Norvasc) 10 mg PO [facility] Last Admin: 10/02/17 21:36 Dose: 10 mg Aspirin (Aspirin) 81 mg PO DAILY [facility] Last Admin: 10/02/17 10:43 Dose: 81 mg Atorvastatin Calcium (Lipitor) 20 mg PO HS [facility] Last Admin: 10/02/17 21:36 Dose: 20 mg Carvedilol (Coreg) 25 mg PO BIDCC [facility] Last Admin: 10/02/17 18:00 Dose: 25 mg Clonazepam (Klonopin) 0.5 mg PO DAILY@1700 [facility] Last Admin: 10/02/17 18:00 Dose: 0.5 mg Diagnostic Test (Pha) (Accu-Chek) 1 each FS ACHS [facility] Last Admin: 10/03/17 12:00 Dose: 1 each Heparin Sodium (Porcine) (Heparin) 5,000 unit SQ Q12 [facility] Last Admin: 10/03/17 08:47 Dose: Not Given Heparin Sodium (Porcine) (Heparin Flush) 2 ml IV Q12 [facility] Last Admin: 10/03/17 08:49 Dose: 2 ml Sodium Chloride (Sodium Chloride 0.9%) 1,000 mls @ 20 mls/hr IV .Q24H [facility] Last Admin: 10/02/17 15:27 Dose: Not Given Insulin Glargine (Lantus) 4 unit SQ HS [facility] Insulin Human Lispro (Humalog) 0 unit SQ ACHS [facility] PRN Reason: Protocol Last Admin: 10/03/17 07:34 Dose: Not Given Isosorbide Mononitrate (Imdur) 30 mg PO BID [facility] Last Admin: 10/02/17 21:36 Dose: 30 mg Levetiracetam (Keppra) 250 mg PO BID [facility] Last Admin: 10/02/17 21:35 Dose: 250 mg Lisinopril (Zestril) 20 mg PO HS [facility] Last Admin: 10/02/17 21:36 Dose: 20 mg Metoclopramide HCl (Reglan) 5 mg PO TIDAC [facility] Last Admin: 10/03/17 07:56 Dose: 5 mg Midodrine (Midodrine Hcl) 10 mg PO PRN PRN PRN Reason: sbp < 120 during dialysis. Ondansetron HCl (Zofran) 4 mg IV Q6HP PRN PRN Reason: Nausea And Vomiting Oxycodone/Acetaminophen (Percocet 5-325 Mg) 1 tab PO Q4HP PRN PRN Reason: Pain Pantoprazole Sodium (Protonix) 40 mg PO QAMAC [facility] Last Admin: 10/03/17 07:56 Dose: 40 mg Pramipexole Dihydrochloride (Mirapex) 0.25 mg PO TID [facility] Last Admin: 10/02/17 21:36 Dose: 0.25 mg Sodium Chloride (Saline Flush) 10 ml IV Q12 [facility] Last Admin: 10/03/17 08:48 Dose: 10 ml Sodium Chloride (Saline Flush) 10 ml IV Q12 [facility] Last Admin: 10/02/17 21:36 Dose: 10 ml Torsemide (Demadex) 60 mg PO DAILY [facility] Last Admin: 10/02/17 10:42 Dose: 60 mg Vancomycin HCl (Vancomycin Oral Sabiha) 125 mg PO Q6 [facility] Last Admin: 10/03/17 05:41 Dose: 125 mg Medical - PN: A/P - Time Spent With Patient Total time spent is greater than 50% in coordination of care (as documented) at patient's floor/unit and/or counseling patient: - Narrative A/P Narrative: 67-year-old female with multiple medical problems, including end-stage renal disease, coronary disease, type 2 diabetes, cerebrovascular disease who presents with failure of outpatient treatment of C. difficile diarrhea and influenza. C. difficile associated diarrhea. Continues to improve on continue on po vancomycin, total of 14 days of treatment. no longer had diarrhea. Influenza. No evidence of pneumonia when diagnosed, lungs remain clear. s/p treatment with tamilfu Anemia. Likely secondary to chronic renal disease. Hemoglobin improved with one unit PRBC on Sat. No evidence of active bleeding. Plan: Monitor. Hypertension. No further hypotension. Plan: Hold parameters on amlodipine and lisinopril. Hypophosphatemia. Not on phosphate binders at baseline. Plan: s/p IV supplementation. Hypoglycemia: due to esrd, poor oral intake, cut lantus dose from 8 units to 4 units and monitor End-stage renal disease. // dialysis patient. HD on Saturday, ; next is . Labs pending today Plan: Continue dialysis at appropriate interval. Type 2 diabetes mellitus. Patient follows a regular diet at home. On a combination of short acting and long-acting insulins. Plan: Continue long-acting insulin, sliding scale insulin, regular diet as she does not follow a diabetic diet even one in the hospital, Accu-Cheks Cerebrovascular disease. Plan: Continue home regime, resume plavix which was held. Coronary artery disease. No current symptoms. Plan: Continue current regimen. Lower extremity/perineal wounds. Plan: Continue wound care, wound care consult. Dr pedro plans amputation revision, but holding off the plan given that she has poor nutritional status. CODE STATUS is full code, discussed again, wanting everything done understands that if she does get sick she will likely be on the vent Prophylaxis: Subcutaneous heparin, PPI Medical - PN: Qual - VTE Deep Vein Thrombosis/Pulmonary Embolism Present on Admission: No
[2017-10-03] MEDS: CARVEDILOL 12.5 MG TABLET PO SCH ×2 (14:10→17:30)
[2017-10-03] MEDS: PRAMIPEXOLE 0.25 MG TABLET PO SCH ×3 (14:10→21:11)
[2017-10-03] MEDS: levETIRAcetam 500 MG TABLET PO SCH ×2 (14:46→21:10)
[2017-10-03] MEDS: TORSEMIDE 10 MG TABLET PO SCH (14:48)
[2017-10-03] MEDS: ISOSORBIDE MONONITRATE 60 MG TAB.XL.24H PO SCH ×2 (14:48→21:10)
[2017-10-03] MEDS: ASPIRIN 81 MG TAB.CHEW PO SCH (14:48)
[2017-10-03] MEDS: 0.9 % SODIUM CHLORIDE 1,000 ML IV SCH (15:12)
--- NOTE | 2017-10-03 16:40 | Nephrology Progress Note ---
Subjective Patient information: Note initiated : 10/03/17 at 4:39 pm Service Date, if different from initiated Date: [] Patient: Tamica Tidwell 67 y/o F admitted on 09/26/17 for influenza and c- diff. Chief Complaint: Feeling better. Sitting in a wheel chair. Principal diagnosis: PVD Objective - Vital Signs Vital signs: Vital Signs Temp Pulse Pulse Resp BP BP Pulse Ox 10/03/17 15:52 97.8 F 22 118/52 91 10/03/17 14:05 98.5 F 61 148/68 10/03/17 13:46 69 126/64 10/03/17 13:33 68 127/64 10/03/17 13:17 80 90/70 10/03/17 13:02 61 113/64 10/03/17 12:32 75 133/61 10/03/17 12:00 97.5 F 22 125/62 95 10/03/17 11:57 78 138/62 10/03/17 11:30 68 138/69 10/03/17 11:05 60 149/81 10/03/17 10:32 98.6 F 61 139/71 10/03/17 10:28 96 10/03/17 10:27 97 10/03/17 08:52 97 10/03/17 08:51 96 10/03/17 07:15 96.8 F L 61 16 140/58 99 10/03/17 04:00 95.4 F L 53 L 20 120/52 99 10/03/17 00:00 97.3 F 68 22 142/50 98 10/02/17 20:00 97.0 F 71 22 138/46 100 Intake and Output 10/03/17 10/03/17 10/03/17 05:59 13:59 21:59 Intake Total 100 / 100 Output Total 2 / 2 1540 / 1540 Balance 98 / 98 -1540 / -1540 Intake: Oral 100 / 100 Output: # of times incontinent of urine 2 / 2 Hemodialysis UF 1540 / 1540 Intake & Output: Intake & Output 10/03/17 10/03/17 10/03/17 05:59 13:59 21:59 Intake Total 100 / 100 Output Total 2 / 2 1540 / 1540 Balance 98 / 98 -1540 / -1540 Intake: Oral 100 / 100 Output: # of times incontinent of urine 2 / 2 Hemodialysis UF 1540 / 1540 - General Appearance General appearance: cachectic EENT: ATNC Neck: no JVD Respiratory: no kyphosis Cardiology: no murmurs Gastrointestinal: normoactive bowel sounds Neurologic: no focal deficit - Lab 10/03/17 05:30 10/03/17 05:30 Most recent lab results Calcium 8.0 mg/dl (8.6-10.4) L 10/03/17 05:30 Phosphorus 2.4 mg/dL (2.7-4.5) L 10/01/17 05:10 Magnesium 1.9 mg/dL (1.6-2.5) 10/01/17 05:10 Assessment and Plan (1) ESRD (end stage renal disease) on dialysis Status: Acute Comment: ESRD. HD today and had 1600cc of fluid removed. Continued on IDPN. Changed her BP meds to be taken at night, BP better.
[2017-10-03] MEDS: clonazePAM 0.5 MG TABLET PO SCH (17:30)
[2017-10-03] MEDS ORDERED: ALTEPLASE 2 MG VIAL IV ONE (19:00)
[2017-10-03] MEDS: oxyCODONE/APAP 5/325MG TABLET PO PRN ×2 (20:02→23:53)
[2017-10-03] MEDS ORDERED: INSULIN GLARGINE, HUMAN 1 UNIT/0.01 ML SQ SCH (21:00)
[2017-10-03] MEDS: ATORVASTATIN 20 MG TABLET PO SCH (21:10)
[2017-10-03] MEDS: amLODIPine 10 MG TABLET PO SCH (21:11)
[2017-10-03] MEDS: LISINOPRIL 20 MG TABLET PO SCH (21:12)
[2017-10-04] MEDS: VANCOMYCIN ORAL SOL 1,000 MG/10 ML BOTTLE PO SCH ×2 (06:08→12:00)
[2017-10-04 06:33] LABS: Basophils # (Auto) 0 K/mcL (0.0-0.3); Basophils % (Auto) 0.2 % (0.0-2.0); Eosinophils # (Auto) 0.1 K/mcL (0.0-0.7); Eosinophils % (Auto) 2.1 % (0.0-7.0); Granulocytes % (Auto) 70.9 % (38.0-78.0); Lymphocytes # (Auto) 0.9 K/mcL (1.5-4.8); Lymphocytes % (Auto) 14.5 % (15.5-49.0); Mean Cell Volume 90.4 fL (80.0-100.0); Mean Corpuscular HGB Conc 33.8 g/dL (31.0-36.0); Mean Corpuscular Hemoglobin 30.6 pg (26.0-34.0); Monocytes # (Auto) 0.8 K/mcL (0.1-0.9); Monocytes % (Auto) 12.3 % (1.0-12.0); Platelet Count 159 K/mcL (140-440); RBC 2.97 M/mcL (4.00-5.20); Red Cell Distribution Width 15.1 % (11.5-14.5)
[2017-10-04] MEDS: INSULIN LISPRO 1 UNIT/0.01 ML UNIT SQ SCH ×2 (06:54→12:02)
[2017-10-04] MEDS: METOCLOPRAMIDE 10 MG TABLET PO SCH ×2 (06:55→12:00)
[2017-10-04] MEDS: PANTOPRAZOLE 40 MG TABLET PO SCH (06:55)
[2017-10-04 07:15] LABS: Blood Urea Nitrogen 18 mg/dl (8-23)
[2017-10-04] MEDS: TORSEMIDE 10 MG TABLET PO SCH (08:48)
[2017-10-04] MEDS: CARVEDILOL 12.5 MG TABLET PO SCH (08:49)
[2017-10-04] MEDS: ISOSORBIDE MONONITRATE 60 MG TAB.XL.24H PO SCH (08:49)
[2017-10-04] MEDS: ASPIRIN 81 MG TAB.CHEW PO SCH (08:49)
[2017-10-04] MEDS: levETIRAcetam 500 MG TABLET PO SCH (08:49)
[2017-10-04] MEDS: PRAMIPEXOLE 0.25 MG TABLET PO SCH (08:49)
[2017-10-04] MEDS: HEPARIN 5,000 UNIT/ML VIAL SQ SCH (08:50)
[2017-10-04] MEDS: 0.9 % SODIUM CHLORIDE 10 ML SYRINGE IV SCH ×2 (08:50→08:57)
--- NOTE | 2017-10-04 12:18 | Discharge Summary ---
Medical - DS: Prov Patient information: Note initiated : 10/04/17 at 12:15 pm Service Date, if different from initiated Date: [] Patient: Tamica Tidwell 67 y/o F admitted on 09/26/17 for influenza and c- diff. Chief Complaint: [] Date of admission: 09/26/17 14:29 Discharge date: 10/04/17 Primary care physician: Elizabeth Mccann Admitting clinician: Avani Scott Consults: 09/30/17 13:37 Consult to Physician [CONS] Routine Comment: Consulting Provider: Kandice Velazquez Reason For Exam: Physician to Consult 10/02/17 07:37 Consult to Physician [CONS] Routine Comment: Consulting Provider: Trey Higgins Reason For Exam: Physician to Consult Discharging clinician: James Melara Medical - DS: Meds - Discharge Medications Active and Home Medications: Home Medications Atorvastatin [Lipitor] 20 mg PO HS 08/09/15 [History Confirmed 09/26/17 Last Taken 09/25/17 21:00 20 MG.] Carvedilol [Coreg] 25 mg PO BIDCC 08/09/15 [History Confirmed 09/26/17 Last Taken 09/26/17 09:00 25 MG.] Metoclopramide HCl [Metozolv Odt] 5 mg PO TIDAC 08/09/15 [History Confirmed Last Taken 09/26/17 07:30 5 MG.] Pantoprazole [Protonix] 40 mg PO QAMAC 08/09/15 [History Confirmed 09/26/17 Last Taken 09/26/17 07:30 40 MG.] Clopidogrel Bisulfate [Plavix] 75 mg PO DAILY 02/23/16 [History Confirmed Last Taken 09/26/17 09:00 75 MG.] amLODIPine [Norvasc] 10 mg PO DAILY 02/23/16 [History Confirmed 09/26/17 Last Taken 09/26/17 09:00 10 MG.] Pramipexole Di-HCl [Mirapex] 0.25 mg PO TID 90 Days tablet 03/09/16 [Rx Confirmed 09/26/17 Last Taken 09/26/17 09:00 0.25 MG.] Isosorbide Mononitrate [Isosorbide Mononitrate ER] 30 mg PO BID 01/08/17 [ History Confirmed 09/26/17 Last Taken 09/26/17 09:00 30 MG.] Torsemide [Demadex] 60 tablet PO DAILY 01/08/17 [History Confirmed 09/26/17 Last Taken 09/26/17 09:00 60 MG.] levETIRAcetam [Keppra] 250 mg PO BID 01/09/17 [History Confirmed 09/26/17 Last Taken 09/26/17 09:00 250 MG.] Insulin Glargine, Human [Lantus] 8 unit SQ HS unit 01/28/17 [Rx Confirmed 09/26 Last Taken 09/25/17 21:00 8 UNITS] Insulin Lispro [Humalog] See Protocol SQ ACHS #0 unit 01/28/17 [Rx Confirmed Last Taken 09/23/17 12:00] clonazePAM [Klonopin] 0.5 mg PO DAILY@1700 #10 tablet 01/28/17 [Rx Confirmed Last Taken 09/26/17 09:00 0.5 MG.] Lisinopril [Zestril] 20 mg PO QDAY 04/18/17 [History Confirmed 09/26/17 Last Taken 09/26/17 09:00 20 MG.] oxyCODONE/APAP [Percocet 5-325 mg] 1 tab PO Q4HP PRN #90 tablet 04/26/17 [Rx Confirmed 09/26/17 Last Taken 09/12/17 20:00 1 TAB] Acetaminophen [Tylenol] 650 mg PO Q6HP PRN tablet 07/11/17 [Rx Confirmed Last Taken 09/19/17 20:00 650 MG.] Aspirin 81 mg PO DAILY 09/25/17 [History Confirmed 09/26/17 Last Taken 09/26/17 09:00 81 MG.] Vancomycin [Vancocin] 125 mg PO QID #56 cap 09/25/17 [Rx Confirmed 09/26/17 Last Taken 09/26/17 09:00 125 MG.] Medical - DS: Hosp Hospital course: Ms Esquivel is a 67 yr female with h?o ESRD, DM, ming BKA, who was a direct admit after outpatient dialysis for failure of outpatient therapy of C. difficile associated diarrhea, and ongoing symptoms from influenza. Patient having several loose stools a day, still having fever, decreased appetite and decreased oral intake with failure to thrive. She was admitted to the hospital for further management. Cdiff: patient had no e/o Cdiff related sepsis : She was treated with Po vancomycin 125mg qid with good reponse to treatment, her dairrhea resolved and she will need to continue treatment for additional 10 days. Influenza: Fever on presentation, weakness and malaise likely secondary to same , she was treated with tamiflu for same, no longer symtomatic. Anemia: She had hb dropped to 7.0, the patient received 1 unit prbc, and her hb has remained stable since then, no e/o bleed noted. ESRD : On HD, as per Dr Valles, who was following the patient while she was inpatient. Chr wound, : patient has chr wound on both stumps, Dr Higgins was planning revision of same, but surgery was postponed due to The patient needs midodrine, prn during HD The patient has had a poor appetitie during the hospital stay, likely due to her acute infection, Dietary was following along. The patient had episodes of hypoglycemia, likely as her oral intake is less. Plan to cut back her Dose of insulin. She was noted to be too weak to be discharged home. She refuses to go to SNF. She will be discharged to swing bed status to continue to work with her nutritional status as well as therapy. I reviewed her code status with her during this hospitalization and she wishes to be full code. Discharge diagnosis: cdiff, influenza, ESRD - Time Spent with Patient Total time spent providing and/or coordinating discharge services: Greater than 30 minutes Medical - DS: Exam - Constitutional Vitals: Vital Signs Temp Pulse Pulse Resp BP BP Pulse Ox 10/04/17 08:46 97.8 F 69 16 142/58 98 10/04/17 07:27 95 10/04/17 04:00 98.6 F 66 16 119/68 95 10/04/17 00:00 97.3 F 67 16 121/67 93 10/03/17 20:00 98.0 F 77 18 104/62 92 10/03/17 15:52 97.8 F 22 118/52 91 10/03/17 14:05 98.5 F 61 148/68 10/03/17 13:46 69 126/64 10/03/17 13:33 68 127/64 10/03/17 13:17 80 90/70 10/03/17 13:02 61 113/64 10/03/17 12:32 75 133/61 Intake and Output 10/03/17 10/04/17 10/04/17 21:59 05:59 13:59 Intake Total 220 / 220 400 / 400 Output Total 1540 / 1540 Balance -1320 / -1320 400 / 400 Intake: Oral 220 / 220 400 / 400 Output: Hemodialysis UF 1540 / 1540 Other: Meal Dinner Percent of Meal Consumed 50% Feeding Ability Assist with Tray Set Up # Voids 1 Weight 100 lb 8 oz Additional comments: Constitutional; Afebrile, cooperative, alert, not in distress. Eyes- No icterus, , No periorbital swelling Ears- Ext ear normal, hearing normal to conversation. Neck- Midline trachea, supple Respiratory system: Air Entry equal on both sides, No crackles or wheezing, no rhonchi. CVS- Rate rhythm regular, S1,S2 heard, no gallop, no rub. Abdomen- Soft nontender abdomen, no organomegaly, no tenderness, no guarding or rigidity, [employer]- AOOx3, Medical - DS: Data Labs on day of discharge: Labs from last 24 hours 10/04/17 10/04/17 04:30 04:30 WBC 6.5 RBC 2.97 L Hgb 9.1 L Hct 26.8 L MCV 90.4 MCH 30.6 MCHC 33.8 RDW 15.1 H Plt Count 159 MPV 8.9 Gran % 70.9 Lymph % (Auto) 14.5 L Cuming % (Auto) 12.3 H Eos % (Auto) 2.1 Baso % (Auto) 0.2 Gran # 4.6 Lymph # (Auto) 0.9 L Cuming # (Auto) 0.8 Eos # (Auto) 0.1 Baso # (Auto) 0 Sodium 141 Potassium 3.9 Chloride 101 Carbon Dioxide 30 Anion Gap 10.0 BUN 18 Creatinine 2.0 H GFR Calculation 26 Glucose 54 L Calcium 8.2 L Medical - DS: A/P - Patient/Caregiver Discharge Instructions Activity: as per physical therapy, increase activity as tolerated Diet: Renal/Consistent Carbs Additional Instructions: Patient admitted for CDiff, influenza, Continue po vanco x 10 more days Being transferred to swing bed - Follow up Plan Disposition: [facility] Prognosis: Fair Rehab Potential: Fair I certify that the patient requires SNF services: Yes Overall status at discharge: patient is progressing back to baseline Medical - DS: Qual - VTE Deep Vein Thrombosis/Pulmonary Embolism Present on Admission: No
[2017-10-04] MEDS ORDERED: VANCOMYCIN 125 MG CAPSULE PO SCH (17:00)
[2017-10-04] MEDS ORDERED: INSULIN GLARGINE, HUMAN 1 UNIT/0.01 ML SQ SCH (21:00)
== END 2017-10-04 12:23 | disposition other institution (70) | DRG 371 ==
LOC: MEDSUR → OBSVTOIN 14:29 → MEDSUR 10-04 11:27
PROVIDERS: ADMIT Internal Medicine; ATTEND Internal Medicine

== ENCOUNTER 2017-10-04 12:19 | Inpatient (IN) ==
[2017-10-04] MEDS ORDERED: DEXTROSE 31 GM ORAL.SUSP PO PRN (13:57)
[2017-10-04] MEDS ORDERED: DEXTROSE 50% 50 ML VIAL IV PRN (13:57)
[2017-10-04] MEDS ORDERED: ACETAMINOPHEN 325 MG TABLET PO PRN (13:57)
[2017-10-04] MEDS ORDERED: oxyCODONE/APAP 5/325MG TABLET PO PRN (13:59)
[2017-10-04] MEDS: 0.9 % SODIUM CHLORIDE 10 ML SYRINGE IV SCH ×2 (14:30→21:51)
[2017-10-04] MEDS ORDERED: ALTEPLASE 2 MG VIAL IV ONE ×2 (15:18→15:24)
[2017-10-04] MEDS: PRAMIPEXOLE 0.25 MG TABLET PO SCH ×2 (16:22→21:49)
[2017-10-04] MEDS: INSULIN LISPRO 1 UNIT/0.01 ML UNIT SQ SCH ×2 (17:47→21:50)
[2017-10-04] MEDS: METOCLOPRAMIDE 10 MG TABLET PO SCH (17:48)
[2017-10-04] MEDS: CARVEDILOL 12.5 MG TABLET PO SCH (17:48)
[2017-10-04] MEDS: clonazePAM 0.5 MG TABLET PO SCH (17:48)
[2017-10-04] MEDS: VANCOMYCIN ORAL SOL 1,000 MG/10 ML BOTTLE PO SCH ×2 (17:49→23:43)
[2017-10-04] MEDS: HEPARIN 5,000 UNIT/ML VIAL SQ SCH (21:32)
[2017-10-04] MEDS: ISOSORBIDE MONONITRATE 60 MG TAB.XL.24H PO SCH (21:48)
[2017-10-04] MEDS: INSULIN GLARGINE, HUMAN 1 UNIT/0.01 ML SQ SCH (21:49)
[2017-10-04] MEDS: levETIRAcetam 500 MG TABLET PO SCH (21:49)
[2017-10-04] MEDS: ATORVASTATIN 20 MG TABLET PO SCH (21:49)
[2017-10-04] MEDS: amLODIPine 10 MG TABLET PO SCH (21:50)
[2017-10-04] MEDS: LISINOPRIL 20 MG TABLET PO SCH (21:50)
[2017-10-05] MEDS: 0.9 % SODIUM CHLORIDE 10 ML SYRINGE IV SCH ×3 (06:17→21:55)
[2017-10-05] MEDS: VANCOMYCIN ORAL SOL 1,000 MG/10 ML BOTTLE PO SCH ×3 (06:28→17:25)
[2017-10-05] MEDS: METOCLOPRAMIDE 10 MG TABLET PO SCH ×3 (07:45→17:17)
[2017-10-05] MEDS: PANTOPRAZOLE 40 MG TABLET PO SCH (07:45)
[2017-10-05] MEDS: INSULIN LISPRO 1 UNIT/0.01 ML UNIT SQ SCH ×5 (07:45→21:49)
[2017-10-05] MEDS: CARVEDILOL 12.5 MG TABLET PO SCH ×2 (07:46→17:17)
[2017-10-05] MEDS: levETIRAcetam 500 MG TABLET PO SCH ×2 (08:53→21:51)
[2017-10-05] MEDS: ISOSORBIDE MONONITRATE 60 MG TAB.XL.24H PO SCH ×2 (08:53→21:54)
[2017-10-05] MEDS: TORSEMIDE 10 MG TABLET PO SCH (08:53)
[2017-10-05] MEDS: ASPIRIN 81 MG TAB.CHEW PO SCH (08:53)
[2017-10-05] MEDS: PRAMIPEXOLE 0.25 MG TABLET PO SCH ×3 (08:53→21:54)
[2017-10-05] MEDS: CLOPIDOGREL 75 MG TABLET PO SCH (08:53)
[2017-10-05] MEDS: HEPARIN 5,000 UNIT/ML VIAL SQ SCH ×2 (09:02→21:48)
--- NOTE | 2017-10-05 16:54 | Internal Med History&Physical ---
Medical - H&P: HPI Patient information: Note initiated : 10/05/17 at 4:51 pm Service Date, if different from initiated Date: [] Patient: Tamica Tidwell 67 y/o F admitted on 10/04/17 for Positive C-DIff. Chief Complaint: [] History of present illness: Ms Wallace is a 67 yr female with h?o ESRD, DM, ming BKA, who was a admitted to the hospital for cdiff diarrhea as well as influenza. Patient having several loose stools a day, still having fever, decreased appetite and decreased oral intake with failure to thrive. She was admitted to the hospital for further management. The patient was cdiff and influenza was treated, however she was deemed to weak to be discharged home, she was therefore admitted to the hospital under swing bed status. The patient will continue treatment for cdiff Today on my eval the patient noted she was short of breath, no chest pain, no headache, no dizziness, no gi complaints, she had HD done recently, vitals were stable, and EKG unchanged, X ray chest ordered along with labs. On talking with the nurses after 10 mins she noted she was fine. All systems: reviewed and no additional remarkable complaints except as stated ( as per HPI rest neg.) Medical - H&P: PMH Medical history: Medical History Ankle sprain and strain (Acute) Volume overload (Acute) Dizziness (Acute) Follow up (Acute) Right ankle strain (Acute) Charcot's joint arthropathy in type 2 diabetes mellitus (Acute) Amput below knee, unilat (Acute) CAD (coronary artery disease), [place] coronary artery (Chronic) Tobacco abuse (Chronic) DM type 2 with diabetic peripheral neuropathy (Chronic) Anemia (Acute) Thrombocytopenia (Acute) PVD (peripheral vascular disease) (Chronic) Amputation foot, bilat (Acute) ESRD (end stage renal disease) on dialysis (Acute) Wound dehiscence, surgical (Acute) Dehiscence of amputation stump (Acute) Delayed surgical wound healing (Acute) Necrotic eschar (Acute) PAD (peripheral artery disease) (Acute) Amputation of right lower extremity above knee with complication (Acute) Wound disruption (Acute) CVA (cerebral vascular accident) (Acute) Stroke (Acute) Wound healing, delayed (Chronic) Influenza (Acute) C. difficile diarrhea (Acute) Influenza B (Acute) Chronic kidney disease (Acute) Surgical history: junior aguillon Family history: reviewed and not pertinent Medical - H&P: Meds Home Medications Medication Instructions Recorded Confirmed Type Atorvastatin [Lipitor] 20 mg PO HS 08/09/15 10/04/17 History Carvedilol [Coreg] 25 mg PO BIDCC 08/09/15 10/04/17 History Metoclopramide HCl [Metozolv Odt] 5 mg PO TIDAC 08/09/15 10/04/17 History Pantoprazole [Protonix] 40 mg PO QAMAC 08/09/15 10/04/17 History Clopidogrel Bisulfate [Plavix] 75 mg PO DAILY 02/23/16 10/04/17 History amLODIPine [Norvasc] 10 mg PO DAILY 02/23/16 10/04/17 History Pramipexole Di-HCl [Mirapex] 0.25 mg PO TID 90 Days tablet 03/09/16 10/04/17 Rx Isosorbide Mononitrate [Isosorbide 30 mg PO BID 01/08/17 10/04/17 History Mononitrate ER] Torsemide [Demadex] 60 tablet PO DAILY 01/08/17 10/04/17 History levETIRAcetam [Keppra] 250 mg PO BID 01/09/17 10/04/17 History Insulin Glargine, Human [Lantus] 8 unit SQ HS unit 01/28/17 10/04/17 Rx clonazePAM [Klonopin] 0.5 mg PO DAILY@1700 #10 tablet 01/28/17 10/04/17 Rx Lisinopril [Zestril] 20 mg PO QDAY 04/18/17 10/04/17 History oxyCODONE/APAP [Percocet 5-325 mg] 1 tab PO Q4HP PRN #90 tablet 04/26/17 Rx Aspirin 81 mg PO DAILY 09/25/17 10/04/17 History Accu-Chek 1 each FS ACHS strip 10/04/17 10/04/17 Rx Insulin Lispro [Humalog] See Protocol SQ ACHS 10/04/17 10/04/17 History Vancomycin Oral Sabiha 125 mg PO Q6 bottle 10/04/17 10/04/17 Rx Allergies Allergy/AdvReac Type Severity Reaction Status Date / Time codeine AdvReac Mild n/v Verified 10/04/17 13:36 hydrocodone AdvReac Mild n/v Verified 10/04/17 13:36 Medical - H&P: Exam - Constitutional Vitals: Temp Pulse Resp BP Pulse Ox 98.9 F 72 20 117/52 99 10/05/17 16:26 10/05/17 16:26 10/05/17 16:26 10/05/17 16:26 10/05/17 16:26 Exam: GENERAL: The patient is a well-developed, malnourished in no apparent distress. Is alert and oriented x3. VITAL SIGNS: Reviewed and as noted elsewhere. HEENT: Head is normocephalic and atraumatic. Extraocular muscles are intact. Pupils are equal, round, and reactive to light. Nares appeared normal. Mouth appears any without lesions. Mucous membranes are moist. NECK: Normal to inspection, Supple, No lymphadenopathy or thyromegaly. LUNGS: Air entry equal on both sides, no wheezing, left basilar crackles noted, No accessory muscles of respiration, speaking full sentences. HEART: Regular rate and rhythm normal, S1 and S2 heard, no Gallop, S3 or Rub Noted, ABDOMEN: Soft, nontender, and nondistended. Positive bowel sounds. No hepatosplenomegaly was noted. EXTREMITIES: No cyanosis, clubbing, NEUROLOGIC: Cranial nerves II through XII are grossly intact. Motor and Sensory System Grossly Intact PSYCHIATRIC: Normal affect, Normal Mood. Appropriate Behavior. SKIN: No ulceration or wounds noted, No jaundice, No rash noted. Medical - H&P: A/P - Narrative A/P Narrative: 67-year-old female with multiple medical problems, including end-stage renal disease, coronary disease, type 2 diabetes, cerebrovascular disease who presents with failure of outpatient treatment of C. difficile diarrhea and influenza, was initially admitted as inpatient, now is being xfered to swing bed status for rehab. Shortness of breath: noted today, pt had HD today, will get cxr chest, labs and monitor. vitals sigs are stable. C. difficile associated diarrhea. Continues to improve on continue on po vancomycin, total of 14 days of treatment. no longer had diarrhea. Influenza. No evidence of pneumonia when diagnosed, lungs remain clear. s/p treatment with tamilfu Anemia. Likely secondary to chronic renal disease. Hemoglobin improved with one unit PRBC on Sat. No evidence of active bleeding. Plan: Monitor. Hypertension. No further hypotension. resumed home meds. Hypoglycemia: due to esrd, poor oral intake, cut lantus dose from 8 units to 2 units and sliding scale, glucose well controlled today. End-stage renal disease. // dialysis patient. HD on Saturday, ; next is . Labs pending today Plan: Continue dialysis at appropriate interval. , Dr Valles following Type 2 diabetes mellitus. Patient follows a regular diet at home. On a combination of short acting and long-acting insulins. Plan: Continue long-acting insulin, sliding scale insulin, regular diet as she does not follow a diabetic diet even one in the hospital, Accu-Cheks Malnurtition: poor oral intake, gets some nutrition during HD, has very poor oral intake, plan to try megace. Cerebrovascular disease. Plan: Continue home regime, resume plavix which was held. Coronary artery disease. No current symptoms. Plan: Continue current regimen. Lower extremity/perineal wounds. Plan: Continue wound care, wound care consult. Dr pedro plans amputation revision, but holding off the plan given that she has poor nutritional status. continue with wound care. CODE STATUS is full code, Prophylaxis: Subcutaneous heparin, PPI Medical - H&P: Qual - VTE Deep Vein Thrombosis/Pulmonary Embolism Present on Admission: No Social History - Tobacco smoking status: Current every day smoker
[2017-10-05] MEDS: clonazePAM 0.5 MG TABLET PO SCH (17:17)
[2017-10-05 19:15] LABS: Basophils # (Auto) 0 K/mcL (0.0-0.3); Basophils % (Auto) 0.3 % (0.0-2.0); Eosinophils # (Auto) 0.1 K/mcL (0.0-0.7); Eosinophils % (Auto) 1.6 % (0.0-7.0); Granulocytes % (Auto) 69.9 % (38.0-78.0); Lymphocytes % (Auto) 17.3 % (15.5-49.0); Mean Cell Volume 90.9 fL (80.0-100.0); Mean Corpuscular HGB Conc 33.6 g/dL (31.0-36.0); Mean Corpuscular Hemoglobin 30.5 pg (26.0-34.0); Monocytes # (Auto) 0.6 K/mcL (0.1-0.9); Monocytes % (Auto) 10.9 % (1.0-12.0); Platelet Count 161 K/mcL (140-440); RBC 3.08 M/mcL (4.00-5.20)
[2017-10-05 19:33] LABS: ALT/SGPT 8 U/l (0-40); Albumin/Globulin Ratio 1.3 (1.0-2.3); Alkaline Phosphatase 62 U/L (39-117); Bilirubin,Direct < 0.2 mg/dL (0.0-0.3); Blood Urea Nitrogen 13 mg/dl (8-23); Gamma Glutamyl Transpeptidase 8 U/L (5-36); Magnesium 1.8 mg/dL (1.6-2.5); Uric Acid 1.2 mg/dL (2.5-8.0)
--- NOTE | 2017-10-05 19:47 | XRay Report ---
CLINICAL INFORMATION: Shortness of breath COMPARISON: 09/24/2017 FINDINGS: ] Double-lumen catheter tip lies in the tricuspid valve plane. Right PICC line in stable satisfactory position Mild cardiomegaly is unchanged. Mediastinum is unremarkable. Pulmonary vessels are slightly distended with minimal interstitial edema. Mild chronic bronchitis changes - again noted. No infiltrates. No definite effusions IMPRESSION: 1. Mild CHF or volume overload 2. Right IJ double-lumen catheter tip lies in the tricuspid valve plane. Please consider withdrawal of the catheter 3 cm Interpreted and Authenticated by: Santhosh Feldman 10/05/17
[2017-10-05] MEDS: amLODIPine 10 MG TABLET PO SCH (21:51)
[2017-10-05] MEDS: ATORVASTATIN 20 MG TABLET PO SCH (21:51)
[2017-10-05] MEDS: INSULIN GLARGINE, HUMAN 1 UNIT/0.01 ML SQ SCH (21:51)
[2017-10-05] MEDS: LISINOPRIL 20 MG TABLET PO SCH (21:54)
[2017-10-06] MEDS: VANCOMYCIN ORAL SOL 1,000 MG/10 ML BOTTLE PO SCH ×4 (00:29→18:09)
[2017-10-06] MEDS: 0.9 % SODIUM CHLORIDE 10 ML SYRINGE IV SCH ×3 (05:54→20:48)
[2017-10-06] MEDS: INSULIN LISPRO 1 UNIT/0.01 ML UNIT SQ SCH ×4 (07:43→20:48)
[2017-10-06] MEDS: TORSEMIDE 10 MG TABLET PO SCH (08:10)
[2017-10-06] MEDS: ASPIRIN 81 MG TAB.CHEW PO SCH (08:11)
[2017-10-06] MEDS: PRAMIPEXOLE 0.25 MG TABLET PO SCH ×3 (08:11→20:46)
[2017-10-06] MEDS: CARVEDILOL 12.5 MG TABLET PO SCH ×2 (08:11→18:10)
[2017-10-06] MEDS: PANTOPRAZOLE 40 MG TABLET PO SCH (08:12)
[2017-10-06] MEDS: CLOPIDOGREL 75 MG TABLET PO SCH (08:12)
[2017-10-06] MEDS: levETIRAcetam 500 MG TABLET PO SCH ×2 (08:12→20:46)
[2017-10-06] MEDS: ISOSORBIDE MONONITRATE 60 MG TAB.XL.24H PO SCH ×2 (08:12→20:46)
[2017-10-06] MEDS: HEPARIN 5,000 UNIT/ML VIAL SQ SCH ×3 (08:13→20:48)
[2017-10-06] MEDS: METOCLOPRAMIDE 10 MG TABLET PO SCH ×4 (08:20→18:10)
[2017-10-06] MEDS: clonazePAM 0.5 MG TABLET PO SCH (18:10)
[2017-10-06] MEDS: amLODIPine 10 MG TABLET PO SCH (20:46)
[2017-10-06] MEDS: ATORVASTATIN 20 MG TABLET PO SCH (20:46)
[2017-10-06] MEDS: LISINOPRIL 20 MG TABLET PO SCH (20:48)
[2017-10-06] MEDS: INSULIN GLARGINE, HUMAN 1 UNIT/0.01 ML SQ SCH (20:48)
[2017-10-07] MEDS: VANCOMYCIN ORAL SOL 1,000 MG/10 ML BOTTLE PO SCH ×3 (00:05→14:51)
[2017-10-07] MEDS: 0.9 % SODIUM CHLORIDE 10 ML SYRINGE IV SCH ×2 (06:07→13:23)
[2017-10-07] MEDS: INSULIN LISPRO 1 UNIT/0.01 ML UNIT SQ SCH ×2 (07:45→13:09)
[2017-10-07] MEDS: PANTOPRAZOLE 40 MG TABLET PO SCH (08:07)
[2017-10-07] MEDS: METOCLOPRAMIDE 10 MG TABLET PO SCH ×2 (08:07→13:21)
[2017-10-07] MEDS: CARVEDILOL 12.5 MG TABLET PO SCH (08:07)
[2017-10-07] MEDS: levETIRAcetam 500 MG TABLET PO SCH (09:48)
[2017-10-07] MEDS: ISOSORBIDE MONONITRATE 60 MG TAB.XL.24H PO SCH (09:48)
[2017-10-07] MEDS: ASPIRIN 81 MG TAB.CHEW PO SCH (09:48)
[2017-10-07] MEDS: TORSEMIDE 10 MG TABLET PO SCH (09:48)
[2017-10-07] MEDS: HEPARIN 5,000 UNIT/ML VIAL SQ SCH (09:49)
[2017-10-07] MEDS: PRAMIPEXOLE 0.25 MG TABLET PO SCH ×2 (09:49→14:51)
[2017-10-07] MEDS: CLOPIDOGREL 75 MG TABLET PO SCH (09:49)
--- NOTE | 2017-10-07 09:59 | Discharge Summary ---
Medical - DS: Prov Patient information: Note initiated : 10/07/17 at 9:56 am Service Date, if different from initiated Date: [] Patient: Tamica Tidwell 67 y/o F admitted on 10/04/17 for Positive C-DIff. Chief Complaint: [] Date of admission: 10/04/17 12:23 Discharge date: 10/07/17 Primary care physician: Elizabeth Mccann Admitting clinician: James Melara Discharging clinician: James Melara Medical - DS: Meds - Discharge Medications Active and Home Medications: Home Medications Atorvastatin [Lipitor] 20 mg PO HS 08/09/15 [History Confirmed 10/04/17 Last Taken 09/25/17 21:00 20 MG.] Carvedilol [Coreg] 25 mg PO BIDCC 08/09/15 [History Confirmed 10/04/17 Last Taken 09/26/17 09:00 25 MG.] Metoclopramide HCl [Metozolv Odt] 5 mg PO TIDAC 08/09/15 [History Confirmed 02/14 Last Taken 09/26/17 07:30 5 MG.] Pantoprazole [Protonix] 40 mg PO QAMAC 08/09/15 [History Confirmed 10/04/17 Last Taken 09/26/17 07:30 40 MG.] Clopidogrel Bisulfate [Plavix] 75 mg PO DAILY 02/23/16 [History Confirmed Last Taken 09/26/17 09:00 75 MG.] amLODIPine [Norvasc] 10 mg PO DAILY 02/23/16 [History Confirmed 10/04/17 Last Taken 09/26/17 09:00 10 MG.] Pramipexole Di-HCl [Mirapex] 0.25 mg PO TID 90 Days tablet 03/09/16 [Rx Confirmed 10/04/17 Last Taken 09/26/17 09:00 0.25 MG.] Isosorbide Mononitrate [Isosorbide Mononitrate ER] 30 mg PO BID 01/08/17 [ History Confirmed 10/04/17 Last Taken 09/26/17 09:00 30 MG.] Torsemide [Demadex] 60 tablet PO DAILY 01/08/17 [History Confirmed 10/04/17 Last Taken 09/26/17 09:00 60 MG.] levETIRAcetam [Keppra] 250 mg PO BID 01/09/17 [History Confirmed 10/04/17 Last Taken 09/26/17 09:00 250 MG.] Insulin Glargine, Human [Lantus] 8 unit SQ HS unit 01/28/17 [Rx Confirmed 10/04 Last Taken 09/25/17 21:00 8 UNITS] clonazePAM [Klonopin] 0.5 mg PO DAILY@1700 #10 tablet 01/28/17 [Rx Confirmed 02/14 Last Taken 09/26/17 09:00 0.5 MG.] Lisinopril [Zestril] 20 mg PO QDAY 04/18/17 [History Confirmed 10/04/17 Last Taken 09/26/17 09:00 20 MG.] oxyCODONE/APAP [Percocet 5-325 mg] 1 tab PO Q4HP PRN #90 tablet 04/26/17 [Rx Confirmed 10/04/17 Last Taken 09/12/17 20:00 1 TAB] Aspirin 81 mg PO DAILY 09/25/17 [History Confirmed 10/04/17 Last Taken 09/26/17 09:00 81 MG.] Accu-Chek 1 each FS ACHS strip 10/04/17 [Rx Confirmed 10/04/17 Last Taken Unknown] Insulin Lispro [Humalog] See Protocol SQ ACHS 10/04/17 [History Confirmed Last Taken Unknown] Vancomycin Oral Sabiha 125 mg PO Q6 bottle 10/04/17 [Rx Confirmed 10/04/17 Last Taken Unknown] Medical - DS: Hosp Hospital course: Ms Wallace is a 67 yr female with h?o ESRD, DM, ming BKA, who was a admitted to the hospital for cdiff diarrhea as well as influenza. Patient having several loose stools a day, still having fever, decreased appetite and decreased oral intake with failure to thrive. She was admitted to the hospital for further management. The patient was cdiff and influenza was treated, however she was deemed to weak to be discharged home, she was therefore admitted to the hospital under swing bed status. The patient underwent rehab while under swing bed status and her upper body strength improved, she was able to work with PT and move use the wheel chair today. She is eager to go home Her Diabetes control was an issue during the hospital stay, she was on 8 units of lantus which was causing her to be hypoglycemic, which improved after her dose of lantus was cut back to 2 units qhs. She will continue her vancomycin dose as prescribed to her before she came in to the hospiotal and finish the duration of treatment She needs wound care and likely revision of her stump, Dr Higgins will plan to do the procedure once her nutritional status is better. Today at the time of discharge, she is hemodynamically stable. tolerating po diet well, ambulating with use of wheel chair. The patient has Bik bka and finds it difficult to do transfers. I will prescribe a irene lift for her to help with her transfers. Discharge diagnosis: cdiff diarrhea, influenza - Time Spent with Patient Total time spent providing and/or coordinating discharge services: Greater than 30 minutes Medical - DS: Exam - Constitutional Vitals: Vital Signs Temp Pulse Resp BP Pulse Ox 10/07/17 06:23 98.4 F 16 140/65 90 10/06/17 20:34 95 10/06/17 20:00 98.0 F 63 16 148/52 91 Intake and Output 10/06/17 10/07/17 10/07/17 21:59 05:59 13:59 Intake Total 600 / 600 250 / 250 Output Total Balance 598 / 598 249 / 249 Intake: Oral 600 / 600 250 / 250 Output: # of times incontinent of urine Other: Meal Dinner Percent of Meal Consumed 100% Feeding Ability Independent Weight 104 lb Additional comments: Constitutional; Afebrile, cooperative, alert, not in distress. Eyes- No icterus, , No periorbital swelling Ears- Ext ear normal, hearing normal to conversation. Neck- Midline trachea, supple Respiratory system: Air Entry equal on both sides, No crackles or wheezing, no rhonchi. CVS- Rate rhythm regular, S1,S2 heard, no gallop, no rub. Abdomen- Soft nontender abdomen, no organomegaly, no tenderness, no guarding or rigidity, LAYER UP- AOOx3, moving all extremities, no gross focal deficit noted. Medical - DS: A/P - Patient/Caregiver Discharge Instructions Activity: as per physical therapy, increase activity as tolerated Diet: Cardiac, Renal/Consistent Carbs Additional Instructions: You were admitted to the hospital for Cdiff diarrhea Please take PO vancomycin till finished. Follow up with wound care for your lower extremity wounds Follow up with Dr Higgins in 2 weeks Follow up with PCP in 1 week go to the ER if worsening symptoms, recurrent diarrhea, or fever, or any other acute concern. - Follow up Plan Disposition: Home Health Service Prognosis: Fair Rehab Potential: Fair I certify that the patient requires SNF services: No Overall status at discharge: patient is progressing back to baseline Medical - DS: Qual - VTE Deep Vein Thrombosis/Pulmonary Embolism Present on Admission: No
== END 2017-10-07 15:00 | disposition home health service (06) | DRG 371 ==
LOC: MEDSUR 12:23
PROVIDERS: ADMIT Internal Medicine; ATTEND Internal Medicine

== ENCOUNTER 2017-10-31 09:16 | Inpatient (IN) ==
[2017-10-29 17:33] LABS: Basophils # (Auto) 0 K/mcL (0.0-0.3); Basophils % (Auto) 0.4 % (0.0-2.0); Eosinophils # (Auto) 0.5 K/mcL (0.0-0.7); Eosinophils % (Auto) 5.4 % (0.0-7.0); Granulocytes % (Auto) 70.4 % (38.0-78.0); Lymphocytes # (Auto) 1.6 K/mcL (1.5-4.8); Lymphocytes % (Auto) 17.1 % (15.5-49.0); Mean Cell Volume 90.9 fL (80.0-100.0); Mean Corpuscular HGB Conc 33.8 g/dL (31.0-36.0); Mean Corpuscular Hemoglobin 30.7 pg (26.0-34.0); Monocytes # (Auto) 0.6 K/mcL (0.1-0.9); Monocytes % (Auto) 6.7 % (1.0-12.0); Platelet Count 165 K/mcL (140-440); Red Cell Distribution Width 14.9 % (11.5-14.5)
[2017-10-29 17:44] LABS: Blood Urea Nitrogen 21 mg/dl (8-23)
[2017-10-31 11:15] LABS: Appearance,Urine CLOUDY; Bacteria,Urine MANY /hpf (0); Bilirubin,Urine NEG (NEG); Color,Urine YELLOW; Glucose,Urine (UA) NEGATIVE (NEG); Leukocyte Esterase,Urine 500 /uL (NEG); Protein,Urine >=500 mg/dL (NEG); Specific Gravity,Urine 1.011 (1.000-1.035); Urine Blood NEG mg/dL (<0.03); Urine RBC 0 /hpf (0-1); Urine Squamous Epithelial Cell 0 /hpf (0-4); Urine WBC 130 /hpf (0-4); Urobilinogen,Urine NEG (NEG)
[2017-10-31] MEDS ORDERED: 0.9 % SODIUM CHLORIDE 250 ML IV SCH (13:15)
[2017-10-31] MEDS ORDERED: ONDANSETRON 4 MG/2 ML VIAL IV ONE (14:40)
[2017-10-31] MEDS ORDERED: DEXAMETHASONE 10 MG/ML VIAL IV ONE (14:40)
[2017-10-31] MEDS ORDERED: fentaNYL 100 MCG/2 ML VIAL IV ONE (14:40)
[2017-10-31] MEDS ORDERED: PROPOFOL 200 MG/20 ML VIAL IV ONE (14:40)
[2017-10-31] MEDS ORDERED: TRANEXAMIC ACID 1,000 MG/10 ML VIAL IV ONE ×2 (14:40→15:15)
[2017-10-31] MEDS ORDERED: MIDAZOLAM 5 MG/5 ML VIAL IV ONE (14:40)
[2017-10-31] MEDS ORDERED: KETAMINE 100 MG/ML ML IV ONE (14:40)
[2017-10-31] MEDS ORDERED: LIDOCAINE HCL/PF 100 MG/5 ML SYRINGE IV ONE (14:40)
[2017-10-31] MEDS ORDERED: IPRATROPIUM/ALBUTEROL 3 ML AMPUL.NEB NEB PRN (15:12)
[2017-10-31] MEDS ORDERED: ONDANSETRON 4 MG/2 ML VIAL IV PRN ×2 (15:12→15:30)
[2017-10-31] MEDS ORDERED: BENZOCAINE/MENTHOL 1 LOZENGE PO PRN ×2 (15:12→15:30)
[2017-10-31] MEDS ORDERED: LACTATED RINGERS 250 ML IV PRN (15:12)
[2017-10-31] MEDS ORDERED: fentaNYL 100 MCG/2 ML VIAL IV PRN (15:12)
[2017-10-31] MEDS ORDERED: METHOCARBAMOL 1,000 MG/10 ML VIAL IV PRN (15:12)
[2017-10-31] MEDS ORDERED: PROMETHAZINE 25 MG/ML VIAL IV PRN (15:12)
[2017-10-31] MEDS ORDERED: NALOXONE HCL 0.4 MG/ML VIAL IV PRN (15:12)
[2017-10-31] MEDS ORDERED: ACETAMINOPHEN 700 MG/70 ML BOTTLE IV ONE (15:12)
[2017-10-31] MEDS ORDERED: FLUMAZENIL 0.1 MG/ML ML IV PRN (15:12)
[2017-10-31] MEDS ORDERED: LACTATED RINGERS 1,000 ML IV SCH (15:15)
[2017-10-31] MEDS ORDERED: BISACODYL 10 MG SUPP.RECT PR PRN (15:30)
[2017-10-31] MEDS ORDERED: METHOCARBAMOL 750 MG TABLET PO PRN (15:30)
[2017-10-31] MEDS ORDERED: MAGNESIUM HYDROXIDE 30 ML ORAL.SUSP PO PRN (15:30)
[2017-10-31] MEDS ORDERED: FLEETS ADULT ENEMA PR PRN (15:30)
[2017-10-31] MEDS ORDERED: POLYETHYLENE GLYCOL 3350 17 GM PACKET PO PRN (15:30)
--- NOTE | 2017-10-31 15:30 | Brief Operative Note ---
Date of procedure: 10/31/17 Pre-op diagnosis: PVD Post-op diagnosis: same Procedure: left AKA Grafts/Implants: No Anesthesia: RAMONAA Surgeon: Trey Higgins Shelter Monitor: Caitie Mccarty Estimated blood loss (cc): 200 Tourniquet Time (Minutes): 8 Specimens Removed/Pathology: none sent Condition: stable Disposition: PACU
[2017-10-31] MEDS ORDERED: GENTAMICIN SULFATE 800 MG/20 ML VIAL IR ONE (15:33)
[2017-10-31] MEDS ORDERED: BUPIVACAINE 0.5% 50 ML VIAL IJ ONE (15:41)
[2017-10-31] MEDS: 0.9 % SODIUM CHLORIDE 1,000 ML IV SCH ×3 (16:36→21:49)
[2017-10-31] MEDS: CARVEDILOL 12.5 MG TABLET PO SCH (17:05)
[2017-10-31] MEDS: METOCLOPRAMIDE 10 MG TABLET PO SCH (17:05)
[2017-10-31] MEDS: oxyCODONE/APAP 5/325MG TABLET PO PRN (18:04)
[2017-10-31] MEDS ORDERED: 0.9 % SODIUM CHLORIDE 1,000 ML IV SCH (21:00)
[2017-10-31] MEDS ORDERED: DEXTROSE 31 GM ORAL.SUSP PO PRN (21:16)
[2017-10-31] MEDS ORDERED: DEXTROSE 50% 50 ML VIAL IV PRN (21:16)
[2017-10-31] MEDS: ISOSORBIDE MONONITRATE 30 MG TAB.XL.24H PO SCH (22:04)
[2017-10-31] MEDS: levETIRAcetam 500 MG TABLET PO SCH (22:04)
[2017-10-31] MEDS: ATORVASTATIN 20 MG TABLET PO SCH (22:05)
[2017-10-31] MEDS: INSULIN GLARGINE, HUMAN 1 UNIT/0.01 ML SQ SCH (22:05)
[2017-10-31] MEDS: LISINOPRIL 20 MG TABLET PO SCH (22:06)
[2017-10-31] MEDS: amLODIPine 10 MG TABLET PO SCH (22:06)
[2017-10-31] MEDS: SENNOSIDES 1 TABLET PO SCH (22:06)
[2017-10-31] MEDS: PRAMIPEXOLE 0.25 MG TABLET PO SCH (22:06)
[2017-10-31] MEDS: DOCUSATE SODIUM 100 MG CAPSULE PO SCH (22:06)
[2017-10-31] MEDS: 0.9 % SODIUM CHLORIDE 10 ML SYRINGE IV SCH (22:07)
[2017-10-31] MEDS: ceFAZolin 1 GM VIAL IV SCH (22:18)
[2017-11-01] MEDS: oxyCODONE/APAP 5/325MG TABLET PO PRN ×4 (02:59→22:44)
[2017-11-01] MEDS: ceFAZolin 1 GM VIAL IV SCH (05:40)
[2017-11-01] MEDS: 0.9 % SODIUM CHLORIDE 10 ML SYRINGE IV SCH ×2 (05:40→14:11)
[2017-11-01] MEDS: PANTOPRAZOLE 40 MG TABLET PO SCH (07:18)
[2017-11-01] MEDS: METOCLOPRAMIDE 10 MG TABLET PO SCH ×3 (07:18→17:27)
--- NOTE | 2017-11-01 07:37 | Orthopedic Progress Note ---
Subjective Patient information: Note initiated : 11/01/17 at 7:36 am Service Date, if different from initiated Date: [] Patient: Tamica Tidwell 67 y/o F admitted on 10/31/17 for Left Above Knee Amputation. Chief Complaint: [] pain controllrd, able to move in bed Objective Vital signs: Vital Signs Temp Pulse Resp BP Pulse Ox 11/01/17 03:02 97.4 F 73 16 102/54 94 10/31/17 23:26 97.4 F 60 105/57 95 10/31/17 20:35 64 93 10/31/17 20:09 97.7 F 62 107/57 92 10/31/17 19:11 70 107/57 93 10/31/17 18:11 78 139/63 92 10/31/17 17:41 74 136/66 92 10/31/17 17:11 83 158/65 96 10/31/17 16:56 77 158/69 91 10/31/17 16:41 80 167/72 92 10/31/17 16:27 97.6 F 87 20 171/69 97 10/31/17 16:22 98.4 F 84 12 189/84 97 10/31/17 16:13 97.3 F 84 20 172/71 97 10/31/17 16:07 98.1 F 83 20 169/82 95 10/31/17 16:02 98.1 F 87 20 173/72 95 10/31/17 15:57 98.1 F 90 12 173/78 96 10/31/17 09:16 98.1 F 80 20 160/76 97 Intake and Output 10/31/17 11/01/17 11/01/17 21:59 05:59 13:59 Intake Total 242 / 242 310 / 310 Output Total 275 / 275 0 / 0 Balance -33 / -33 310 / 310 Intake: IV 242 / 242 Sodium Chloride 0.9% 1,000 ml @ 242 / 242 75 mls/hr IV .[id number] [facility] Rx#: [id number] Oral 310 / 310 Output: Void Amount 275 / 275 0 / 0 Other: Weight 110 lb Intake & Output: Intake & Output 10/31/17 11/01/17 11/01/17 21:59 05:59 13:59 Intake Total 242 / 242 310 / 310 Output Total 275 / 275 0 / 0 Balance -33 / -33 310 / 310 Weight 110 lb Intake: IV 242 / 242 Sodium Chloride 0.9% 1,000 ml @ 242 / 242 75 mls/hr IV .[id number] [facility] Rx#: [id number] Oral 310 / 310 Output: Void Amount 275 / 275 0 / 0 Dressing: Yes clean, Yes dry Neurological exam IM: Yes alert, Yes oriented X3 - Labs CBC & BMP: 11/01/17 05:57 10/29/17 14:35 Labs: Orthopedic Labs 11/01/17 10/29/17 05:57 14:36 PT Pending 13.5 INR Pending 1.0 11/01/17 10/29/17 05:57 14:36 Hgb 8.5 L 10.8 L Hct 25.1 L 31.9 L Assessment and Plan (1) Amput below knee, unilat no complications. Pain controlled. Dialysis today Status: Acute
[2017-11-01] MEDS: INSULIN LISPRO 1 UNIT/0.01 ML UNIT SQ SCH ×4 (08:52→22:56)
[2017-11-01] MEDS: clonazePAM 0.5 MG TABLET PO SCH (08:52)
[2017-11-01] MEDS: levETIRAcetam 500 MG TABLET PO SCH ×2 (09:00→22:47)
[2017-11-01] MEDS: DOCUSATE SODIUM 100 MG CAPSULE PO SCH ×2 (09:00→22:49)
[2017-11-01] MEDS: PRAMIPEXOLE 0.25 MG TABLET PO SCH ×3 (09:00→22:52)
[2017-11-01] MEDS: ISOSORBIDE MONONITRATE 30 MG TAB.XL.24H PO SCH ×2 (09:00→22:49)
[2017-11-01] MEDS: CARVEDILOL 12.5 MG TABLET PO SCH ×2 (09:00→17:27)
--- NOTE | 2017-11-01 09:15 | Operative Note ---
DATE OF OPERATION: 10/31/2017 PREOPERATIVE DIAGNOSIS: Peripheral vascular disease, left leg. POSTOPERATIVE DIAGNOSIS: Peripheral vascular disease, left leg. OPERATION: Above-knee amputation, left. SURGEON: Trey Higgins M.D. ANALYSIS SPECIALIST: Caitie Mccarty PA-C. ANESTHESIA: General done by Codi De La O CRNA. TOURNIQUET TIME: 8 minutes. ESTIMATED BLOOD LOSS: 50 mL. SUMMARY OF PROCEDURE: General anesthesia was attained. The left leg was prepped and draped. A thigh level tourniquet was put up. A fishmouth incision was made over the distal femur. It was taken down sharply to the bone, through the quadriceps anteriorly and posteriorly with a sharp knife. The remainder of the patient's leg was removed. After the femoral osteotomy was made 10 cm above the joint line. The leg was removed once again. The popliteal artery was identified and suture ligated. The coil in it was removed. The tourniquet was let down. Minor bleeding was stopped with a Bovie. I then used one gram of tranexamic acid topically. The wound was closed using 0 Vicryl for the fascial layer, 2-0 Monocryl for the superficial layer, and roscoe and simple sutures on the skin. The area was infiltrated with 30 mL of Marcaine for postoperative pain relief. A sterile compressive dressing was applied. The sponge and needle count was correct. The patient tolerated the procedure well and was taken to the recovery room in stable condition. TJF:leonardo Job ID: [id number] Doc ID: [id number] Trey CHRISTENSEN
--- NOTE | 2017-11-01 10:45 | Nephrology Progress Note ---
Subjective Patient information: Note initiated : 11/01/17 at 10:43 am Service Date, if different from initiated Date: [] Patient: Tamica Tidwell 67 y/o F admitted on 10/31/17 for Left Above Knee Amputation. Chief Complaint: S/P revision of BKA Objective - Vital Signs Vital signs: Vital Signs Temp Pulse Resp BP BP Pulse Ox 11/01/17 07:42 97.8 F 16 108/48 95 11/01/17 03:02 97.4 F 73 16 102/54 94 10/31/17 23:26 97.4 F 60 105/57 95 10/31/17 20:35 64 93 10/31/17 20:09 97.7 F 62 107/57 92 10/31/17 19:11 70 107/57 93 10/31/17 18:11 78 139/63 92 10/31/17 17:41 74 136/66 92 10/31/17 17:11 83 158/65 96 10/31/17 16:56 77 158/69 91 10/31/17 16:41 80 167/72 92 10/31/17 16:27 97.6 F 87 20 171/69 97 10/31/17 16:22 98.4 F 84 12 189/84 97 10/31/17 16:13 97.3 F 84 20 172/71 97 10/31/17 16:07 98.1 F 83 20 169/82 95 10/31/17 16:02 98.1 F 87 20 173/72 95 10/31/17 15:57 98.1 F 90 12 173/78 96 Intake and Output 10/31/17 11/01/17 11/01/17 21:59 05:59 13:59 Intake Total 242 / 242 310 / 310 100 / 100 Output Total 275 / 275 0 / 0 Balance -33 / -33 310 / 310 100 / 100 Intake: IV 242 / 242 Sodium Chloride 0.9% 1,000 ml @ 242 / 242 75 mls/hr IV .[id number] [facility] Rx#: [id number] Oral 310 / 310 100 / 100 Output: Void Amount 275 / 275 0 / 0 Other: Meal Breakfast Percent of Meal Consumed 75% Weight 110 lb Intake & Output: Intake & Output 10/31/17 11/01/17 11/01/17 21:59 05:59 13:59 Intake Total 242 / 242 310 / 310 100 / 100 Output Total 275 / 275 0 / 0 Balance -33 / -33 310 / 310 100 / 100 Weight 110 lb Intake: IV 242 / 242 Sodium Chloride 0.9% 1,000 ml @ 242 / 242 75 mls/hr IV .[id number] [facility] Rx#: [id number] Oral 310 / 310 100 / 100 Output: Void Amount 275 / 275 0 / 0 Other: Meal Breakfast Percent of Meal Consumed 75% - General Appearance General appearance: cachectic EENT: ATNC Neck: no JVD Cardiology: no murmurs Gastrointestinal: normoactive bowel sounds Neurologic: no focal deficit - Lab 11/01/17 05:57 10/29/17 14:35 Most recent lab results Calcium 8.5 mg/dl (8.6-10.4) L 10/29/17 14:35 Assessment and Plan (1) ESRD (end stage renal disease) on dialysis Status: Acute Comment: ESRD. HD today as she missed her treatment yesterday. Continued on IDPN. She will have her regular dialysis treatment tomorrow.
--- NOTE | 2017-11-01 14:04 | Surgical Pathology Report ---
HISTOLOGY SPECIMEN MICROSCOPIC DIAGNOSIS LOWER EXTREMITY, LEFT, ABOVE THE KNEE AMPUTATION: -- GANGRENOUS ULCER WITH ASSOCIATED DYSTROPHIC CALCIFICATIONS, STATUS POST BELOW THE KNEE AMPUTATION. -- CALCIFIC ATHEROSCLEROSIS. -- VIABLE SKIN, SOFT TISSUE, AND BONE MARGINS. ([facility]:hernandof) CLINICAL HISTORY Nonhealing wound, peripheral vascular disease, left knee area. GROSS DESCRIPTION Received fresh labeled above the left knee amputation, is a portion of limb consisting of knee, distal stump and the proximal portion consists of distal femur. The specimen measures 20 cm from knee to surgically closed stump end and 14 cm from knee to proximal cut femur end. The diameter of the leg is 12-15 cm. On the anterior skin surface is an ulcerated purulent region measuring 3.5 x 2 cm. The proximal margin consists of the aforementioned cut femur margin along with skin and soft tissue that is present at a distance of 8 and 5 cm from the bone margin, respectively. There is a portion of vessel with vascular coil at the proximal margin. Rn Neurology sections submitted as follows: A1 - ulcerated region and sections of vessels; A2 - marrow from femur margin; A3 - skin and soft tissue at the margin. ([facility]:adj) Electronically Signed by: Nemo Eugene D.O.
--- NOTE | 2017-11-01 14:47 | Internal Med Progress Note ---
Medical - PN: Subj Patient information: Note initiated : 11/01/17 at 2:26 pm Service Date, if different from initiated Date: [] Patient: Tamica Tidwell 67 y/o F admitted on 10/31/17 for Left Above Knee Amputation. Chief Complaint: management of diabetes and medical illness Interval history: Dr. Higgins has asked for assistance in managing diabetes and medical illness. Patient chart reviewed yesterday evening, seen this morning. Patient 67-year-old female with history of vascular disease, type 2 diabetes, status post right above-knee amputation, now status post left AKA due to non- healing wounds at existing BKA yesterday. The patient is in pretty good spirits this morning. Appetite is improved. She clearly feels better than when I last saw her about a month ago when she was recovering from C. difficile and influenza. Denies any dyspnea, no chest pain. Some pain at the amputation site, but it is being controlled. She normally gets HD on , but missed yesterday due to surgery. Discussed with Dr. Valles, who will see for dialysis orders. - Constitutional Vitals: Vital Signs Temp Pulse Resp BP Pulse Ox 98.2 F 70 20 129/43 98 11/01/17 12:19 11/01/17 14:17 11/01/17 12:00 11/01/17 14:17 11/01/17 14:15 Period Temp Pulse Resp BP Sys/Pichardo Pulse Ox Last 24 Hr 97.3 F-98.4 F 59-95 12-20 102-189/41-84 91-98 Intake and Output 11/01/17 11/01/17 11/01/17 05:59 13:59 21:59 Intake Total 310 / 310 100 / 100 Output Total 0 / 0 Balance 310 / 310 100 / 100 Weight 110 lb Patient Weight 11/02/17 05:59 Weight 110 lb Intake & Output: Intake & Output 11/01/17 11/01/17 11/01/17 05:59 13:59 21:59 Intake Total 310 / 310 100 / 100 Output Total 0 / 0 Balance 310 / 310 100 / 100 Weight 110 lb Intake: Oral 310 / 310 100 / 100 Output: Void Amount 0 / 0 Other: Meal Breakfast Percent of Meal Consumed 75% Exam: General: Sitting in bed in no acute distress, frail-appearing Chest: Bibasilar crackles. Respirations unlabored Cardiovascular: Regular with murmur. Abdomen: Soft, nontender, active bowel sounds Extremities: Left AKA with surgical dressing in place, clean and dry. Right stump with dressing over wound. Neuro: Alert, oriented Medical - PN: Obj Da - Labs CBC & Chem 7: 11/01/17 05:57 10/29/17 14:35 Labs: Abnormal Lab Results 11/01/17 10/31/17 10/29/17 05:57 10:26 14:36 RBC 3.50 L Hgb 8.5 L 10.8 L Hct 25.1 L 31.9 L RDW 14.9 H Chloride Calcium Urine Protein >=500 A Ur Leukocyte Esterase 500 A Urine WBC 130 H Urine Bacteria Many A 10/29/17 14:35 RBC Hgb Hct RDW Chloride 95 L Calcium 8.5 L Urine Protein Ur Leukocyte Esterase Urine WBC Urine Bacteria Meds: Medications Amlodipine Besylate (Norvasc) 10 mg PO HS [facility] Last Admin: 10/31/17 22:06 Dose: 10 mg Aspirin (Aspirin) 81 mg PO DAILY [facility] Atorvastatin Calcium (Lipitor) 20 mg PO [facility] Last Admin: 10/31/17 22:05 Dose: 20 mg Bisacodyl (Dulcolax) 10 mg NM Q2-3DAYS PRN PRN Reason: Constipation [facility] Last Admin: 10/31/17 17:05 Dose: 25 mg Clonazepam (Klonopin) 0.5 mg PO DAILY [facility] Last Admin: 11/01/17 08:52 Dose: 0.5 mg Clopidogrel Bisulfate (Plavix) 75 mg PO DAILY [facility] Dextrose (Dextrose 50%) 0 ml IV UD PRN PRN Reason: Hypoglycemia Diagnostic Test (Pha) (Accu-Chek) 1 each FS ACHS [facility] Last Admin: 11/01/17 11:15 Dose: 1 each Docusate Sodium (Colace) 100 mg PO BID [facility] Last Admin: 10/31/17 22:06 Dose: 100 mg Glucose (Insta-Glucose) 15 gm PO PRN PRN PRN Reason: Hypoglycemia Sodium Chloride (Sodium Chloride 0.9%) 1,000 mls @ 25 mls/hr IV .Q24H [facility] Last Admin: 10/31/17 21:49 Dose: 25 mls/hr Insulin Glargine (Lantus) 8 unit SQ [facility] Last Admin: 10/31/17 22:05 Dose: 8 unit Insulin Human Lispro (Humalog) 0 unit SQ [facility] PRN Reason: Protocol Last Admin: 11/01/17 11:15 Dose: Not Given Isosorbide Mononitrate (Imdur) 30 mg PO BID [facility] Last Admin: 10/31/17 22:04 Dose: 30 mg Levetiracetam (Keppra) 250 mg PO BID [facility] Last Admin: 10/31/17 22:04 Dose: 250 mg Lisinopril (Zestril) 20 mg PO [facility] Last Admin: 10/31/17 22:06 Dose: 20 mg Magnesium Hydroxide (Milk Of Magnesia) 30 ml PO BIDP PRN PRN Reason: Constipation Methocarbamol (Robaxin) 750 mg PO Q6HP PRN PRN Reason: Muscle Spasm Metoclopramide HCl (Reglan) 10 mg PO TIDAC [facility] Last Admin: 11/01/17 11:15 Dose: 10 mg Morphine Sulfate (Morphine) 0 mg IV Q1HP PRN PRN Reason: PAIN LEVEL > 6 Ondansetron HCl (Zofran) 4 mg IV Q4HP PRN PRN Reason: Nausea And Vomiting Oxycodone/Acetaminophen (Percocet 5-325 Mg) 0 tab PO Q4HP PRN PRN Reason: PAIN LEVEL 3-6 Last Admin: 11/01/17 07:30 Dose: 1 tab Pantoprazole Sodium (Protonix) [facility] Last Admin: 11/01/17 07:18 Dose: 40 mg Polyethylene Glycol (Miralax) 17 gm PO DAILYP PRN PRN Reason: Constipation Pramipexole Dihydrochloride (Mirapex) 0.25 mg PO TID [facility] Last Admin: 10/31/17 22:06 Dose: 0.25 mg Senna (Senokot) 2 tab PO [facility] Last Admin: 10/31/17 22:06 Dose: 2 tab Sodium Biphosphate/Sodium Phosphate (Fleets Adult) 1 dose NM Q3-4DAYS PRN PRN Reason: Constipation Sodium Chloride (Saline Flush) 10 ml IV Q8 [facility] Last Admin: 11/01/17 14:11 Dose: Not Given Throat Lozenges (Cepacol) 1 lozenge PO PRN PRN PRN Reason: Sore Throat Torsemide (Demadex) 60 mg PO DAILY [facility] Medical - PN: A/P - Time Spent With Patient Total time spent is greater than 50% in coordination of care (as documented) at patient's floor/unit and/or counseling patient: Greater than 35 minutes - Narrative A/P Narrative: 67-year-old female multiple medical problems, now status post above knee amputation left, postop day #1. Type 2 diabetes mellitus. Renal/controlled carbohydrate diet has been ordered. She is on her home long-acting insulin, sliding scale has been added. Plan: Continue with long-acting, sliding scale, diabetic diet End-stage renal disease. Currently with some rales, appears to be a bit volume overloaded. Plan: Discussed with Dr. Valles, will receive hemodialysis today. Coronary artery disease. Quiescent. Plan: Continue home regimen. Peripheral arterial disease, status post now AKA on the left lower extremity. Plan: Per orders. History of C. difficile associated diarrhea. No current symptoms. Plan: Monitor, minimize antibiotic exposure. We'll continue to follow.
[2017-11-01] MEDS: ASPIRIN 81 MG TAB.CHEW PO SCH (16:20)
[2017-11-01] MEDS: CLOPIDOGREL 75 MG TABLET PO SCH (16:20)
[2017-11-01] MEDS: TORSEMIDE 10 MG TABLET PO SCH (16:21)
[2017-11-01] MEDS: SENNOSIDES 1 TABLET PO SCH (22:50)
[2017-11-01] MEDS: ATORVASTATIN 20 MG TABLET PO SCH (22:51)
[2017-11-01] MEDS: INSULIN GLARGINE, HUMAN 1 UNIT/0.01 ML SQ SCH (22:55)
[2017-11-01] MEDS: 0.9 % SODIUM CHLORIDE 1,000 ML IV SCH (23:14)
[2017-11-01] MEDS: LISINOPRIL 20 MG TABLET PO SCH (23:14)
[2017-11-01] MEDS: amLODIPine 10 MG TABLET PO SCH (23:14)
[2017-11-02] MEDS: 0.9 % SODIUM CHLORIDE 10 ML SYRINGE IV SCH ×4 (00:21→21:39)
[2017-11-02 07:17] LABS: Blood Urea Nitrogen 28 mg/dl (8-23)
[2017-11-02] MEDS: INSULIN LISPRO 1 UNIT/0.01 ML UNIT SQ SCH ×4 (07:55→21:21)
[2017-11-02] MEDS: METOCLOPRAMIDE 10 MG TABLET PO SCH ×3 (07:55→17:38)
[2017-11-02] MEDS: PANTOPRAZOLE 40 MG TABLET PO SCH (07:55)
[2017-11-02] MEDS: levETIRAcetam 500 MG TABLET PO SCH ×2 (09:00→21:37)
[2017-11-02] MEDS: ISOSORBIDE MONONITRATE 30 MG TAB.XL.24H PO SCH ×2 (09:00→21:37)
--- NOTE | 2017-11-02 09:03 | Discharge Summary ---
Providers - Providers Patient information: Note initiated : 11/02/17 at 9:00 am Service Date, if different from initiated Date: [] Patient: Tamica Tidwell 67 y/o F admitted on 10/31/17 for Left Above Knee Amputation. Chief Complaint: [POD #2 s/p left AKA Patient is POD #2 s/p left AKA. She was stooped over in bed when I entered the room but alert and oriented otherwise. She is complaining of some pain at the incision site but no pain elsewhere. She denies numbness or tingling around the surgical site.] Discharge date: 11/02/17 Hospitalization Hospital course: Patient underwent a left above the knee amputation with Dr. Higgins on 10/31/17. She was admitted for pain control and observation. No events took place during her stay. She will d/c to home today and follow up with Dr. Higgins in the office in 10-12 days. Discharge diagnosis: left above the knee amputation Exam - Exam Incision healing: Yes Incision draining: No Incision red: No Incision swollen: No Incision inflamed: No Clean and dry: Yes Weight bearing status: none Range of motion: dressing changed, CDI, no erythema or drainage. No wound dehisence. Ortho Discharge Plan - General - Patient Instructions Diet: Regular Diet Activity: non weight bearing Dressing Care: Other (leave dressing intact. On 11/07/17, may remove Koban (brown ) outer layer and rewrap entire extremity with AMIRA wrap. Leave rest of dressing intact until follow up in the office in 10-12 days. Keep covered with water protective barrier. No bathing or soaking. May shower with bag over leg or sponge bath. Keep clean and dry) - Follow Up Plan Follow Up Appointments: Trey Higgins MD [Physician] - 11/11/17 Disposition: Home, Self-Care Prognosis: Fair Rehab Potential: Fair Overall status at discharge: patient is progressing back to baseline - Orders For Discharge Prescriptions: Methocarbamol [Robaxin] 750 mg PO Q6HP PRN #60 tab PRN Reason: Muscle Spasm oxyCODONE/APAP [Percocet 5-325 mg] 1 - 2 tab PO Q4-6HP PRN #60 tab PRN Reason: Pain Level 3-6 Pending Studies Resuscitation Status Full Code Diet Regular Diet Start SatNov 01 1117 Amlodipine Besylate (Norvasc) 10 mg PO [facility] Last Admin: 11/01/17 23:14 Dose: Not Given Admin: 10/31/17 22:06 Dose: 10 mg Aspirin (Aspirin) 81 mg PO DAILY [facility] Last Admin: 11/01/17 16:20 Dose: 81 mg Atorvastatin Calcium (Lipitor) 20 mg PO HS [facility] Last Admin: 11/01/17 22:51 Dose: 20 mg Admin: 10/31/17 22:05 Dose: 20 mg [facility] Last Admin: 11/01/17 17:27 Dose: 25 mg Admin: 11/01/17 09:00 Dose: Admin: 10/31/17 17:05 Dose: 25 mg Clonazepam (Klonopin) 0.5 mg PO DAILY [facility] Last Admin: 11/01/17 08:52 Dose: 0.5 mg Clopidogrel Bisulfate (Plavix) 75 mg PO DAILY [facility] Last Admin: 11/01/17 16:20 Dose: 75 mg Diagnostic Test (Pha) (Accu-Chek) 1 each FS [facility] Last Admin: 11/02/17 07:54 Dose: 1 each Admin: 11/01/17 22:57 Dose: 1 each Admin: 11/01/17 17:26 Dose: 1 each Admin: 11/01/17 11:15 Dose: 1 each Admin: 11/01/17 07:18 Dose: 1 each Admin: 10/31/17 21:49 Dose: 1 each Docusate Sodium (Colace) 100 mg PO BID [facility] Last Admin: 11/01/17 22:49 Dose: 100 mg Admin: 11/01/17 09:00 Dose: Admin: 10/31/17 22:06 Dose: 100 mg Sodium Chloride (Sodium Chloride 0.9%) 1,000 mls @ 25 mls/hr IV .Q24H [facility] Last Admin: 11/01/17 23:14 Dose: Admin: 10/31/17 21:49 Dose: 25 mls/hr Insulin Glargine (Lantus) 8 unit SQ [facility] Last Admin: 11/01/17 22:55 Dose: 8 unit Admin: 10/31/17 22:05 Dose: 8 unit Insulin Human Lispro (Humalog) 0 unit SQ [facility] PRN Reason: Protocol Last Admin: 11/02/17 07:55 Dose: Not Given Admin: 11/01/17 22:56 Dose: 1 unit Admin: 11/01/17 17:33 Dose: 1 unit Admin: 11/01/17 11:15 Dose: Not Given Admin: 11/01/17 08:52 Dose: 1 unit Isosorbide Mononitrate (Imdur) 30 mg PO BID [facility] Last Admin: 11/01/17 22:49 Dose: 30 mg Admin: 11/01/17 09:00 Dose: Admin: 10/31/17 22:04 Dose: 30 mg Levetiracetam (Keppra) 250 mg PO BID [facility] Last Admin: 11/01/17 22:47 Dose: 250 mg Admin: 11/01/17 09:00 Dose: Admin: 10/31/17 22:04 Dose: 250 mg Lisinopril (Zestril) 20 mg PO HS [facility] Last Admin: 11/01/17 23:14 Dose: Not Given Admin: 10/31/17 22:06 Dose: 20 mg Methocarbamol (Robaxin) 750 mg PO Q6HP PRN PRN Reason: Muscle Spasm Last Admin: 11/02/17 00:39 Dose: 750 mg Metoclopramide HCl (Reglan) 10 mg PO TIDAC [facility] Last Admin: 11/02/17 07:55 Dose: 10 mg Admin: 11/01/17 17:27 Dose: 10 mg Admin: 11/01/17 11:15 Dose: 10 mg Admin: 11/01/17 07:18 Dose: 10 mg Admin: 10/31/17 17:05 Dose: 10 mg Oxycodone/Acetaminophen (Percocet 5-325 Mg) 0 tab PO Q4HP PRN PRN Reason: PAIN LEVEL 3-6 Last Admin: 11/01/17 22:44 Dose: 1 tab Admin: 11/01/17 16:20 Dose: 1 tab Admin: 11/01/17 07:30 Dose: 1 tab Admin: 11/01/17 02:59 Dose: 1 tab Admin: 10/31/17 18:04 Dose: 1 tab Pantoprazole Sodium (Protonix) 40 mg PO QAMAC [facility] Last Admin: 11/02/17 07:55 Dose: 40 mg Admin: 11/01/17 07:18 Dose: 40 mg Pramipexole Dihydrochloride (Mirapex) 0.25 mg PO TID [facility] Last Admin: 11/01/17 22:52 Dose: 0.25 mg Admin: 11/01/17 16:20 Dose: 0.25 mg Admin: 11/01/17 09:00 Dose: Admin: 10/31/17 22:06 Dose: 0.25 mg Senna (Senokot) 2 tab PO HS [facility] Last Admin: 11/01/17 22:50 Dose: 2 tab Admin: 10/31/17 22:06 Dose: 2 tab Sodium Chloride (Saline Flush) 10 ml IV Q8 [facility] Last Admin: 11/02/17 06:48 Dose: Admin: 11/02/17 00:21 Dose: Admin: 11/01/17 14:11 Dose: Admin: 11/01/17 05:40 Dose: Not Given Admin: 10/31/17 22:07 Dose: Torsemide (Demadex) 60 mg PO DAILY [facility] Last Admin: 11/01/17 16:21 Dose: 60 mg Shift Summary 11/02/17 05:23 Shift Summary by Shelby Butts&Lavell4. BP was low at beginning of shift d/t dialysis tx; last set of vitals WNL. Shadow drainage noted to surgical dressing to left stump. Mepilex border in place to right stump. Patient was incontinent throughout shift. Medicated with 1 tablet Percocet 5/325mg x1 and Robaxin 750mg x1 for pain and spams. Plan is for patient to d/c home today; may possibly have another inpatient dialysis tx prior to discharge. Will update at bedside. Initialized on 11/02/17 05:23 - END OF NOTE
[2017-11-02] MEDS: CARVEDILOL 12.5 MG TABLET PO SCH ×2 (10:12→17:46)
[2017-11-02] MEDS: PRAMIPEXOLE 0.25 MG TABLET PO SCH ×3 (10:37→21:39)
[2017-11-02] MEDS: oxyCODONE/APAP 5/325MG TABLET PO PRN (12:53)
[2017-11-02] MEDS: CLOPIDOGREL 75 MG TABLET PO SCH (15:24)
[2017-11-02] MEDS: TORSEMIDE 10 MG TABLET PO SCH (15:24)
[2017-11-02] MEDS: ASPIRIN 81 MG TAB.CHEW PO SCH (15:24)
[2017-11-02] MEDS: DOCUSATE SODIUM 100 MG CAPSULE PO SCH ×2 (15:24→21:37)
[2017-11-02] MEDS: clonazePAM 0.5 MG TABLET PO SCH (15:24)
--- NOTE | 2017-11-02 16:59 | Internal Med Progress Note ---
Medical - PN: Subj Patient information: Note initiated : 11/02/17 at 4:56 pm Service Date, if different from initiated Date: [] Patient: Tamica Tidwell 67 y/o F admitted on 10/31/17 for Left Above Knee Amputation. Chief Complaint: f/u AKA Interval history: Dr. Higgins has asked for assistance in managing diabetes and medical illness. Patient chart reviewed yesterday evening, seen this morning. Patient 67-year-old female with history of vascular disease, type 2 diabetes, status post right above-knee amputation, now status post left AKA due to non- healing wounds at existing BKA yesterday. The patient is in pretty good spirits this morning. Appetite is improved. She clearly feels better than when I last saw her about a month ago when she was recovering from C. difficile and influenza. Denies any dyspnea, no chest pain. Some pain at the amputation site, but it is being controlled. She normally gets HD on , but missed yesterday due to surgery. Discussed with Dr. Valles, who will see for dialysis orders. 2/3 Status post dialysis today. Some postoperative pain. No dyspnea. Otherwise doing fairly well. Home caregivers are not available to resume care until Saturday. - Constitutional Vitals: Vital Signs Temp Pulse Resp BP Pulse Ox 99.8 F H 88 14 140/56 98 11/02/17 15:17 11/02/17 15:17 11/02/17 15:17 11/02/17 15:17 11/02/17 15:17 Period Temp Pulse Resp BP Sys/Pichardo Pulse Ox Last 24 Hr 97.8 F-99.8 F 66-95 14-20 97-170/44-80 95-98 Intake and Output 11/02/17 11/02/17 11/02/17 05:59 13:59 21:59 Intake Total 780 / 780 360 / 360 Output Total Balance 779 / 779 360 / 360 - Intake & Output: Intake & Output 11/02/17 11/02/17 11/02/17 05:59 13:59 21:59 Intake Total 780 / 780 360 / 360 Output Total Balance 779 / 779 360 / 360 - Intake: Oral 780 / 780 360 / 360 Output: # of times incontinent of urine Other: Meal Jello Breakfast Percent of Meal Consumed 100% 25% Feeding Ability Independent Exam: General: In no acute distress Chest: Clear, unlabored Cardiovascular: Regular, murmur present Abdomen: Soft, nontender Extremities: Left AKA surgical dressing in place. Neuro: Alert, Oriented Medical - PN: Obj Da - Labs CBC & Chem 7: 11/02/17 05:23 11/02/17 05:23 Labs: Abnormal Lab Results 11/02/17 11/02/17 11/01/17 05:23 05:23 05:57 Hgb 8.5 L 8.5 L Hct 25.3 L 25.1 L BUN 28 H Creatinine 1.7 H Glucose 54 L Calcium 8.3 L Urine Protein Ur Leukocyte Esterase Urine WBC Urine Bacteria 10/31/17 10:26 Hgb Hct BUN Creatinine Glucose Calcium Urine Protein >=500 A Ur Leukocyte Esterase 500 A Urine WBC 130 H Urine Bacteria Many A Microbiology 10/31/17 10:25 Urine Culture - Preliminary Urine - Catheterized Gram negative bacillus Gram negative bacillus#2 Meds: Medications Amlodipine Besylate (Norvasc) 10 mg PO [facility] Last Admin: 11/01/17 23:14 Dose: Not Given Aspirin (Aspirin) 81 mg PO DAILY [facility] Last Admin: 11/02/17 15:24 Dose: 81 mg Atorvastatin Calcium (Lipitor) 20 mg PO [facility] Last Admin: 11/01/17 22:51 Dose: 20 mg Bisacodyl (Dulcolax) [address] Q2-3DAYS PRN PRN Reason: Constipation [facility] Last Admin: 11/02/17 10:12 Dose: Not Given Clonazepam (Klonopin) 0.5 mg PO DAILY [facility] Last Admin: 11/02/17 15:24 Dose: 0.5 mg Clopidogrel Bisulfate (Plavix) 75 mg PO DAILY [facility] Last Admin: 11/02/17 15:24 Dose: 75 mg Dextrose (Dextrose 50%) 0 ml IV UD PRN PRN Reason: Hypoglycemia Diagnostic Test (Pha) (Accu-Chek) 1 each FS ACHS [facility] Last Admin: 11/02/17 15:23 Dose: 1 each Docusate Sodium (Colace) 100 mg PO BID [facility] Last Admin: 11/02/17 15:24 Dose: 100 mg Glucose (Insta-Glucose) 15 gm PO PRN PRN PRN Reason: Hypoglycemia Sodium Chloride (Sodium Chloride 0.9%) 1,000 mls @ 25 mls/hr IV .Q24H [facility] Last Admin: 11/01/17 23:14 Dose: Not Given Insulin Glargine (Lantus) 8 unit SQ [facility] Last Admin: 11/01/17 22:55 Dose: 8 unit Insulin Human Lispro (Humalog) 0 unit SQ [facility] PRN Reason: Protocol Last Admin: 11/02/17 15:25 Dose: Not Given Isosorbide Mononitrate (Imdur) 30 mg PO BID [facility] Last Admin: 11/02/17 09:00 Dose: Not Given Levetiracetam (Keppra) 250 mg PO BID [facility] Last Admin: 11/02/17 09:00 Dose: Not Given Lisinopril (Zestril) 20 mg PO [facility] Last Admin: 11/01/17 23:14 Dose: Not Given Magnesium Hydroxide (Milk Of Magnesia) 30 ml PO BIDP PRN PRN Reason: Constipation Methocarbamol (Robaxin) 750 mg PO Q6HP PRN PRN Reason: Muscle Spasm Last Admin: 11/02/17 00:39 Dose: 750 mg Metoclopramide HCl (Reglan) 10 mg PO TIDAC [facility] Last Admin: 11/02/17 15:25 Dose: Not Given Morphine Sulfate (Morphine) 0 mg IV Q1HP PRN PRN Reason: PAIN LEVEL > 6 Ondansetron HCl (Zofran) 4 mg IV Q4HP PRN PRN Reason: Nausea And Vomiting Oxycodone/Acetaminophen (Percocet 5-325 Mg) 0 tab PO Q4HP PRN PRN Reason: PAIN LEVEL 3-6 Last Admin: 11/02/17 12:53 Dose: 1 tab Pantoprazole [facility]) [facility] Last Admin: 11/02/17 07:55 Dose: 40 mg Polyethylene Glycol (Miralax) 17 gm PO DAILYP PRN PRN Reason: Constipation Pramipexole Dihydrochloride (Mirapex) 0.25 mg PO TID [facility] Last Admin: 11/02/17 15:24 Dose: 0.25 mg Senna (Senokot) 2 tab PO [facility] Last Admin: 11/01/17 22:50 Dose: 2 tab Sodium Biphosphate/Sodium Phosphate (Fleets Adult) [address] Q3-4DAYS PRN PRN Reason: Constipation Sodium Chloride (Saline Flush) 10 ml IV Q8 [facility] Last Admin: 11/02/17 13:30 Dose: Not Given Throat Lozenges (Cepacol) 1 lozenge PO PRN PRN PRN Reason: Sore Throat Torsemide (Demadex) 60 mg PO DAILY [facility] Last Admin: 11/02/17 15:24 Dose: 60 mg Medical - PN: A/P - Narrative A/P Narrative: 67-year-old female multiple medical problems, now status post above knee amputation left, postop day #1. Type 2 diabetes mellitus. Renal/controlled carbohydrate diet has been ordered. She is on her home long-acting insulin, sliding scale has been added. Plan: Continue with long-acting, sliding scale, diabetic diet Urinary tract infection. Significant colonies of 2 different gram-negative rods growing from catheterized specimen. Plan: Begin ceftriaxone, follow-up sensitivities. End-stage renal disease. Status post HD yesterday and today. Plan: Scheduled HD per renal. Coronary artery disease. Quiescent. Plan: Continue home regimen. Peripheral arterial disease, status post now AKA on the left lower extremity. Plan: Per orders. History of C. difficile associated diarrhea. No current symptoms. Plan: Monitor, minimize antibiotic exposure. Disposition: Will follow up urine sensitivities for final antibiotic choice, will need home caregivers in place prior to discharge. Working with discharge planning. Probably on Saturday. We'll continue to follow.
[2017-11-02] MEDS: 0.9 % SODIUM CHLORIDE 1,000 ML IV SCH (19:05)
[2017-11-02] MEDS: cefTRIAXone 1 GM VIAL IV SCH (19:17)
[2017-11-02] MEDS: ATORVASTATIN 20 MG TABLET PO SCH (21:38)
[2017-11-02] MEDS: INSULIN GLARGINE, HUMAN 1 UNIT/0.01 ML SQ SCH (21:38)
[2017-11-02] MEDS: SENNOSIDES 1 TABLET PO SCH (21:39)
[2017-11-02] MEDS: amLODIPine 10 MG TABLET PO SCH (21:39)
[2017-11-02] MEDS: LISINOPRIL 20 MG TABLET PO SCH (21:39)
[2017-11-03] MEDS: 0.9 % SODIUM CHLORIDE 10 ML SYRINGE IV SCH ×3 (06:19→21:14)
[2017-11-03] MEDS: INSULIN LISPRO 1 UNIT/0.01 ML UNIT SQ SCH ×4 (07:29→21:13)
[2017-11-03] MEDS: CARVEDILOL 12.5 MG TABLET PO SCH ×2 (07:31→17:00)
[2017-11-03] MEDS: METOCLOPRAMIDE 10 MG TABLET PO SCH ×3 (07:31→17:00)
[2017-11-03] MEDS: PANTOPRAZOLE 40 MG TABLET PO SCH (07:33)
--- NOTE | 2017-11-03 08:52 | Orthopedic Progress Note ---
Subjective Patient information: Note initiated : 11/03/17 at 8:52 am Service Date, if different from initiated Date: [] Patient: Tamica Tdiwell 67 y/o F admitted on 10/31/17 for Left Above Knee Amputation. Chief Complaint: [POD #3 s/p left AKA Patient is resting comfortably in bed this morning. She has moderate pain in her left leg but is tolerating it ok. She has no questions or concerns at this time. She denies chest pain and SOB.] Objective Vital signs: Vital Signs Temp Pulse Pulse Resp BP BP Pulse Ox 11/03/17 06:29 97.9 F 20 107/55 95 11/03/17 03:47 98.4 F 73 16 111/58 94 11/02/17 23:17 98.2 F 79 16 109/54 94 11/02/17 20:00 98.4 F 76 16 126/68 96 11/02/17 15:17 99.8 F H 88 14 140/56 98 11/02/17 13:59 99.2 F H 95 H 142/52 11/02/17 13:25 94 H 138/64 11/02/17 13:21 91 H 142/55 11/02/17 12:56 94 H 157/62 11/02/17 12:25 88 170/61 11/02/17 12:00 98.3 F 16 102/60 96 11/02/17 11:55 89 165/64 11/02/17 11:26 89 165/63 11/02/17 10:36 85 156/66 11/02/17 10:32 97.8 F 80 153/59 Intake and Output 11/02/17 11/03/17 11/03/17 21:59 05:59 13:59 Intake Total 320 / 320 420 / 420 Output Total Balance 319 / 319 419 / 419 Intake: Oral 320 / 320 420 / 420 Output: # of times incontinent of urine Other: Meal Dinner Percent of Meal Consumed Refused Weight 100 lb 8 oz Intake & Output: Intake & Output 11/02/17 11/03/17 11/03/17 21:59 05:59 13:59 Intake Total 320 / 320 420 / 420 Output Total Balance 319 / 319 419 / 419 Weight 100 lb 8 oz Intake: Oral 320 / 320 420 / 420 Output: # of times incontinent of urine Other: Meal Dinner Percent of Meal Consumed Refused Incision: Yes healing, Yes clean and dry Incision clean and dry: Yes Dressing: Yes clean, Yes dry, Yes intact Weight bearing status: non Neurological exam IM: Yes alert, Yes oriented X3, Yes motor sensory intact, Yes neurovascular intact - [place]hal Pulses Peripheral pulses: 2+: radial (L), radial (R) - Labs CBC & BMP: 11/03/17 05:00 11/02/17 05:23 Labs: Orthopedic Labs 11/03/17 11/02/17 11/01/17 05:00 05:23 05:57 PT 13.9 14.1 14.3 INR 1.0 1.1 1.1 10/29/17 14:36 PT 13.5 INR 1.0 11/03/17 11/02/17 11/01/17 05:00 05:23 05:57 Hgb 7.9 L 8.5 L 8.5 L Hct 23.5 L 25.3 L 25.1 L 10/29/17 14:36 Hgb 10.8 L Hct 31.9 L Assessment and Plan (1) Above knee amputation of left lower extremity Assessment: POD #3 s/p left above the knee amputation Plan: d/c to home with home health likely Saturday. Patient waiting on ride from [facility] to go home keep dressing in place. On 11/07 may replace Koban with AMIRA wrap. Keep clean and dry. F/u w/ Dr. Higgins in 10-12 days for f/u pain control with Percocet. Rx given Status: Acute
[2017-11-03] MEDS: cefTRIAXone 1 GM VIAL IV SCH (09:03)
[2017-11-03] MEDS: ISOSORBIDE MONONITRATE 30 MG TAB.XL.24H PO SCH ×2 (09:04→21:10)
[2017-11-03] MEDS: levETIRAcetam 500 MG TABLET PO SCH ×2 (09:04→21:10)
[2017-11-03] MEDS: TORSEMIDE 10 MG TABLET PO SCH (09:04)
[2017-11-03] MEDS: DOCUSATE SODIUM 100 MG CAPSULE PO SCH ×2 (09:05→21:10)
[2017-11-03] MEDS: CLOPIDOGREL 75 MG TABLET PO SCH (09:05)
[2017-11-03] MEDS: clonazePAM 0.5 MG TABLET PO SCH (09:05)
[2017-11-03] MEDS: PRAMIPEXOLE 0.25 MG TABLET PO SCH ×3 (09:05→21:10)
[2017-11-03] MEDS: ASPIRIN 81 MG TAB.CHEW PO SCH (09:12)
--- NOTE | 2017-11-03 19:15 | Internal Med Progress Note ---
Medical - PN: Subj Patient information: Note initiated : 11/03/17 at 7:12 pm Service Date, if different from initiated Date: [] Patient: Tamica Tidwell a 67 y/o F admitted on 10/31/17 for Left Above Knee Amputation. Chief Complaint: f/u AKA, DM, ESRD Interval history: Dr. Higgins has asked for assistance in managing diabetes and medical illness. Patient chart reviewed yesterday evening, seen this morning. Patient 67-year-old female with history of vascular disease, type 2 diabetes, status post right above-knee amputation, now status post left AKA due to non- healing wounds at existing BKA yesterday. The patient is in pretty good spirits this morning. Appetite is improved. She clearly feels better than when I last saw her about a month ago when she was recovering from C. difficile and influenza. Denies any dyspnea, no chest pain. Some pain at the amputation site, but it is being controlled. She normally gets HD on , but missed yesterday due to surgery. Discussed with Dr. Valles, who will see for dialysis orders. 2/3 Status post dialysis today. Some postoperative pain. No dyspnea. Otherwise doing fairly well. Home caregivers are not available to resume care until Saturday. 2/4-stable. Not much pain at surgical site. No new complaints. - Constitutional Vitals: Vital Signs Temp Pulse Resp BP Pulse Ox 97.6 F 73 20 109/61 94 11/03/17 15:28 11/03/17 03:47 11/03/17 15:28 11/03/17 15:28 11/03/17 15:28 Period Temp Pulse Resp BP Sys/Pichardo Pulse Ox Last 24 Hr 97.6 F-98.5 F 73-79 16-20 107-126/54-68 93-96 Intake and Output 11/03/17 11/03/17 11/03/17 05:59 13:59 21:59 Intake Total 420 / 420 180 / 180 Output Total 2 / 2 Balance 419 / 419 178 / 178 Intake & Output: Intake & Output 11/03/17 11/03/17 11/03/17 05:59 13:59 21:59 Intake Total 420 / 420 180 / 180 Output Total 2 / 2 Balance 419 / 419 178 / 178 Intake: Oral 420 / 420 180 / 180 Output: # of times incontinent of urine 2 Exam: General: Awake, no distress Chest: Clear, no rales Cardiovascular: Regular. Abdomen: Soft, active bowel sounds Extremities: Left BKA dressings are dry. Neuro: Alert, oriented Medical - PN: Obj Da - Labs CBC & Chem 7: 11/03/17 05:00 11/02/17 05:23 Labs: Abnormal Lab Results 11/03/17 11/02/17 11/02/17 05:00 05:23 05:23 Hgb 7.9 L 8.5 L Hct 23.5 L 25.3 L BUN 28 H Creatinine 1.7 H Glucose 54 L Calcium 8.3 L 11/01/17 05:57 Hgb 8.5 L Hct 25.1 L BUN Creatinine Glucose Calcium Microbiology 10/31/17 10:25 Urine Culture - Final Urine - Catheterized Raoultella ornithinolytica Escherichia coli Meds: Medications Amlodipine Besylate (Norvasc) 10 mg PO [facility] Last Admin: 11/02/17 21:39 Dose: 10 mg Aspirin (Aspirin) 81 mg PO DAILY [facility] Last Admin: 11/03/17 09:12 Dose: 81 mg Atorvastatin Calcium (Lipitor) 20 mg PO [facility] Last Admin: 11/02/17 21:38 Dose: 20 mg Bisacodyl (Dulcolax) 10 mg MD Q2-3DAYS PRN PRN Reason: Constipation Carvedilol (Coreg) 25 mg PO BIDCC [facility] Last Admin: 11/03/17 17:00 Dose: 25 mg Ceftriaxone Sodium (Rocephin) 1 gm IV Q24H [facility] Last Admin: 11/03/17 09:03 Dose: 1 gm Clonazepam (Klonopin) 0.5 mg PO DAILY [facility] Last Admin: 11/03/17 09:05 Dose: 0.5 mg Clopidogrel Bisulfate (Plavix) 75 mg PO DAILY [facility] Last Admin: 11/03/17 09:05 Dose: 75 mg Dextrose (Dextrose 50%) 0 ml IV UD PRN PRN Reason: Hypoglycemia Diagnostic Test (Pha) (Accu-Chek) 1 each FS ACHS [facility] Last Admin: 11/03/17 16:55 Dose: 1 each Docusate Sodium (Colace) 100 mg PO BID [facility] Last Admin: 11/03/17 09:05 Dose: 100 mg Glucose (Insta-Glucose) 15 gm PO PRN PRN PRN Reason: Hypoglycemia Insulin Glargine (Lantus) 8 unit SQ [facility] Last Admin: 11/02/17 21:38 Dose: Not Given Insulin Human Lispro (Humalog) 0 unit SQ [facility] PRN Reason: Protocol Last Admin: 11/03/17 16:55 Dose: Not Given Isosorbide Mononitrate (Imdur) 30 mg PO BID [facility] Last Admin: 11/03/17 09:04 Dose: 30 mg Levetiracetam (Keppra) 250 mg PO BID [facility] Last Admin: 11/03/17 09:04 Dose: 250 mg Lisinopril (Zestril) 20 mg PO [facility] Last Admin: 11/02/17 21:39 Dose: 20 mg Magnesium Hydroxide (Milk Of Magnesia) 30 ml PO BIDP PRN PRN Reason: Constipation Methocarbamol (Robaxin) 750 mg PO Q6HP PRN PRN Reason: Muscle Spasm Last Admin: 11/02/17 00:39 Dose: 750 mg Metoclopramide HCl (Reglan) 10 mg PO TIDAC [facility] Last Admin: 11/03/17 17:00 Dose: 10 mg Morphine Sulfate (Morphine) 0 mg IV Q1HP PRN PRN Reason: PAIN LEVEL > 6 Ondansetron HCl (Zofran) 4 mg IV Q4HP PRN PRN Reason: Nausea And Vomiting Oxycodone/Acetaminophen (Percocet 5-325 Mg) 0 tab PO Q4HP PRN PRN Reason: PAIN LEVEL 3-6 Last Admin: 11/02/17 12:53 Dose: 1 tab Pantoprazole [facility]) [facility] Last Admin: 11/03/17 07:33 Dose: 40 mg Polyethylene Glycol (Miralax) 17 gm PO DAILYP PRN PRN Reason: Constipation Pramipexole Dihydrochloride (Mirapex) 0.25 mg PO TID [facility] Last Admin: 11/03/17 14:35 Dose: 0.25 mg Senna (Senokot) 2 tab PO [facility] Last Admin: 11/02/17 21:39 Dose: 2 tab Sodium Biphosphate/Sodium Phosphate (Fleets Adult) 1 dose MD Q3-4DAYS PRN PRN Reason: Constipation Sodium Chloride (Saline Flush) 10 ml IV Q8 [facility] Last Admin: 11/03/17 14:35 Dose: 10 ml Throat Lozenges (Cepacol) 1 lozenge PO PRN PRN PRN Reason: Sore Throat Torsemide (Demadex) 60 mg PO DAILY [facility] Last Admin: 11/03/17 09:04 Dose: 60 mg Medical - PN: A/P - Time Spent With Patient Total time spent is greater than 50% in coordination of care (as documented) at patient's floor/unit and/or counseling patient: 25 - 35 minutes - Narrative A/P Narrative: 67-year-old female multiple medical problems, now status post above knee amputation left, postop day #1. Type 2 diabetes mellitus. Renal/controlled carbohydrate diet has been ordered. She is on her home long-acting insulin, sliding scale has been added. Plan: Continue with long-acting, sliding scale, diabetic diet Urinary tract infection. Two different pathogens, as above. Sensitive to most antibiotics. Plan: Stop ceftriaxone, use cephalexin as first as third-generation or fluoroquinolones. End-stage renal disease. Status post HD Fri and Sat. Plan: Scheduled HD per renal. Coronary artery disease. Quiescent. Plan: Continue home regimen. Peripheral arterial disease, status post now AKA on the left lower extremity. Plan: Per ortho. History of C. difficile associated diarrhea. No current symptoms. Plan: Monitor, minimize antibiotic exposure, change as above to Rx UTI. Disposition: Probably on Saturday. We'll continue to follow.
[2017-11-03] MEDS: amLODIPine 10 MG TABLET PO SCH (21:10)
[2017-11-03] MEDS: SENNOSIDES 1 TABLET PO SCH (21:10)
[2017-11-03] MEDS: ATORVASTATIN 20 MG TABLET PO SCH (21:10)
[2017-11-03] MEDS: LISINOPRIL 20 MG TABLET PO SCH (21:10)
[2017-11-03] MEDS: INSULIN GLARGINE, HUMAN 1 UNIT/0.01 ML SQ SCH (21:13)
[2017-11-04] MEDS: 0.9 % SODIUM CHLORIDE 10 ML SYRINGE IV SCH (04:47)
[2017-11-04] MEDS: INSULIN LISPRO 1 UNIT/0.01 ML UNIT SQ SCH (07:35)
[2017-11-04] MEDS: CARVEDILOL 12.5 MG TABLET PO SCH (07:52)
[2017-11-04] MEDS: PANTOPRAZOLE 40 MG TABLET PO SCH (07:52)
[2017-11-04] MEDS: METOCLOPRAMIDE 10 MG TABLET PO SCH (07:52)
[2017-11-04] MEDS ORDERED: CEPHALEXIN 250 MG CAPSULE PO SCH (09:00)
[2017-11-04 09:11] LABS: Blood Urea Nitrogen 27 mg/dl (8-23)
--- NOTE | 2017-11-04 09:17 | Discharge Summary ---
Medical - DS: Prov Patient information: Note initiated : 11/04/17 at 9:14 am Service Date, if different from initiated Date: [] Patient: Tamica Tidwell 67 y/o F admitted on 10/31/17 for Left Above Knee Amputation. Date of admission: 10/31/17 09:16 Discharge date: 11/04/17 Primary care physician: Elizabeth Mccann Admitting clinician: Trey Higgins Consults: 11/01/17 10:16 Consult to Physician [CONS] Routine Comment: consult Consulting Provider: Avani Scott Reason For Exam: Physician to Consult Discharging clinician: Avani Scott Medical - DS: Meds - Discharge Medications Prescriptions: Cephalexin [Keflex] 250 mg PO BID #8 cap Methocarbamol [Robaxin] 750 mg PO Q6HP PRN #60 tab PRN Reason: Muscle Spasm oxyCODONE/APAP [Percocet 5-325 mg] 1 - 2 tab PO Q4-6HP PRN #60 tab PRN Reason: Pain Level 3-6 Active and Home Medications: Home Medications Atorvastatin [Lipitor] 20 mg PO HS 08/09/15 [History Confirmed 10/31/17 Last Taken 10/30/17 21:00] Carvedilol [Coreg] 25 mg PO BIDCC 08/09/15 [History Confirmed 10/31/17 Last Taken 10/30/17 21:00] Metoclopramide HCl [Metozolv Odt] 10 mg PO TIDAC 08/09/15 [History Confirmed 10/17 Last Taken 10/30/17 21:00] Pantoprazole [Protonix] 40 mg PO QAMAC 08/09/15 [History Confirmed 10/31/17 Last Taken 10/30/17 08:00] Clopidogrel Bisulfate [Plavix] 75 mg PO DAILY 02/23/16 [History Confirmed Last Taken 10/25/17] amLODIPine [Norvasc] 10 mg PO HS 02/23/16 [History Confirmed 10/31/17 Last Taken 10/30/17 21:00] Isosorbide Mononitrate [Isosorbide Mononitrate ER] 30 mg PO BID 01/08/17 [ History Confirmed 10/31/17 Last Taken 10/30/17 21:00] Torsemide [Demadex] 60 tablet PO DAILY 01/08/17 [History Confirmed 10/31/17 Last Taken 10/30/17 08:00] Lisinopril [Zestril] 20 mg PO HS 04/18/17 [History Confirmed 10/31/17 Last Taken 10/30/17 21:00] Aspirin 81 mg PO DAILY 09/25/17 [History Confirmed 10/31/17 Last Taken 10/25/17 08:00] Insulin Lispro [Humalog] See Protocol SQ [facility] 10/04/17 [History Confirmed Last Taken 10/25/17] Insulin Glargine, Human [Lantus] 8 unit SQ [facility] 10/29/17 [History Confirmed Last Taken 10/30/17 21:00] Pramipexole [Mirapex] 0.25 mg PO TID 10/29/17 [History Confirmed 10/31/17 Last Taken 10/30/17] levETIRAcetam [Levetiracetam] 250 mg PO BID 10/29/17 [History Confirmed Last Taken 10/30/17 21:00] clonazePAM [Klonopin] 0.5 mg PO DAILY 10/31/17 [History Confirmed 10/31/17 Last Taken Unknown] Methocarbamol [Robaxin] 750 mg PO Q6HP PRN #60 tab 11/02/17 [Rx Last Taken Unknown] oxyCODONE/APAP [Percocet 5-325 mg] 1 - 2 tab PO Q4-6HP PRN #60 tab 11/02/17 [Rx Last Taken Unknown] Cephalexin [Keflex] 250 mg PO BID #8 cap 11/04/17 [Rx Last Taken Unknown] Medical - DS: Hosp Hospital course: Dr. Higgins admitted the patient to the hospital following a left above knee amputation. Medicine was consult to help manage her multiple medical problems including diabetes and end-stage renal disease. She did well postoperatively from a surgical standpoint. Pain was controlled postoperatively. She received hemodialysis, was seen by Dr. Valles who arranged dialysis orders. Patient remained hospitalized until safe discharge plan was in place. For the last 2 hospital days she was stable without significant complaints. Caregivers have been put back in place, transportation arranged and home health has been reordered for her. The patient will be discharged back to home, where she has caregivers and home health. Postsurgical instructions have been given, as outlined in the orthopedic discharge note from a few days ago. Patient is also found to have urinary tract infection. She'll receive 1 week of antibiotics, completing the course with cephalexin 250 mg by mouth twice a day, renally dosed. Discharge diagnosis: Left above knee amputation Secondary discharge diagnosis: Urinary tract infection with E. coli and Raoultella ornithinolytica ESRD Type 2 DM PVD CAD HTN - Time Spent with Patient Total time spent providing and/or coordinating discharge services: Greater than 30 minutes Medical - DS: Exam - Constitutional Vitals: Vital Signs Temp Pulse Resp BP Pulse Ox 11/04/17 07:59 97.9 F 67 16 142/58 93 11/04/17 04:00 98.6 F 78 18 115/50 91 11/04/17 00:00 98.6 F 69 18 122/56 90 11/03/17 19:47 97.6 F 68 18 125/50 92 11/03/17 15:28 97.6 F 20 109/61 94 11/03/17 11:08 98.5 F 16 115/68 93 Intake and Output 11/03/17 11/04/17 11/04/17 21:59 05:59 13:59 Intake Total 180 / 180 650 / 650 Output Total Balance 178 / 178 649 / 649 Intake: Oral 180 / 180 650 / 650 Output: # of times incontinent of urine Other: Weight 100 lb 8 oz 100 lb 8 oz Additional comments: General: In no acute distress, pretty good spirits, looking forward to going home Chest: Few basilar rales, nonlabored respirations Cardio vascular: Regular with murmur, unchanged Abdomen: Soft nontender Extremities: Left AKA bandage with clean and dry bandages Neuro: Alert, orientedx3 Medical - DS: Data Procedures and tests throughout hospitalization: Date of procedure: 10/31/17 Pre-op diagnosis: PVD Post-op diagnosis: same Procedure: left AKA Grafts/Implants: No Anesthesia: GETA Surgeon: Trey Higgins Rn Advanced: Caitie Mccarty Estimated blood loss (cc): 200 Tourniquet Time (Minutes): 8 Specimens Removed/Pathology: none sent Condition: stable Disposition: PACU Labs on day of discharge: Labs from last 24 hours 11/04/17 11/04/17 06:25 06:25 PT Pending INR Pending Sodium 137 Potassium 3.6 Chloride 97 Carbon Dioxide 27 Anion Gap 13.0 BUN 27 H Creatinine 2.1 H GFR Calculation 24 Glucose 98 Calcium 8.5 L Microbiology 10/31/17 10:25 Urine - Catheterized Urine Culture - Final Raoultella ornithinolytica Escherichia coli Medical - DS: A/P - Patient/Caregiver Discharge Instructions Activity: increase activity as tolerated Diet: Renal/Consistent Carbs Additional Instructions: Resume home diet as tolerated. Non-weight bearing to left extremity. Turn every 2 hours to prevent pressure injuries. Keep dressing clean dry and intact. No bathing or soaking. You may shower with bag over leg or sponge bathe. On 11/07, you may remove coban (brown) outer layer, leave gauze in place and rewrap with AMIRA wrap to left above the knee surgical site. Prescriptions: Cephalexin [Keflex] 250 mg PO BID #8 cap Methocarbamol [Robaxin] 750 mg PO Q6HP PRN #60 tab PRN Reason: Muscle Spasm oxyCODONE/APAP [Percocet 5-325 mg] 1 - 2 tab PO Q4-6HP PRN #60 tab PRN Reason: Pain Level 3-6 - Follow up Plan Follow up with: Trey Higgins MD [Physician] - 11/11/17 11:20 am Booker Zuniga PA-C [Physician Rn Advanced] - 11/11/17 11:20 am Disposition: Home Health Service Prognosis: Fair Rehab Potential: Fair Overall status at discharge: patient is progressing back to baseline
[2017-11-04] MEDS: ASPIRIN 81 MG TAB.CHEW PO SCH (10:01)
[2017-11-04] MEDS: TORSEMIDE 10 MG TABLET PO SCH (10:01)
[2017-11-04] MEDS: PRAMIPEXOLE 0.25 MG TABLET PO SCH (10:02)
[2017-11-04] MEDS: ISOSORBIDE MONONITRATE 30 MG TAB.XL.24H PO SCH (10:02)
[2017-11-04] MEDS: DOCUSATE SODIUM 100 MG CAPSULE PO SCH (10:02)
[2017-11-04] MEDS: CLOPIDOGREL 75 MG TABLET PO SCH (10:02)
[2017-11-04] MEDS: clonazePAM 0.5 MG TABLET PO SCH (10:02)
[2017-11-04] MEDS: levETIRAcetam 500 MG TABLET PO SCH (10:02)
== END 2017-11-04 10:35 | disposition home health service (06) | DRG 239 ==
LOC: MEDSUR 09:16 → SUATTDRO 09:16
PROVIDERS: ADMIT Orthopaedic Surgery Foot and Ankle Surgery; ATTEND Internal Medicine